=== PATIENT | male | born 1960 | race Caucasian/White ===

== ENCOUNTER 2022-04-30 02:19 | Outpatient (CLI) | payer BC, SELFPAY ==
--- OUTSIDE RECORDS SUMMARY | 2022-04-30 02:34 | XMS_ITS | Encounter Summary ---
:1960 Author Organization [facility] [place] [address] Care Team Providers Name Role Phone Tip Red DO Primary Care Provider Reason for Visit Reason Comments Establish Care NXR: RT KNEE INJECTION; W/C DOI 05.04.18 (conte/saturnino patient) Encounter Details Date Type Department Care Team Description 06/12/2021 Office Visit Orthopaedics at [facility] Julieta Matias Primary osteoarthritis [facility] JOSE Mitchell [place] [address] CENTER [phone] [place] [address] Social History Tobacco Use Types Packs/Day Years Used Date Smoking Tobacco: Never Smokeless Tobacco: Former Chew Qu it: 07/06/2000 Alcohol Use Standard Drinks/Week Comments Yes 0 (1 standard drink = 0.6 oz pure alcoho l) socially Sex Assigned at Date Recorded Not on file documented as of this encounter Last Filed Vital Signs Vital Sign Reading Time Taken Comments Blood Pressure 128/76 06/12/2021 9:31 AM EST Pulse - - Temperature - - Respiratory Rate - - Oxygen Saturation - - Inhaled Oxygen Concentration - - Weight 127 kg (280 lb) 06/12/2021 9:31 AM EST Height 167.6 cm (5' 6) 06/12/2021 9:31 AM EST Body Mass Index 45.19 06/12/2021 9:31 AM EST documented in this encounter Progress Notes Julieta Matias APRN - 06/12/2021 9:40 AM EST Chief complaint: symptomatic right knee OA. Work related. Problem List Items Addressed This Visit Primary osteoarthritis of right knee Relevant Medications triamcinolone acetonide (Kenalog-40) (40 mg/mL) injection 40 mg (Completed) (Start on 06/12/2021 10:15 AM) lidocaine (Xylocaine) 1% (10 mg/mL) injection 60 mg (Completed) (Start on 06/12/2021 10:15 AM) BUpivacaine (pf) (Marcaine) (2.5 mg/mL) 0.25% injection 12.5 mg (Completed) (Start on 06/12/2021 10:15 AM) Other Relevant Orders Bursa Inject - Major (Shoulder,hip,knee) History of present illness: Kushal Keane is a 60 y.o. year-old male who is here for above. Kushal is here seeking a right knee steroid injection as an adjunct to his treatment. It has been several months since his last injection. No new injuries or falls. He feels well today with no fevers or chills. No hx of untoward side effects from steroid injections. His blood glucose is stable. No other health related issues to report at this time. Past medical history: Patient Active Problem List Diagnosis Date Noted ??? Status post surgery 12/08/2020 ??? Abdominal pannus 09/25/2020 ??? Primary osteoarthritis of right knee 12/19/2019 ??? Chronic pain of right knee 12/19/2019 ??? 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 CIS - Entered not Verified 03/24/2010 ??? CIS - Diabetes ??? CIS - Gout ??? CIS - Hypertension ??? CIS - Right shoulder pain 10/28/2008 Medications: ??? lisinopril (PRINIVIL;ZESTRIL) 20 mg Tablet ??? metFORMIN (GLUCOPHAGE) 1,000 mg Tablet ??? aspirin 81 mg Tablet, Delayed Release (E.C.) ??? fish oil-omega-3 fatty acids 1,000 mg Capsule ??? loratadine (CLARITIN) 10 mg Tablet ??? pravastatin (PRAVACHOL) 40 mg Tablet ??? celecoxib (CELEBREX) 100 mg Capsule ??? FLUoxetine (PROZAC) 40 mg Capsule ??? multivitamin (THERAGRAN) Tablet ??? glucosamine sulfate 500 mg Tablet ??? allopurinol (ZYLOPRIM) 300 mg tablet ??? acetaminophen (TYLENOL) 325 mg tablet No current facility-administered medications for this visit. Allergies: No Known Allergies Social history: Social History Tobacco Use ??? Smoking status: Never Smoker ??? Smokeless tobacco: Former User Types: Chew Substance Use Topics ??? Alcohol use: Yes Comment: socially Review of systems: No chest pain or shortness of breath No fevers, night sweats or chills Questionnaire Responses: myD-H Hip & Knee 06/12/2021 PROMIS-10 General Health Good PROMIS-10 Quality of Life Good PROMIS-10 Physical Health Good PROMIS-10 Mental Health Very Good PROMIS-10 Social Activity and Relationship Satisfaction Good PROMIS-10 Social Roles at Home and Work Good PROMIS-10 Everyday Physical Activities Moderately PROMIS-10 Anxious or Depressed last 7 days Sometimes PROMIS-10 Fatigue last 7 days Mild PROMIS-10 Pain last 7 days 8 PROMIS PHYSICAL HEALTH SCORE (range 16-68) 39.8 PROMIS MENTAL HEALTH SCORE (range 21-68) 45.8 Vital signs: Temp: -- Vitals: 06/12/21 0931 BP: 128/76 Weight: 127 kg (280 lb) Height: 167.6 cm (5' 6) Body mass index is 45.19 kg/m??. Physical Exam: 60 year old Male in NAD Right knee exam: Small flexion contracture 5 to about 120 degrees of flexion. Pain medial joint line and PF joint. + varus alignment. SLR capability intact. Skin is warm, dry and well perfused. Imaging: No new images. Assessment: 60 y.o. year-old male with symptomatic right knee moderate OA tricompartmental with varus alignment. Work related injury. Plan: I reviewed my findings in the office today with both previous x-rays and clinical exam. At this time, Ok to proceed with a right knee steroid injection. See procedure below. Tolerated well. Post injection care reviewed. Ok to use OTC analgesics PRN. Cool packs. Relative rest for a few days post injection and then advance as pain and function allow. See below notation about frequent blood glucose monitoring post injection and call PCP or internal medicine provider for any significant rise in blood glucose. Pt agrees, questions solicited/answered, will return as scheduled and as needed for concerns or questions. Pt understands they may also call us prn for above. [facility] RTW forms completed. Ok to work full duty. The patient indicates understanding of these issues and agrees with the plan. Follow up: PRN. Sooner as necessary. PROCEDURE: Right knee steroid injection: ?? We discussed with the patient the risks of this procedure include, but are not limited to increased pain, infection, bleeding, increase in blood sugars, and steroid flare. A timeout was performed at the bedside. Patient confirmed name, , allergies, and site of injection. The injection site was marked over the supero-lateral border of the patella, and prepared with Dura-prep. Using sterile gloves, a local anesthetic injection was performed using 6 ccs of 1% plain Lidocaine on a 22 gauge needle followed by 40 mg of Kenalog with 4 mL of .25% Bupivacaine on a 22 gauge needle. The procedure was well tolerated. The injection site was covered cleaned with sterile gauze and covered with a sterile band-aid. We discussed monitoring for signs and symptoms of infection which includes fevers, chills, nightsweats, injection site redness and discharge, increase in knee pain, and red, hot, and swollen knee This plan was discussed with the patient and they are in agreement. All of the patient's questions were answered. documented in this encounter Plan of Treatment Not on filedocumented as of this encounter Visit Diagnoses Diagnosis Primary osteoarthritis of right knee Primary localized osteoarthrosis, lower leg documented in this encounter Administered Medications Inactive Administered Medications - up to 3 most recent administrations Medication Order MAR Action Action Date Dose Rate Site BUpivacaine (pf) (Marcaine) (2.5 Given 06/12/2021 10:01 AM EST 1 2.5 mg mg/mL) 0.25% injection 12.5 mg 12.5 mg, Intra-articular, ONCE, 1 dose, On Tue06/12/21 at 1015, Routine lidocaine (Xylocaine) 1% (10 mg/mL) injection Given 10:01 AM EST 60 mg 60 mg 60 mg, Intra-articular, ONCE, 1 dose, On Tue06/12/21 at 1015, Routine triamcinolone acetonide (Kenalog-40) (40 Given 06/12/2021 10:01 AM EST 40 mg mg/mL) injection 40 mg 40 mg, Intra-articular, ONCE, 1 dose, On Tue06/12/21 at 1015, Routine documented in this encounter Care Teams President And Ceo Relationship Specialty Start Date End Date Tip Red DO PCP - General Family Medicine 05/12/[address] [place] [phone] documented as of this encounter
--- OUTSIDE RECORDS SUMMARY | 2022-04-30 02:34 | XMS_ITS | Encounter Summary ---
:1960 Author Organization [facility] [place] [address] Care Team Providers Name Role Phone Tip Red DO Primary Care Provider Encounter Details Date Type Department Care Team Description 08/24/2021 TH Visit Plastic Surgery at [facility] Surge [facility] follow-up (TeleHealth) [facility] MAINTENANCE DEPARTMENT TECHNICIAN [facility] [address] [place], [place] PLASTIC SURGERY [address] [place] [address] [phone] Social History Tobacco Use Types Packs/Day Years Used Date Smoking Tobacco: Never Smokeless Tobacco: Former Chew Qu it: 07/06/2000 Alcohol Use Standard Drinks/Week Comments Yes 0 (1 standard drink = 0.6 oz pure alcoho l) socially Sex Assigned at Date Recorded Not on file documented as of this encounter Patient Instructions Patient InstructionsEvMadonna berg APRN - 08/24/2021 10:21 AM EDT Follow up: 3 weeks via telehealth. May shower and wash gently with soap and water. Pat dry, allow time to air dry. Apply Mepilex. Change every other day. documented in this encounter Progress Notes Madonna Schaefer APRN - 08/24/2021 8:40 AM EDT Plastic Surgery Follow-Up Note (Telehealth) Provider: Maryanne Schaefer APRN Reason for visit: F/U status post procedure; non healing wound at incision site Date of surgery: 12/08/20 Procedure(s): panniculectomy, monsplasty, and degloving and resurfacing the penis with skin graft (Nigriny) Complications: None reported HPI: Patient reports that his wound is getting more shallow since visit in our clinic. He ordered more mepilex from [facility]. Examination: Well appearing. 3 x 2 cm superficial open wound. Wound base appears healthy. No signs of infection. Impression: Kushal Keane is a 61 y.o. male who was seen today for follow-up after the above procedure. Please see the operative note for details. He has been doing well postoperatively. Plan: Follow up: 3 weeks via telehealth. May shower and wash gently with soap and water. Pat dry, allow time to air dry. Apply Mepilex. Change every other day. documented in this encounter Plan of Treatment Not on filedocumented as of this encounter Visit Diagnoses Diagnosis Surgery follow-up Follow-up examination, following unspeci fied surgery documented in this encounter Care Teams Video Tape Editor Relationship Specialty Start Date End Date Tip Red DO PCP - General Family Medicine 05/12/[address] [place] [phone] documented as of this encounter
--- OUTSIDE RECORDS SUMMARY | 2022-04-30 02:34 | XMS_ITS | Encounter Summary ---
:1960 Author Organization [facility] [place] [address] Care Team Providers Name Role Phone Neda Tip Ornelas Primary Care Provider Reason for Visit Reason Onset Date Comments Injections 12/01/2021 Encounter Details Date Type Department Care Team Description 12/01/2021 Telephone Orthopaedics at [facility] Dash Ruffin PA Injections [facility] [place] [address] ORTHOPAEDIC SURGERY [phone] [place], [place] [address] (Wo rk) Social History Tobacco Use Types Packs/Day Years Used Date Smoking Tobacco: Never Smokeless Tobacco: Former Chew Qu it: 07/06/2000 Alcohol Use Standard Drinks/Week Comments Yes 0 (1 standard drink = 0.6 oz pure alcoho l) socially Sex Assigned at Date Recorded Not on file documented as of this encounter Miscellaneous Notes Telephone Encounter - Esau Liang - 12/01/2021 4:29 PM EDTSummary: Schedule Patient called back and was able to make the appt 12/16/21 at 9am with Lion mock, scheduled him in that slot. Telephone Encounter - Amanda Hassan - 12/01/2021 4:10 PM EDT I called patient and offered him several options for scheduling an injection. Patient was only available on very specific days. He did not want to schedule in any open slots. Telephone Encounter - Maggie Flanagan - 12/01/2021 9:51 AM EDTSummary: INJECTION NEEDED PATEINT IS REQUESTING AN INJECTION. He has seen Beulah Matias and Lion Ruffin in the past. I did not see anything for them in a timely fashion. He also wants to discuss surgical options. This is W/C. Could you recommend some times either might have that I many have missed? Patient states he is almost at the point of not being able to walk. Thank you. Best phone # to reach patient for [phone] Best days/times to schedule the appointment: FRANCIS Is it acceptable to leave a voicemail message with your appointment if we are unable to reach you directly? YES If no, what is an alternative phone number to call? [phone] Patient requests appointment for injection of the Right knee. What type of injection? Lyle NOTE: If this is a request for a fluoro guided injection, please ask the safety questions (use .fluoroschedquestion dot phrase) I will send this request to the Clinical Support team for review. Some injections require prior authorization, special orders, or an appointment somewhere other than our clinic, so knowing this in advance will help us to better meet your needs. If the injection requires prior authorization, it may take 14 or more business days before we can schedule your appointment. As soon as this service approved by the clinical support team, we will call you to schedule the appointment. Please send to the appropriate team pool to schedule documented in this encounter Plan of Treatment Not on filedocumented as of this encounter Visit Diagnoses Not on filedocumented in this encounter Care Teams Relationship Specialist Relationship Specialty Start Date End Date Tip Red DO PCP - General Family Medicine 05/12/[address] [place] [phone] documented as of this encounter
--- OUTSIDE RECORDS SUMMARY | 2022-04-30 02:34 | XMS_ITS | Encounter Summary ---
:1960 Author Organization [facility] [place] [address] Care Team Providers Name Role Phone Tip eRd DO Primary Care Provider Encounter Details Date Type Department Care Team Description 03/12/2021 Telephone [place] [facility] Arias Metcalf III, MD [facility] [place] [address] [place] [address] [phone] (Wo rk) Social History Tobacco Use Types Packs/Day Years Used Date Smoking Tobacco: Never Smokeless Tobacco: Former Chew Qu it: 07/06/2000 Alcohol Use Standard Drinks/Week Comments Yes 0 (1 standard drink = 0.6 oz pure alcoho l) socially Sex Assigned at Date Recorded Not on file documented as of this encounter Miscellaneous Notes Telephone Encounter - Mikey Gamboa - 03/12/2021 1:42 PM EDT LMOM x1 to schedule follow up with Dr. Metcalf in March documented in this encounter Plan of Treatment Not on filedocumented as of this encounter Visit Diagnoses Not on filedocumented in this encounter Care Teams Director Of Knowledge Management Relationship Specialty Start Date End Date Tip Red DO PCP - General Family Medicine 05/12/18 [address] [place] [phone] documented as of this encounter
--- OUTSIDE RECORDS SUMMARY | 2022-04-30 02:34 | XMS_ITS | Encounter Summary ---
:1960 Author Organization [facility] [place] [address] Care Team Providers Name Role Phone Tip Red DO Primary Care Provider Encounter Details Date Type Department Care Team Description 11/02/2021 TH Visit Plastic Surgery at [facility] Surge ry follow-up (TeleHealth) [facility] ADULT LITERACY INSTRUCTOR [facility] [address] [place], [place] PLASTIC SURGERY [address] [place] [address] [phone] Social History Tobacco Use Types Packs/Day Years Used Date Smoking Tobacco: Never Smokeless Tobacco: Former Chew Qu it: 07/06/2000 Alcohol Use Standard Drinks/Week Comments Yes 0 (1 standard drink = 0.6 oz pure alcoho l) socially Sex Assigned at Date Recorded Not on file documented as of this encounter Patient Instructions Patient InstructionsEvMadonna berg APRN - 11/02/2021 8:13 AM EDT Follow up: 2 weeks with PCP or wound center closer to home. Follow up in our office if unable to find wound care closer to home. Application of silver nitrate today. Continue mepilex dressing changes every other day until seen by wound care closer to home. documented in this encounter Progress Notes Madonna Schaefer APRN - 11/02/2021 8:00 AM EDT Plastic Surgery Follow-Up Note (Telehealth) Provider: Madonna Schaefer APRN Reason for visit: F/U status post procedure Date of surgery: 12/08/20 Procedure(s): panniculectomy, monsplasty, and degloving and resurfacing the penis with skin graft (Nigriny) Complications: delayed healing HPI: Patient reports being well. His wound is improving. Examination: 2 x 1 cm open area. healthy appearing wound base. No signs of infection. Impression: Kushal Keane is a 61 y.o. male with delayed healing who was seen today for follow upafter the above procedure. Wound improving. Plan: Follow up: 2 weeks with PCP or wound center closer to home. Follow up in our office if unable to find wound care closer to home. Application of silver nitrate today. Continue mepilex dressing changes every other day until seen by wound care closer to home. documented in this encounter Plan of Treatment Not on filedocumented as of this encounter Visit Diagnoses Diagnosis Surgery follow-up Follow-up examination, following unspeci fied surgery documented in this encounter Care Teams Repair Department Supervisor Relationship Specialty Start Date End Date Tip Red DO PCP - General Family Medicine 05/12/[address] [place] [phone] documented as of this encounter
--- OUTSIDE RECORDS SUMMARY | 2022-04-30 02:34 | XMS_ITS | Encounter Summary ---
:1960 Author Organization [facility] [place] [address] Care Team Providers Name Role Phone Tip Rde DO Primary Care Provider Encounter Details Date Type Department Care Team Description 12/24/2020 Clinical [address] [facility] [facility] [place] [address] Social History Tobacco Use Types Packs/Day Years Used Date Smoking Tobacco: Never Smokeless Tobacco: Former Chew Qu it: 07/06/2000 Alcohol Use Standard Drinks/Week Comments Yes 0 (1 standard drink = 0.6 oz pure alcoho l) socially Sex Assigned at Date Recorded Not on file documented as of this encounter Progress Notes Francis Mcfarland LPN - 12/24/2020 10:00 AM EDT Patient presents today for a voiding trial and catheter removal s/p panniculectomy . The patient is on Bactrim DS twice a day. All incisions well approximated. No signs of infection noted. Procedure: 120 ml normal saline instilled via black catheter. Balloon deflated. Black gently removed. Patient voided 120 ml's. All instructions and literature reviewed with patient. Patient verbalized understanding of instructions. PVR: 23cc measured in the supine position with the bladder scanner shortly after the patient had voided. documented in this encounter Plan of Treatment Not on filedocumented as of this encounter Visit Diagnoses Diagnosis Acquired buried penis Other specified disorder of penis documented in this encounter Care Teams Snout Puller Relationship Specialty Start Date End Date Tip Red DO PCP - General Family Medicine 05/12/[address] [place] [phone] documented as of this encounter
--- OUTSIDE RECORDS SUMMARY | 2022-04-30 02:34 | XMS_ITS | Encounter Summary ---
:1960 Author Organization [place] [address] Care Team Providers Name Role Phone Tip Red DO Primary Care Provider Reason for Visit Reason Comments Follow-up Encounter Details Date Type Department Care Team Description 05/05/2021 Office Visit Urology [place] [facility] Arias Metcalf Acquired buried penis [facility] [place] [address] [place] [address] [place] [address] [phone] Social History Tobacco Use Types Packs/Day Years Used Date Smoking Tobacco: Never Smokeless Tobacco: Former Chew Qu it: 07/06/2000 Alcohol Use Standard Drinks/Week Comments Yes 0 (1 standard drink = 0.6 oz pure alcoho l) socially Sex Assigned at Date Recorded Not on file documented as of this encounter Last Filed Vital Signs Vital Sign Reading Time Taken Comments Blood Pressure 123/73 05/05/2021 2:19 PM EST Pulse 82 05/05/2021 2:19 PM EST Temperature - - Respiratory Rate - - Oxygen Saturation - - Inhaled Oxygen Concentration - - Weight - - Height - - Body Mass Index - - documented in this encounter Progress Notes Kaylah Hill MD - 05/05/2021 1:40 PM EST Urology Outpatient Progress Note Abdirahman is a 60 y.o. gentleman who underwent a buried penis repair/panniculectomy with plastic surgery and a dorsal slit circumcision on 12/08/20. ?? He was seen by the plastic surgical today. The reportedly have no concerns. He was last seen by urology on 01/21/21 at which time he was noted to have some narrowing of the meatus. He think this is about the same. He reports a good stream and has no urinary complaints. He is able to stand to void. He has partial erections, but is not bothered by his ED. General: well appearing, NAD Abdomen: transverse lower abdominal incision, mildline area of superficial tear, but otherwise intact and well-healing Penis: good graft uptake, well healed, meatus is patent but mild meatal stenosis is noted. Assessment: Status post penile degloving and split-thickness skin graft resurfacing with a panniculectomy. Some meatal stenosis which is asymptomatic. We will plan to see him back in one year. If he develops obstructive lower urinary tract symptoms related to urethral stricture or meatal stenosis he will need to be seen on a more urgent basis. Plan: F/u in one year Kaylah Hill MD ?? Arias Metcalf III, MD - 05/05/2021 1:40 PM EST I have seen and examined Mr. Keane and agree with the assessment and recommendations for f/u. documented in this encounter Plan of Treatment Not on filedocumented as of this encounter Visit Diagnoses Diagnosis Acquired buried penis Other specified disorder of penis documented in this encounter Care Teams Head Cager Relationship Specialty Start Date End Date Tip Red DO PCP - General Family Medicine 05/12/[address] [place] [phone] documented as of this encounter
--- OUTSIDE RECORDS SUMMARY | 2022-04-30 02:34 | XMS_ITS | Encounter Summary ---
:1960 Author Organization [facility] [place] [address] Care Team Providers Name Role Phone Tip Red DO Primary Care Provider Encounter Details Date Type Department Care Team Description 09/14/2021 TH Visit Plastic Surgery at [facility] Surge ry follow-up (TeleHealth) [facility] Formerly [facility], [facility] [address], [place] PLASTIC SURGERY [id number] [place] [address] [phone] Social History Tobacco Use Types Packs/Day Years Used Date Smoking Tobacco: Never Smokeless Tobacco: Former Chew Qu it: 07/06/2000 Alcohol Use Standard Drinks/Week Comments Yes 0 (1 standard drink = 0.6 oz pure alcoho l) socially Sex Assigned at Date Recorded Not on file documented as of this encounter Patient Instructions Patient InstructionsEvMadonna berg APRN - 09/14/2021 8:54 AM EDT Follow up: 1 month in clinic, call to change to telehealth if wound is getting smaller. Dressing changes every 2-3 days with mepilex border. Shower and wash wound gently with soap and water between dressing changes. documented in this encounter Progress Notes Madonna Schaefer APRN - 09/14/2021 8:40 AM EDT Plastic Surgery Follow-Up Note (Telehealth) Maryanne Schaefer APRN Reason for visit: F/U status post procedure; non healing wound at incision site Date of surgery: 12/08/20 Procedure(s): panniculectomy, monsplasty, and degloving and resurfacing the penis with skin graft (Nigriny) Complications: delayed healing HPI: Patient reports being well. The wound dimensions are unchanged though he and his feel the wound is getting more shallow and there area george where the skin is growing over. Examination: Well appearing. Superficial wound with 100% healthy granulation tissue in base. No signs of infection. Impression: Kushal Keane is a 61 y.o. male who was seen today via telemedicine for follow up after the above procedure. Delayed healing centrally. Healthy appearing wound. Plan: Follow up: 1 month in clinic, call to change to telehealth if wound is getting smaller. Dressing changes every 2-3 days with mepilex border. Shower and wash wound gently with soap and water between dressing changes. DOCUMENTATION FOR TELEMEDICINE FOLLOW-UP This patient is under my care. I had a face to face encounter that meets the physician face to face encounter requirements with this patient today, I performed the services in this encounter. MADONNA VASQUEZ APRN. documented in this encounter Plan of Treatment Not on filedocumented as of this encounter Visit Diagnoses Diagnosis Surgery follow-up Follow-up examination, following unspeci fied surgery documented in this encounter Care Teams Retail Event Assistant Relationship Specialty Start Date End Date Tip Red DO PCP - General Family Medicine 05/12/[address] [place] [phone] documented as of this encounter
--- OUTSIDE RECORDS SUMMARY | 2022-04-30 02:34 | XMS_ITS | Encounter Summary ---
:1960 Author Organization [facility] [place] [address] Care Team Providers Name Role Phone Tip Red DO Primary Care Provider Reason for Visit Reason Comments Follow-up 12/08/20 panni, mons plasty a nd degloving and resurfacing the penis with skin graft (Nigriny) Concern for opening on incision Encounter Details Date Type Department Care Team Description 08/06/2021 Office Visit Plastic Surgery at [facility] Madonna Schaefer, [place] [phone] PLASTIC SURGERY [place], [place] [address] (Wo rk) Social History Tobacco Use Types Packs/Day Years Used Date Smoking Tobacco: Never Smokeless Tobacco: Former Chew Qu it: 07/06/2000 Alcohol Use Standard Drinks/Week Comments Yes 0 (1 standard drink = 0.6 oz pure alcoho l) socially Sex Assigned at Date Recorded Not on file documented as of this encounter Patient Instructions Patient InstructionsIsaiah White PA - 08/06/2021 10:45 AM EST Follow up: 3 weeks via telehealth. Patient was advised to keep the area clean and dry. Apply mepilex ag border dressing q3 days. Patient was provided with some supplies and a request has been sent to his insurance to provide the patient with supplies at home. documented in this encounter Progress Notes Isaiah White PA - 08/06/2021 10:00 AM EST Images from the original note were not included. Plastic Surgery Follow-Up Note Provider: CHANG Rutledge Reason for visit: F/U status post procedure; non healing wound at incision site Date of surgery: 12/08/20 Procedure(s): panniculectomy, monsplasty, and degloving and resurfacing the penis with skin graft (Nigriny) Complications: None reported HPI: Patient reports he has been doing well since he's surgery. He presents with complaints of a nonhealing wound that has been present since surgery. He states it has grown a bit larger with time butotherwise has remained a stable and shallow wound. He denies any purulence or signs of infection. Hestates it has been difficult to heal as it is directly on his belt line and it rubs up against his clothing. His is a school nurse and has been helping with daily dressing changes. He has been using gauze and tape. Examination: Patient is alert, conversant, comfortable, ambulating 2.0 cm x 1.4 cm shallow abdominal wound at the midline of his incision site. There is healthy granulation at the base. No signs of infection. No malodorous or purulent drainage. Photos 08/06/21 Impression: Kushal Keane is a 60 y.o. male who was seen today for follow-up after the above procedure. Please see the operative note for details. He has been doing well postoperatively. Although, he continues to have a non healing shallow wound at the midline of his incision site. Plan: Follow up: 3 weeks via telehealth. Patient was advised to keep the area clean and dry. Apply mepilex ag border dressing q3 days. Patient was provided with some supplies and a request has been sent to his insurance to provide the patient with supplies at home. IJulieta, have performed the documentation for this encounter in the presence of and acting as a scribe for CHANG Rutledge . documented in this encounter Plan of Treatment Not on filedocumented as of this encounter Visit Diagnoses Diagnosis Surgery follow-up Follow-up examination, following unspeci fied surgery documented in this encounter Care Teams Product Technician Relationship Specialty Start Date End Date Tip Red DO PCP - General Family Medicine 05/12/[address] [place] [phone] documented as of this encounter
--- OUTSIDE RECORDS SUMMARY | 2022-04-30 02:34 | XMS_ITS | Encounter Summary ---
:1960 Author Organization [facility] [place] [address] Care Team Providers Name Role Phone Tip Red DO Primary Care Provider Reason for Visit Reason Comments Follow-up 12/08/20 wilberto cokerplasty Encounter Details Date Type Department Care Team Description 01/19/2021 Office Visit Plastic Surgery at [facility] Chasidy Souza, Surgery follow-up [facility] [employer] [place] [phone] [place], [place] [address] (Wo rk) Social History Tobacco Use Types Packs/Day Years Used Date Smoking Tobacco: Never Smokeless Tobacco: Former Chew Qu it: 07/06/2000 Alcohol Use Standard Drinks/Week Comments Yes 0 (1 standard drink = 0.6 oz pure alcoho l) socially Sex Assigned at Date Recorded Not on file documented as of this encounter Progress Notes Chasidy Souza, TACTICAL AIR CONTROL PARTY MANAGER - 01/19/2021 11:00 AM EDT Plastic Surgery Post Op Note Reason for visit: F/U status post procedure Date of surgery: 12/08/20 Procedure(s): panniculectomy, monsplasty, and degloving and resurfacing the penis with skin graft (Nigriny) Complications: None reported HPI: Pt reports to clinic for follow up for delayed wound healing. His is present at todays visit who has been providing the wound care for him. Examination: Patient is alert, conversant, comfortable, ambulating Incision: CDI, healing well. Wound to lateral left incision [id number] with evidence of adipose tissue at base Skin graft donor site well healed, hyperemic No collection, no erythema, no evidence of cellulitis. Impression: Kushal Keane is a 60 y.o. male who was seen today for follow-up after the above procedure. Please see the operative note for details. He is doing well without complaints. Healing as expected Plan: Follow up: 3 weeks Work note provided today Continue Wet to dry dressing BID documented in this encounter Plan of Treatment Not on filedocumented as of this encounter Visit Diagnoses Diagnosis Surgery follow-up Follow-up examination, following unspeci fied surgery documented in this encounter Care Teams Assembler Surgical Garment Relationship Specialty Start Date End Date Tip Red DO PCP - General Family Medicine 05/12/[address] [place] [phone] documented as of this encounter
--- OUTSIDE RECORDS SUMMARY | 2022-04-30 02:34 | XMS_ITS | Encounter Summary ---
:1960 Author Organization [place] [address] Care Team Providers Name Role Phone Neda Tip Ceci HALL Primary Care Provider Reason for Visit Reason Comments Follow Up Surgery s/p panni, monsplasty - not doing wet to dry anymore, does have a spot at the base of his peni s that he would like looked at Encounter Details Date Type Department Care Team Description 02/11/2021 Office Visit Plastic Surgery at [facility] Madonna Schaefer[facility] [place] [phone] PLASTIC SURGERY [place], [place] [address] (Wo rk) Social History Tobacco Use Types Packs/Day Years Used Date Smoking Tobacco: Never Smokeless Tobacco: Former Chew Qu it: 07/06/2000 Alcohol Use Standard Drinks/Week Comments Yes 0 (1 standard drink = 0.6 oz pure alcoho l) socially Sex Assigned at Date Recorded Not on file documented as of this encounter Patient Instructions Patient InstructionsMadonna Schaefer APRN - 02/11/2021 8:20 AM EDT Follow up: 3 weeks Daily dressing changes. Interdry around base of penis. Nugauze packing into abdominal opening. May shower and wash all areas gently with soap and water between dressing changes. Pat dry, allow time to air dry. Then reapply bandages. documented in this encounter Progress Notes Madonna Schaefer APRN - 02/11/2021 8:20 AM EDT Plastic Surgery Follow-Up Note Provider: Madonna Schaefer APRN Reason for visit: F/U status post procedure Date of surgery: 12/08/20 Procedure(s): panniculectomy, monsplasty, and degloving and resurfacing the penis with skin graft (Nigriny) Complications: None reported HPI: Pt reports to clinic for follow up for delayed wound healing. He reports improvement in his wound. He had been packing the abdominal wound until a couple of days ago when it became hard to get thepacking in. He has been apply interdry around the base of his penis. Examination: Patient is alert, conversant, comfortable, ambulating Umbilicus well perfused. Umbilicus inset healing well. Abdominal incision intact with exception of one area on left lateral side of incision. 1 cm round opening, 2 cm deep. Serous drainage, no surrounding erythema. Base of penis with superficial opening up to 3 mm wide. Impression: Kushal Keane is a 60 y.o. male who was seen today for follow-up after the above procedure. Please see the operative note for details. He is doing well without complaints. Wounds improving with wound care. Plan: Follow up: 3 weeks Daily dressing changes. Interdry around base of penis. Nugauze packing into abdominal opening. May shower and wash all areas gently with soap and water between dressing changes. Pat dry, allow time to air dry. Then reapply bandages. documented in this encounter Plan of Treatment Not on filedocumented as of this encounter Visit Diagnoses Diagnosis Surgery follow-up Follow-up examination, following unspeci fied surgery documented in this encounter Care Teams Podiatrist Orthopedic Relationship Specialty Start Date End Date Tip Red DO PCP - General Family Medicine 05/12/[address] [place] [phone] documented as of this encounter
--- OUTSIDE RECORDS SUMMARY | 2022-04-30 02:34 | XMS_ITS | Encounter Summary ---
:1960 Author Organization [facility] [place] [address] Care Team Providers Name Role Phone Tip Red Primary Care Provider Reason for Visit Reason Comments Follow Up Surgery wound on left side abdominal incision - does have some brown discharge Encounter Details Date Type Department Care Team Description 01/08/2021 Clinical Support Plastic Surgery at [facility] [place] [phone] Social History Tobacco Use Types Packs/Day Years Used Date Smoking Tobacco: Never Smokeless Tobacco: Former Chew Qu it: 07/06/2000 Alcohol Use Standard Drinks/Week Comments Yes 0 (1 standard drink = 0.6 oz pure alcoho l) socially Sex Assigned at Date Recorded Not on file documented as of this encounter Progress Notes Saranya Pandya RN - 01/08/2021 3:00 PM EDT Images from the original note were not included. Plastic Surgery Nursing Visit Reason for visit: Patient and present for new opening along abdominal incision. Concern for infection Panel 1: ?* Esdras Castellanos MD - Primary ?* Sarah Dodson MD - Resident ?* Kim Garay MD - Resident ??Procedure(s): PANNICULECTOMY, EXC EXCESSIVE SKIN & SUBQ TISSUE, MON PUBIS (WRVU 10.5) DRESSING CHANGE (FOR OTHER THAN WILKINS) UNDER ANES., ABDOMEN (WRVU 0.86) SPLIT THICK SKIN GRAFT,100 SQ CM OR LESS, TRUNK (WRVU 9.9) MODIFIER WOUND VAC Subjective: uKshal states he has mild discomfort. Kushal is happy with results. States 3 days ago incision opened and had drainage. No fevers. Feels well Objective: Swelling mild left lower edge of abdominal incision Bruising no Incision lines are well approximated with small opening left incsional line Erythema noted lower aspect left abdominal incision Patient seen by Tamar Souza APRN. Start wet to dry dressing. Keflex QID x 10 days sent to pharmacy. Assessment: delayed healing,erythema. No fluid collection. Plan: Keflex QID x 10 days Wet to dry dressing twice daily Follow up as scheduled on 01/19 Kushal and his expressed understanding of instructions,and agrees with the plan of care. documented in this encounter Plan of Treatment Not on filedocumented as of this encounter Visit Diagnoses Diagnosis Surgery follow-up Follow-up examination, following unspeci fied surgery documented in this encounter Care Teams Hydro Generation Supervisor Relationship Specialty Start Date End Date Tip Red DO PCP - General Family Medicine 05/12/[address] [place] [phone] documented as of this encounter
--- OUTSIDE RECORDS SUMMARY | 2022-04-30 02:34 | XMS_ITS | Encounter Summary ---
:1960 Author Organization [facility] [place] [address] Care Team Providers Name Role Phone Tip Red DO Primary Care Provider Reason for Visit Reason Comments Follow-up S/p Panniculectomy 12/08/20 J N Encounter Details Date Type Department Care Team Description 12/24/2020 Clinical Support Plastic Surgery at [facility] [place] [phone] Social History Tobacco Use Types Packs/Day Years Used Date Smoking Tobacco: Never Smokeless Tobacco: Former Chew Qu it: 07/06/2000 Alcohol Use Standard Drinks/Week Comments Yes 0 (1 standard drink = 0.6 oz pure alcoho l) socially Sex Assigned at Date Recorded Not on file documented as of this encounter Patient Instructions Patient InstructionsVerónica Palumbo RN - 12/24/2020 9:00 AM EDT Signs of Infection : A temperature over 100.4 F or 38 C. Redness at the incision line that is beginning to spread away from the incision after the first 48 hours. Yellow pus-like or foul smelling drainage larger than a dime size from the incision or drain sites. Increased pain / discomfort that is not relieved by your pain medicine such as extra strength tylenol, or NSAIDS For any of these symptoms please call our nurse's line at [phone] M - F 8 - 5 For after hours, and on weekends; Call [phone] and ask for our plastic surgeon neonatal social worker Dressing instructions: Regular lotion to donor site daily after shower Light coat of aquaphor to skin graft daily unless it is too moist. documented in this encounter Progress Notes Verónica Palumbo RN - 12/24/2020 9:00 AM EDT Reason for Visit: Postoperative Evaluation s/p Surgeon(s) and Role: 12/08/20 Panel 1: ?* Esdras Castellanos MD - Primary ?* Sarah Dodson MD - Resident ?* Kim Garay MD - Resident Panel 2: ?* Arias Metcalf III, MD - Primary ?* Esau Grover MD - Resident: ?Procedure(s): PANNICULECTOMY EXC EXCESSIVE SKIN & SUBQ TISSUE, MON PUBIS (WRVU 10.5) DRESSING CHANGE (FOR OTHER THAN WILKINS) UNDER ANES., ABDOMEN (WRVU 0.86) SPLIT THICK SKIN GRAFT,100 SQ CM OR LESS, TRUNK (WRVU 9.9) MODIFIER WOUND VAC POD # 16 Kushal is here for an incision check and donor site removal, stapel removal. He is here with his . Subjective: Kushal states he has no discomfort, he states has had good relief from extra strength tylenol and motrin. Objective: Abdominal incision well approximated. Mild swelling bilaterally [place] removed supra pubic area Skin graft 100% take Donor site dressing removed. 100% healed His has been doing his dressings Assessment: No signs of delayed healing,erythema,or fluid collection.Incisions CDI. Skin graft intact Plan: Dressing instructions: Regular lotion to donor site daily after shower Light coat of aquaphor to skin graft daily unless it is too moist. Kushal and his expressed understanding of instructions,and agrees with the plan of care. Follow up in four weeks with HOT DOG VENDOR for potential back to work note. documented in this encounter Plan of Treatment Not on filedocumented as of this encounter Visit Diagnoses Diagnosis Surgery follow-up Follow-up examination, following unspeci fied surgery documented in this encounter Care Teams Watch Repair Person Relationship Specialty Start Date End Date Tip Red DO PCP - General Family Medicine 05/12/[address] [place] [phone] documented as of this encounter
--- OUTSIDE RECORDS SUMMARY | 2022-04-30 02:34 | XMS_ITS | Encounter Summary ---
:1960 Author Organization [facility] [place] [address] Care Team Providers Name Role Phone Tip Red DO Primary Care Provider Encounter Details Date Type Department Care Team Description 09/14/2021 Telephone Plastic Surgery at [facility] [place] [phone] Social History Tobacco Use Types Packs/Day Years Used Date Smoking Tobacco: Never Smokeless Tobacco: Former Chew Qu it: 07/06/2000 Alcohol Use Standard Drinks/Week Comments Yes 0 (1 standard drink = 0.6 oz pure alcoho l) socially Sex Assigned at Date Recorded Not on file documented as of this encounter Plan of Treatment Not on filedocumented as of this encounter Visit Diagnoses Not on filedocumented in this encounter Care Teams Burlapper Relationship Specialty Start Date End Date Tip Red DO PCP - General Family Medicine 05/12/18 [address] [place] [phone] documented as of this encounter
--- OUTSIDE RECORDS SUMMARY | 2022-04-30 02:34 | XMS_ITS | Encounter Summary ---
:1960 Author Organization [facility] [address] Care Team Providers Name Role Phone Tip Red DO Primary Care Provider Encounter Details Date Type Department Care Team Description 10/19/2021 TH Visit Plastic Surgery at [facility] Surge ry follow-up (TeleHealth) [facility]ESS[facility] OF PUBLIC ADMINISTRATION [facility] [address], [place] PLASTIC SURGERY [phone] [place] [address] [phone] Social History Tobacco Use Types Packs/Day Years Used Date Smoking Tobacco: Never Smokeless Tobacco: Former Chew Qu it: 07/06/2000 Alcohol Use Standard Drinks/Week Comments Yes 0 (1 standard drink = 0.6 oz pure alcoho l) socially Sex Assigned at Date Recorded Not on file documented as of this encounter Progress Notes Madonna Schaefer APRN - 10/19/2021 8:20 AM EDT Plastic Surgery Follow-Up Note (Telehealth) Provider: Madonna Schaefer APRN Reason for visit: F/U status post procedure Date of surgery: 12/08/20 Procedure(s): panniculectomy, monsplasty, and degloving and resurfacing the penis with skin graft (Nigriny) Complications: delayed healing HPI: Patient reports that he has been well. , who has been helping with dressing changes, present for visit. She reports wound improvement since last visit. Examination: Well appearing. Wound with hypergranulation tissue in base - treated with silver nitrate by during visit. No signs of infection. Impression: Kushal Keane is a 61 y.o. male with delayed healing who was seen today for follow upafter the above procedure. Hypergranulating wound in central abdomen. Treated with silver nitrate today. Plan: Follow up: 2 weeks via telehealth. Leave dry dressing on for 24 hours. Dressing changes every 2-3 days with mepilex border. Shower and wash wound gently with soap and water between dressing changes. documented in this encounter Plan of Treatment Not on filedocumented as of this encounter Visit Diagnoses Diagnosis Surgery follow-up Follow-up examination, following unspeci fied surgery documented in this encounter Care Teams Gas Distribution Supervisor Relationship Specialty Start Date End Date Tip Red DO PCP - General Family Medicine 05/12/[address] [place] [phone] documented as of this encounter
--- OUTSIDE RECORDS SUMMARY | 2022-04-30 02:34 | XMS_ITS | Encounter Summary ---
:1960 Author Organization [facility] [place] [address] Care Team Providers Name Role Phone Tip Red DO Primary Care Provider Reason for Referral Surgical (Routine) - New Request Specialty Diagnoses / Procedures Referred By Contact Refer red To Contact Diagnoses Primary osteoarthritis of right knee Dash Ruffin, PA Procedures Bursa Inject - Major (Shoulder,hip,knee) [facility] [place] [address] Referral ID Status Reason Start Expiration Visits Visits Date Date Requested Authorized [id number] New Request Consult, 12/16/2021 12/16/2022 1 1 Test & Treat Reason for Visit Reason Comments Follow-up R KNEE CORTISONE INJ W/C 05/04/18 Encounter Details Date Type Department Care Team Description 12/16/2021 Office Visit Orthopaedics at [facility] Dash Ruffin, Primary osteoarthritis [facility] PA of right knee ([address] [facility] ) [place] [address] [facility] [phone] [place] [address] Social History Tobacco Use Types Packs/Day Years Used Date Smoking Tobacco: Never Smokeless Tobacco: Former Chew Qu it: 07/06/2000 Alcohol Use Standard Drinks/Week Comments Yes 0 (1 standard drink = 0.6 oz pure alcoho l) socially Sex Assigned at Date Recorded Not on file documented as of this encounter Last Filed Vital Signs Vital Sign Reading Time Taken Comments Blood Pressure 138/76 12/16/2021 8:31 AM EDT Pulse 86 12/16/2021 8:31 AM EDT Temperature - - Respiratory Rate - - Oxygen Saturation - - Inhaled Oxygen Concentration - - Weight 127 kg (280 lb) 12/16/2021 8:31 AM EDT Height 167.6 cm (5' 6) 12/16/2021 8:31 AM EDT Body Mass Index 45.19 12/16/2021 8:31 AM EDT documented in this encounter Progress Notes Dash Ruffin PA - 12/16/2021 9:00 AM EDT Kushal Keane is a 61 year old male who presents today for repeat right knee injection. His last knee injection was in May of this year. Patient again reports a moderate amount of relief from this injection. Unfortunately, his knee became increasingly painful several months after the injection.He notes since this initial flare, the pain has been waxing and waning again. He has weightbearing pain, specifically in the front and on the inside of his knee. He has had multiple injections, and inquires about continuing with these versus a total knee replacement. We discussed her intention is to exhaust conservative care until these injections have no effect, and his symptoms are progressive, limiting, compromising his functional capacity. He is receptive to this. We discussed that he is young, he is also morbidly obese which put him at risk for revision as well as other complications. He has lost a significant amount of weight however. That being said, his radiographs from 2018 shows severe medial compartment osteoarthropathy. We discussed that repeating these films would be helpful in characterizing progression of the disease, regardless recommend repeat injection if the last 1 was successful. He is receptive to this and he elects to proceed. A timeout was performed, confirming the patient's name, , procedure, laterality, and allergies. The patient elects to proceed. The patient understands to call with any post-procedure difficulties. Right knee injection: We discussed with the patient the risks [...] a local anesthetic injection was performed using 4 ccs of 1% plain Lidocaine on a 27 gauge needle followed by 40 mg of Kenalog with 4 mL of .25% Bupivicaine on a 22 gauge needle. The procedure was well tolerated. The injection site was covered cleaned with sterile gauze and covered with a sterile band-aid. We discussed monitoring for signs and symptoms of infection which includes fevers, chills, nightsweats, injection site redness and discharge, increase in knee pain, and red, hot, and swollen knee. documented in this encounter Plan of Treatment Scheduled Orders Name Type Priority Associated Diagnoses Order S chedule Bursa Inject - Procedures Routine Primary osteoarthritis of Expected: Major right knee 12/16/2021, Exp ires: (Shoulder,hip,knee) 06/17/19 23 documented as of this encounter Visit Diagnoses Diagnosis Primary osteoarthritis of right knee - P rimary Primary localized osteoarthrosis, lower leg documented in this encounter Administered Medications Inactive Administered Medications - up to 3 most recent administrations Medication Order MAR Action Action Date Dose Rate Site BUpivacaine (pf) (Marcaine) (2.5 Given 12/16/2021 9:01 AM EDT 10 mg mg/mL) 0.25% injection 10 mg 10 mg, Intra-articular, ONCE, 1 dose, On Tue12/16/21 at 0930, Routine lidocaine (Xylocaine) 1% (10 mg/mL) injection Given 9:01 AM EDT 40 mg 40 mg 40 mg, Intra-articular, ONCE, 1 dose, On Tue12/16/21 at 0930, Routine triamcinolone acetonide (Kenalog-40) (40 Given 12/16/2021 9:02 A M EDT 40 mg mg/mL) injection 40 mg 40 mg, Intra-articular, ONCE, 1 dose, On Tue12/16/21 at 0930, Routine documented in this encounter Care Teams Grout Pump Operator Relationship Specialty Start Date End Date Tip Red DO PCP - General Family Medicine 05/12/[address] [place] [id number] documented as of this encounter
--- OUTSIDE RECORDS SUMMARY | 2022-04-30 02:34 | XMS_ITS | Clinical Summary ---
:1960 Author Organization [facility] [place] [address] Care Team Providers Name Role Phone Tip Red DO Primary Care Provider Allergies No known active allergies Medications Medication Sig Dispensed Refills Start Date End Date Status allopurinol (ZYLOPRIM) 0 07/23/2010 Active 300 mg tablet acetaminophen (TYLENOL) 0 07/23/2010 Active 325 mg tablet lisinopril Take 20 mg by 0 Activ e (PRINIVIL;ZESTRIL) 20 mg mouth daily. Tablet metFORMIN (GLUCOPHAGE) Take 1,000 mg by 0 Active 1,000 mg Tablet mouth 2 times daily (with meals). aspirin 81 mg Tablet, Take 81 mg by 0 Active Delayed Release (E.C.) mouth daily. fish oil-omega-3 fatty Take 2 g by 0 Active acids 1,000 mg Capsule mouth daily. loratadine (CLARITIN) 10 Take 10 mg by 0 Active mg Tablet mouth daily. pravastatin (PRAVACHOL) Take 40 mg by 0 Active 40 mg Tablet mouth daily. celecoxib (CELEBREX) 100 Take 100 mg by 0 Active mg Capsule mouth 2 times daily. FLUoxetine (PROZAC) 40 0 03/31/2017 Active mg Capsule multivitamin (THERAGRAN) Take 1 tablet by 0 Active Tablet mouth daily. glucosamine sulfate 500 Take by mouth. 0 Active mg Tablet ibuprofen (Advil) 200 mg Take 200 mg by 0 Active Tablet mouth every 6 hours as needed for Pain. 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 CIS - Entered not Verified 03/24/2010 Overview: To Verify, please change Status to Ente red in Error CIS - Right shoulder pain 10/28/2008 CIS - Diabetes CIS - Gout CIS - Hypertension Social History Tobacco Use Types Packs/Day Years Used Date Smoking Tobacco: Never Smokeless Tobacco: Former Chew Qu it: 07/06/2000 Alcohol Use Standard Drinks/Week Comments Yes 0 (1 standard drink = 0.6 oz pure alcoho l) socially Sex Assigned at Date Recorded Not on file Last Filed Vital Signs Vital Sign Reading Time Taken Comments Blood Pressure 138/76 12/16/2021 8:31 AM EDT Pulse 86 12/16/2021 8:31 AM EDT Temperature 36.8 ??C (98.3 ??F) 12/24/2020 9:56 AM EDT Respiratory Rate 20 12/24/2020 9:56 AM EDT Oxygen Saturation 91% 12/13/2020 12:00 PM EDT Inhaled Oxygen Concentration - - Weight 127 kg (280 lb) 12/16/2021 8:31 AM EDT Height 167.6 cm (5' 6) 12/16/2021 8:31 AM EDT Body Mass Index 45.19 12/16/2021 8:31 AM EDT Plan of Treatment Health Maintenance Due Date Last Done Comments Hepatitis B vaccine (0-59 yrs) (1 of 3 - 3-dose 1960 series) Covid-19 Vaccine (#1) 02/15/1963 HIV screen 1980 Hepatitis C Screening 1980 Tdap adult 1981 Tetanus vaccine 1981 Colonoscopy 08/16/2007 Zoster vaccine (1 of 2) 2012 Advance Directive 2017 Influenza (Flu) vaccine (1 of 1 - Influenza standard 01/28/2022 series) Diabetes Screening (HgbA1C or Glucose) 09/26/2023 Insurance Payer Benefit Plan / Subscriber ID Effective Dates Phone Addre ss Type Group [facility] [id number] 2018-Prese [phone] [address] [place] [address] [facility] [id number] 2017-Presen [phone] [address] [employer] [place] PPO t [address] [place], [place] [address] Guarantor Name Account Type Relation to Date of Phone Billing Patient Address Kushal Keane Personal/Family Self [address] (Home) [place] [phone] (Work) [id number] Workers Comp Employer [address] [employer] (Home) [place] [phone] (Work) Advance Directives Latest Code Status on File Code Status Date Activated Date Inactivated Comments Attempt Cardiopulmonary Resuscitation - 12/08/2020 7:39 AM 021 6:15 PM Inpatient Question Answer Comments Code Status decision made by: Patient Care Teams Senior Business Manager Relationship Specialty Start Date End Date Tip Red DO PCP - General Family Medicine 05/12/18 [address] [facility] [place] [phone]
--- OUTSIDE RECORDS SUMMARY | 2022-04-30 02:35 | XMS_ITS | Encounter Summary ---
:1960 Author Organization [facility] [place] [address] Care Team Providers Name Role Phone Tip Red DO Primary Care Provider Reason for Visit Reason Comments Follow-up right knee pain Encounter Details Date Type Department Care Team Description 08/16/2019 Office Visit Orthopaedics at [facility] Jovany, Acute pain of right knee; [facility] Chloe Ornelas APRN Primary osteoarthritis [place] [address] ORTHOPAEDIC [phone] SURGERY [place], [place] [address] Social History Tobacco Use Types Packs/Day Years Used Date Smoking Tobacco: Never Smokeless Tobacco: Former Chew Qu it: 07/06/2000 Alcohol Use Standard Drinks/Week Comments Yes 0 (1 standard drink = 0.6 oz pure alcoho l) socially Sex Assigned at Date Recorded Not on file documented as of this encounter Last Filed Vital Signs Vital Sign Reading Time Taken Comments Blood Pressure 117/71 08/16/2019 10:32 AM EDT Pulse 76 08/16/2019 10:32 AM EDT Temperature - - Respiratory Rate - - Oxygen Saturation - - Inhaled Oxygen Concentration - - Weight 133.8 kg (295 lb) 08/16/2019 10:32 AM EDT Height 168.9 cm (5' 6.5) 08/16/2019 10:32 AM EDT Body Mass Index 46.9 08/16/2019 10:32 AM EDT documented in this encounter Progress Notes Chloe Manzo APRN - 08/16/2019 10:40 AM EDT PATIENT NAME: Kushal Keane AGE: 59 y.o. MR#: [id number] DATE OF VISIT: 08/16/2019 DATE OF INJURY/ONSET: 05/04/18 and 08/13/19 CHIEF COMPLAINT: Right Knee Pain HISTORY OF PRESENT ILLNESS Mr. Keane a 59 y.o. year old male comes into clinic for an exacerbationof right knee pain secondary to DJD and new work-related injury. Please see previous notes for full history. 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 Reports that his knee was stable until August 13, 2019. 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 Pain is moderate to severe and primarily medial. He does endorse increased swelling and sense of instability. He has been self treating with acetaminophen, ibuprofen and ice. He is also been resting. Reports that he has lost a substantial amount of weight since his last visit and his diabetes is now well controlled with a hemoglobin A1c of 6.6. PAST MEDICAL HISTORY: Active Ambulatory Problems Diagnosis Date Noted ??? CIS - Diabetes ??? CIS - Entered not Verified 03/24/2010 ??? CIS - Gout ??? CIS - Hypertension ??? CIS - Right shoulder pain 10/28/2008 ??? 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 No Resolved Ambulatory Problems No Additional Past Medical History Current Outpatient Medications on File Prior to Visit Medication Sig Dispense Refill ??? ibuprofen (Advil;Motrin) 200 mg Tablet Take 200 mg by mouth every 6 hours as needed for Pain. ??? lisinopril (PRINIVIL;ZESTRIL) 20 mg Tablet Take 20 mg by mouth daily. ??? metFORMIN (GLUCOPHAGE) 1,000 mg Tablet Take 1,000 mg by mouth 2 times daily (with meals). ??? aspirin 81 mg Tablet, Delayed Release (E.C.) Take 81 mg by mouth daily. ??? fish oil-omega-3 fatty acids 1,000 mg Capsule Take 2 g by mouth daily. ??? pravastatin (PRAVACHOL) 40 mg Tablet Take 40 mg by mouth daily. ??? celecoxib (CELEBREX) 100 mg Capsule Take 100 mg by mouth 2 times daily. ??? FLUoxetine (PROZAC) 40 mg Capsule ??? multivitamin (THERAGRAN) Tablet Take 1 tablet by mouth daily. ??? glucosamine sulfate 500 mg Tablet Take by mouth. ??? allopurinol (ZYLOPRIM) 300 mg tablet (Patient taking differently: daily) ??? acetaminophen (TYLENOL) 325 mg tablet ??? clobetasol (TEMOVATE) 0.05 % Cream APPLY TO AFFECTED AREA TWICE DAILY 2 ??? loratadine (CLARITIN) 10 mg Tablet Take 10 mg by mouth daily. No current facility-administered medications on file prior to visit. No Known Allergies [facility] FollowUp 08/31/2018 Health in general Good Quality of life Good Physical health Good Mental health Good Satisfaction with social activities Good Ability to carry out physical activities Completely Rate of pain 3 Rate of fatigue Moderate Ability to carry out social activities Very Good Bothered by emotional problems Sometimes PROMIS PHYSICAL HEALTH SCORE 47.7 PROMIS MENTAL HEALTH SCORE 43.5 ROS: Negative for fever, chills, SOB, chest pain, nausea, vomiting, and diarrhea. Physical Exam Blood pressure 117/71, pulse 76, height 168.9 cm (5' 6.5), weight 133.8 kg (295 lb). Constitutional: oriented to person, place, and time and well-developed, well- nourished, and in no distress. Skin: Skin is warm and dry. No erythema ecchymosis or skin breakdown of right knee. Right Knee Exam Comments: Comes in with antalgia-no assist. 1+ effusion. + varus deformity. ROM 120 deg flexion, lacks 5 deg extension. + medial joint line tenderness. No lateral joint line tenderness. Stable to varus/valgus stress. Negative Anterior/Posterior drawer. Able to do a straight leg raise without lag. Neurovascular Exam Normal sensation and motor function distally. DP and PT pulses 2+. RADIOLOGICAL STUDIES: XR performed today reviewed and reveal stable medial compartment narrowing, subchondral sclerosis, osteophyte formation. ASSESSMENT/PLAN: Kushal Keane is a 59 y.o. male presents to the clinic with acute on chronic right knee pain secondary to work-related injury and exacerbation of underlying advanced medial compartment DJD. Again discussed natural history at length and how it is common to have exacerbations of DJD, in particular when there is additional trauma or injury. 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 Discussed that if he is noting more frequent exacerbations of his arthritis, he may want to consider total joint arthroplasty. If the injection is helpful for him and his hemoglobin A1c remains well controlled, he could have corticosteroid injections every 3 months. See note below. Follow-up PRN. Procedure I discussed the risks and benefits of injecting the joint with Cortisone such as, transient elevation in blood glucose levels, bleeding, infection, and failure to alleviate symptoms. The patient verbalized understanding and chose to proceed with the procedure. The skin was prepped with DuraPrep, numbed with Ethyl Chloride, and a the right knee was injected with 40mg/4mL 1% Lidocaine without epinephrine and 40mg/1mL Kenalog from a superolateral approach with a #22 gauge needle. A bandaid and DSG was then applied to the injection site. The patient tolerated the procedure well and is without complication. He was advised to keep the sterile dressing on for 24 hours and refrain from any vigorous activities today. He was also advised to report and signs or symptoms of infection in the joint such as redness, swelling, drainage, or fever immediately. documented in this encounter Plan of Treatment Not on filedocumented as of this encounter Visit Diagnoses Diagnosis Acute pain of right knee Primary osteoarthritis of right knee Primary localized osteoarthrosis, lower leg documented in this encounter Administered Medications Inactive Administered Medications - up to 3 most recent administrations Medication Order MAR Action Action Date Dose Rate Site triamcinolone acetonide Given 08/16/2019 10:46 AM EDT 40 mg (KENALOG-40) injection 40 mg 40 mg, Intra-articular, ONCE, 1 dose, On Sherley 08/16/19 at 1115, Routine documented in this encounter Care Teams Head Of Partner Development Relationship Specialty Start Date End Date Tip Red DO PCP - General Family Medicine 05/12/[address] [place] [phone] documented as of this encounter
--- OUTSIDE RECORDS SUMMARY | 2022-04-30 02:35 | XMS_ITS | Encounter Summary ---
:1960 Author Organization [facility] [place] [address] Care Team Providers Name Role Phone Tip Red DO Primary Care Provider Reason for Visit Reason Onset Date Comments Injections 12/15/2020 Right Knee Encounter Details Date Type Department Care Team Description 12/15/2020 Telephone Orthopaedics at [facility] Dash Ruffin PA [facility] [place] [place] [address] ORTHOPAEDIC SURGERY [place], [place] [address] Social History Tobacco Use Types Packs/Day Years Used Date Smoking Tobacco: Never Smokeless Tobacco: Former Chew Qu it: 07/06/2000 Alcohol Use Standard Drinks/Week Comments Yes 0 (1 standard drink = 0.6 oz pure alcoho l) socially Sex Assigned at Date Recorded Not on file documented as of this encounter Miscellaneous Notes Telephone Encounter - Sadie Gamboa - 12/16/2020 10:41 AM EDT Patient returned call and was scheduled with Lion Ruffin on 01/01/21 as follows: NXR: RT KNEE INJECTION; W/C DOI 12..18 Telephone Encounter - Flavia Matias - 12/16/2020 9:53 AM EDT LM#1 for PT to schedule with Lion Brysonn NXR R KNEE INJ Telephone Encounter - Aubree Glover RN - 12/15/2020 4:56 PM EDT Patient's request for injection appointment of the Right knee has been reviewed by Clinical Support. Is it too soon for patient to have this injection? No Date of last injection? 08/07/20 Is this a synvisc/orthovisc injection? no Enter [employer] Prior Auth if Synvisc or Orthovisc injection. Does this injection need to be scheduled in radiology under fluoro? no Have orders been placed? not applicable Injection within 3 months prior to joint arthroplasty or arthroscopy is associated with increased rates of postoperative infection: this includes, hip, knee, and shoulder. Telephone Encounter - Franky Hidalgo - 12/15/2020 8:09 AM EDT Michele calls to ask for another knee injection. Best phone # to reach patient for [phone] Best days/times to schedule the appointment: This week if possible Tue or next week the to coordinate with his other appointments. Of note he just had surgery Urology and Plastics. DOS 12/08/20 Is it acceptable to leave a voicemail message with your appointment if we are unable to reach you directly? yes He will be home as he is in recovery. Patient requests appointment for injection of the Right knee. What type of injection? Cortisone Note: The last injection only lasted approximately one month His pain became worse after they took him off his Celebrex to prepare for surgery. He is back on now but weak and has lost a lot of mobility in his knee. Seen by Dash Ruffin 08/07/2020 documented in this encounter Plan of Treatment Not on filedocumented as of this encounter Visit Diagnoses Not on filedocumented in this encounter Care Teams Hand Plate Stacker Relationship Specialty Start Date End Date Tip Red DO PCP - General Family Medicine 05/12/18 [address] [place] [phone] documented as of this encounter
--- OUTSIDE RECORDS SUMMARY | 2022-04-30 02:35 | XMS_ITS | Encounter Summary ---
:1960 [place] [address] Care Team Providers Name Role Phone Tip Red DO Primary Care Provider Encounter Details Date Type Department Care Team Description 12/05/2020 Telephone Urology at [facility] Lu Ames APRN [facility] [place] [address] [place] [phone] UROLOGY [phone] [place] [id number] (Wo rk) Social History Tobacco Use Types Packs/Day Years Used Date Smoking Tobacco: Never Smokeless Tobacco: Former Chew Qu it: 07/06/2000 Alcohol Use Standard Drinks/Week Comments Yes 0 (1 standard drink = 0.6 oz pure alcoho l) socially Sex Assigned at Date Recorded Not on file documented as of this encounter Miscellaneous Notes Telephone Encounter - Lu Ames RN - 12/05/2020 1:18 PM EDT Call placed to patient to review urine culture results. >100,[address] Garay Keflex 500mgBID x 7 days. Patient agrees with the plan. Script sent to preferred pharmacy. documented in this encounter Plan of Treatment Not on filedocumented as of this encounter Visit Diagnoses Not on filedocumented in this encounter Care Teams Computer Field Technician Relationship Specialty Start Date End Date Red, Tip S, DO PCP - General Family Medicine 05/12/18 [address] [place] [phone] documented as of this encounter
--- OUTSIDE RECORDS SUMMARY | 2022-04-30 02:35 | XMS_ITS | Encounter Summary ---
:1960 Author Organization [facility] [place] [address] Care Team Providers Name Role Phone Tip Red DO Primary Care Provider Reason for Visit Reason Onset Date Comments Injections 07/23/2020 Encounter Details Date Type Department Care Team Description 07/23/2020 Telephone Orthopaedics at [facility] Chloe Manzo, Briseida [facility] [place] [phone] [facility] [phone] ORTHOPAEDIC SURG [place], [place] [address] (Wo rk) Social History Tobacco Use Types Packs/Day Years Used Date Smoking Tobacco: Never Smokeless Tobacco: Former Chew Qu it: 07/06/2000 Alcohol Use Standard Drinks/Week Comments Yes 0 (1 standard drink = 0.6 oz pure alcoho l) socially Sex Assigned at Date Recorded Not on file documented as of this encounter Miscellaneous Notes Telephone Encounter - Flavia Matias - 07/24/2020 8:36 AM EST PT has been scheduled Telephone Encounter - Aubree Glover RN - 07/23/2020 4:52 PM EST Patient's request for injection appointment of the Right knee has been reviewed by Clinical Support. Is it too soon for patient to have this injection? No Date of last injection? 12/19/2019 Is this a synvisc/orthovisc injection? no Enter [employer] Prior Auth if Synvisc or Orthovisc injection. Does this injection need to be scheduled in radiology under fluoro? no Have orders been placed? not applicable Injection within 3 months prior to joint arthroplasty or arthroscopy is associated with increased rates of postoperative infection: this includes, hip, knee, and shoulder. Telephone Encounter - Amanda Hassan - 07/23/2020 2:29 PM EST Best phone # to reach patient for scheduling: Best days/times to schedule the appointment: August 01, but anytime will be fine Is it acceptable to leave a voicemail message with your appointment if we are unable to reach you directly? Yes If no, what is an alternative phone number to call? None Patient requests appointment for injection of the [...] will call you to schedule the appointment. documented in this encounter Plan of Treatment Not on filedocumented as of this encounter Visit Diagnoses Not on filedocumented in this encounter Care Teams Regional Geodetic Advisor Relationship Specialty Start Date End Date Tip Red DO PCP - General Family Medicine 05/12/[address] [place] [phone] documented as of this encounter
--- OUTSIDE RECORDS SUMMARY | 2022-04-30 02:35 | XMS_ITS | Encounter Summary ---
:1960 Author Organization [facility] [place] [address] Care Team Providers Name Role Phone Tip Red DO Primary Care Provider Encounter Details Date Type Department Care Team Description 11/04/2020 Telephone Plastic Surgery at [facility] Esdras Castellanos MD [facility] [place] [address] PLASTIC SURGERY [phone] [place] [id number] (Wo rk) Social History Tobacco Use Types Packs/Day Years Used Date Smoking Tobacco: Never Smokeless Tobacco: Former Chew Qu it: 07/06/2000 Alcohol Use Standard Drinks/Week Comments Yes 0 (1 standard drink = 0.6 oz pure alcoho l) socially Sex Assigned at Date Recorded Not on file documented as of this encounter Miscellaneous Notes Telephone Encounter - Vita Moreno - 11/04/2020 8:20 AM EDT Pt called today asking question about discounting voltern gel prior to his surgery with plastic surgery. I stated he would have to talk to Plastic for further advisement. He asked to please transfer him to plastic. Pt was transferred. documented in this encounter Plan of Treatment Not on filedocumented as of this encounter Visit Diagnoses Not on filedocumented in this encounter Care Teams Research Rn Spec Relationship Specialty Start Date End Date Red, Tip S, DO PCP - General Family Medicine 05/12/18 [address] [place] [phone] documented as of this encounter
--- OUTSIDE RECORDS SUMMARY | 2022-04-30 02:35 | XMS_ITS | Encounter Summary ---
:1960 [place] [address] Care Team Providers Name Role Phone Tip Red DO Primary Care Provider Reason for Visit Auth/Cert Specialty Diagnoses / Procedures Referred By Contact Refer red To Contact Diagnoses Buried penis and abdominal pannus Procedures PRO EXCISE EXCESS SKIN TISSUE, ABDOMEN PRO EXCISE EXCESS SKIN TISSUE, OTHER PRO DRESSING CHANGE UNDER ANESTHESIA PRO SPLIT GRFT TRUNK, ARM, LEG <100SQCM PRO CYSTOURETHROSCOPY PRO DESTR PENIS LESN, SIMPL, SURG EXCIS PANNICULECTOMY EXC EXCESSIVE SKIN & SUBQ TISSUE, MON PUBIS (WRVU 10.5) DRESSING CHANGE (FOR OTHER THAN WILKINS) UNDER ANES., ABDOMEN (WRVU 0.86) SPLIT THICK SKIN GRAFT,100 SQ CM OR LESS, TRUNK (WRVU 9.9) MODIFIER WOUND VAC CYSTO, CYSTOURETHROSCOPY, DI AGNOSTIC (WRVU 2.23) EXCISION, PENILE CONDYLOMATA (WRVU 1.98) Referral ID Status Reason Start Date Expiration Date Visits Requ ested Visits Authorized [id number] 1 1 Encounter Details Date Type Department Care Team Description 12/08/2020 Anesthesia Event Main Operating Room Tavia Christensen MD [facility] [place] [address] [facility] Lourdes Singh MD [facility] [place] [address] [facility] [place] [phone] Anesthesia Record Procedure Summary Procedure Name Responsible Anesthesia Start Anesthesia Stop Anesthesiologist Time Time PANNICULECTOMY Tavia Greer MD 12/08/20 0735 12/08/20 1058 (Abdomen) Events Date Time Event Comment 12/08/2020 0715 0735 AN Verify 0735 Start 0735 An Start Data 0744 An Induction 0753 An Intubation 0755 Anesthesia Ready 0826 Skin Incision 0828 Quick Note Local infiltrati on to abdomen by surgical team 0851 Quick Note Urology scrubbed out 1038 Quick Note OGT placed and r emoved to suction out stomach prior to extubat ion 1048 Extubation/LMA Out 1051 an stop data 1057 Recovery or ICU Handoff Patient care was transferred to the destination unit staff after review of the patient's medica l history, current anesthetic/surgi anup status and plan, according to the Provider Handoff Checklist. 1058 Stop Name Total fentaNYL 200 mcg IV Lidocaine 100 mg Propofol 350 mg Rocuronium 100 mg PHENYLephrine 1,040 mcg Ondansetron 8 mg Neostigmine 5 mg Glycopyrrolate 0.8 mg ceFAZolin 3 g Propofol INF 581.2 mg HYDROmorphone 2 mg Lactated Ringers 1,200 mL Agents Name O2 Air N2O Sevoflurane (et) Blood No blood administrations on file. Lines, Drains, and Airways Type Details Placement Removal Urethral Catheter 12/08/20; 0842; 12/08/20 0842 by Genitourinary surgery, Maria Dolores Cooper RN Physician order; indwelling double lumen catheter; silastic (jim); 16; inserted at this facility (Inserted by Dr. Metcalf); 1; 5; 10; intraurethral Xylocaine gel (general anesthesia); drainage bag to dependent drainage Drain/Device Site 12/08/20; 0954; Left; 12/08/20 0954 by lower; kishor; Maria Dolores Cooper RN collapsible closed device (19fr reagan drain) Drain/Device Site 12/08/20; 0954; Right; 12/08/20 0954 by lower; kishor; Maria Dolores Cooper RN collapsible closed device (19fr reagan drain) NPWT 12/08/20; 1032; penis 12/08/20 1032 by Maria Dolores Cooper RN PIV 12/08/20; 0727; metacarpal 12/08/20 0727 by 11/27 10/17 0045 by vein (top of hand), left; Elaine Junior RN Rooney, Gillian, RN [id number]-ceuvur catheter system; Anatomical Landmarks; 22 gauge; tolerated well; removed per policy/procedure, site care per policy/procedure, site symptomatic, catheter/device intact; 12/11/20; 0045 ETT Mask Ventilation: Easy 12/08/20 0753 by 12/08/20 1048 by (1); ETT Type: Cuffed; ETT Lourdes Singh MD Sohnen, Samantha, Size: 7.5 mm; Mac Blade: 4; Exchange: Bougie; Notes: Asleep, Pre-O2, Cricoid Pressure, Stylette; Attempts: 2 (grade 1 view; able to advance ETT w/ bougie on second attempt); Laryngoscopy Grade: 1; ETT Placement Verified By: Auscultation, Visual, Capnometry; Secured at Teeth: 22 cm; Inserted by: MD Francisco Incision 12/08/20; 0827; penis 12/08/20 0827 by 01/25/22 1715 by (degloving); 01/25/22 (Maria Dolores Martin RN Muller, Dierdre L cleanup utility RA#[id number]); 1715 (LDA cleanup utility RA#[id number]) Incision 12/08/20; 0827; 12/08/20 0827 by 01/25/22 1715 b y transverse, lower; Maria Dolores Cooper RN Muller, Dierdre L abdomen; 01/25/22 (LDA cleanup utility RA#[id number]); 1715 (LDA cleanup utility RA#[id number]) Incision 12/08/20; 0956; anterior, 12/08/20 0956 by 01/25 1715 by Right; thigh; other (see Maria Dolores Cooper RN Mu ller, Dierdre L comments) (skin graft donor site); 01/25/22 (LDA cleanup utility RA#[id number]); 1715 (LDA cleanup utility RA#[id number]) documented in this encounter Social History Tobacco Use Types Packs/Day Years Used Date Smoking Tobacco: Never Smokeless Tobacco: Former Chew Qu it: 07/06/2000 Alcohol Use Standard Drinks/Week Comments Yes 0 (1 standard drink = 0.6 oz pure alcoho l) socially Sex Assigned at Date Recorded Not on file documented as of this encounter OR Notes Anesthesia Postprocedure Evaluation - Lourdes Singh MD - 12/08/2020 11:02 AM EDT Department of Anesthesiology Post-procedure Note Patient: Kushal Faye Diya Procedure Summary Date: 12/08/20 Room / Location: [facility] OR [facility] MAIN OR Anesthesia Start: 734 Anesthesia Stop: 1057 Procedures: PANNICULECTOMY (N/A Abdomen) EXC EXCESSIVE SKIN & SUBQ TISSUE, MON PUBIS (WRVU 10.5) (N/A ) DRESSING CHANGE (FOR OTHER THAN WILKINS) UNDER ANES., ABDOMEN (WRVU 0.86) (N/A ) SPLIT THICK SKIN GRAFT,100 SQ CM OR LESS, TRUNK (WRVU 9.9) (N/A Leg) MODIFIER WOUND VAC (N/A ) EA.ADDITIONAL 100SQ.CM STSG (WRVU 1.72) (Midline Leg) CYSTO, CYSTOURETHROSCOPY, DIAGNOSTIC (WRVU 2.23) (N/A Bladder) EXCISION, PENILE CONDYLOMATA (WRVU 1.98) (N/A Penis) Diagnosis: Acquired buried penis Abdominal pannus (Buried penis and abdominal pannus) Surgeons: Esdras Castellanos MD; Arias Metcalf III, MD Responsible Provider: Tavia Greer MD Anesthesia Type: general ASA Status: 3 All Anesthesia Providers: Anesthesiologist: Tavia Greer MD Cut Off Machine Operator: Lourdes Singh MD Vitals Value Taken Time BP 162/133 12/08/20 1100 Temp 36.2 ??C (97.2 ??F) 12/08/20 1100 Pulse 80 12/08/20 1101 Resp 11 12/08/20 1101 SpO2 100 % 12/08/20 1101 Pain Level Vitals shown include unvalidated device data. Patient Location: PACU/[facility] Level of Consciousness: Awake and Alert Pain Management: Satisfactory Analgesia PONV: None Cardiovascular Status: Hemodynamically Stable Respiratory Status: Stable Respiratory Status Postoperative Fluid Status: Intravascular EUvolemia Possible Anesthetic Complications: NONE apparent at time of evaluation Final Primary Anesthesia Type: General (The anesthetic type performed was the same as planned.) Comments: Anesthesia Preprocedure Evaluation - Lourdes Singh MD - 12/05/2020 4:05 PM EDT Pre-Anesthesia Evaluation for: Kushal Keane a 60 y.o. male. Patient Active Problem List Diagnosis ??? Abdominal pannus Added automatically from request for surgery [id number] ??? Primary osteoarthritis of right knee ??? Chronic pain of right knee ??? Acquired buried penis ??? CIS - Entered not Verified To Verify, please change Status to Entered in Error ??? CIS - Diabetes ??? CIS - Gout ??? CIS - Hypertension ??? CIS - Right shoulder pain No past medical history on file. Past Surgical History: Procedure Laterality Date ??? CREATED BY INTERFACE Entered not Verified Procedure Date: 03/24/2010 ??? CREATED BY INTERFACE Hernia repair Procedure Date: Unknown ??? CREATED BY INTERFACE hydrocele repair Procedure Date: Unknown Social History Tobacco Use ??? Smoking status: Never Smoker ??? Smokeless tobacco: Former User Types: Chew Substance Use Topics ??? Alcohol use: Yes Comment: socially Social History Substance and Sexual Activity Drug Use Never No Known Allergies Medications: MAR and/or home medications have been reviewed. Physical Exam: Preprocedure Vitals Current as of 11/11/20 1524 No BP, pulse, respiration, SpO2, or temperature recorded. Height: Weight: BMI: IBW: Airway Assessment: Mallampati: I TM distance: >3 FB Neck ROM: full Via video conference Cardiovascular Assessment: system normal Pulmonary Assessment: unlabored breathing Dental Assessment: - normal exam Misc Assessment: Last Filed Perioperative Cognitive Screening None Anesthesia Plan: ASA 3 general, with a(n) intravenous induction Please see PAT note for further details Plan: Premedication with acetaminophen GA/ETT Standard ASA monitors PIV access Adequate NPO. Last took lisinopril yesterday. No known allergies. >4 METS Has had 2 surgeries. Spinal anesthesia w/o complication. ~20+ years ago for hernia surgery pt reports feeling sick to (his) stomach after general anesthesia. ANTHONY on CPAP. No GERD. Notes and labs reviewed. Patient personally seen and examined. We discussed benefits, indications, and risks of anesthesia. Consent signed and in chart. Region - Other Informed Consent: Anesthetic plan and risks discussed with patient and spouse. Plan discussed with resident and attending. Anesthesia Screening Note: Date and Time of Entry: 11/11/2020 3:25 PM Entered By: Darwin Valente MD Reason for Evaluation: Surgeon Request Hx of Anesthesia Problem: Pre-op panniculectomy, monsplasty, and degloving and resurfacing the peniswith skin graft Screening Visit Type: Video Conference Additional/Outside Records Requested? Did not request medical information from outside organization. Findings, Assessment and Plan: Kushal Keane is a 60 y.o. male (143kg BMI 51) with a hx significant for buried penis presenting for panniculectomy, mons plasty, and degloving and resurfacing the penis with skin graft with Dr. Castellanos. PMHx: - obese (BMI 51) - DM (A1c 6.6%) - HTN - osteoarthritis - gout PSurg: hernia, hydrocele Denies CP SOB or URI. Activity prior to surgery: METS>4. Meds: ACEI, statin, ASA, fluoxetine, allopurinol NKA Anesthesia Hx: No prior airway record. Previous experience with nausea after hydrocele. Pt denies any complications from anesthesia and any Fhx of complications with anesthesia. EKG: none in record Labs: A1c 6.2% Plan is for GA with ETT consider RSI, standard ASA monitors, and adequate IV access. documented in this encounter Miscellaneous Notes Addendum Note - Tavia Greer MD - 12/10/2020 2:36 PM EDT Addendum created 12/10/20 1436 by Tavia Greer MD Cosign clinical note documented in this encounter Plan of Treatment Not on filedocumented as of this encounter Visit Diagnoses Not on filedocumented in this encounter Administered Medications Inactive Administered Medications - up to 3 most recent administrations Medication Order MAR Action Action Date Dose Rate Site ceFAZolin (Ancef) 1 g in dextrose 5% Given 12/08/2020 7:54 AM ED T 3 g 50 mL infusion Intravenous, PRN, Starting on Tue12/08/20 at 0754, Until Tue12/08/20 at 1102, Administer over 30 Minutes, Anesthesia Intra-op fentaNYL (pf) (50 mcg/mL) multi-dose Given 12/08/2020 8:41 AM ED T 100 mcg injection Intravenous, PRN, Starting on Tue12/08/20 at 0736, Until Tue12/08/20 at 1102, Anesthesia Intra-op, Routine Given 12/08/2020 8:25 AM EDT 50 mcg Given 12/08/2020 7:36 AM EDT 50 mcg glycopyrrolate (Robinul) (0.2 mg/mL) Given 12/08/2020 10:26 AM E DT 0.8 mg multi-dose injection Intravenous, PRN, Starting on Tue12/08/20 at 1026, Until Tue12/08/20 at 1102, Anesthesia Intra-op, Routine HYDROmorphone (Dilaudid) (2 mg/mL) Given 12/08/2020 10:38 AM EDT 0.8 mg multi-dose injection solution Intravenous, PRN, Starting on Tue12/08/20 at 1004, Until Tue12/08/20 at 1102, Anesthesia Intra-op, Routine Given 12/08/2020 10:17 AM EDT 0.4 mg Given 12/08/2020 10:11 AM EDT 0.4 mg lactated ringers infusion New Bag 12/08/2020 9:50 AM EDT Intravenous, CONTINUOUS PRN, Starting on Tue12/08/20 at 0735, Until Tue12/08/20 at 1102, Anesthesia Intra-op New Bag 12/08/2020 7:35 AM EDT lidocaine (pf) (Xylocaine) (20 mg/mL) 2% Given 12/08/2020 7:44 A M EDT 100 mg injection syringe Intravenous, PRN, Starting on Tue12/08/20 at 0744, Until Tue12/08/20 at 1102, Anesthesia Intra-op, Routine neostigmine (Bloxiver) (1 mg/mL) injecti on Given 12/08/2020 10:26 AM EDT 5 mg Intravenous, PRN, Starting on Tue12/08/20 at 1026, Until Tue12/08/20 at 1102, Anesthesia Intra-op, Routine ondansetron (pf) (Zofran) (2 mg/mL) inje ction Given 12/08/2020 10:26 AM EDT 8 mg Intravenous, PRN, Starting on Tue12/08/20 at 1026, Until Tue12/08/20 at 1102, Anesthesia Intra-op, Routine PHENYLephrine in NS (PF) (JUSTIN-SYNEPHRINE) Given 12/08/2020 1 0:22 AM EDT 160 mcg 0.8 mg/10 mL (80 mcg/mL) multi-dose injection Syrg Intravenous, PRN, Starting on Tue12/08/20 at 0744, Until Tue12/08/20 at 1102, Anesthesia Intra-op, Routine Given 12/08/2020 10:11 AM EDT 80 mcg Given 12/08/2020 10:01 AM EDT 160 mcg propofoL (Diprivan) 10 mg/mL bolus injection Given 04/2021 10:31 AM EDT 50 mg (Anesthesia) Intravenous, PRN, Starting on Tue12/08/20 at 0744, Until Tue12/08/20 at 1102, Anesthesia Intra-op Given 12/08/2020 7:51 AM EDT 50 mg Given 12/08/2020 7:47 AM EDT 50 mg propofoL (Diprivan) infusion New Bag 12/08/2020 7:48 AM 30 mcg/kg/min 23.562 mL/hr Intravenous, CONTINUOUS PRN, EDT Starting on Tue12/08/20 at 0748, Until Tue12/08/20 at 1102, Anesthesia Intra-op, Routine rocuronium (Zemuron) (10 mg/mL) multi-dose Given 12/08/2020 9:29 AM EDT 20 mg injection Intravenous, PRN, Starting on Tue12/08/20 at 0745, Until Tue12/08/20 at 1102, Anesthesia Intra-op, Routine Given 12/08/2020 9:03 AM EDT 20 mg Given 12/08/2020 8:30 AM EDT 10 mg documented in this encounter Care Teams Concrete Carpenter Relationship Specialty Start Date End Date Tip Red DO PCP - General Family Medicine 05/12/[address] [place] [phone] documented as of this encounter
--- OUTSIDE RECORDS SUMMARY | 2022-04-30 02:35 | XMS_ITS | Encounter Summary ---
:1960 Author Organization [facility] [place] [address] Care Team Providers Name Role Phone Neda Tip Ceci HALL Primary Care Provider Reason for Visit Reason Comments Follow-up right knee injury Encounter Details Date Type Department Care Team Description 09/07/2018 Office Visit Orthopaedics at [facility] Jovany, Primary osteoarthritis [facility] Chloe Ornelas APRN [place] [address] ORTHOPAEDIC [phone] SURGERY [place], [place] [address] Social History Tobacco Use Types Packs/Day Years Used Date Smoking Tobacco: Never Smokeless Tobacco: Former Chew Qu it: 07/06/2000 Sex Assigned at Date Recorded Not on file documented as of this encounter Last Filed Vital Signs Vital Sign Reading Time Taken Comments Blood Pressure 129/68 09/07/2018 7:59 AM EDT Pulse 82 09/07/2018 7:59 AM EDT Temperature - - Respiratory Rate - - Oxygen Saturation - - Inhaled Oxygen Concentration - - Weight 148.8 kg (328 lb) 09/07/2018 7:59 AM EDT measure d Height 173.4 cm (5' 8.27) 09/07/2018 7:59 AM EDT Body Mass Index 49.48 09/07/2018 7:59 AM EDT documented in this encounter Progress Notes Chloe Manzo APRN - 09/07/2018 8:00 AM EDT PATIENT NAME: Kushal Keane AGE: 58 y.o. MR#: [id number] DATE OF VISIT: 09/07/2018 DATE OF INJURY/ONSET: 05/04/18 CHIEF COMPLAINT: Right Knee Pain-F/U HISTORY OF PRESENT ILLNESS Mr. Keane a 58 y.o. year old male comes into clinic today for follow-upof a right knee injury sustained after twisting the knee when getting out of a truck in April 2018. He has been treated conservatively for an exacerbation of underlying compartment DJD with use of an instructor hairspring brace, ljen-rmu-doumrhy pain medications, PT. Patient reports he continues to improve. Pain on average is 1-2/10. Mainly notes discomfort about midday after working. Pain is described as achyand is medial. He continues to lose weight and has been on a ketogenic diet. His A1c has lowered from above 9-7. Overall, reports he is doing much better. PAST MEDICAL HISTORY: Active Ambulatory Problems Diagnosis [...] to Visit Medication Sig Dispense Refill ??? clobetasol (TEMOVATE) 0.05 % Cream APPLY TO AFFECTED AREA TWICE DAILY 2 ??? lisinopril (PRINIVIL;ZESTRIL) 20 mg Tablet Take 20 mg by mouth daily. ??? metFORMIN (GLUCOPHAGE) 1,000 mg Tablet Take 1,000 mg by mouth 2 times daily (with meals). ??? aspirin 81 mg Tablet, Delayed Release (E.C.) Take 81 mg by mouth daily. ??? fish oil-omega-3 fatty acids 1,000 mg Capsule Take 2 g by mouth daily. ??? loratadine (CLARITIN) 10 mg Tablet Take 10 mg by mouth daily. ??? pravastatin (PRAVACHOL) 40 mg Tablet Take 40 mg by mouth daily. ??? celecoxib (CELEBREX) 100 mg Capsule Take 100 mg by mouth 2 times daily. ??? FLUoxetine (PROZAC) 40 mg Capsule ??? multivitamin (THERAGRAN) Tablet Take 1 tablet by mouth daily. ??? glucosamine sulfate 500 mg Tablet Take by mouth. ??? [DISCONTINUED] clotrimazole (LOTRIMIN) 1 % Cream Apply topically 2 times daily. ??? allopurinol (ZYLOPRIM) 300 mg tablet (Patient taking differently: daily) ??? acetaminophen (TYLENOL) 325 mg tablet No current facility-administered medications on file prior to visit. No Known Allergies [facility] FollowUp 08/31/2018 Health in general Good Quality [...] vomiting, and diarrhea. Physical Exam Blood pressure 129/68, pulse 82, height 173.4 cm (5' 8.27), weight (!) 148.8 kg (328 lb). Constitutional: oriented to person, place, and time and well-developed, well- nourished, and in no distress. Skin: Skin is warm and dry. No erythema ecchymosis or skin breakdown of right knee. Right Knee Exam Comments: Comes in without antalgia-no assist. No effusion. + varus deformity. ROM 120 deg flexion, 0 deg extension. Mild medial joint line tenderness. No lateral joint line tenderness. Stable to varus/valgus stress. Negative Anterior/Posterior drawer. Able to do a straight leg raise without lag. Neurovascular Exam Normal sensation and motor function distally. DP and PT pulses 2+. RADIOLOGICAL STUDIES: No new studies. Previous XR reviewed and reveal advanced medial compartment narrowing, subchondral sclerosis, osteophyte formation, and varus deformity. ASSESSMENT/PLAN: Kushal Keane is a 58 y.o. male presents to the clinic with an approximate 5 month history of acute on chronic right knee pain status post twisting injury sustained while at work resulting in exacerbation of underlying advanced medial compartment DJD. He has done quite well with conservative management, and is now minimally symptomatic, including weight loss, use of a medial instructor hairspring brace, rqsy-xhm-zshnczl pain medications, physical therapy. Discussed continuation of these treatments. Discussed that if his pain should again worsen, at this point he would be eligible for an intra-articular cortisone injection due to his reduced A1c. He agrees with the above plan. He is going to monitor his symptoms and follow-up on a as needed basis. documented in this encounter Plan of Treatment Not on filedocumented as of this encounter Visit Diagnoses Diagnosis Primary osteoarthritis of right knee Primary localized osteoarthrosis, lower leg documented in this encounter Care Teams Associate Professor Of Violin Relationship Specialty Start Date End Date Tip Red DO PCP - General Family Medicine 05/12/[address] [place] [phone] documented as of this encounter
--- OUTSIDE RECORDS SUMMARY | 2022-04-30 02:35 | XMS_ITS | Encounter Summary ---
:1960 Author Organization [facility] [place] [address] Care Team Providers Name Role Phone Tip Farnsworth MD Primary Care Provider Encounter Details Date Type Department Care Team Description 07/08/2010 [place] [facility] [place] Mattson [place] [facility] [place] [address] ORTHOPAEDIC SURGERY [phone] [place] [id number] (Wo rk) Social History Tobacco Use Types Packs/Day Years Used Date Smoking Tobacco: Never Assessed Sex Assigned at Date Recorded Not on file documented as of this encounter Plan of Treatment Not on filedocumented as of this encounter Visit Diagnoses Not on filedocumented in this encounter Care Teams Appointment Scheduler Relationship Specialty Start Date End Date Tip Farnsworth MD PCP - General 04/21/10 06/20/[address] [place] [address] [place] [address] documented as of this encounter
--- OUTSIDE RECORDS SUMMARY | 2022-04-30 02:35 | XMS_ITS | Encounter Summary ---
:1960 Author Organization [facility] [place] [address] Care Team Providers Name Role Phone Tip Red DO Primary Care Provider Reason for Visit Reason Onset Date Comments Questions 06/05/2018 Encounter Details Date Type Department Care Team Description 06/05/2018 Telephone Orthopaedics at [facility] Chloe Manzo, Questions [facility] [place] [address] [facility] [phone] ORTHOPAEDIC SURG [place], [place] [address] (Wo rk) Social History Tobacco Use Types Packs/Day Years Used Date Smoking Tobacco: Never Smokeless Tobacco: Former Chew Qu it: 07/06/2000 Sex Assigned at Date Recorded Not on file documented as of this encounter Miscellaneous Notes Telephone Encounter - Concepción Raymond - 06/05/2018 10:40 AM EST 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 Please call his cell [phone]. documented in this encounter Plan of Treatment Not on filedocumented as of this encounter Visit Diagnoses Not on filedocumented in this encounter Care Teams Electrical Assistant Relationship Specialty Start Date End Date Tip Red DO PCP - General Family Medicine 05/12/[address] [place] [phone] documented as of this encounter
--- OUTSIDE RECORDS SUMMARY | 2022-04-30 02:35 | XMS_ITS | Encounter Summary ---
:1960 [place] [address] Care Team Providers Name Role Phone Tip [...] Expiration Date Visits Requ ested Visits Authorized [id number] 1 1 Encounter Details Date Type Department Care Team Description 12/08/2020 Surgery Main Operating Room Tea Paris MD PANNICULECTOMY [facility] Red martinez [place] [address] [place] [address] [phone] (Wo rk) Social History Tobacco Use Types Packs/Day Years Used Date Smoking Tobacco: Never Smokeless Tobacco: Former Chew Qu it: 07/06/2000 Alcohol Use Standard Drinks/Week Comments Yes 0 (1 standard drink = 0.6 oz pure alcoho l) socially Sex Assigned at Date Recorded Not on file documented as of this encounter Last Filed Vital Signs Vital Sign Reading Time Taken Comments Blood Pressure 147/85 12/08/2020 11:15 AM EDT Pulse 84 12/08/2020 11:15 AM EDT Temperature 36.2 ??C (97.2 ??F) 12/08/2020 11:00 AM EDT Respiratory Rate 13 12/08/2020 11:15 AM EDT Oxygen Saturation 95% 12/08/2020 11:15 AM EDT Inhaled Oxygen Concentration - - Weight 130.9 kg (288 lb 9.6 oz) 12/08/2020 6:29 AM EDT Height 167.6 cm (5' 6) 12/08/2020 6:29 AM EDT Body Mass Index 46.58 12/08/2020 6:29 AM EDT documented in this encounter Discharge Summaries Jacky Bishop MD - 12/13/2020 8:15 AM EDT Plastic Surgery Service Inpatient Discharge Summary Patient Name: Kushal Keane Patient Age: 60 y.o. : 1960 Attending Physician: Tea Glynn MD Date of Admission: 12/08/2020 Date of Discharge: Code Status: 12/13/2020 Attempt Cardiopulmonary Resuscitation - Inpatient Primary Diagnosis: Active Hospital Problems Diagnosis ??? Status post surgery ??? Abdominal pannus ??? Acquired buried penis Resolved Hospital Problems No resolved problems to display. Secondary Diagnosis: None Incidental Findings: None. History: History obtained through patient interview, review of relevant records, and/or discussion with referring provider. Kushal Keane is a 60 y.o. male who is here for re-evaluation. He is accompanied by his for today's visit. 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 He reports that he has been doing the keto diet and is down approximately 45 lbs. He states that he is not interested in bariatric surgery. He reports that he is having difficulty urinating. Past Medical History No past medical history on file. Past Surgical History Past Surgical History: Procedure Laterality Date ??? CREATED BY INTERFACE Entered not Verified Procedure Date: 03/24/2010 ??? CREATED BY INTERFACE Hernia repair Procedure Date: Unknown ??? CREATED BY INTERFACE hydrocele repair Procedure Date: Unknown ??? PRO CYSTOURETHROSCOPY N/A 12/08/2020 CYSTO, CYSTOURETHROSCOPY, DIAGNOSTIC (WRVU 2.23) performed by Arias Metcalf III, MD at [facility] ??? PRO DESTR PENIS LESN, SIMPL, SURG EXCIS N/A 12/08/2020 EXCISION, PENILE CONDYLOMATA (WRVU 1.98) performed by Arias Metcalf III, MD at [facility] ??? PRO DRESSING CHANGE UNDER ANESTHESIA N/A 12/08/2020 DRESSING CHANGE (FOR OTHER THAN WILKINS) UNDER ANES., ABDOMEN (WRVU 0.86) performed by Tea Glynn MD at [facility] ??? PRO EXCISE EXCESS SKIN TISSUE, ABDOMEN N/A 12/08/2020 PANNICULECTOMY performed by Tea Glynn MD at [facility] ??? PRO EXCISE EXCESS SKIN TISSUE, OTHER N/A 12/08/2020 EXC EXCESSIVE SKIN & SUBQ TISSUE, MON PUBIS (WRVU 10.5) performed by Tea Glynn MD at [facility] ? ? PRO SPLIT GRFT TRUNK, ARM, LEG <100SQCM N/A 12/08/2020 SPLIT THICK SKIN GRAFT,100 SQ CM OR LESS, TRUNK (WRVU 9.9) performed by eTa Glynn MD at [facility] OR ??? PRO SPLIT GRFT, TRUNK, ARM, LEG EA 100SQCM Midline 12/08/2020 EA.ADDITIONAL 100SQ.CM STSG (WRVU 1.72) performed by Tea Glynn MD at [facility] Procedures: 12/08/2020 Surgeon(s) and Role: Panel 1: * Tea Glynn MD - Primary * Sarah Dodson MD - Resident * Kim Garay MD - Resident Panel 2: * Arias Metcalf III, MD - Primary * Esau Grover MD - Resident: Procedure(s): PANNICULECTOMY EXC EXCESSIVE SKIN & SUBQ TISSUE, MON PUBIS (WRVU 10.5) DRESSING CHANGE (FOR OTHER THAN WILKINS) UNDER ANES., ABDOMEN (WRVU 0.86) SPLIT THICK SKIN GRAFT,100 SQ CM OR LESS, TRUNK (WRVU 9.9) MODIFIER WOUND VAC CYSTO, CYSTOURETHROSCOPY, DIAGNOSTIC (WRVU 2.23) EXCISION, PENILE CONDYLOMATA (WRVU 1.98) EA.ADDITIONAL 100SQ.CM STSG (WRVU 1.72) Hospital Course: Kushal Keane was admitted to the Plastic Surgery Service on 12/08/2020 after undergoing buried penis release, panniculectomy, monsplasty, STSG for buried penis. He tolerated the operation well and there were no apparent complications. He was admitted post-operatively for observation and management.His hospital stay was uncomplicated. Kushal Keane was tolerating regular diet, ambulating and voiding without difficulty, afebrile with stable vital signs, and his pain was well controlled on oral pain medications when he was deemed ready for discharge on 12/13/2020. Updated Allergies/ADRs: No Known Allergies Pending Lab Data at Discharge: No current labs Condition at Discharge: Stable Important Studies and Lab Data: Labs: No results for input(s): WBC, HGB, HCT, PLATELET, PT, INR, PTT in the last 72 hours. No results for input(s): NA, K, CL, CO2, BUN, CREATININE, GLUCOSE, CALCIUM, MAGNESIUM, PHOS in the last 72 hours. Microbiology: None Studies: None. Discharge Examination: Last value Range last 12 hrs Temperature Temp: 36.9 ??C (98.4 ??F) Temp: [36.6 ??C (97.9 ??F)-36.9 ??C (98.4 ??F)] Heart Rate Heart Rate: 83 Heart Rate: -- Blood Pressure BP: 136/79 BP: (129-153)/(77-79) Respiratory Rate Resp: 18 Resp: [15-18] SpO2 SpO2: 91 % SpO2: [91 %-97 %] General: Resting comfortably in no acute distress. Neuro: Awake, alert, responds to questions appropriately. CV: Regular rate on monitor Pulm: Unlabored Abd: incision c/d/i. Umbilicus well-perfused and viable. ALEXIS x2 w/ SS output. No evidence of hematoma/seroma/infection. : Vac removed today showing skin graft intact and viable RLE: Allevyn in place to thigh with minimal strikethrough Discharge to: Home If discharged to rehab facility, name of facility: Discharge Medications: The following medications have been prescribed for you. If you notice any adverse reactions to your medications, please contact your primary care physician immediately or go to the nearest Emergency Department. Your Medications New Medications Dose Details oxyCODONE 5 mg Tab Commonly known as: Roxicodone Take 1 tablet by mouth every 4 hours as needed for Pain (Moderate pain (4-6)). 5 mg Quantity: 10 tablet Refills: 0 sulfamethoxazole-trimethoprim DS 800-160 mg Tab Commonly known as: Bactrim DS Take 1 tablet by mouth 2 times daily for 14 days. 1 tablet Quantity: 28 tablet Refills: 0 Continued medications with new dosing Dose Details allopurinoL 300 mg Tab Commonly known as: Zyloprim What changed: See the new instructions. Refills: 0 Continued medications, unchanged Dose Details aspirin EC 81 mg Tbec Take 81 mg by mouth daily. 81 mg Refills: 0 celecoxib 100 mg Cap Commonly known as: CeleBREX Take 100 mg by mouth 2 times daily. 100 mg Refills: 0 clobetasoL 0.05 % Crea Commonly known as: TEMOVATE APPLY TO AFFECTED AREA TWICE DAILY Refills: 2 fish oil-omega-3 fatty acids 1,000 mg Cap Take 2 g by mouth daily. 2 g Refills: 0 FLUoxetine 40 mg Cap Commonly known as: PROzac Refills: 0 glucosamine sulfate 500 mg Tab Take by mouth. Refills: 0 ibuprofen 200 mg Tab Commonly known as: Advil Take 200 mg by mouth every 6 hours as needed for Pain. PRN 200 mg Refills: 0 lisinopriL 20 mg Tab Commonly known as: Zestril Take 20 mg by mouth daily. 20 mg Refills: 0 loratadine 10 mg Tab Commonly known as: Claritin Take 10 mg by mouth daily. 10 mg Refills: 0 metFORMIN 1,000 mg Tab Commonly known as: GLUCOPHAGE Take 1,000 mg by mouth 2 times daily (with meals). 1,000 mg Refills: 0 multivitamin Tab Commonly known as: THERAGRAN Take 1 tablet by mouth daily. 1 tablet Refills: 0 pravastatin 40 mg Tab Commonly known as: PRAVACHOL Take 40 mg by mouth daily. 40 mg Refills: 0 TylenoL 325 mg Tab Generic drug: acetaminophen Refills: 0 STOPPED Medications cephALEXin 500 mg Cap Commonly known as: Keflex Kushal Keane is getting a prescription opioid for the treatment of acute post-operative pain related to the surgical procedure during this encounter. Pt has been advised to take the smallest dose possible to control pain and as the pain improves to take smaller doses and increase the time between doses. In addition to this medication, pt was educated on the non-opioid pain medications that can betaken for adjunct treatment of pain. Non-pharmacological treatments were also discussed that includebut not limited to ice, elevation, and activity modification as appropriate. The Acute Opioid Therapy Informed Consent form has been completed during this encounter and sent to medical records for scanning to chart. Follow-up Care & Plans: To make an appointment or for questions about scheduling, please contactour administrative offices at [phone]. For clinical questions, please call our nurses at [phone]. Both offices are open Tuesday thru Tuesday 8a - 5p. With emergencies after hours, call the hospital collet making machine operator at [phone] and ask for the Plastic Surgery Resident telephone information clerk. Scheduled Appointments: Future Appointments Date Time Provider Department Center 12/17/2020 9:00 AM NURSE, PLASTIC SURGERY [facility] PLAS 4M [facility] 12/24/2020 10:00 AM UROLOGY, NURSE [facility] URO [facility] 12/24/2020 11:40 AM Arias Metcalf III, MD [facility] Outpatient Services/Studies: Referral to Home Health - at DISCHARGE Order Comments: DOCUMENTATION FOR VNA SERVICES (INCLUDING THOSE PATIENTS WITH MEDICARE COVERAGE REQUIRING HOME VNA SERVICES AND/OR HOSPICE SERVICES) PATIENT'S LOCATION: Kushal Keane [address] [facility] [id number] (home) Fitness Leader's Name: In discussion with the attending physician, it is certified that this patient is under their care and that they, or a Nurse Practitioner,Clinical Nurse specialist or Physician Nail Specialist who is working directly with them, had a face to face encounter that meets the physician face to face encounter requirements with this patient on 12/13/2020 The encounter with the patient was in whole, or in part, for the following medical condition, which is the primary reason for home health care services: Penile degloving for buried penis with split-thickness skin graft placement In discussion with the provider, it is certified that, based on their findings, the following services are medically necessary for home health services. To provide the following care/treatments with the clinical findings supporting the need for servicesas follows: HOME CARE ORDERS: RN ORDERS: Wound care EOD, draincare, Assess wound or incision (wound care includes bacitracin ointment and xeroform dressing to skin graft every other day for 1 week and aquaphor daily after 1 week), vital signs, cardiopulmonary status, nutrition, hydration, elimination, meds effectiveness and management; reinforce education re health issues HOME HEALTH CARE AGENCY: [facility] PHONE: [phone] FAX: [phone] Start of care: 24-48 hrs after discharge Please note that any additional orders needs or changes will need to be obtained from this patient'sPCP: Tip Red, DO [address] / [facility] [id number] All VNA agencies which cover the area of patient's residence have been reviewed, either verbally or in writing, and patient/family have chosen the home health care agency noted Question Response Notes Agency [facility] post discharge Home What services are requested Registered Nurse Responsible MD post discharge contact info PCP Instructions Given to Patient at Discharge: Patient Instructions DISCHARGE INSTRUCTIONS SPLIT THICKNESS SKIN GRAFT After Surgery Care after surgery involves preventing infection and keeping the graft site motionless so that bloodvessels can reconnect. For this reason, grafts are not disturbed for 5 to 7 days following surgery. It is normal for your graft/donor sites to drain, peel and itch after surgery. You may also experience sharp ???electric shock?? type pain as your nerve endings heal. This gets better with time. Your graft and donor sites will continue to change in strength and appearance for up to one year. Neither site will be as strong as your normal skin, may be darker or shoulder boner in color and may never have normal feeling or reaction to hot and cold. Graft Site Care Every other day dressing changes with bacitracin ointment, xeroform (yellow and sticky), Abd pad, and a Kerlix or Sudheer cover wrap, for the fist week after wound vac removal. Then twice daily Aquaphor for a week, then any moisturizing lotion several times daily until fully healed. Keeping your skin graft moisturized is important, as the new skin doesn't produce natural skin lubricants at first for three months to a year. Donor Site Care A pink foam dressing was applied to your donor site at the time of surgery. Optimally this dressing will remain in place for 2 weeks. Often, the initial dressing will leak. It is common to have blood on the dressing, if it is leaking around the side of the dressing this is not an emergency but we may want you to come in for a dressing change, at your convenience.Reinforce the edges with tegaderm dressings or something similar if the edges are peeling up. If you remove the pink dressing before 2 weeks, it peels the newly forming layer of skin with it and the healing process is delayed. Call our office if: ??? Your incision opens up ??? You have signs of infection o A temperature over 100.4 F. o Redness of the incision lines that is beginning to spread away from the incision. o Yellow pus-like or foul smelling drainage from the incision or drain site. o Increase pain/discomfort that is not relieved by your pain medication. An appointment has been requested for you in 5-7 days for removal of your dressing. Future Appointments Date Time Provider Department Center 12/17/2020 9:00 AM NURSE, PLASTIC SURGERY [facility] PLAS 4M [facility] 12/24/2020 10:00 AM UROLOGY, NURSE [facility] URO [facility] 12/24/2020 11:40 AM Arias Metcalf III, MD [facility]RO [facility] For questions about scheduling, please contact our administrative offices at [phone]. For clinical questions, please call our nurses at [phone]. Both offices are open Jonh thru Tuesday 8a - 5p. With emergencies after hours, call the hospital collet making machine operator at [phone] and ask for the Plastic Surgery Resident telephone information clerk. General Instructions None Future Appointments and Orders Future Appointments and Orders Future Appointments Provider Department Dept Phone 12/17/2020 9:00 AM NURSE, PLASTIC SURGERY Plastic Surgery at [facility] Arrive at: [employer] 4M [phone] 12/24/2020 10:00 AM UROLOGY, NURSE Urology at [facility] Arrive at: [employer] 5B [phone] 12/24/2020 11:40 AM Arias Metcalf III, MD Urology at [facility] Arrive at: [employer] 5B [phone] Future Orders Complete By Expires Referral to Home Health - at DISCHARGE [[id number] CPT(R)] As directed Process Instructions: Scheduling Instructions: Comments: DOCUMENTATION FOR VNA SERVICES (INCLUDING THOSE PATIENTS WITH MEDICARE COVERAGE REQUIRING HOME VNA SERVICES AND/OR HOSPICE SERVICES) PATIENT'S LOCATION: Kushal Keane [address] [place] [id number] (home) Fitness Leader's Name: In discussion with the attending physician, it is certified that this patient is under their care and that they, or a Nurse Practitioner,Clinical Nurse specialist or Physician Nail Specialist who is working directly with them, had a face to face encounter that meets the physician face to face encounter requirements with this patient on 12/13/2020 The encounter with the patient was in whole, or in part, for the following medical condition, which is the primary reason for home health care services: Penile degloving for buried penis with split-thickness skin graft placement In discussion with the provider, it is certified that, based on their findings, the following services are medically necessary for home health services. To provide the following care/treatments with the clinical findings supporting the need for servicesas follows: HOME CARE ORDERS: RN ORDERS: Wound care EOD, draincare, Assess wound or incision (wound care includes bacitracin ointment and xeroform dressing to skin graft every other day for 1 week and aquaphor daily after 1 week), vital signs, cardiopulmonary status, nutrition, hydration, elimination, meds effectiveness and management; reinforce education re health issues HOME HEALTH CARE AGENCY: [facility] PHONE: [phone] FAX: [phone] Start of care: 24-48 hrs after discharge Please note that any additional orders needs or changes will need to be obtained from this patient'sPCP: Tip Red, DO [address] / [place] [id number] All VNA agencies which cover the area of patient's residence have been reviewed, either verbally or in writing, and patient/family have chosen the home health care agency noted Questions: Agency name and contact information: [facility] Patient location post discharge: Home What services are requested: Registered Nurse Start date: Responsible MD post discharge contact info: PCP Call your doctor if: Please call your doctor immediately or go to an Emergency Department if you notice worsening pain not controlled by pain medications, uncontrolled headache, vision changes, chest pain, difficulty breathing, persistent nausea and vomiting, new redness or swelling in any extremities, new onset weakness or changes in sensation, or for any fevers greater than 100.4 or 38 F. Signed: Jacky Bishop MD 12/13/2020 Plastic Surgery Nursing Orders: - Wound check, remove dressing per protocol, pathology report documented in this encounter Discharge Instructions Patient InstructionsGiselle Jackson MD - 12/13/2020 8:07 AM EDT DISCHARGE INSTRUCTIONS SPLIT THICKNESS SKIN GRAFT After Surgery Care after surgery involves preventing infection and keeping the graft site motionless so that bloodvessels can reconnect. For this reason, grafts are not disturbed for 5 to 7 days following surgery. It is normal for your graft/donor sites to drain, peel and itch after surgery. You may also experience sharp ???electric shock?? type pain as your nerve endings heal. This gets better with time. Your graft and donor sites will continue to change in strength and appearance for up to one year. Neither site will be as strong as your normal skin, may be darker or shoulder boner in color and may never have normal feeling or reaction to hot and cold. Graft Site Care Every other day dressing changes with bacitracin ointment, xeroform (yellow and sticky), Abd pad, and a Kerlix or Sudheer cover wrap, for the fist week after wound vac removal. Then twice daily Aquaphor for a week, then any moisturizing lotion several times daily until fully healed. Keeping your skin graft moisturized is important, as the new skin doesn't produce natural skin lubricants at first for three months to a year. Donor Site Care A pink foam dressing was applied to your donor site at the time of surgery. Optimally this dressing will remain in place for 2 weeks. Often, the initial dressing will leak. It is common to have blood on the dressing, if it is leaking around the side of the dressing this is not an emergency but we may want you to come in for a dressing change, at your convenience.Reinforce the edges with tegaderm dressings or something similar if the edges are peeling up. If you remove the pink dressing before 2 weeks, it peels the newly forming layer of skin with it and the healing process is delayed. Call our office if: ??? Your incision opens up ??? You have signs of infection o A temperature over 100.4 F. o Redness of the incision lines that is beginning to spread away from the incision. o Yellow pus-like or foul smelling drainage from the incision or drain site. o Increase pain/discomfort that is not relieved by your pain medication. An appointment has been requested for you in 5-7 days for removal of your dressing. Future Appointments Date Time Provider Department Center 12/17/2020 9:00 AM NURSE, PLASTIC SURGERY [facility] PLAS 4M [facility] 12/24/2020 10:00 AM UROLOGY, NURSE [facility] 12/24/2020 11:40 AM Arias Metcalf III, MD [facility] For questions about scheduling, please contact our administrative offices at [phone]. For clinical questions, please call our nurses at [phone]. Both offices are open Tuesday thru Tuesday 8a - 5p. With emergencies after hours, call the hospital collet making machine operator at [phone] and ask for the Plastic Surgery Resident telephone information clerk. documented in this encounter Medications at Time of Discharge Medication Sig Dispensed Refills Start Date End Date lisinopril Take 20 mg by mouth 0 (PRINIVIL;ZESTRIL) 20 mg daily. Tablet metFORMIN (GLUCOPHAGE) Take 1,000 mg by 0 1,000 mg Tablet mouth 2 times daily (with meals). aspirin 81 mg Tablet, Take 81 mg by mouth 0 Delayed Release (E.C.) daily. fish oil-omega-3 fatty Take 2 g by mouth 0 acids 1,000 mg Capsule daily. loratadine (CLARITIN) 10 Take 10 mg by mouth 0 mg Tablet daily. pravastatin (PRAVACHOL) Take 40 mg by mouth 0 40 mg Tablet daily. celecoxib (CELEBREX) 100 Take 100 mg by mouth 0 mg Capsule 2 times daily. FLUoxetine (PROZAC) 40 mg 0 03/31/2017 Capsule multivitamin (THERAGRAN) Take 1 tablet by 0 Tablet mouth daily. glucosamine sulfate 500 Take by mouth. 0 mg Tablet allopurinol (ZYLOPRIM) 0 07/23/2010 300 mg tablet acetaminophen (TYLENOL) 0 07/23/2010 325 mg tablet sulfamethoxazole-trimetho Take 1 tablet by 28 tablet 0 11/2712/27/2020 prim DS (Bactrim DS) mouth 2 times daily 800-160 mg Tablet for 14 days. oxyCODONE (Roxicodone) 5 Take 1 tablet by 10 tablet 0 12/1312/24/2020 mg Tablet mouth every 4 hours as needed for Pain (Moderate pain (4-6)). ibuprofen (Advil;Motrin) Take 200 mg by mouth 0 01/19/2021 200 mg Tablet every 6 hours as needed for Pain. PRN clobetasol (TEMOVATE) APPLY TO AFFECTED 2 018 05/05/2021 0.05 % Cream AREA TWICE DAILY documented as of this encounter Progress Notes Irasema Walls RN - 12/13/2020 3:56 PM EDT Patient discharged to home with VNA services. IV removed, site benign. My assessment remains unchanged from my previous assessment. Patient denies chest pain and shortness of breath. Discussed pain management with patient, pain tolerable. Patient medicated prior to discharge. Patient has all belongings. Patient received discharge summary and prescriptions. These were reviewed. All questions answered.Patient encouraged to call with questions or concerns. Patient discharged to home with family. Discharge Summary was faxed, RN called report to [facility]. Amisha Sharma, PT - 12/13/2020 9:48 AM [facility]: Cleared PT for DC home. No PT needs. Physical Therapy Evaluation Patient profile: Kushal Keane is a 60 y.o. male admitted on 12/08/[address] Tea Glynn MD for Buried penis release, panniculectomy, monsplasty, STSG from R thigh to penis. Bedrest x5 days with wound vac (since removed) Patient with the following active problems: No past medical history on file. Past Surgical History: Procedure Laterality Date ??? CREATED BY INTERFACE Entered not Verified Procedure Date: 03/24/2010 ??? CREATED BY INTERFACE Hernia repair Procedure Date: Unknown ??? CREATED BY INTERFACE hydrocele repair Procedure Date: Unknown ??? PRO CYSTOURETHROSCOPY N/A 12/08/2020 CYSTO, CYSTOURETHROSCOPY, DIAGNOSTIC (WRVU 2.23) performed by Arias Metcalf III, MD at [facility] ??? PRO DESTR PENIS LESN, SIMPL, SURG EXCIS N/A 12/08/2020 EXCISION, PENILE CONDYLOMATA (WRVU 1.98) performed by Arias Metcalf III, MD at [facility] ??? PRO DRESSING CHANGE UNDER ANESTHESIA N/A 12/08/2020 DRESSING CHANGE (FOR OTHER THAN WILKINS) UNDER ANES., ABDOMEN (WRVU 0.86) performed by Tea Glynn MD at [facility] ??? PRO EXCISE EXCESS SKIN TISSUE, ABDOMEN N/A 12/08/2020 PANNICULECTOMY performed by Tea Glynn MD at [facility] ??? PRO EXCISE EXCESS SKIN TISSUE, OTHER N/A 12/08/2020 EXC EXCESSIVE SKIN & SUBQ TISSUE, MON PUBIS (WRVU 10.5) performed by Tea Glynn MD at [facility] ? ? PRO SPLIT GRFT TRUNK, ARM, LEG <100SQCM N/A 12/08/2020 SPLIT THICK SKIN GRAFT,100 SQ CM OR LESS, TRUNK (WRVU 9.9) [facility] ??? PRO SPLIT GRFT, TRUNK, ARM, LEG EA 100SQCM Midline 12/08/2020 EA.ADDITIONAL 100SQ.CM STSG (WRVU 1.72) performed by Tea Glynn MD at [facility] Social History: Patient lives with his spouse in a single level home. There are 7 SHERRELL with bilateral railings. Pt typically ambulates with axillary crutches due to baseline R knee pain. Can sleep in flat bed vs recliner chair as needed. Spouse home for the summer to assist as needed. Precautions/Special Considerations: Carb controlled diet, full code, fall risk, AAT, R thigh incision, ALEXIS drains to bilateral flank (to DC home with), black catheter (to DC home with). Has been on bedrest x5 days Mobility and Positioning Recommendations: ?? Pt. to utilize axillary crutches and SBA for ambulation and transfers with nursing. ?? Please encourage up to chair for meal times as able. ?? Pt encouraged to ambulate frequently with staff, getting into the bathroom for toileting and walking out in the garcia >/= 3 times daily as able. Subjective: ???We'll just take it slow?? Objective: Pt seen for initial evaluation today. Pain: Number Location At rest none With activity a bit R knee pain Vital Signs: At Rest With Activity SpO2 (RA) 92% 93% BP (MAP) 148/78mmHg mmHg HR 89bpm bpm Mental Status: alert, oriented to person, place, and time Vision: WFLS Skin: dressing to R anterior thigh, ALEXIS drains x2 Musculoskeletal: ROM: WFLS Strength: WFLS Sensation: intact Bed Mobility: Supine to Sit: modified ind to R side EOB, incr time/effort Sit to Supine: independent Transfers: Sit to Stand: supervised (first time OOB in 5 days). No AD. No overt LOB Stand to Sit: independent Bed to Chair: N/A Other: none Gait: Distance: 150 feet Device Used: axillary crutches Level of Assist: Supervision progressing to modified independence Gait Comments: no overt LOB, step through pattern. Chair follow but did not utilize Stairs: 3 stairs ascend and descend with single railing and bilateral crutches in L hand (per baseline). Step-to pattern. Cuing for technique initially but excellent carryover. No overt LOB. Modified independent Balance: Sitting Static: good Sitting Dynamic: good Standing Static: good Standing Dynamic / Gait: Fair-good with crutches, SBA Exercises: N/A Self Care: Donned pants, slippers, and T shirt independently at EOB Education: patient educated on role of therapy, tolerance to upright, management of drains/catheter, transfers, gait, stair negotiation, avoiding heavy lifting, and DC planning, with good understanding/demonstration. Patient status, treatment, and mobility recommendations discussed with nursing. Assessment: Kushal Keane was seen today for physical therapy evaluation. Pt presented with acutephysical impairments of pain, post operative precautions, lightheadedness, fatigue, gait pattern, and activity tolerance, which are currently contributing to functional limitations. Pt very pleasant and motivated to participate in therapy evaluation, after prolonged bedrest during hospital course. Pt initially somewhat lightheaded, though with VSS and improving tolerance to upright. Able to mobilize per reported baseline, independently with use of axillary crutches. Pt has met acute PT goals and is mobilizing adequately for DC home when medically ready. Do not anticipate further PT needs. Discharge Recommendations: Based on the current findings, Anticipated Discharge Disposition (PT): home with supervision when medically ready for hospital discharge. Discharge recommendation is based on the patient's current physical impairments, prior functional status, potential to return to prior level of function, patient motivation, reported home support, potential for functional gains, current level of endurance, reported home environment and anticipated trajectory of progress and may change based on patient progress during this hospitalization. Consult Recommendations: No other consults recommended at this time. Equipment Needs: Anticipated Equipment Needs at Discharge (PT): None (has crutches) Transportation Needs: Car Cleared Physical Therapy? YES Goals: Met at time of eval Plan: Therapy Frequency (PT): evaluation only for therapy. Patient/family understand and agree with plan as stated above. 2017 PT Evaluation Code Rationale: ?? Diagnosis & Pertinent Co-Morbidities, personal factors, and present illness affecting Plan ofCare: (see above); Additional personal factors or co- morbidities that impact plan: ?? Total # of Factors: (body habitus, R knee pain) 0 1-2 3+ x ?? Examination of body system impairments, functional limitations and behaviors, and/or participation restrictions. Addressing 1-2 elements Addressing 3 + elements Addressing 4 + elements x ?? Clinical presentation: See assessment above. (fatigue, lightheaded, pain) Stable/Uncomplicated Evolving/Fluctuating Symptoms Unstable/Unpredictable x ?? Clinical decision making of moderate complexity based on pt's functional performance as outlined in this evaluation. Time IN / OUT: 6499-4579 Total Minutes, Physical Therapy: 23 (Eval) Thank you for this consult. Amisha Sharma, PT Pager: [phone] Physical Therapy Inpatient Rehabilitation Department Giselle Jackson MD - 12/13/2020 8:08 AM EDT Plastic Surgery Inpatient Progress Note (Team Pager #[phone]) Date of surgery: 12/08/20 CC/Procedure(s): Buried penis release, panniculectomy, monsplasty, STSG from R thigh to penis Surgeon: Jasmin Subjective: KATHERYN, pt offers no complaints. Looking forward to getting out of bed. Objective: BP 153/77 (BP Location (NBP): Right arm, Patient Position: Lying) Pulse 83 Temp 36.7 ??C (98.1 ??F) (Oral) Resp 15 Ht 167.6 cm (5' 6) Wt 130.9 kg (288 lb 9.6 oz) SpO2 97% BMI 46.58 kg/m?? Intake/Output Summary (Last 24 hours) at 12/13/2020 0808 Last data filed at 12/13/2020 0316 Gross per 24 hour Intake 1821 ml Output 2060 ml Net -239 ml General: Resting comfortably in no acute distress. Neuro: Awake, alert, responds to questions appropriately. CV: Regular rate on monitor Pulm: Unlabored Abd: incision c/d/i. Umbilicus well-perfused and viable. ALEXIS x2 w/ SS output. No evidence of hematoma/seroma/infection. : Vac removed today showing skin graft intact and viable RLE: Allevyn in place to thigh with minimal strikethrough Labs: No results for input(s): WBC, HGB, HCT, NA, K, CL, BUN, CREATININE, CO2, GLUCOSE, ANIONGAP, CALCIUM,ALBUMIN, AST, ALT, ALKPHOS, BILITOT, BILIDIR, PREALBUMIN in the last 72 hours. Invalid input(s): PROF, ESGFR Assessment: Kushal Keane is a 60 y.o. male s/p buried penis release, panniculectomy, monsplasty,STSG from R thigh to penis 12/08, recovering well. Plan: 1. Dressings/Drains: vac removed 12/13, Allevyn x2 weeks, reinforce if needed, do not remove. Bacitracin, xeroform, abd pads and mesh underwear to skin graft until follow up. 2. Pain control: Tylenol, PRN oxycodone, flexeril 3. Antibiotics: PO Bactrim while Black in 4. Diet: Carb control 5. Activity: As tolerated 6. DVT prophylaxis: Lovenox, SCDs 7. Home medications: continue 8. Other active issues: n/a 9. Dispo: Anticipated home 12/13-. 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 Giselle Jackson MD 12/13/2020 Plastic Surgery Inpatient Team Pager #[phone] Mohsen Calero PA - 12/12/2020 11:57 AM EDT Plastic Surgery Inpatient Progress Note (Team Pager #[phone]) Date of surgery: 12/08/20 CC/Procedure(s): Buried penis release, panniculectomy, monsplasty, STSG from R thigh to penis Surgeon: Jasmin Subjective: KATHERYN, pt offers no complaints. Looking forward to getting out of bed tomorrow. Objective: BP 130/72 (BP Location (NBP): Right arm, Patient Position: Lying) Pulse 83 Temp 36.6 ??C (97.8 ??F) (Oral) Resp 16 Ht 167.6 cm (5' 6) Wt 130.9 kg (288 lb 9.6 oz) SpO2 92% BMI 46.58 kg/m?? Intake/Output Summary (Last 24 hours) at 12/12/2020 1157 Last data filed at 12/12/2020 1100 Gross per 24 hour Intake 1765 ml Output 2920 ml Net -1155 ml General: Resting comfortably in no acute distress. Neuro: Awake, alert, responds to questions appropriately. CV: Regular rate on monitor Pulm: Unlabored Abd: incision c/d/i. Umbilicus well-perfused and viable. ALEXIS x2 w/ SS output. No evidence of hematoma/seroma/infection. : Vac in place and holding suction to penis. RLE: Allevyn in place to thigh with minimal strikethrough Labs: No results for input(s): WBC, HGB, HCT, NA, K, CL, BUN, CREATININE, CO2, GLUCOSE, ANIONGAP, CALCIUM,ALBUMIN, AST, ALT, ALKPHOS, BILITOT, BILIDIR, PREALBUMIN in the last 72 hours. Invalid input(s): PROF, ESGFR Assessment: Kushal Keane is a 60 y.o. male s/p buried penis release, panniculectomy, monsplasty,STSG from R thigh to penis 12/08, recovering well. Plan: 1. Dressings/Drains: vac x5d (to be removed 12/13), Allevyn x2 weeks, reinforce if needed, do not remove 2. Pain control: Tylenol, PRN oxycodone, flexeril 3. Antibiotics: Ancef while Black in 4. Diet: Carb control 5. Activity: Bedrest until vac off 6. DVT prophylaxis: Lovenox, SCDs 7. Home medications: continue 8. Other active issues: n/a 9. Dispo: Anticipated home 12/13-, possibly with VNA CHANG Gabriel 12/12/2020 Plastic Surgery Inpatient Team Pager #[phone] Giselle Jackson MD - 12/11/2020 7:24 AM EDT Plastic Surgery Inpatient Progress Note (Team Pager #[phone]) Date of surgery: 12/08/20 CC/Procedure(s): Buried penis release, panniculectomy, monsplasty, STSG from R thigh to penis Surgeon: Jasmin Subjective: KATHERYN, pain controlled. Patient offers no complaints. Objective: BP (!) 160/94 (BP Location (NBP): Right arm, Patient Position: Lying) Pulse 83 Temp 36.8 ??C (98.2 ??F) (Oral) Resp 18 Ht 167.6 cm (5' 6) Wt 130.9 kg (288 lb 9.6 oz) SpO2 96% BMI 46.58 kg/m?? Intake/Output Summary (Last 24 hours) at 12/11/2020 0724 Last data filed at 12/11/2020 0600 Gross per 24 hour Intake 2674 ml Output 3485 ml Net -811 ml General: Resting comfortably in no acute distress. Neuro: Awake, alert, responds to questions appropriately. CV: Regular rate on monitor Pulm: Unlabored Abd: incision c/d/i. Umbilicus well-perfused and viable. ALEXIS x2 w/ SS output. No evidence of hematoma/seroma/infection. : Vac in place and holding suction to penis. RLE: Allevyn in place to thigh with minimal strikethrough Labs: No results for input(s): WBC, HGB, HCT, NA, K, CL, BUN, CREATININE, CO2, GLUCOSE, ANIONGAP, CALCIUM,ALBUMIN, AST, ALT, ALKPHOS, BILITOT, BILIDIR, PREALBUMIN in the last 72 hours. Invalid input(s): PROF, ESGFR Assessment: Kushal Keane is a 60 y.o. male s/p buried penis release, panniculectomy, monsplasty,STSG from R thigh to penis 12/08, recovering well. Plan: 1. Dressings/Drains: vac x5d (to be removed 12/13), Allevyn x2 weeks, reinforce if needed, do not remove 2. Pain control: Tylenol, PRN oxycodone, flexeril 3. Antibiotics: Ancef while Black in 4. Diet: Carb control 5. Activity: Bedrest until vac off 6. DVT prophylaxis: Lovenox, SCDs 7. Home medications: continue 8. Other active issues: n/a 9. Dispo: Anticipated home 12/13-, possibly with VNA Giselle P [place], MD 12/11/2020 Plastic Surgery Inpatient Team Pager #[phone] Giselle Jackson MD - 12/10/2020 7:31 AM EDT Plastic Surgery Inpatient Progress Note (Team Pager #[phone]) Date of surgery: 12/08/20 CC/Procedure(s): Buried penis release, panniculectomy, monsplasty, STSG from R thigh to penis Surgeon: Jasmin Subjective: KATHERYN, pain controlled. Patient offers no complaints. Objective: BP 144/78 (BP Location (NBP): Right arm, Patient Position: Lying) Pulse (!) 103 Temp 37.5 ??C (99.5 ??F) (Oral) Resp 16 Ht 167.6 cm (5' 6) Wt 130.9 kg (288 lb 9.6 oz) SpO2 92% BMI 46.58 kg/m?? Intake/Output Summary (Last 24 hours) at 12/10/2020 0731 Last data filed at 12/10/2020 0600 Gross per 24 hour Intake 2287 ml Output 2895 ml Net -608 ml General: Resting comfortably in no acute distress. Neuro: Awake, alert, responds to questions appropriately. CV: Regular rate on monitor Pulm: Unlabored on RA Abd: Primapore dressing removed, incision c/d/i. Umbilicus well-perfused and viable. ALEXIS x2 w/ SS output. No evidence of hematoma/seroma/infection. : Vac in place and holding suction to penis. RLE: Allevyn in place to thigh with minimal strikethrough Labs: No results for input(s): WBC, HGB, HCT, NA, K, CL, BUN, CREATININE, CO2, GLUCOSE, ANIONGAP, CALCIUM,ALBUMIN, AST, ALT, ALKPHOS, BILITOT, BILIDIR, PREALBUMIN in the last 72 hours. Invalid input(s): PROF, ESGFR Assessment: Kushal Keane is a 60 y.o. male s/p buried penis release, panniculectomy, monsplasty,STSG from R thigh to penis 7/12, recovering well. Primapore dressing removed today. Plan: 1. Dressings/Drains: vac x5d (to be removed 12/13), Allevyn x2 weeks, reinforce if needed, do not remove 2. Pain control: Tylenol, PRN oxycodone, flexeril 3. Antibiotics: Ancef while Black in 4. Diet: Carb control 5. Activity: Bedrest until vac off 6. DVT prophylaxis: Lovenox, SCDs 7. Home medications: resume 8. Other active issues: n/a 9. Dispo: Anticipated home 12/13-, possibly with VNA Giselle Jackson MD 12/10/2020 Plastic Surgery Inpatient Team Pager #[phone] Kaylah Hill MD - 12/09/2020 6:26 PM EDT Urology Inpatient Progress Note ID: Kushal Keane is a 60 y.o. male who is 1 Day Post-Op from a buried penis repair with plastic surgery. Urology assisted with dorsal slit and intra- operative cystoscopy: Findings: Phimotic foreskin; dorsal slit performed to extract glans Cystoscopy performed and notable for tight fossa navicularis and soft bulbar urethral stricture easily navigated with scope; 16Fr Silastic Black placed over a wire Penile degloving performed 24hr events: ?? NAEON ?? Wound vac to suction ?? Black draining CYU ?? Patient comfortable O: Last value Range last 24hrs Temperature Temp: 37.5 ??C (99.5 ??F) Temp: [37 ??C (98.6 ??F)-37.7 ??C (99.9 ??F)] Heart Rate Heart Rate: (!) 103 Heart Rate: [103] Blood Pressure BP: 155/87 BP: (131-155)/(81-88) Respiratory Rate Resp: 18 Resp: [17-18] SpO2 SpO2: 90 % SpO2: [89 %-92 %] 12/08 0701 - 12/09 0700 In: 2100 [P.O.:900; I.V.:1200] Out: 3630 [Urine:3385] Urine: 3385cc ALEXIS Left: 75cc ALEXIS Right: 70cc Physical Exam: Gen: NAD CV: regular Pulm: breathing comfortably on room air Abd: abdominal binder in place, bilateral abdominal drains w/ SS output : penile vac to suction, black with CYU Neuro: AAOx3 No results for input(s): WBC, HGB, HCT, PLATELET, PT, INR, PTT in the last 72 hours. No results for input(s): NA, K, CL, CO2, BUN, CREATININE, GLUCOSE, CALCIUM, MAGNESIUM, PHOS in the last 72 hours. ASSESSMENT/PLAN: Kushal Keane is a 60 y.o. male 1 Day Post-Op from a buried penis repair with plastic surgery. Progressing well. Black catheter to remain in place for 2 weeks. This can be removed in urology clinic as an outpatient -- appointmet scheduled 12/24. No plan for prophylactic antibiotics. Remainder of care per plastics team. DISPO: Stable, Attempt Cardiopulmonary Resuscitation - Inpatient Kaylah Hill MD Jennifer Fry RN - 12/09/2020 1:00 PM EDT The patient has been provided a list of Home Health Agencies/DME vendors which serve their preferredgeographic area. A letter describing our affiliations was reviewed with them and they were educated about their right to choose where referrals are placed. Patient requests referral to [facility] PHONE: [phone] FAX: [phone] Expected date of discharge: 12/09-12/10 Referral routed to the Lithograph Operator for matching with agency/vendor and to provide any required information. Mohsen Calero PA - 12/09/2020 7:23 AM EDT Plastic Surgery Inpatient Progress Note (Team Pager #[phone]) Date of surgery: 12/08/20 CC/Procedure(s): Buried penis release, panniculectomy, monsplasty, STSG from R thigh to penis Surgeon: Jasmin Subjective: KATHERYN, pain controlled. Objective: BP 131/86 (BP Location (NBP): Left arm, Patient Position: Lying) Pulse (!) 103 Temp 37 ??C (98.6??F) (Oral) Resp 18 Ht 167.6 cm (5' 6) Wt 130.9 kg (288 lb 9.6 oz) SpO2 91% BMI 46.58 kg/m?? Intake/Output Summary (Last 24 hours) at 12/09/2020 0723 Last data filed at 12/09/2020 0400 Gross per 24 hour Intake 2100 ml Output 2960 ml Net -860 ml General: Resting comfortably in no acute distress. Neuro: Awake, alert, responds to questions appropriately. CV: Regular rate on monitor Pulm: Unlabored on RA Abd: Incision with primapore in place with minimal strikethrough. Umbilicus well-perfused. ALEXIS x2 w/ SS output. No evidence of hematoma/seroma/infection. : Vac in place and holding suction to penis. RLE: Allevyn in place to thigh with minimal strikethrough Labs: No results for input(s): WBC, HGB, HCT, NA, K, CL, BUN, CREATININE, CO2, GLUCOSE, ANIONGAP, CALCIUM,ALBUMIN, AST, ALT, ALKPHOS, BILITOT, BILIDIR, PREALBUMIN in the last 72 hours. Invalid input(s): PROF, ESGFR Assessment: Kushal Keane is a 60 y.o. male s/p buried penis release, panniculectomy, monsplasty,STSG from R thigh to penis 12/08, recovering well. Plan: 1. Dressings/Drains: vac x5d (to be removed 12/13), primapore removed 12/10, Allevyn x2 weeks, reinforce if needed, do not remove 2. Pain control: Tylenol, PRN oxycodone 3. Antibiotics: Ancef while Black in 4. Diet: Carb control 5. Activity: Bedrest until vac off 6. DVT prophylaxis: Lovenox, SCDs 7. Home medications: resume 8. Other active issues: n/a 9. Dispo: Anticipated home 12/13-, possibly with A Plastic Surgery Inpatient Team Pager #[phone] Margi Evans APRN - 12/08/2020 2:43 PM EDT Plastic Surgery Service Post-Op Progress Note ID: Kushal Keane ( ) is a 60 y.o. male admitted on 12/08/2020 for BXO / buried penis, now s/p panniculectomy, monsplasty, and split thickness skin grafting. Subjective: Patient states that his pain well controlled and he is not experiencing SOB, chest pain,nausea, or vomiting. Vitals: Last value Range last 8hrs Temperature Temp: 36.5 ??C (97.7 ??F) Temp: [36.2 ??C (97.2 ??F)-36.7 ??C (98.1 ??F)] Heart Rate Heart Rate: 82 Heart Rate: [74-84] Blood Pressure BP: 147/83 BP: (133-162)/(68-133) Respiratory Rate Resp: 18 Resp: [8-19] SpO2 SpO2: 92 % SpO2: [92 %-100 %] I/O: I/O this shift: In: 1200 [I.V.:1200] Out: 380 [Urine:235; Other:45; Blood:100] UOP since OR: ~ 200 cc Physical Exam: General: Resting comfortably, no acute distress. Neuro: Awake, alert, responds to questions appropriately. moving all four extremities spontaneously. CV: heart rate regular Pulm: Normal effort, no respiratory distress. Skin: pink, warm, dry. Incision: lower abdominal dressing is clean, dry, intact. Abdominal binder on. 2 ALEXIS drains with small sanguinous VAC holding suction and seal Labs: No results for input(s): HGB, PLATELET, INR in the last 168 hours. Assessment: Kushal Keane is a 60 y.o. male admitted on 12/08/2020 now s/p panniculectomy, monsplasty, and split thickness skin grafting. hemodynamically stable, tolerating PO, pain well controlled. Plan: - tylenol / oxycodone for pain - Diet: Carb Control diet 45/45/60 CHO counting level 1 - DVT prophylaxis: SCDs - antibiotics: Ancef - remove VAC 5 days post-op (12/13) Dispo: - Home Code Status: Attempt Cardiopulmonary Resuscitation - Inpatient Margi Jess JOSE Evans 12/08/2020 2:44 PM Merry Jeronimo RN - 12/08/2020 1:21 PM EDT Patient arrived to floor via bed. Patient A&O x 4, lungs clear but diminished at bases, heart rate regular. Patient has hypoactive bowel sounds and states their last BM was on 12/08/20. Patient has a dressing to pannus/ penis area, noted to be clean dry and intact, wound vac suction at 150mmhg. Patient has an IV of left hand 20 ga. Patient states their pain level is 7/10. Patient denies chest pain, shortness of breath, numbness or tingling. Patient oriented to room, call leroy, IS. RN will monitorpatient. Vitals stable. Family at bedside. Pamella Avery RN - 12/08/2020 11:00 AM EDT Patient arrived from OR in bed, attached to monitors and alarms set appropriately for patient. VSS. Incision c/d/i. Drains holding suction. documented in this encounter H&P Esau Dalton MD - 12/08/2020 7:09 AM EDT Urology PreOp H&P Kushal Neyda [place] 60 y.o. male with lichen sclerosis urethral stricture and acquired buried penis whopresents for panniculectomy, mons plasty, and degloving and resurfacing of penis with a skin graft. Urology will perform a cystoscopy, urethral dilation and penile degloving. No changes to medications, no fevers, chills, headaches, chest pain, new cough, nausea, emesis, constipation, diarrhea, difficulty urinating, one sided numbness or tingling sensation. Denies recent hospitalization. PreOp UCx with > 100,000 E. Coli - started on Keflex 500mg BID x [address] Garay PMH: HTN HLD Obesity DMII ANTHONY PSH: Umbilical hernia repair with mesh Right hydrocelectomy No current facility-administered medications on file prior to encounter. Current Outpatient Medications on File Prior to Encounter Medication Sig Dispense Refill ??? ibuprofen (Advil;Motrin) 200 mg Tablet Take 200 mg by mouth every 6 hours as needed for Pain. PRN ??? lisinopril (PRINIVIL;ZESTRIL) 20 mg Tablet Take [...] APPLY TO AFFECTED AREA TWICE DAILY 2 No Known Allergies There were no vitals filed for this visit. Exam: General: Alert and oriented x4 Heart: RRR Lungs: No audible wheezing Abdomen: Soft, non-tender/distended Extremities: Warm, no edema No results found for this or any previous visit (from the past 24 hour(s)). Assessment/Plan Proceed with scheduled procedure Procedure(s): PANNICULECTOMY EXC EXCESSIVE SKIN & SUBQ TISSUE, MON PUBIS (WRVU 10.5) DRESSING CHANGE (FOR OTHER THAN WILKINS) UNDER ANES., ABDOMEN (WRVU 0.86) SPLIT THICK SKIN GRAFT,100 SQ CM OR LESS, TRUNK (WRVU 9.9) MODIFIER WOUND VAC CYSTO, CYSTOURETHROSCOPY, DIAGNOSTIC (WRVU 2.23) EXCISION, PENILE CONDYLOMATA (WRVU 1.98) Sarah Dodson MD - 12/08/2020 6:08 AM EDT Plastic Surgery Preoperative H&P: Patient Name: Kushal Keane Patient : 1960 Today's Date: 12/08/2020 Kushal Keane is a 60 y.o. male with No chief complaint on file. who presents today for Procedure(s): PANNICULECTOMY EXC EXCESSIVE SKIN & SUBQ TISSUE, MON PUBIS (WRVU 10.5) DRESSING CHANGE (FOR OTHER THAN WILKINS) UNDER ANES., ABDOMEN (WRVU 0.86) SPLIT THICK SKIN GRAFT,100 SQ CM OR LESS, TRUNK (WRVU 9.9) MODIFIER WOUND VAC CYSTO, CYSTOURETHROSCOPY, DIAGNOSTIC (WRVU 2.23) EXCISION, PENILE CONDYLOMATA (WRVU 1.98). No changes since last seen. Exam: General: NAD Resp: CTAB CV: normal rate, regular rhythm A/P: Kushal Keane is a 60 y.o. male with No chief complaint on file. who presents for Procedure(s): PANNICULECTOMY EXC EXCESSIVE SKIN & SUBQ TISSUE, MON PUBIS (WRVU 10.5) DRESSING CHANGE (FOR OTHER THAN WILKINS) UNDER ANES., ABDOMEN (WRVU 0.86) SPLIT THICK SKIN GRAFT,100 SQ CM OR LESS, TRUNK (WRVU 9.9) MODIFIER WOUND VAC CYSTO, CYSTOURETHROSCOPY, DIAGNOSTIC (WRVU 2.23) EXCISION, PENILE CONDYLOMATA (WRVU 1.98) Proceed to OR The risks, benefits and indications were reviewed with the patient and there remains an indication for surgery. Consent signed and scanned in chart. Pre-operative antibiotics ordered Please page if any questions Sarah Dodson MD/S Plastic Surgery Resident, Pager: [phone] Plastic Surgery Team Pager: [phone] documented in this encounter Miscellaneous Notes Plan of Care - Mary Carmen Contreras RN - 12/13/2020 5:36 AM EDT OUTCOME EVALUATION NOTE: OUTCOME SUMMARY: Pt A&Ox4, VSS on RA (CPAP @ PM). Pt pain adequately controlled with scheduled pain medications and PRN (see MAR). BG coverage given as needed (see MAR). R thigh allevyn dressings with dried drainage, MD aware. Lower abd incision MARTITA, WDL. WV @ -[address]. Black in place, not to be removed (See doc flow for output). JPx2 to L/R abd in place (see doc flow for output). Last BM TREE WRAPPER. Bed/chair alarm settings appropriate for patient. Call leroy in reach, sleeping between care, will continueto monitor and help patient reach d/c goals. PLAN MOVING FORWARD: BG monitoring NV checks Pain control Mobilize / PT/OT D/c planning -- Home today? INDIVIDUALIZED FALL PREVENTION: Patient is currently a high risk to Fall. Patient educated on bed/chair alarm, demonstrates proper use of call leroy and verbalizes understanding of fall preventions implemented. Patient-specific fall risk factors per assessment: [current deficits]: Surgery, Lines/Drains, Pain, Medications, Hospital Environment. Assistance [level of assistance required for transfers and ambulation]: BEDREST UNTIL 717 AM after WV removal Supervision [direct monitoring required during toileting and ADLs]: Hands on / Eyes on with ADL's Surveillance [continuous indirect monitoring]: Bed/chair alarm, Masimo, Purposeful Rounding, Nurse Knowledge Exchange Patient-specific fall prevention interventions for sensory deficits provided, if applicable: n/a Plan of Care - Franco Rodriguez RN - 12/12/2020 2:39 PM EDT OUTCOME EVALUATION NOTE: OUTCOME SUMMARY: Patient rating pain at 0/10 this shift, denied need for scheduled tylenol. Tolerating meals well with no N/V. Pt remains on bedrest until 12/13, after which he could discharthe same day assuming he meets the necessary criteria. Wound vac set at -150. Bowel meds held today per patient's request. PLAN MOVING FORWARD: VS q4hrs Leave wound vac in place, page plastics if it alarms. Nursing: Do not manipulate black or wound vac. Diet: Carb. Control Continue on Bed Rest. Use bedpan for bowel movements. Encourage IS use and PO intake of fluids. Anticipated discharge date: 12/13 Care clustered overnight to promote rest. INDIVIDUALIZED FALL PREVENTION INTERVENTIONS: High Fall Risk Patient-specific fall risk factors per assessment: [current deficits]: Patient's current risk factors include: RLE/penile/abdominal pain, PIV, SCDs, ALEXIS drains x2, black, multiple incisions, CPAP machine, IV antibiotics, and generalized weakness related to current medical status. Assistance [level of assistance required for transfers and ambulation]: bedrest x5 days post operative Supervision [direct monitoring required during toileting and ADLs]: hands on Surveillance [continuous indirect monitoring]: Bed/Chair alarm, yellow fall band, NKE at bedside, purposeful rounding, environmental modification (floor free of clutter, tubing secured), bed in low position, lighting adjusted for task/safety, nonskid slippers when out of bed, wheels locked, call lightin reach, upper side-rails raised X2, ID bands on. Patient-specific fall prevention interventions for sensory deficits provided, if applicable: [X] N/A Plan of Care - Vinay Messer RN - 12/12/2020 4:56 AM EDT OUTCOME EVALUATION NOTE: OUTCOME SUMMARY: Patient has been sleeping intermittently throughout the night. VSS. Utilizing cpap while asleep. Wound vac and black remain in place and w/o issue. IV abx as per orders. No acute issues noted @ this time. PLAN MOVING FORWARD: Will continue to monitor, maintain wound vac, administer IV abx, offer assistance, and otherwise tx as necessary/ordered. INDIVIDUALIZED FALL PREVENTION INTERVENTIONS: Patient-specific fall risk factors per assessment: [current deficits]: Recent st, black, wound vac, PIV, generalized weakness Assistance [level of assistance required for transfers and ambulation]: 2 assist (on bedrest) Supervision [direct monitoring required during toileting and ADLs]: Hands on/eyes on Surveillance [continuous indirect monitoring]: Bed alarm, purposeful rounding Patient-specific fall prevention interventions for sensory deficits provided, if applicable: [X] No CPG GOAL OUTCOME EVALUATION: Plan of Care - Franco Rodriguez RN - 12/11/2020 3:10 PM EDT OUTCOME EVALUATION NOTE: OUTCOME SUMMARY: Patient rating pain from -07/09 this shift, managed well with scheduled tylenol. Tolerating meals well with no N/V. Pt remains on bedrest until 12/13. Wound vac set at -150. BMs x2 today. Insulin given for meals but otherwise BGs have been in the 120s. Pt resting between care. PLAN MOVING FORWARD: VS q4hrs Leave wound vac in place, page plastics if it alarms. Nursing: Do not manipulate black or wound vac. Diet: Carb. Control Continue on Bed Rest. Use bedpan for bowel movements. Encourage IS use and PO intake of fluids. Anticipated discharge date: 12/18 Care clustered overnight to promote rest. INDIVIDUALIZED FALL PREVENTION INTERVENTIONS: High Fall Risk Patient-specific fall risk factors per assessment: [current deficits]: Patient's current risk factors include: RLE/penile/abdominal pain, PIV, SCDs, ALEXIS drains x2, black, multiple incisions, CPAP machine, IV antibiotics, and generalized weakness related to current medical status. Assistance [level of assistance required for transfers and ambulation]: bedrest x5 days post operative Supervision [direct monitoring required during toileting and ADLs]: hands on Surveillance [continuous indirect monitoring]: Bed/Chair alarm, yellow fall band, NKE at bedside, purposeful rounding, environmental modification (floor free of clutter, tubing secured), bed in low position, lighting adjusted for task/safety, nonskid slippers when out of bed, wheels locked, call lightin reach, upper side-rails raised X2, ID bands on. Patient-specific fall prevention interventions for sensory deficits provided, if applicable: [X] N/A Plan of Care - Jasper Chavarria RN - 12/11/2020 12:53 AM EDTSummary: Nursing Care Plan OUTCOME EVALUATION NOTE: OUTCOME SUMMARY: Pain managed with scheduled Tylenol. He is tolerating a consistent carbohydrate diet with no c/o nausea or emesis. PIV in L hand replaced before midnight antibiotics were administered due to possible infiltrate. Wound vac set at -150. Serous drainage noted in cannister. VSS. Patient used CPAP overnight. Care clustered to promote rest. PLAN MOVING FORWARD: VS q4hrs Leave wound vac in place, page plastics if it alarms. Nursing: Do not manipulate black or wound vac. Diet: Carb. Control Continue on Bed Rest. Use bedpan for bowel movements. Encourage IS use and PO intake of fluids. Anticipated discharge date: 12/18 Care clustered overnight to promote rest. INDIVIDUALIZED FALL PREVENTION INTERVENTIONS: High Fall Risk Patient-specific fall risk factors per assessment: [current deficits]: Patient's current risk factors include: RLE/penile/abdominal pain, PIV, SCDs, ALEXIS drains x2, black, multiple incisions, CPAP machine, IV antibiotics, and generalized weakness related to current medical status. Assistance [level of assistance required for transfers and ambulation]: bedrest x5 days post operative Supervision [direct monitoring required during toileting and ADLs]: hands on Surveillance [continuous indirect monitoring]: Bed/Chair alarm, yellow fall band, NKE at bedside, purposeful rounding, environmental modification (floor free of clutter, tubing secured), bed in low position, lighting adjusted for task/safety, nonskid slippers when out of bed, wheels locked, call lightin reach, upper side-rails raised X2, ID bands on. Patient-specific fall prevention interventions for sensory deficits provided, if applicable: [X] N/A CPG GOAL OUTCOME EVALUATION: Plan of Care - Marifer Locke RN - 12/10/2020 6:39 PM EDT Pt alert and oriented x4. Remains on bedrest until Tuesday at the earliest. Dressings removed this mornng by , abdominal binder removed this afternoon by MD, pt to place it back on when sitting up in bed. Drains x2 remain in place. Wound vac in place. Plan of Care - Dayo Davidson RN - 12/09/2020 5:06 PM EDT OUTCOME EVALUATION NOTE: OUTCOME SUMMARY: Pt had no new or worsening complaints today. Pt pain well controlled with scheduled tylenol today. No n/v/d noted. Pt urinary output as expected; see doc flow. No BM noted today despite numerous attempts. Wound vac without noted drainage; seal checked using self check mechanism; wound dressing inspected visually and noted to be intact. Abd dressing c/d/i. ALEXIS drains with minimal output; see doc flow. Pt had good PO intake today including all of breakfast and dinner. Pt remained on bedrest. SCD machine replaced because one extremity was not working. No new or changing neurological events noted. VSS, WCTM. PLAN MOVING FORWARD: Bedrest Monitor wound vac Monitor and empty bilateral ALEXIS drains Inspect abd and donor site dressings INDIVIDUALIZED FALL PREVENTION INTERVENTIONS: Patient-specific fall risk factors per assessment: Bedrest Assistance: Bedrest w/ Q2hr turns Supervision: Hands on Surveillance: Bed locked in low position, call leroy within reach, purposeful hourly rounding, clutter free environment, bed/chair alarm on Patient-specific fall prevention interventions for sensory deficits provided: no CPG GOAL OUTCOME EVALUATION: Continue care plan as documented. Initial Assessments - Chelsy De La O MSW - 12/09/2020 11:32 AM EDT Office of Care Management Initial Assessment LACHO Bucio reviewed record and discussed patient with Care Team. Source of Information: Team, bedside nurse, medical record, and Patient, Spouse Introduced self/reviewed role; services accepted. Reason for Hospitalization: For surgery Last COVID test: not on file Past medical History: No past medical history on file. Hospitalizations Within the Past 30 Days: no previous admission in last 30 days Current Decision-Making Capacity: Self Advance Care Planning: Attempt Cardiopulmonary Resuscitation - Inpatient <no information> -Advanced Directive: No, need to discuss If AD's have not been completed would be surrogate decision maker per [place] surrogate decision making law. (Only good for 90 days) Any patient receiving care at [facility] must abide by [place] law. The hierarchy for surrogate decision making is: (a) Patient???s spouse, or civil union partner or common law spouse unless there is a divorce proceeding, separation agreement, or restraining order limiting that person???s relationship with the patient. (b) Any adult son or daughter of the patient. (c) Either parent of the patient. (d) Any adult brother or sister of the patient. (e) Any adult grandchild of the patient. (f) Any grandparent of the patient. (g) Any adult aunt, uncle, niece, or nephew of the patient. (h) A close friend of the patient. (i) The agent with financial power of commercial litigation attorney or a conservator appointed in accordance with RSA 464-A. (j) The guardian of the patient???s estate. Current Coping/Education/Information Needs: in good spirits, on bedrest, family at the bedside visiting Current Functional Ability: unable to assess (on bedrest) Functional Status Prior to Admission: Assistive Equipment (states he was recently on crutches) Home Environment: Others in the home: spouse. Current Living Arrangements: home/apartment/condo. Accessibility Concerns:7 SHERRELL. Current DME: crutches Home Address confirmed as: [place] [address] Social & Family Supports: All names listed below confirmed with patient as current and correct; requested that daughter Johnny Crisostomo be added as a contact; DEVELOPMENT REP will update demo sheet Extended Emergency Contact Information Primary Emergency Contact: Tatianna Keane Mobile Relation: Spouse Current Care Provided by: self Provides Primary Care For: no one Caregiver if needed: spouse Quality of Family relationships: helpful, involved, supportive Community Resources being provided currently: none Behavioral Health History: not discussed Substance Use/Abuse listed: Social History Tobacco Use Smoking Status Never Smoker In the past year have you used an illegal drug or used a prescription medication for non-medical reaons?: No 0 No problems reported 1-2 Low level 3-5 Moderate level 6-8 Substantial level 9- 10 Severe level In the past year have you had 5 or more drinks a day containing alcohol?: No 0 to 7 points: Low risk 8 to 15 points: Medium risk 16 to 19 points: High risk 20 to 40 points: Addiction likely Other Pertinent/Service Specific Information: Health/Prescription Coverage: Primary Insurance: E[employer] OOS Payor: ENEFpro OOS / Plan: [facility] OOS PPO / Product Type: *No Product type* / Secondary Insurance: N/A Prescription Coverage: Yes Preferred Pharmacy: Short term prescriptions at [facility]; terminal operator prescriptions are deliveredto his home through [facility] - [address] [address] [facility] [id number] - [place], [place] - [address] [place] [id number] [place] Status: Patient is a : No Primary Care Provider: Tip Red DO [phone], confirmed Patient/Caregiver Goals of Treatment: discharge home Potential Needs for Transition of Care: home health care Agency Referrals: The patient/caregivers were provided with a list of home health agencies ([place]) which serve their preferred geographic location and they were educated about their right to choose where referrals are placed. Patient/Caregiver requests referral to [place]. Transportation: no concerns Transportation Anticipated: family or friend will provide, Tatianna Concerns to be Addressed: discharge planning Assessment: Patient is admitted to plasitcs service for panniculectomy. Pt recovering well on 3West.I met with the pt at the bedside to complete IA. Pt's and other family member also present. Pt in good spirits, was able to answer my questions above. Pt and agreeable to referral to [facility] for [facility]. No other needs identified. Plan: Per Plastics PA note, plan for pt to discharge sometime this vs. Tuesday, home with VNA. I will speak with RNCM about [facility]NA referral. A member of the Care Management team will continue to monitor progress, follow for continuity of care and assist with transition of care planning. LACHO [place], [facility] [phone] Plan of Care - Joel Mckeon RN - 12/09/2020 2:58 AM EDT OUTCOME EVALUATION NOTE: OUTCOME SUMMARY: Pt POD1, A+Ox4, VSS, on 2L NC/CPAP overnight, RA during the day. WV holding suction, abdominal horizontal incision CDI, abdominal binder on. Bilateral ALEXIS drains putting out small amount of sanguinous fluid. R thigh graft site CDI. Black patent, making adequate urine. Pain controlled w/5mg oxycodone and scheduled tylenol. IV ABX. Pt on bedrest currently. Pt pleasant, states most of pain is from abdominal site. No N/V. PLAN MOVING FORWARD: Monitor WV. Pain control. Monitor ALEXIS drains. IV ABX. Skin care maintenance while on bedrest. INDIVIDUALIZED FALL PREVENTION INTERVENTIONS: Patient-specific fall risk factors per assessment: [current deficits]: n/a Assistance [level of assistance required for transfers and ambulation]: Bedrest. Supervision [direct monitoring required during toileting and ADLs]: Bedrest. Surveillance [continuous indirect monitoring]: Hourly rounding. Patient-specific fall prevention interventions for sensory deficits provided, if applicable: [X] Yes, assistance with ADLs. CPG GOAL OUTCOME EVALUATION: Plan of Care - Merry Jeronimo RN - 12/08/2020 4:03 PM EDT OUTCOME EVALUATION NOTE: OUTCOME SUMMARY: Patient AAOx4. Patient progressing towards d/c goals appropriately at this time. Patient's pain adequately controlled with scheduled pain medications and PRN, see MAR for medications given. Will continue to monitor and help patient reach d/c goals. PLAN MOVING FORWARD: Pain control Mobilize Monitor Wound Vac. Monitor I&O D/c planning INDIVIDUALIZED FALL PREVENTION: Patient is currently a moderate risk to Fall. Patient educated on bed/chair alarm, demonstrates proper use of call leroy and verbalizes understanding of fall preventions implemented. Patient-specific fall risk factors per assessment: [current deficits]: Wound Vac, Pain, Medications,Hospital Environment. Assistance [level of assistance required for transfers and ambulation]: Mod x1, Bedrest Supervision [direct monitoring required during toileting and ADLs]: Hands on/ eyes on with ADL's Surveillance [continuous indirect monitoring]: Alisha Schreiber Rounding, Nurse Knowledge Exchange Brief Op Note - Arias Metcalf III, MD - 12/08/2020 11:59 AM EDT Brief Operative Note Patient Name: Kushal Keane : [id number] MR#: [id number] Case Date: 12/08/2020 Surgeon: Surgeon(s) and Role: Panel 1: * Tea Glynn MD - Primary * Sarah Dodson MD - Resident * Kim Garay MD - Resident Panel 2: * Arias Metcalf III, MD - Primary * Esau Grover MD - Resident 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 Postoperative diagnosis: Buried penis and abdominal pannus Procedure(s) (LRB): PANNICULECTOMY (N/A) EXC EXCESSIVE SKIN & SUBQ TISSUE, MON PUBIS (WRVU 10.5) (N/A) DRESSING CHANGE (FOR OTHER THAN WILKINS) UNDER ANES., ABDOMEN (WRVU 0.86) (N/A) SPLIT THICK SKIN GRAFT,100 SQ CM OR LESS, TRUNK (WRVU 9.9) (N/A) MODIFIER WOUND VAC (N/A) CYSTO, CYSTOURETHROSCOPY, DIAGNOSTIC (WRVU 2.23) (N/A) EXCISION, PENILE CONDYLOMATA (WRVU 1.98) (N/A) EA.ADDITIONAL 100SQ.CM STSG (WRVU 1.72) (Midline) Anesthesia: General Findings: Phimotic foreskin; dorsal slit performed to extract glans Cystoscopy performed and notable for tight fossa navicularis and soft bulbar urethral stricture easily navigated with scope; 16Fr Silastic Black placed over a wire Penile degloving performed Complications: None Estimated Blood Loss: 100 mL Specimens removed during surgery: Order Name Source Comment Collection Info Order Time SPECIMEN TO PATHOLOGY Buried penis and abdominal pannus Penile skin excision 12/08/2020 9:02 AM Time specimen removed from patient: 8:48 AM Number of tissue samples (in container) 1 Fluids: Intraprocedure Crystalloid Total None PRBCs: none (See Anesthesia Record/Report for Other Blood Products) Urine Output: (no urine output recorded) Drains: 16Fr Silastic Black in bladder Disposition: awakened from anesthesia, extubated and taken to the recovery room in a stable condition, having suffered no apparent untoward event. Condition: doing well without problems (Please see the Surgical Encounter Summary for any Implant and Specimen details pertinent to this patient.) Infection Bundle used? No I was present and scrubbed for the entire portion of the procedure. 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 Postoperative diagnosis: Buried penis and abdominal pannus Procedure(s) (LRB): PANNICULECTOMY (N/A) EXC EXCESSIVE SKIN & SUBQ TISSUE, MON PUBIS (WRVU 10.5) (N/A) DRESSING CHANGE (FOR OTHER THAN WILKINS) UNDER ANES., ABDOMEN (WRVU 0.86) (N/A) SPLIT THICK SKIN GRAFT,100 SQ CM OR LESS, TRUNK (WRVU 9.9) (N/A) MODIFIER WOUND VAC (N/A) CYSTO, CYSTOURETHROSCOPY, DIAGNOSTIC (WRVU 2.23) (N/A) EXCISION, PENILE CONDYLOMATA (WRVU 1.98) (N/A) EA.ADDITIONAL 100SQ.CM STSG (WRVU 1.72) (Midline) Anesthesia: General Findings: 3445 Gram pannus total Complications: None apparent Intake: 1.2 L Intraprocedure Crystalloid Total Intake Lactated Ringers 1200.00 mL Total Intake 1200 mL Output Blood Loss 100 mL Total Output 100 mL Net Net Volume 1100 mL Transfusion No data found in the last 1 encounters. Output: Estimated Blood Loss: 100 mL Urine Output:: (no urine output recorded) Other Output: (no other output recorded) Drains: # 19 isaiah x 2, single black foam wound vac sponge Specimens removed during surgery: Order Name Source Comment Collection Info Order Time SPECIMEN TO PATHOLOGY Buried penis and abdominal pannus Penile skin excision 12/08/2020 9:02 AM Time specimen removed from patient: 8:48 AM Number of tissue samples (in container) 1 Disposition: awakened from anesthesia, extubated and taken to the recovery room in a stable condition, having suffered no apparent untoward event. Condition: doing well without problems Attestation: Case Date: 12/08/2020 I was present and I participated during the entire procedure (does not need to include opening and closing). (Please see the Surgical Encounter Summary for any Implant and Specimen details pertinent to this patient.) Infection Bundle used? No Post-Op Plan: - Follow up in: 10 days with Madonna - Wound Check - Suture removal: None - Dressings: remove dressings and drains per protocol - Other coordinating appointments needed: Dr Glynn 6 months - Provide the patient a copy of the Pathology report Future Appointments Date Time Provider Department Center 12/17/2020 9:00 AM Madonna Schaefer APRN [facility] PLAS 4M [facility] Op Note - Tea Glynn MD - 12/08/2020 8:27 AM EDT [facility] Operative Note Patient Name: Kushal Keane : [id number] MR#: [id number] Case Date: 12/08/2020 Surgeon: Surgeon(s) and Role: Panel 1: * Tea Glynn MD - Primary * Sarah Dodson MD - Resident * Kim Garay MD - Resident Panel 2: * Arias Metcalf III, MD - Primary * Esau Grover MD - Resident 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 Postoperative diagnosis: Buried penis and abdominal pannus Procedure(s) (LRB): PANNICULECTOMY (N/A) EXC EXCESSIVE SKIN & SUBQ TISSUE, MON PUBIS (WRVU 10.5) (N/A) DRESSING CHANGE (FOR OTHER THAN WILKINS) UNDER ANES., ABDOMEN (WRVU 0.86) (N/A) SPLIT THICK SKIN GRAFT,100 SQ CM OR LESS, TRUNK (WRVU 9.9) (N/A) MODIFIER WOUND VAC (N/A) CYSTO, CYSTOURETHROSCOPY, DIAGNOSTIC (WRVU 2.23) (N/A) EXCISION, PENILE CONDYLOMATA (WRVU 1.98) (N/A) EA.ADDITIONAL 100SQ.CM STSG (WRVU 1.72) (Midline) Anesthesia: General Estimated Blood Loss: 100 mL Specimens removed during surgery: Order Name Source Comment Collection Info Order Time SPECIMEN TO PATHOLOGY Buried penis and abdominal pannus Penile skin excision 12/08/2020 9:02 AM Time specimen removed from patient: 8:48 AM Number of tissue samples (in container) 1 Drains: # 19 Isaiah x 2, single black foam wound vac sponge Drain/Device Site 12/08/20 0954 Left lower abdomen collapsible closed device (Active) Dressing dressing applied 12/08/20 1006 Drain/Device Site 12/08/20 0954 Right lower abdomen collapsible closed device (Active) Dressing dressing applied 12/08/20 1006 Surgical Closure: Primary Closure - skin incision is closed but with open spaces for wires, pita, drains or other devices Disposition: awakened from anesthesia, extubated and taken to the recovery room in a stable condition, having suffered no apparent untoward event. Condition: doing well without problems (Please see the Surgical Encounter Summary for any Implant and Specimen details pertinent to this patient.) HPI/Surgical Indications: 60 year old male with buried penis and abdominal pannus. He is anticipating penile degloving and release by Dr Metcalf. We offered him panniculectomy, monsplasty, and split thickness skin grafting to reconstruct the penis and he agreed, electing to proceed. Procedure Description: The patient was identified and marked in the upright position in the preoperative holding area. Surgical plan was reviewed. He understood the potential risks and complications and elected to proceed. The patient was brought to the operating room and placed on the operating room table in the supine position. Anesthetic monitors and SCDs were applied. After induction of general anesthesia the patientwas intubated orally and maintained on general anesthesia throughout the remainder of the case. The patient was positioned supine.The abdomen and flanks, groins, thighs, and perineum were prepped and draped in a standard sterile fashion. The operation began with two teams working simultaneously, Dr Metcalf degloving the penis while we made a low Pfannenstiel type incision from iliac crest to iliac crest across the midline. Dissection ensued from superficial to deep with electrocautery to the level of the anterior rectus sheath. We then dissected superiorly along the anterior rectus sheath. The umbilical remnant was preserved in the midline and an infraumbilical vertical incision was made. The flap was split and dissection ensued around the umbilicus superiorly bilaterally. Hemostasis was achieved with a combination of electrocautery and hemostatic clips. The superior flap was transposed inferiorly and excess pannus tissue was excised along with the mons pannus. Combined, these were weighed and achieved 3445 kg. Two #19 Sloven[place] Isaiah drains were inserted and brought out through lateral incisionalskin secured with 2-0 Prolene suture. Closure was then performed in a multilayered fashion utilizing0 Vicryl for Mayra's level of fascia, Insorb teddy for deep dermis, and 3-0 monocryl for closure of the skin. The umbilical remnant was brought out in the vertical midline at the level of the posterior iliac crest. This was inset utilizing 2-0 Vicryl and 4-0 chromic gut suture. Attention was then fo cused on the degloved erect penis, we measured a skin requirement of ~200 cm2. A split thickness graft corresponding to this size was harvested from the right anterior thigh with a dermatome. The grafts were 200 cm2 and inset with 4-0 chromic gut suture and vascular clips. A single black foam wound vac sponge and Adaptic were applied as a bolster. The VAC was placed up at 150 mm of Hg without a leak.Operative sites were cleansed and dried Xeroform and bacitracin was applied across the wound margins. Typical over dressings were applied and the drapes were removed. The patient was weaned from anesthesia and extubated in the operating room. He was transitioned to her or stretcher and placed in a padded abdominal binder. He was transported to the postanesthesia care unit where they were reported to be stable and breathing spontaneously. There were no apparent complications to the procedure and the patient tolerated the procedure well. All sponge and needle counts were reported as correct by nursing staff at the end of the case. Infection Bundle used? No Attestation: Case Date: 12/08/2020 I was present and I participated during the entire procedure (does not need to include opening and closing). TEA GLYNN MD 12/08/2020 Op Note - Arias Metcalf III, MD - 12/08/2020 8:27 AM EDT Operative Note Patient Name: Kushal Keane : [id number] MR#: [id number] Case Date: 12/08/2020 Surgeon: Surgeon(s) and Role: Panel 1: * Tea Glynn MD - Primary * Sarah Dodson MD - Resident * Kim Garay MD - Resident Panel 2: * Arias Metcalf III, MD - Primary * Esau Grover MD - Resident 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 Postoperative diagnosis: Buried penis and abdominal pannus Procedure(s) (LRB): PANNICULECTOMY (N/A) EXC EXCESSIVE SKIN & SUBQ TISSUE, MON PUBIS (WRVU 10.5) (N/A) DRESSING CHANGE (FOR OTHER THAN WILKINS) UNDER ANES., ABDOMEN (WRVU 0.86) (N/A) SPLIT THICK SKIN GRAFT,100 SQ CM OR LESS, TRUNK (WRVU 9.9) (N/A) MODIFIER WOUND VAC (N/A) CYSTO, CYSTOURETHROSCOPY, DIAGNOSTIC (WRVU 2.23) (N/A) EXCISION, PENILE CONDYLOMATA (WRVU 1.98) (N/A) EA.ADDITIONAL 100SQ.CM STSG (WRVU 1.72) (Midline) Anesthesia: General Findings: Phimotic foreskin; dorsal slit performed to extract glans Cystoscopy performed and notable for tight fossa navicularis and soft bulbar urethral stricture easily navigated with scope; 16Fr Silastic Black placed over a wire Penile degloving performed Complications: None Estimated Blood Loss: 100 mL Specimens removed during surgery: Order Name Source Comment Collection Info Order Time SPECIMEN TO PATHOLOGY Buried penis and abdominal pannus Penile skin excision 12/08/2020 9:02 AM Time specimen removed from patient: 8:48 AM Number of tissue samples (in container) 1 Fluids: Intraprocedure Crystalloid Total Intake Lactated Ringers 1200.00 mL Total Intake 1200 mL Output Blood Loss 100 mL Total Output 100 mL Net Net Volume 1100 mL PRBCs: none (See Anesthesia Record/Report for Other Blood Products) Urine Output: (no urine output recorded) Drains: 16Fr Silastic Black in bladder Disposition: awakened from anesthesia, extubated and taken to the recovery room in a stable condition, having suffered no apparent untoward event. Condition: doing well without problems (Please see the Surgical Encounter Summary for any Implant and Specimen details pertinent to this patient.) Infection Bundle used? No HPI:Kushal Faye Diya 60 y.o. male with lichen sclerosis urethral stricture and acquired buried peniswho presents for panniculectomy, mons plasty, and degloving and resurfacing of penis with a skin graft. ?? Procedure Description: The patient was identified in the pre-operative holding area. Consent was verified. The patient was taken to the operating room and placed supine on the operating table. General anesthesia was induced. The patient was then prepped and draped in the usual sterile fashion. A timeout was performed involving all members of the OR team confirming the patient's identity and planned procedure. Preoperative antibiotics were administered. The foreskin was phimotic. A dorsal slit was performed to extract the glans from the foreskin. Once the foreskin was retracted, flexibly cystoscopy was performed. There was anatomic narrowing at the fossa navicularis requiring gentle dilation. There was also a soft bulbar stricture that was easily sae gated through. There were not significant findings in the bladder. A glide wire was placed through the scope. A 16Fr Silastic Black was inserted over the wire and into the bladder. 10cc of sterile water was placed in the balloon. A circumferential incision was made around the distal foreskin leaving a 4mm color towards the glands. A second circumferential incision of the foreskin was made at the base of the penis. The foreskin was elevated between to clamps and incision. The Dolores was used to completely excise the foreskin. Theforeskin was then sent to pathology for routine analysis. Electrocautery was then used to achieve excellent hemostasis. The case was then turned over to plastic surgery. Dr. Metcalf, the attending surgeon, was present for the entire procedure. I was the attending physician supervising the resident in the above care and was present for the entire surgical procedure. documented in this encounter Plan of Treatment Not on filedocumented as of this encounter Procedures Procedure Name Priority Date/Time Associated Comments Diagnosis POCT GLUCOSE Routine 12/13/2020 12:05 Results for this PM EDT procedure are i n the results section. POCT GLUCOSE Routine 12/13/2020 8:00 AM Results f or this EDT procedure are i n the results section. POCT GLUCOSE Routine 12/12/2020 7:27 PM Results f or this EDT procedure are i n the results section. POCT GLUCOSE Routine 12/12/2020 3:28 PM Results f or this EDT procedure are i n the results section. POCT GLUCOSE Routine 12/12/2020 11:20 Results for this AM EDT procedure are i n the results section. POCT GLUCOSE Routine 12/12/2020 7:29 AM Results f or this EDT procedure are i n the results section. POCT GLUCOSE Routine 12/11/2020 8:54 PM Results f or this EDT procedure are i n the results section. POCT GLUCOSE Routine 12/11/2020 3:31 PM Results f or this EDT procedure are i n the results section. POCT GLUCOSE Routine 12/11/2020 11:39 Results for this AM EDT procedure are i n the results section. POCT GLUCOSE Routine 12/11/2020 7:38 AM Results f or this EDT procedure are i n the results section. POCT GLUCOSE Routine 12/10/2020 7:29 PM Results f or this EDT procedure are i n the results section. POCT GLUCOSE Routine 12/10/2020 4:09 PM Results f or this EDT procedure are i n the results section. POCT GLUCOSE Routine 12/10/2020 11:53 Results for this AM EDT procedure are i n the results section. POCT GLUCOSE Routine 12/10/2020 7:55 AM Results f or this EDT procedure are i n the results section. POCT GLUCOSE Routine 12/09/2020 8:29 PM Results f or this EDT procedure are i n the results section. POCT GLUCOSE Routine 12/09/2020 4:22 PM Results f or this EDT procedure are i n the results section. POCT GLUCOSE Routine 12/09/2020 11:36 Results for this AM EDT procedure are i n the results section. POCT GLUCOSE Routine 12/09/2020 7:28 AM Results f or this EDT procedure are i n the results section. POCT GLUCOSE Routine 12/08/2020 7:05 PM Results f or this EDT procedure are i n the results section. POCT GLUCOSE Routine 12/08/2020 3:11 PM Results f or this EDT procedure are i n the results section. POCT GLUCOSE Routine 12/08/2020 1:17 PM Results f or this EDT procedure are i n the results section. POCT GLUCOSE Routine 12/08/2020 11:25 Results for this AM EDT procedure are i n the results section. EA.ADDITIONAL 100SQ.CM Routine 12/08/2020 10:45 Acquired burie d STSG AM EDT penis Abdominal pannus SPECIMEN TO PATHOLOGY Routine 12/08/2020 9:03 AM Results for this EDT procedure are i n the results section. SURGICAL PATHOLOGY Routine 12/08/2020 8:48 AM Res ults for this REPORT EDT procedure are i n the results section. EA.ADDITIONAL 100SQ.CM 12/08/2020 7:34 AM Acquired bur ied STSG (WRVU 1.72) EDT penis Abdominal pannus EXCISION, PENILE 12/08/2020 7:34 AM Acquired buried CONDYLOMATA (WRVU 1.98) EDT penis Abdominal pannus CYSTO, 12/08/2020 7:34 AM Acquired buried CYSTOURETHROSCOPY, EDT penis DIAGNOSTIC (WRVU 2.23) Abdominal pannus MODIFIER WOUND VAC 12/08/2020 7:34 AM Acquired buried EDT penis Abdominal pannus SPLIT THICK SKIN 12/08/2020 7:34 AM Acquired buried GRAFT,100 SQ CM OR EDT penis LESS, TRUNK (WRVU 9.9) Abdominal pannus DRESSING CHANGE (FOR 12/08/2020 7:34 AM Acquired burie d OTHER THAN WILKINS) UNDER EDT penis ANES., ABDOMEN (WRVU Abdominal pannus 0.86) EXC EXCESSIVE SKIN & 12/08/2020 7:34 AM Acquired burie d SUBQ TISSUE, MON PUBIS EDT penis (WRVU 10.5) Abdominal pannus PANNICULECTOMY 12/08/2020 7:34 AM Acquired buried EDT penis Abdominal pannus POCT GLUCOSE Routine 12/08/2020 6:24 AM Results f or this EDT procedure are i n the results section. EXCISION,PENILE Routine 12/08/2020 6:14 AM Acquired buried CONDYLOMATA EDT penis Abdominal pannus CYSTO,CYSTOURETHROSCOPY Routine 12/08/2020 6:14 AM Acquired bu ried , DIAGNOSTIC EDT penis Abdominal pannus DRESSING CHANGE (FOR Routine 12/08/2020 6:14 AM Acquired burie d OTHER THAN WILKINS) UNDER EDT penis ANES., ABDOMEN Abdominal pannus EXC EXCESSIVE SKIN & Routine 12/08/2020 6:14 AM Acquired burie d SUBQ TISSUE, MON PUBIS EDT penis Abdominal pannus PANNICULECTOMY Routine 12/08/2020 6:14 AM Acquired buried EDT penis Abdominal pannus SPLIT THICK SKIN Routine 12/08/2020 6:14 AM Acquired buried GRAFT,100 SQ CM OR EDT penis LESS, TRUNK Abdominal pannus documented in this encounter Results POCT Glucose (12/13/2020 12:05 PM EDT) athologist Signature POC Glucose 138 65 - 199 [facility] Comment: Supplemental ranges: <140 mg/dL before meals <180 mg/dL all other times of the day Specimen Anatomical Collection Method Collection Time Receive d Time (Source) Location / / Volume Laterality Blood 12/13/2020 12:05 12/13/2020 PM EDT 12:05 PM EDT Tea Glynn MD POINT OF CARE TEST ORDERABLE S Performing Organization Address City/State/ZIP Code Phon e Number [address] POCT Glucose (12/13/2020 8:00 AM EDT) athologist Signature POC Glucose 133 65 - 199 [facility] Comment: Supplemental ranges: <140 mg/dL before meals <180 mg/dL all other times of the day Specimen Anatomical Collection Method Collection Time Receive d Time (Source) Location / / Volume Laterality Blood 12/13/2020 8:00 AM 8:00 EDT AM EDT Tea Glynn MD POINT OF CARE TEST ORDERABLE S Performing Organization Address City/State/ZIP Code Phon e Number [address] POCT Glucose (12/12/2020 7:27 PM EDT) athologist Signature POC Glucose 180 65 - 199 [place] mg/dL [facility] Comment: Supplemental ranges: <140 mg/dL before meals <180 mg/dL all other times of the day Specimen Anatomical Collection Method Collection Time Receive d Time (Source) Location / / Volume Laterality Blood 12/12/2020 7:27 PM 7:27 EDT PM EDT Tea Glynn MD POINT OF CARE TEST ORDERABLE S Performing Organization Address City/State/[place] [address] POCT Glucose (12/12/2020 3:28 PM EDT) athologist Signature POC Glucose 126 65 - 199 [place] mg/dL [facility] Comment: Supplemental ranges: <140 mg/dL before meals <180 mg/dL all other times of the day Specimen Anatomical Collection Method Collection Time Receive d Time (Source) Location / / Volume Laterality Blood 12/12/2020 3:28 PM 3:28 EDT PM EDT Tea Glynn MD POINT OF CARE TEST ORDERABLE S Performing Organization Address City/State/ZIP Code Phon e Number [address] POCT Glucose (12/12/2020 11:20 AM EDT) athologist Signature POC Glucose 144 65 - 199 [facility] JAYLEN mg/dL [facility] Comment: Supplemental ranges: <140 mg/dL before meals <180 mg/dL all other times of the day Specimen Anatomical Collection Method Collection Time Receive d Time (Source) Location / / Volume Laterality Blood 12/12/2020 11:20 12/12/2020 AM EDT 11:20 AM EDT Tea Glynn MD POINT OF CARE TEST ORDERABLE S Performing Organization Address City/State/ZIP Code Phon e Number [address] POCT Glucose (12/12/2020 7:29 AM EDT) athologist Signature POC Glucose 140 65 - 199 [place] mg/dL [facility] Comment: Supplemental ranges: <140 mg/dL before meals <180 mg/dL all other times of the day Specimen Anatomical Collection Method Collection Time Receive d Time (Source) Location / / Volume Laterality Blood 12/12/2020 7:29 AM 7:29 EDT AM EDT Tea Glynn MD POINT OF CARE TEST ORDERABLE S Performing Organization Address City/State/[place] [address] POCT Glucose (12/11/2020 8:54 PM EDT) athologist Signature POC Glucose 133 65 - 199 [place] mg/dL [facility] Comment: Supplemental ranges: <140 mg/dL before meals <180 mg/dL all other times of the day Specimen Anatomical Collection Method Collection Time Receive d Time (Source) Location / / Volume Laterality Blood 12/11/2020 8:54 PM 8:54 EDT PM EDT Tea Glynn MD POINT OF CARE TEST ORDERABLE S Performing Organization Address City/State/[place] [address] POCT Glucose (12/11/2020 3:31 PM EDT) athologist Signature POC Glucose 125 65 - 199 [facility] JAYLEN mg/dL [facility] Comment: Supplemental ranges: <140 mg/dL before meals <180 mg/dL all other times of the day Specimen Anatomical Collection Method Collection Time Receive d Time (Source) Location / / Volume Laterality Blood 12/11/2020 3:31 PM 3:31 EDT PM EDT Tea Glynn MD POINT OF CARE TEST ORDERABLE S Performing Organization Address City/State/[place] [address] POCT Glucose (12/11/2020 11:39 AM EDT) athologist Signature POC Glucose 127 65 - 199 [place] mg/dL [facility] Comment: Supplemental ranges: <140 mg/dL before meals <180 mg/dL all other times of the day Specimen Anatomical Collection Method Collection Time Receive d Time (Source) Location / / Volume Laterality Blood 12/11/2020 11:39 12/11/2020 AM EDT 11:39 AM EDT Tea Glynn MD POINT OF CARE TEST ORDERABLE S Performing Organization Address City/State/[place] [address] POCT Glucose (12/11/2020 7:38 AM EDT) athologist Signature POC Glucose 127 65 - 199 [place] JAY[place] mg/dL [facility] Comment: Supplemental ranges: <140 mg/dL before meals <180 mg/dL all other times of the day Specimen Anatomical Collection Method Collection Time Receive d Time (Source) Location / / Volume Laterality Blood 12/11/2020 7:38 AM 7:38 EDT AM EDT Tea Glynn MD POINT OF CARE TEST ORDERABLE S Performing Organization Address City/State/[place] [address] POCT Glucose (12/10/2020 7:29 PM EDT) athologist Signature POC Glucose 162 65 - 199 [place] JAY[place] mg/dL [facility] Comment: Supplemental ranges: <140 mg/dL before meals <180 mg/dL all other times of the day Specimen Anatomical Collection Method Collection Time Receive d Time (Source) Location / / Volume Laterality Blood 12/10/2020 7:29 PM 7:29 EDT PM EDT Tea Glynn MD POINT OF CARE TEST ORDERABLE S Performing Organization Address City/State/[place] [address] POCT Glucose (12/10/2020 4:09 PM EDT) athologist Signature POC Glucose 135 65 - 199 [place] JAY[place] mg/dL [facility] Comment: Supplemental ranges: <140 mg/dL before meals <180 mg/dL all other times of the day Specimen Anatomical Collection Method Collection Time Receive d Time (Source) Location / / Volume Laterality Blood 12/10/2020 4:09 PM 4:09 EDT PM EDT Tea Glynn MD POINT OF CARE TEST ORDERABLE S Performing Organization Address City/State/[place] [address] POCT Glucose (12/10/2020 11:53 AM EDT) athologist Signature POC Glucose 164 65 - 199 [place]QU[place] JAYLEN mg/dL [facility] Comment: Supplemental ranges: <140 mg/dL before meals <180 mg/dL all other times of the day Specimen Anatomical Collection Method Collection Time Receive d Time (Source) Location / / Volume Laterality Blood 12/10/2020 11:53 12/10/2020 AM EDT 11:53 AM EDT Tea Glynn MD POINT OF CARE TEST ORDERABLE S Performing Organization Address City/State/ZIP Code Phon e Number [address] POCT Glucose (12/10/2020 7:55 AM EDT) P athologist Signature POC Glucose 142 65 - 199 [place] mg/dL [facility] Comment: Supplemental ranges: <140 mg/dL before meals <180 mg/dL all other times of the day Specimen Anatomical Collection Method Collection Time Receive d Time (Source) Location / / Volume Laterality Blood 12/10/2020 7:55 AM 7:55 EDT AM EDT Tea Glynn MD POINT OF CARE TEST ORDERABLE S Performing Organization Address City/State/ZIP Code Phon e Number [address] POCT Glucose (12/09/2020 8:29 PM EDT) P athologist Signature POC Glucose 149 65 - 199 [place] mg/dL [facility] Comment: Supplemental ranges: <140 mg/dL before meals <180 mg/dL all other times of the day Specimen Anatomical Collection Method Collection Time Receive d Time (Source) Location / / Volume Laterality Blood 12/09/2020 8:29 PM 8:29 EDT PM EDT Tea Glynn MD POINT OF CARE TEST ORDERABLE S Performing Organization Address City/State/ZIP Code Phon e Number [address] POCT Glucose (12/09/2020 4:22 PM EDT) P athologist Signature POC Glucose 141 65 - 199 [place] mg/dL [facility] Comment: Supplemental ranges: <140 mg/dL before meals <180 mg/dL all other times of the day Specimen Anatomical Collection Method Collection Time Receive d Time (Source) Location / / Volume Laterality Blood 12/09/2020 4:22 PM 4:22 EDT PM EDT Tea Glynn MD POINT OF CARE TEST ORDERABLE S Performing Organization Address City/State/ZIP Code Phon e Number [address] POCT Glucose (12/09/2020 11:36 AM EDT) athologist Signature POC Glucose 140 65 - 199 [place] mg/dL [facility] Comment: Supplemental ranges: <140 mg/dL before meals <180 mg/dL all other times of the day Specimen Anatomical Collection Method Collection Time Receive d Time (Source) Location / / Volume Laterality Blood 12/09/2020 11:36 12/09/2020 AM EDT 11:36 AM EDT Tea Glynn MD POINT OF CARE TEST ORDERABLE S Performing Organization Address City/State/ZIP Code Phon e Number [address] POCT Glucose (12/09/2020 7:28 AM EDT) athologist Signature POC Glucose 163 65 - 199 [place]AY[place] mg/dL [facility] Comment: Supplemental ranges: <140 mg/dL before meals <180 mg/dL all other times of the day Specimen Anatomical Collection Method Collection Time Receive d Time (Source) Location / / Volume Laterality Blood 12/09/2020 7:28 AM 7:28 EDT AM EDT Tea Glynn MD POINT OF CARE TEST ORDERABLE S Performing Organization Address City/State/ZIP Code Phon e Number [address] POCT Glucose (12/08/2020 7:05 PM EDT) athologist Signature POC Glucose 148 65 - 199 [place]AY[place] mg/dL [facility] Comment: Supplemental ranges: <140 mg/dL before meals <180 mg/dL all other times of the day Specimen Anatomical Collection Method Collection Time Receive d Time (Source) Location / / Volume Laterality Blood 12/08/2020 7:05 PM 1 7:05 EDT PM EDT Tea Glynn MD POINT OF CARE TEST ORDERABLE S Performing Organization Address City/State/[place] [address] POCT Glucose (12/08/2020 3:11 PM EDT) athologist Signature POC Glucose 133 65 - 199 [place]AY[place] mg/dL [facility] Comment: Supplemental ranges: <140 mg/dL before meals <180 mg/dL all other times of the day Specimen Anatomical Collection Method Collection Time Receive d Time (Source) Location / / Volume Laterality Blood 12/08/2020 3:11 PM 1 3:11 EDT PM EDT Tea Glynn MD POINT OF CARE TEST ORDERABLE S Performing Organization Address City/State/[place] [address] POCT Glucose (12/08/2020 1:17 PM EDT) athologist Signature POC Glucose 149 65 - 199 [place] mg/dL [facility] Comment: Supplemental ranges: <140 mg/dL before meals <180 mg/dL all other times of the day Specimen Anatomical Collection Method Collection Time Receive d Time (Source) Location / / Volume Laterality Blood 12/08/2020 1:17 PM 1 1:17 EDT PM EDT Tea Glynn MD POINT OF CARE TEST ORDERABLE S Performing Organization Address City/State/[place] [address] POCT Glucose (12/08/2020 11:25 AM EDT) athologist Signature POC Glucose 141 65 - 199 [place]AY[place] mg/dL [facility] Comment: Supplemental ranges: <140 mg/dL before meals <180 mg/dL all other times of the day Specimen Anatomical Collection Method Collection Time Receive d Time (Source) Location / / Volume Laterality Blood 12/08/2020 11:25 12/08/2020 AM EDT 11:25 AM EDT Tea Glynn MD POINT OF CARE TEST ORDERABLE S Performing Organization Address City/State/[place] [address] Specimen to Pathology (12/08/2020 9:03 AM EDT) Specimen Anatomical Collection Method Collection Time Receive d Time (Source) Location / / Volume Laterality AP Specimen 12/08/2020 9:03 AM 9:03 EDT AM EDT Narrative [facility] - 12/08/2020 9:03 AM EDT Specimen requisition ordered. ??Separate Pathology report to follow Tea Glynn MD PATHOLOGY/CYTOLOGY ORDERABLE S Performing Organization Address City/[facility]/[place] [address] Surgical Pathology Report (12/08/2020 8:48 AM EDT) Component Value Ref Test Analysis Performed At [facility] gist Range Method Time Signature Surgical [id number] ? [facility]; [facility]; [facility] Report The signing pathologist has (i) examined the relevant preparation(s) for the [facility] specimen(s) and (ii) rendered or confirmed the diagnosis(es) . HOSPITAL LABORATORY . ?Surgic al Pathology DIAGNOSIS A - Penile skin (excision): ??- Hyperkeratotic skin with lichen sclerosus. ??- No evidence of malignancy. Electronically signed by: ?Yennifer Tee MD Verified: ??12/12/2020 11:42 ??Pathologist Performed at: ??-[facility] Dept. of Pathology, [place], [place] SPECIMEN(S) SUBMITTED A - Penile skin, excision CLINICAL INFORMATION Buried penis and abdominal pannus SPECIMEN PROCESSING A - Labeled/Fixative: Penile skin, fresh. Quantity/Size: Single, 5.5 x 3.8 x 0.6 cm. Tissue Description: Roughly rectangular excision of wrinkled montemayor-reid skin. The surface demonstrates patchy white plaques with superficial erosions over an area that is 2.8 x 1.3 cm. Sections/Processing: Inked, serially sectioned and representa tive sections submitted in 4 cassettes labeled A1-A4. ??ba/clovis Specimen (Source) Anatomical Collection Method Collection Time Re ceived Time Location / / Volume Laterality 12/08/2020 8:48 AM EDT Arias Metcalf III, MD PATHOLOGY/CYTOLOGY ORDERABLE S Performing Organization Address City/State/ZIP Code Phon e Number [address] POCT Glucose (12/08/2020 6:24 AM EDT) athologist Signature POC Glucose 146 65 - 199 [facility] mg/dL [facility] Comment: Supplemental ranges: <140 mg/dL before meals <180 mg/dL all other times of the day Specimen Anatomical Collection Method Collection Time Receive d Time (Source) Location / / Volume Laterality Blood 12/08/2020 6:24 AM 6:24 EDT AM EDT Tea Glynn MD POINT OF CARE TEST ORDERABLE S Performing Organization Address City/State/[place] [address] documented in this encounter Visit Diagnoses Diagnosis Abdominal pannus Localized adiposity Acquired buried penis Other specified disorder of penis Acquired buried penis Other specified disorder of penis Abdominal pannus Localized adiposity Status post surgery Acquired buried penis Other specified disorder of penis Abdominal pannus Localized adiposity documented in this encounter Admitting Diagnoses Diagnosis Acquired buried penis Other specified disorder of penis Abdominal pannus Localized adiposity Status post surgery documented in this encounter Administered Medications Inactive Administered Medications - up to 3 most recent administrations Medication Order MAR Action Action Date Dose Rate Site acetaminophen (Tylenol) tablet Given 12/13/2020 1:00 PM EDT 1,00 0 mg 1,000 mg 1,000 mg, Oral, EVERY 6 HOURS SCHEDULED, First dose on Tue12/08/20 at 0800, Until Discontinued, Maximum dose of acetaminophen is 4000 mg from all sources in 24 hours. When ordered for pain, acetaminophen should be given even when other ordered pain medications are indicated., Routine Given 12/13/2020 6:04 AM EDT 1,000 mg Given 12/12/2020 6:35 AM EDT 1,000 mg bacitracin ointment Given 12/08/2020 10:06 AM 1 Tube 19- Surg ical Site ONCE PRN, Starting on Tue EDT 12/08/20 at 1006, Until 12/13/20 at 1815, Intra-Operative (Intra-Procedure) bisacodyL (Dulcolax) suppository 10 mg 10 mg, Rectal, DAILY PRN, Starting on Tue12/08/20 at 0 736, Until 12/13/20 at 1815, Constipation, Administer if needed per patient's routine or if no bowel movement within 48 hours to achieve: (1) One bowel movement every 48 hours, AND (2) Without straining. If multiple PRN bowel medications ordered, start with magnesium hydroxide, then bisacodyl. Multiple medications may be given concomitantly for constipation., Routine BUpivacaine (pf) (Marcaine) (5 Given 12/08/2020 10:05 AM 5 mLs 19- Surgical Site mg/mL) 0.5% injection EDT ONCE PRN, Starting on Tue12/08/20 at 0908, Until 12/13/20 at 1815, Intra-Operative (Intra-Procedure), Routine Given 12/08/2020 9:08 AM EDT 10 mLs 19- S urgical Site ceFAZolin (Ancef) 2 g in dextrose 5% New Bag 12/13/2020 8:29 A M EDT 2 g 200 mL/hr 100 mL infusion 2 g, Intravenous, EVERY 8 HOURS, First dose (after last modification) on Tue12/08/20 at 1700, Until Discontinued, Administer over 30 Minutes, Indication for (Active or Suspected): Prophylaxis New Bag 12/13/2020 12:03 AM EDT 2 g 200 mL/hr New Bag 12/12/2020 5:15 PM EDT 2 g 200 mL/hr celecoxib (CeleBREX) capsule 100 mg Given 12/13/2020 8:29 AM EDT 100 mg 100 mg, Oral, 2 TIMES DAILY, First dose on Sherley 12/11/20 at 1030, Until Discontinued, Routine Given 12/12/2020 8:14 PM EDT 100 mg Given 12/12/2020 8:47 AM EDT 100 mg cyclobenzaprine (Flexeril) tablet 10 mg Given 12/10/2020 9:24 PM EDT 10 mg 10 mg, Oral, 3 TIMES DAILY PRN, Starting on 12/09/20 at 0736, Until 12/13/20 at 1815, Muscle spasms, Routine Given 12/10/2020 12:25 AM EDT 10 mg Given 12/09/2020 9:09 AM EDT 10 mg dextrose 10% infusion 250 mL, at 1,000 mL/hr, Intravenous, NEW RY 30 MIN PRN, Starting on 12/08/20 at 0737, Until 12/13/20 at 1815, For BG 50-70 mg/dL: Oral treatment preferred:?? If able to drink, give 120 mL Juice or R egular (not diet) soda OR If NPO, give 15 gram glucose 40% oral gel massaged into buccal mucosa OR if unconscious or uncooperative, give 25 gram (250 mL) Dex trose 10% IV over 15 minutes per protocol OR, if no IV access, 1 mg Glucagon IM. * * For BG less than 50 mg/dL: Oral treatment preferred:?? If able to drink, give 240 mL Juice or Regular (not diet) soda OR If NPO, give 30 gram glucose 40% oral gel m assaged in buccal mucosa OR if unconscious or uncooperative, give 25 gram (250 mL) Dextrose 10% I V over 15 minutes per protocol OR, if no IV access, 1 mg Glucagon IM. Rech mayela BG in 30 minutes. May repeat juice/soda, gel, dextrose or gluc agon once per episode. For persistent hypoglycemia, consider longer-acting treatment for the duration of the active insulin. enoxaparin (Lovenox) (40 mg/0.4 mL) Given 12/12/2020 8:14 PM EDT 40 mg subcutaneous injection 40 mg 40 mg, Subcutaneous, NIGHTLY, First dose on 12/08/20 at 2100, Until Discontinued, Routine Given 12/11/2020 9:54 PM EDT 40 mg Given 12/10/2020 7:25 PM EDT 40 mg FLUoxetine (PROzac) capsule 40 mg Given 12/12/2020 8:14 PM EDT 40 mg 40 mg, Oral, DAILY, First dose on Tue12/08/20 at 0900, Until Discontinued, Routine Given 12/11/2020 9:54 PM EDT 40 mg Given 12/10/2020 7:25 PM EDT 40 mg glucagon (Glucagen) (1 mg/mL) injection solution 1 mg 1 mg, Intramuscular, EVERY 30 MIN PRN, S tarting on Tue12/08/20 at 0737, Until 12/13/20 at 1815, Low blood sugar, For BG 50-70 mg/d L: Oral treatment preferred:?? If able to drink, give 120 mL Juice or Regular (not diet) soda OR If NPO, give 15 gram glucose 40% oral gel massaged into b uccal mucosa OR if unconscious or uncooperative, give 25 gr am (250 mL) Dextrose 10% IV over 15 minutes per protocol OR, if no IV access, 1 mg G lucagon IM. For BG less than 50 mg/dL: Oral treatment preferred:?? If able to drink, give 240 mL Juice or Regular (not diet) soda OR If NPO, give 30 gram gluco se 40% oral gel massaged in buccal mucosa OR if unconscious or uncooperative, give 25 gram (250 mL) Dextrose 10% IV over 15 minutes per protocol OR, if no IV access, 1 mg Glucago n IM. Recheck BG in 30 minutes. May repeat juice/soda, gel, dex trose or glucagon once per episode. For persistent hypoglycemia, consider longer -acting treatment for the duration of the active insulin., Routine glucose (GLUTOSE) 40% oral geL 15-30 g, Buccal, EVERY 30 MIN PRN, Starting on 11/27 at 0737, Until 12/13/20 at 1815, Low blood sugar, For BG 50-70 mg/d L: Oral treatment preferred:?? If able to drink, give 120 mL Juice or Regular (not diet) soda OR If NPO, give 15 gram glucose 40% oral gel massaged into b uccal mucosa OR if unconscious or uncooperative, give 25 gr am (250 mL) Dextrose 10% IV over 15 minutes per protocol OR, if no IV access, 1 mg G lucagon IM. For BG less than 50 mg/dL: Oral treatment preferred:?? If able to drink, give 240 mL Juice or Regular (not diet) soda OR If NPO, give 30 gram gluco se 40% oral gel massaged in buccal mucosa OR if unconscious or uncooperative, give 25 gram (250 mL) Dextrose 10% IV over 15 minutes per protocol OR, if no IV access, 1 mg Glucago n IM. Recheck BG in 30 minutes. May repeat juice/soda, gel, dex trose or glucagon once per episode. For persistent hypoglycemia, consider longer -acting treatment for the duration of the active insulin. 1 tube contains 15 grams of glucose (n et weight of tube = 37.5 grams., Routine insulin lispro (HumaLOG;Admelog) (100 Given 12/12/2020 5:20 PM E DT 1 Units unit/mL) subcutaneous injection vial 0-8 Units 0-8 Units, Subcutaneous, 3 TIMES DAILY WITH MEALS, First dose on Tue12/08/20 at 0800, Until Discontinued, [employer] Give 1 unit for every 10 grams carbohydrate. Hold if not eating or if BG less than 70 mg/dL., Routine Given 12/12/2020 8:47 AM EDT 1 Units Given 12/11/2020 5:24 PM EDT 1 Units insulin lispro (HumaLOG;Admelog) (100 Given 12/09/2020 9:13 AM E DT 1 Units unit/mL) subcutaneous injection vial 1-5 Units 1-5 Units, Subcutaneous, 3 TIMES DAILY BEFORE MEALS, First dose on Tue12/08/20 at 0800, Until Discontinued, CORRECTION BOLUS [1-4 Units] Sensitive Sliding Scale (BG in mg/dL): Correction factor 40 (1 unit of insulin is expected to drop the glucose 40 mg/dL) BG 160 - 200 Give 1 unit BG 201 - 240 Give 2 units BG 241 - 280 Give 3 units BG greater than 280, give 4 units and recheck BG in 2 hours. - If recheck BG is LESS than 280, give no insulin and resume schedule - If recheck BG is GREATER than 280, give 4 units and repeat BG in 2 hours (no more than 3 times) & call for new insulin orders. DO NOT hold if NPO, unless specifically directed to do so by written order. Per Blood Glucose Monitoring Policy, re-check a BG of > 240 mg/dL in 2 hours., Routine lidocaine (Xylocaine) 1% (10 mg/mL) inje ction 3 mg 3 mg (0.3 mL), Subcutaneous, ONCE PRN, 1 dose, Startin g on Tue12/08/20 at 1119, Until 12/13/20 at 1815, for discomfort with PIV ins ertion, Recovery (Recovery-Hospital Unit), Routine lidocaine-EPINEPHrine (1% - Given 12/08/2020 10:06 AM 5 mLs 19- Surgical Site 1:100,000) injection EDT ONCE PRN, Starting on Tue12/08/20 at 0909, Until 12/13/20 at 1815, Intra-Operative (Intra-Procedure), Routine Given 12/08/2020 9:09 AM EDT 10 mLs 19- S urgical Site lisinopriL (Zestril) tablet 20 mg Given 12/13/2020 8:29 AM EDT 20 mg 20 mg, Oral, DAILY, First dose on Sherley 12/11/20 at 1000, Until Discontinued, Routine Given 12/12/2020 8:47 AM EDT 20 mg Given 12/11/2020 9:26 AM EDT 20 mg oxyCODONE (Roxicodone) tablet 5 mg Given 12/13/2020 6:04 AM EDT 5 mg 5 mg, Oral, EVERY 4 HOURS PRN, Starting on Tue12/08/20 at 0736, Until 12/13/20 at 1815, Pain, Moderate pain (4-6), May repeat 5 mg in 60 minutes if pain not relieved. For pain not relieved by ibuprofen or acetaminophen- if ordered, Routine Given 12/09/2020 5:59 AM EDT 5 mg Given 12/08/2020 11:19 PM EDT 5 mg polyethylene glycoL (Miralax) packet 17 g Given 12/13/2020 8:28 AM EDT 17 g 17 g, Oral, 2 TIMES DAILY, First dose on Tue12/08/20 at 0900, Until Discontinued, Administer if no bowel movement within 48 hours to achieve: (1) One bowel movement at least every 48 hours, AND (2) without straining. If multiple PRN bowel medications ordered, start with polyethylene glycol, then lactulose, then oral bisacodyl, then bisacodyl suppository, then magnesium citrate, then tap water enema. Multiple medications may be given concomitantly for constipation., Routine senna-docusate (Pericolace) 8.6-50 mg per Given 2020 8:32 AM EDT 2 tablets tablet 2 tablet 2 tablet, Oral, 2 TIMES DAILY, First dose on Tue12/08/20 at 0900, Until Discontinued, Routine Given 12/10/2020 7:24 PM EDT 2 tablets Given 12/10/2020 9:18 AM EDT 2 tablets sodium chloride 0.9 % (flush) (BD PosiFlush Given 12/13/2020 8:3 3 AM EDT 5 mLs Normal Saline 0.9) flush 5 mL 5 mL, Intravenous, 2 TIMES DAILY, First dose on Tue12/08/20 at 1145, Until Discontinued, Recovery (Recovery-Hospital Unit), Routine Given 12/12/2020 8:14 PM EDT 5 mLs Given 12/12/2020 8:50 AM EDT 5 mLs sodium chloride 0.9 % (flush) (BD PosiFlush Given 12/11/2020 5:42 AM EDT 10 mLs Normal Saline 0.9) flush 5-20 mL 5-20 mL, Intravenous, EVERY 1 MIN PRN, Starting on Tue12/08/20 at 1119, Until 12/13/20 at 1815, flush, Flush pertains to all indwelling lines. Flush per protocol found in the job aid using the link provided on this medication record., Recovery (Recovery-Hospital Unit), Routine documented in this encounter Active and Recently Administered Medications Times are shown in EDT. Scheduled Medication Order 12/11/2020 12/12/2020 12/13/2020 acetaminophen (Tylenol) tablet 1,000 mg 0006 (Given - Provider: Jasper Chavarria RN)0540 (Given - Provider: Jasper Chavarria RN)1146 (Not Given - Provider: Franco Rodriguez RN - Reason: Patient/family refused) 0044 (Given - Provider: Vinay D Gui, RN)0635 (Given - Provider: Vinay Messer RN)1142 (Not Given - Provider: Franco Rodriguez RN - Reason: Patient/family refused) 0000 (Not Given - Provider: Mary Carmen Contreras RN - Reason: Patient/family refused)0604 (Given - Provider: Mary Carmen Contreras RN)1300 (Given - Provider: Irasema Walls, RN) 1,000 mg, Oral, EVERY 6 HOURS SCHEDULED, First dose on Tue12/08/20 at 0800, Until Discontinued, Maximum dose of acetaminophen is 4000 mg from all sources in 24 hours. When ordered for pain, acetaminophe 1722 (Not Given - Provider: Franco Rodriguez RN - Reason: Patient/family refused) 1715 (Not Given - Provider: Franco Rodriguez RN - Reason: Patient/family refused) n should be given even when other ordere d pain medications are indicated., Routine ceFAZolin (Ancef) 2 g in dextrose 5% 100 mL infusion 0 007 (New Bag - Provider: Jasper Chavarria RN)0037 (Restarted - Provider: Jasper Chavarria RN - Comment: possible infiltrate)0927 (New Bag - Provider: Franco Rodriguez RN)0957 (Stopped - Provider: Franco Rodriguez RN) 0044 (New Bag - Provider: Vinay Messer RN)0114 (Stopped - Provider: Vinay Messer RN)0850 (New Bag - Provider: Franco Rodriguez RN)0920 (Stopped - Provider: Franco Rodriguez RN)1715 (New Bag - Provider: Franco Rodriguez RN) 0003 (New Bag - Provider: Mary Carmen Contreras RN)0033 (Stopped - Provider: Mary Carmen Contreras RN)0829 (New Bag - Provider: Irasema Walls, BRANDEE)0859 (Stopped - Provider: Irasema Walls RN) 2 g, Intravenous, EVERY 8 HOURS, First d ose (after last modification) on Tue12/08/20 at 1700, Until Discontinued, Administer over 30 Minutes, Indication for (Active or Suspected): Prophylaxis 1727 (New Bag - Provider: Franco Rodriguez RN)1757 (Stopped - Provider: Franco Rodriguez RN) 1745 (Stopped - Provider: Franco Rodriguez RN) celecoxib (CeleBREX) capsule 100 mg 1048 (Given - Prov ider: Franco Rodriguez RN)2153 (Given - Provider: Vinay Messer RN) 0847 (Given - Provider: Franco Rodriguez RN)2013 (Given - Provider: Mary Carmen Contreras RN) 0829 (Given - Provider: Irasema Walls RN) 100 mg, Oral, 2 TIMES DAILY, First dose on Sherley 12/11/20 at 1030, Until Discontinued, Routine enoxaparin (Lovenox) (40 mg/0.4 mL) subcutaneous injec tion 40 mg 2153 (Given - Provider: Vinay Messer RN) 2013 (Given - Provider: Mary Carmen Contreras RN) 40 mg, Subcutaneous, NIGHTLY, First dose on Tue12/08/20 at 2100, Until Discontinued, Routine FLUoxetine (PROzac) capsule 40 mg 2153 (Given - Provider: Rubin Messer RN) 2013 (Given - Provider: Mary Carmen Contreras RN) 40 mg, Oral, DAILY, First dose on 05/19 at 0900, Until Discontinued, Routine HYDROmorphone (Dilaudid) (1 mg/mL) injection syringe 0.4 mg (COM PLETED) 0607 (Given - Provider: Mary Carmen Contreras RN - Comment: wound vac removal pre medicate) 0.4 mg, Intravenous, ONCE, 1 dose, On 12/13/20 at 0645, Premedication for vac removal. Please give regardless or reported pain level., Routine insulin lispro (HumaLOG;Admelog) (100 un it/mL) subcutaneous injection vial 0-8 Units 0833 (Given - Provider: Franco craft RN)1315 (Not Given - Provider: Franco Rodriguez RN - Reason: Order parameters not met - Comment: Pt ate a late lunch)1724 (Given - Provider: Franco Rodriguez RN) 0847 (Given - Provider: Franco Rodriguez RN)1259 (Not Given - Provider: Franco Rodriguez RN - Reason: Order parameters not met)1720 (Given - Provider: Franco Rodriguez RN) 0828 (Not Given - Provider: Irasema garcia RN - Reason: Order parameters not met)1200 (Not Given - Provider: Irasema Walls RN - Reason: Order parameters not met) 0-8 Units, Subcutaneous, 3 TIMES DAILY W ITH MEALS, First dose on Tue12/08/20 at 0800, Until Discontinued, [employer] Give 1 unit for every 10 grams carbohydrate. Hold if not eating or if BG less than 70 mg/dL., Routine insulin lispro (HumaLOG;Admelog) (100 un it/mL) subcutaneous injection vial 1-5 Units(Linked Group 1) 0743 (Not Given - Provider: Franco Durham RN - Reason: Order parameters not met)1142 (Not Given - Provider: Franco Rodriguez RN - Reason: Order parameters not met) 0754 (Not Given - Provider: Franco Rodriguez RN - Reason: Order parameters not met)1123 (Not Given - Provider: Franco Rodriguez RN - Reason: Order parameters not met) 0730 (Not Given - Provider: Irasema Walls RN - Reason: Order parameters not met)1130 (Not Given - Provider: Irasema Walls RN - Reason: Order parameters not met) 1-5 Units, Subcutaneous, 3 TIMES DAILY B EFORE MEALS, First dose on Tue12/08/20 at 0800, Until Discontinued, CORRECTION BOLUS [1-4 Units] Sensitive Sliding Scale (BG in mg/dL): Correction factor 40 ( 1535 (Not Given - Provider: Franco Rodriguez RN - Reason: Order parameters not met) 1534 (Not Given - Provider: Franco Rodriguez RN - Reason: Order parameters not met) 1 unit of insulin is expected to drop th e glucose 40 mg/dL) BG 160 - 200 Give 1 unit BG 201 - 240 Give 2 units BG 241 - 280 Give 3 units BG greater than 280, give 4 units and recheck BG in 2 hours. - If recheck BG is LESS than 280, give no in sulin and resume schedule - If recheck BG is GREATER than 280, give 4 units and repeat BG in 2 hours (no more than 3 times) & call for new insulin orders. DO NOT hold if NPO, unless specifically dir ected to do so by written order. Per Blood Glucose Monitoring Policy, re-check a BG of > 240 mg/dL in 2 hours., Routine lisinopriL (Zestril) tablet 20 mg 09 (Given - Provid er: Franco Rodriguez RN) 0847 (Given - Provider: Franco Rodriguez, BRANDEE) 08 (Given - Provider: Irasema Walls, BRANDEE) 20 mg, Oral, DAILY, First dose on Sherley at 1000, Until Discontinued, Routine polyethylene glycoL (Miralax) packet 17 g 0834 (Not Gi honorio - Provider: Franco Rodriguez RN - Reason: Patient/family refused)2099 (Not Given - Provider: Vinay Messer RN - Reason: Patient/family refused) 0842 (Not Given - Provider: Franco Rodriguez RN - Reason: Patient/family refused)2099 (Not Given - Provider: Mary Carmen Contreras RN - Reason: Patient/family refused) 08 (Given - Provider: Irasema Walls, BRANDEE) 17 g, Oral, 2 TIMES DAILY, First dose on 12/08/20 at 0900, Until Discontinued, Administer if no bowel movement within 48 hours to achieve: (1) One bowel movement at least every 48 hours, AND (2) with out straining. If multiple PRN bowel med ications ordered, start with polyethylene glycol, then lactulose, then oral bisacodyl, then bisacodyl suppository, then magnesium citrate, then tap water enema. M ultiple medications may be given concomitantly for constipation. , Routine senna-docusate (Pericolace) 8.6-50 mg per tablet 2 tab let 0832 (Given - Provider: Franco Rodriguez RN)2099 (Not Given - Provider: Vinay Messer RN - Reason: Patient/family refused) 0842 (Not Given - Provider: Franco Rodriguez RN - Reason: Patient/family refused)2100 (Not Given - Provider: Mary Carmen Contreras RN - Reason: Patient/family refused) 0829 (Not Given - Provider: Irasema Walls RN - Reason: Patient/family refused) 2 tablet, Oral, 2 TIMES DAILY, First dos e on Tue12/08/20 at 0900, Until Discontinued, Routine sodium chloride 0.9 % (flush) (BD PosiFlush Normal Dennys ine 0.9) flush 5 mL 09 (Given - Provider: Franco Rodriguez RN)2154 (Given - Provider: Vinay Messer RN) 0850 (Given - Provider: Franco craft, BRANDEE)2013 (Given - Provider: Mary Carmen Contreras RN) 08 (Given - Provider: Irasema cooney RN) 5 mL, Intravenous, 2 TIMES DAILY, First dose on Tue12/08/20 at 1145, Until Discontinued, Recovery (Recovery-Hospital Unit), Routine PRN Medication Order 12/11/2020 12/12/2020 12/13/2020 bisacodyL (Dulcolax) suppository 10 mg 10 mg, Rectal, DAILY PRN, Starting on Mo n 12/08/20 at 0736, Until 12/13/20 at 1815, Constipation, Administer if needed per patient's routine or if no bowel movement within 48 hours to achieve: (1) One bowel movement every 48 hours, AND (2) Without straining. If multiple PRN bowel medications ordered, start with magnesium hydroxide, then bisacodyl. Multiple medications may be given concomitantly for constipation., Routine cyclobenzaprine (Flexeril) tablet 10 mg 10 mg, Oral, 3 TIMES DAILY PRN, Starting on 12/09/20 at 0736, Until 12/13/20 at 1815, Muscle spasms, Routine dextrose 10% infusion(Linked Group 2) 250 mL, at 1,000 mL/hr, Intravenous, NEW RY 30 MIN PRN, Starting on 12/08/20 at 0737, Until 12/13/20 at 1815, For BG 50-70 mg/dL: Oral treatment preferred:?? If able to drink, give 120 mL Juice or Regular (not diet) soda OR If NPO, gi ve 15 gram glucose 40% oral gel massaged into buccal mucosa OR if unconscious or uncooperative, give 25 gram (250 mL) Dextrose 10% IV over 15 minutes per protocol OR, if no IV access, 1 mg Glucagon IM. For BG less than 50 mg/dL: Oral treatment preferred:?? If able to drink, give 240 mL Juice or Regular (not diet) soda OR If NPO, give 30 gram glucose 40% oral gel massaged in buccal mucosa OR if unco nscious or uncooperative, give 25 gram (250 mL) Dextrose 10% IV over 15 minutes per protocol OR, if no IV access, 1 mg Glucagon IM. Recheck BG in 30 minutes. Ma y repeat juice/soda, gel, dextrose or gl ucagon once per episode. For persistent hypoglycemia, consider longer-acting treatment for the duration of the active insulin. glucagon (Glucagen) (1 mg/mL) injection solution 1 mg(Linked Shree up 2) 1 mg, Intramuscular, EVERY 30 MIN PRN, S tarting on Tue12/08/20 at 0737, Until 12/13/20 at 1815, Low blood sugar, For BG 50-70 mg/dL: Oral treatment preferred:?? If able to drink, give 120 mL Juice or Regular (not diet) soda OR If NPO, g mary 15 gram glucose 40% oral gel massaged into buccal mucosa OR if unconscious or uncooperative, give 25 gram (250 mL) Dextrose 10% IV over 15 minutes per protoco l OR, if no IV access, 1 mg Glucagon IM. For BG less than 50 mg/dL: Oral treatment preferred:?? If able to drink, give 240 mL Juice or Regular (not diet) soda OR If NPO, give 30 gram glucose 40% oral gel massaged in buccal mucosa OR if unc onscious or uncooperative, give 25 gram (250 mL) Dextrose 10% IV over 15 minutes per protocol OR, if no IV access, 1 mg Glucagon IM. Recheck BG in 30 minutes. M ay repeat juice/soda, gel, dextrose or g lucagon once per episode. For persistent hypoglycemia, consider longer-acting treatment for the duration of the active insulin., Routine glucose (GLUTOSE) 40% oral geL(Linked Group 2) 15-30 g, Buccal, EVERY 30 MIN PRN, Start ing on Tue12/08/20 at 0737, Until 12/13/20 at 1815, Low blood sugar, For BG 50-70 mg/dL: Oral treatment preferred:?? If able to drink, give 120 mL Juice or Regular (not diet) soda OR If NPO, give 15 gram glucose 40% oral gel massaged into buccal mucosa OR if unconscious or uncooperative, give 25 gram (250 mL) Dextrose 10% IV over 15 minutes per protocol OR , if no IV access, 1 mg Glucagon IM. For BG less than 50 mg/dL: Oral treatment preferred:?? If able to drink, give 240 mL Juice or Regular (not diet) soda OR If NPO, give 30 gram glucose 40% oral gel massaged in buccal mucosa OR if unconsc ious or uncooperative, give 25 gram (250 mL) Dextrose 10% IV over 15 minutes per protocol OR, if no IV access, 1 mg Glucagon IM. Recheck BG in 30 minutes. May r epeat juice/soda, gel, dextrose or gluca isabela once per episode. For persistent hypoglycemia, consider longer-acting treatment for the duration of the active insulin. 1 tube contains 15 grams of glucose (net weight of tube = 37.5 grams., Routine lidocaine (Xylocaine) 1% (10 mg/mL) injection 3 mg 3 mg (0.3 mL), Subcutaneous, ONCE PRN, 1 dose, Starting on Tue12/08/20 at 1119, Until 12/13/20 at 1815, for discomfort with PIV insertion, Recovery (Recovery-Hospital Unit), Routine oxyCODONE (Roxicodone) tablet 5 mg 0604 (Given - Provider: Mary Carmen Contreras RN) 5 mg, Oral, EVERY 4 HOURS PRN, Starting on Tue12/08/20 at 0736, Until 12/13/20 at 1815, Pain, Moderate pain (4-6), May repeat 5 mg in 60 minutes if pain not relieved. For pain not relieved by ibuprofen or acetaminophen- if ordered, Routine sodium chloride 0.9 % (flush) (BD PosiFlush Normal Dennys ine 0.9) flush 5-20 mL 0542 (Given - Provider: Jasper Chavarria RN) 5-20 mL, Intravenous, EVERY 1 MIN PRN, S tarting on Tue12/08/20 at 1119, Until 12/13/20 at 1815, flush, Flush pertains to all indwelling lines. Flush per protocol found in the job aid using the link p rovided on this medication record., Recovery ([facility]), Routine Linked Groups Order Group 1: POCT Fingerstick Glucose (CANCELED) Routine, 4 TIMES DAILY BEFORE MEALS & AT BEDTIME, First occurrence on Tue12/08/20 at 1100, Until Specified
Consider choosing FOUR TIMES A DAY BEFORE MEALS AND AT BEDTIME as frequency fo r: Patients who have good hypoglycemia a wareness: -Patients who are eating meals during the day and sleeping at night -Patient who are otherwise stable And insulin lispro (HumaLOG;Admelog) (100 unit/mL) subcutaneous injection vial 1-5 UnitsJump to med 1-5 Units, Subcutaneous, 3 TIMES DAILY B EFORE MEALS, First dose on Tue12/08/20 at 0800, Until Discontinued
CORRECTION BOLUS [1-4 Units] Sensitive Sliding Scale (BG in mg/dL): Corre ction factor 40 (1 unit of insulin is ex pected to drop the glucose 40 mg/dL) BG 160 - 200 Give 1 unit BG 201 - 240 Give 2 units BG 241 - 280 Give 3 units &nb sp;BG greater than 280, give 4 units and recheck BG in 2 hours. - If recheck BG is LESS than 280, give no insulin and resume schedule - If recheck BG is GREATER than 280, give 4 units and repeat BG in 2 hours (no more than 3 times) & call for new insulin orders. DO NOT hold if NPO, unless specifically directed to do so by written order. Per Blood Glucose Monitoring Policy, re-check a BG of > 240 mg/dL in 2 hours.
Routine Group 2: glucose (GLUTOSE) 40% oral geLJump to med 15-30 g, Buccal, EVERY 30 MIN PRN, Start ing on Tue12/08/20 at 0737, Until 12/13/20 at 1815, Low blood sugar
For BG 50-70 mg/dL: Oral treatment preferred:?? If able to drink, give 120 mL J uice or Regular (not diet) soda OR If JET OPERATOR O, give 15 gram glucose 40% oral gel massaged into buccal mucosa OR if unconscious or uncooperative, give 25 gram (250 mL) Dextrose 10% IV over 15 minutes per pro tocol OR, if no IV access, 1 mg Glucagon IM. For BG less than 50 mg/dL: Oral treatment preferred:?? If able to drink, give 240 mL Juice or Regular (not diet) soda OR If NPO, give 30 gram gl ucose 40% oral gel massaged in buccal mu cosa OR if unconscious or uncooperative, give 25 gram (250 mL) Dextrose 10% IV over 15 minutes per protocol OR, if no IV access, 1 mg Glucagon IM. Rech mayela BG in 30 minutes. May repeat juice/s danielito, gel, dextrose or glucagon once per episode. For persistent hypoglycemia, consider longer-acting treatment for the duration of the acti ve insulin. 1 tube contains 15 gram s of glucose (net weight of tube = 37.5 grams.
Routine Or dextrose 10% infusionJump to med 250 mL, at 1,000 mL/hr, Intravenous, NEW RY 30 MIN PRN, Starting on 12/08/20 at 0737, Until 12/13/20 at 1815
For BG 50-70 mg/dL: Oral treatment preferred:?? If able to drink, give 120 m L Juice or Regular (not diet) soda OR If NPO, give 15 gram glucose 40% oral gel massaged into buccal mucosa OR if unconscious or uncooperative, give 25 gram (250 mL) Dextrose 10% IV over 15 minutes per protocol OR, if no IV access, 1 mg Gluca isabela IM. For BG less than 50 mg/dL: Oral treatment preferred:?? If able to drink, give 240 mL Juice or Regular (not diet) soda OR If NPO, give 30 gram glucose 40% oral gel massaged in buccal mucosa OR if unconscious or uncooperative, give 25 gram (250 mL) Dextrose 10% IV over 15 minutes per protocol OR, if no IV access, 1 mg Glucagon IM. R echeck BG in 30 minutes. May repeat juic e/soda, gel, dextrose or glucagon once per episode. For persistent hypoglycemia, consider longer-acting treatment for the duration of the active insulin.
Or glucagon (Glucagen) (1 mg/mL) injection solution 1 mgJump to med 1 mg, Intramuscular, EVERY 30 MIN PRN, S tarting on 12/08/20 at 0737, Until 12/13/20 at 1815, Low blood sugar
For BG 50-70 mg/dL: Oral treatment preferred:?? If able to drink, give 120 mL Juice or Regular (not diet) soda OR I f NPO, give 15 gram glucose 40% oral gel massaged into buccal mucosa OR if unconscious or uncooperative, give 25 gram (250 mL) Dextrose 10% IV over 15 minutes per protocol OR, if no IV access, 1 mg Gluc agon IM. For BG less than 50 mg/dL: Oral treatment preferred:?? If able to drink, give 240 mL Juice or Regular (not diet) soda OR If NPO, give 30 gra m glucose 40% oral gel massaged in bucca l mucosa OR if unconscious or uncooperative, give 25 gram (250 mL) Dextrose 10% IV over 15 minutes per protocol OR, if no IV access, 1 mg Glucagon IM. Recheck BG in 30 minutes. May repeat jui ce/soda, gel, dextrose or glucagon once per episode. For persistent hypoglycemia, consider longer-acting treatment for the duration of the active insulin.
Routine documented in this encounter Care Teams Shroud Line Tier Relationship Specialty Start Date End Date Tip Red DO PCP - General Family Medicine 05/12/[address] [place] [address] [phone] documented as of this encounter
--- OUTSIDE RECORDS SUMMARY | 2022-04-30 02:35 | XMS_ITS | Encounter Summary ---
:1960 Author Organization [facility] [place] [address] Care Team Providers Name Role Phone Amie Soriano MD Primary Care Provider Reason for Visit Reason Comments Phimosis Consultation (Routine) - Closed Specialty Diagnoses / Procedures Referred By Contact Refer red To Contact Urology Diagnoses Buried penis requiring major reconstruction Pacheco Alcazar MD Bihrle, William III, MD [address] [place] [address] [place] [phone] [place] [phone] Fax: Referral ID Status Reason Start Date Expiration Date Visits V isits Requested Authorized [id number] Closed Consult, 06/22/2017 06/22/2018 1 1 Test & Treat Encounter Details Date Type Department Care Team Description 07/06/2017 Office Visit [place] [facility] [place]as Metcalf Acquired buried penis [facility] [place] [address] [place] [address] [phone] Social History Tobacco Use Types Packs/Day Years Used Date Smoking Tobacco: Never Smokeless Tobacco: Former Chew Qu it: 07/06/2000 Sex Assigned at Date Recorded Not on file documented as of this encounter Last Filed Vital Signs Vital Sign Reading Time Taken Comments Blood Pressure 116/72 07/06/2017 7:54 AM EST Pulse 98 07/06/2017 7:54 AM EST Temperature 36.9 ??C (98.4 ??F) 07/06/2017 7:54 AM EST Respiratory Rate - - Oxygen Saturation 95% 07/06/2017 7:54 AM EST Inhaled Oxygen Concentration - - Weight - - Height - - Body Mass Index - - documented in this encounter Progress Notes Arias Metcalf III, MD - 07/06/2017 8:00 AM EST Mr. Keane is a 56-year-old gentleman I am seeing at the request of . He has been referredfor evaluation of a buried penis. Dr. Alcazar saw this gentleman in April at the request of his primary care physician. Patient states that he underwent a circumcision but in he began having difficulty exposing his glans. He was seen by a urologist at the [facility] who recommended a circumcision. The pathology apparently demonstrated LSA. He states that he was asymptomatic for a number of months but that shortly thereafter he developed recurrent penile skin issues. At the present time he is unable to liberate his glans penis for purposes of hygiene. The skin is chronically irritated and occasionally cracks and bleeds. He needs to sit to avoid. He states that his stream is strong and that there has been no significant change in his obstructive symptoms. He has an IPS S of 5 with a bother index of 5. He is a morbidly obese and has been diabetic for the last 10 years. He takes metformin and states that he has lost 70 pounds in the last month and a half. He does get partial erections and there is no associated back pain with erectile activity. Past medical history: Diabetes, arthritis, gout Medications lisinopril role allopurinol fluoxetine pravastatin Metformin loratadine glucosamine Chlortrimazole cream vitamins. Review of systems: Essentially noncontributory for this problem. He has no history of chest pain shortness of breath palpitations Physical examination: General: Well-developed well-nourished morbidly obese gentleman in no acute distress Abdomen: Soft nontender no obvious masses no previous scarring Genitalia: The penis is buried with surrounding penile and scrotal skin. There is significant fibrotic changes of the surrounding skin with patches of white strongly suggestive of lichen sclerosis. Theglans is barely visible through the overlying skin. Scrotum: Testicles are descended and there are no palpable lesions Assessment: 56-year-old gentleman with a history of buried penis and lichen sclerosis sclerosis. We have discussed some of the options for management including surgical procedures. Dr. Alcazar has appropriately placed this gentleman on clobetasol applications. He is due to see plastic surgery today. Surgery will require complete degloving and resurfacing of the penis in conjunction with management of significant suprapubic fat pad. Plan: Following appointment with Dr. JR MUNGUIA I will be in touch with pt and Dr. Alcazar regarding timing of surgical management. All questions have been answered to patient and his satisfaction greater than 30 of this 35 minute visit was spent in [id number] discussion and counseling. documented in this encounter Plan of Treatment Not on filedocumented as of this encounter Visit Diagnoses Diagnosis Acquired buried penis Other specified disorder of penis documented in this encounter Care Teams Computer Analyst Relationship Specialty Start Date End Date Amie Soriano MD PCP - General Oncology 06/21/17 05/11/18 [address] [place] [address] documented as of this encounter
--- OUTSIDE RECORDS SUMMARY | 2022-04-30 02:35 | XMS_ITS | Encounter Summary ---
:1960 Author Organization [facility] [place] [address] Care Team Providers Name Role Phone Tip Red DO Primary Care Provider Encounter Details Date Type Department Care Team Description 11/11/2020 TH Visit (TeleHealth) [place] [address] Social History Tobacco Use Types Packs/Day [...] on filedocumented in this encounter Care Teams Media Senior Recruiter Relationship Specialty Start Date End Date Tip Red DO PCP - General Family Medicine 05/12/18 [address] [place] [phone] documented as of this encounter
--- OUTSIDE RECORDS SUMMARY | 2022-04-30 02:35 | XMS_ITS | Encounter Summary ---
:1960 Author Organization [facility] [place] [address] Care Team Providers Name Role Phone Tip Red DO Primary Care Provider Reason for Visit Reason Onset Date Comments Letter for School/Work 06/06/2018 Encounter Details Date Type Department Care Team Description 06/06/2018 Telephone Orthopaedics at [facility] [place] Beau Manzo for [facility] Chloe Ornelas APRN School/[place] [address] ORTHOPAEDIC SURG [place], [place] [address] (Wo rk) Social History Tobacco Use Types Packs/Day Years Used Date Smoking Tobacco: Never Smokeless Tobacco: Former Chew Qu it: 07/06/2000 Sex Assigned at Date Recorded Not on file documented as of this encounter Miscellaneous Notes Telephone Encounter - Reyna Flanagan - 06/06/2018 2:53 PM EST Letter created and faxed as instructed Telephone Encounter - Rhonda Trevizo I - 06/06/2018 2:06 PM EST Name: Kushal Keane Mailing address: [place] [address] : 1960 Provider Last seen by: Jovany RIGHT KNEE INJURY, W/C DOI 05/04/18 What type of letter is needed? 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 06.12.18 If no, mailed or faxed? He would like the letter faxed to both fax numbers below. To what address/fax#? [phone] (Marcelle Rachel) and [phone] (Yennifer Michael) To whose attention? To Whom It May Concern documented in this encounter Plan of Treatment Not on filedocumented as of this encounter Visit Diagnoses Not on filedocumented in this encounter Care Teams Drosser Relationship Specialty Start Date End Date Tip Red DO PCP - General Family Medicine 05/12/[address] [place] [phone] documented as of this encounter
--- OUTSIDE RECORDS SUMMARY | 2022-04-30 02:35 | XMS_ITS | Encounter Summary ---
:1960 Author Organization [facility] [place] [address] Care Team Providers Name Role Phone Tip Farnsworth MD Primary Care Provider Encounter Details Date Type Department Care Team Description 07/17/2010 Hospital Encounter [place] [facility] [place]ijay Gonzalez MD [facility] [place] [address] ORTHOPAEDIC SURGERY [phone] [place] [address] (Wo rk) Social History Tobacco Use Types Packs/Day Years Used Date Smoking Tobacco: Never Assessed Sex Assigned at Date Recorded Not on file documented as of this encounter Plan of Treatment Not on filedocumented as of this encounter Visit Diagnoses Not on filedocumented in this encounter Care Teams Language Interpreter Relationship Specialty Start Date End Date Tip Farnsworth MD PCP - General 04/21/10 06/20/[address] [place] [address] [place] [address] documented as of this encounter
--- OUTSIDE RECORDS SUMMARY | 2022-04-30 02:35 | XMS_ITS | Encounter Summary ---
:1960 Author Organization [facility] [place] [address] Care Team Providers Name Role Phone Tip Red DO Primary Care Provider Reason for Referral Physical Therapy (Routine) - Specialty Diagnoses / Procedures Referred By Contact Refer red To Contact Diagnoses Acute pain of right knee Primary osteoarthritis of right knee Chloe Manzo APRN [facility] D R [place] [address] Referral ID Status Reason Start Date Expiration Date Visits V isits Requested Authorized [id number] Evaluate and 05/12/2018 11/08/2018 12 12 Treat Reason for Visit Reason Comments Right Knee Pain DOI 05/04/18 WC Consultation (Routine) - Closed Specialty Diagnoses / Procedures Referred By Contact Refer red To Contact Orthopaedics Diagnoses RIGHT KNEE INJURY, DOI 05/04/18 Amie Soriano MD [facility] [place] Orthopaedics [address]a [address] [place] [address] [place] [address] Fax: Referral ID Status Reason Start Date Expiration Date Visits V isits Requested Authorized [id number] Closed Consult, 05/09/2018 05/09/2019 1 1 [facility] Encounter Details Date Type Department Care Team Description 05/12/2018 Office Visit [place] [facility] [place], Acute pain of right knee; [facility] Chloe Ornelas APRN Primary osteoarthritis [place] [address] ORTHOPAEDIC [phone] SURGERY [place] 0375 Social History Tobacco Use Types Packs/Day Years Used Date Smoking Tobacco: Never Smokeless Tobacco: Former Chew Qu it: 07/06/2000 Sex Assigned at Date Recorded Not on file documented as of this encounter Last Filed Vital Signs Vital Sign Reading Time Taken Comments Blood Pressure 125/79 05/12/2018 10:36 AM EST Pulse 106 05/12/2018 10:36 AM EST Temperature - - Respiratory Rate - - Oxygen Saturation - - Inhaled Oxygen Concentration - - Weight 156.5 kg (345 lb 1.6 oz) 05/12/2018 10:36 AM EST Height 173.4 cm (5' 8.25) 05/12/2018 10:36 AM EST Body Mass Index 52.09 05/12/2018 10:36 AM EST documented in this encounter Progress Notes Chloe Manzo APRN - 05/12/2018 10:40 AM EST PATIENT NAME: Kushal Keane AGE: 57 y.o. MR#: [id number] DATE OF VISIT: 05/12/2018 DATE OF INJURY/ONSET: 05/04/18 CHIEF COMPLAINT: Right Knee Pain HISTORY OF PRESENT ILLNESS Mr. Keane a 57 y.o. year old male comes into clinic today for acute on chronic right knee pain. Briefly, patient reports he has been treated in the past for right knee arthritis with cortisone injections. He reports he is doing well when on 04 May was stepping out of his truck and twisted the knee developing worsening medial sided knee pain that is moderate to severe in intensity. He denies any instability or locking but did experience a popping sensation at the timeof the injury. Is having extreme pain with deep knee flexion and weightbearing. Pivoting is also bothersome. Interventions thus far have included rest, icing and Tylenol No. 3. He has not appreciated much improvement. Outside reports reviewed: none. Patient's medications, allergies, past medical, surgical, social and family histories were reviewed and updated as appropriate. PAST MEDICAL HISTORY: Active Ambulatory Problems Diagnosis Date Noted ??? CIS - Diabetes ??? CIS - Entered not Verified 03/24/2010 ??? CIS - Gout ??? CIS - Hypertension ??? CIS - Right shoulder pain 10/28/2008 ??? 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 No Resolved Ambulatory Problems No Additional Past Medical History PAST SURGICAL HISTORY: Past Surgical History: Procedure Laterality Date ??? CREATED BY INTERFACE Entered not Verified Procedure Date: 03/24/2010 ??? CREATED BY INTERFACE Hernia repair Procedure Date: Unknown ??? CREATED BY INTERFACE hydrocele repair Procedure Date: Unknown FAMILY HISTORY: No family hx of DVT. SOCIAL HISTORY: Social History Occupational History ??? Not on file Tobacco Use ??? Smoking status: Never Smoker ??? Smokeless tobacco: Former User Types: Chew Substance and Sexual Activity ??? Alcohol use: Not on file ??? Drug use: Not on file ??? 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 Current Outpatient Medications on File Prior to Visit Medication Sig Dispense Refill ??? TRULICITY 0.75 mg/0.5 mL Pen Injector ??? clobetasol (TEMOVATE) 0.05 % Cream APPLY [...] mg tablet (Patient taking differently: daily) ??? clotrimazole (LOTRIMIN) 1 % Cream Apply topically 2 times daily. ??? acetaminophen (TYLENOL) 325 mg tablet (Patient not taking: No sig reported) No current facility-administered medications on file prior to visit. No Known Allergies [facility] FollowUp 05/12/2018 Health in general Fair Quality of life Good Physical health Fair Mental health Good Satisfaction with social activities Very Good Ability to carry out physical activities Mostly Rate of pain 7 Rate of fatigue Moderate Ability to carry out social activities Good Bothered by emotional problems Sometimes PROMIS PHYSICAL HEALTH SCORE 37.4 PROMIS MENTAL HEALTH SCORE 45.8 ROS: Negative for fever, chills, SOB, chest pain, nausea, vomiting, and diarrhea. Physical Exam Blood pressure 125/79, pulse (!) 106, height 173.4 cm (5' 8.25), weight (!) 156.5 kg (345 lb 1.6 oz). Constitutional: oriented to person, place, and time and well-developed, well- nourished, and in no distress. Skin: Skin is warm and dry. No erythema ecchymosis or skin breakdown of right knee. Right Knee Exam Comments: Comes in with antalgia-crutch assist. Trace effusion. + varus deformity. ROM 105 deg flexion, 0 deg extension. + medial joint line tenderness. No lateral joint line tenderness. Stable to varus/valgus stress. Negative Anterior/Posterior drawer. Negative Elin's with a firm endpoint. Able to do a straight leg raise without lag. Neurovascular Exam Normal sensation and motor function distally. DP and PT pulses 2+. RADIOLOGICAL STUDIES: XR reviewed and reveal advanced medial compartment narrowing, subchondral sclerosis, osteophyte formation, and varus deformity. ASSESSMENT/PLAN: Kushal Keane is a 57 y.o. male presents to the clinic with an approximate 2- week history of acute on chronic right knee pain status post twisting injury sustained while at work. Reviewed imaging and exam findings consistent with exacerbation of underlying severe medial compartment DJD. Discussed initial treatment options including use of a medial clay digger brace, icing, elevation, use of anti-inflammatories, and continued protected weightbearing and physical therapy. Discussed progression to intra-articular steroid injection for persistent pain, though patient's reports his last hemoglobin A1c was 10. He is due to have it rechecked in the next few weeks. He agrees with the above plan. I will plan to see him back in approximately 8 weeks for reevaluation or sooner for worsening symptoms. documented in this encounter Plan of Treatment Scheduled Referrals Name Type Priority Associated Diagnoses Order S chedule Referral to Outpatient Referral Routine Acute pain of right O rdered: Physical Therapy knee 05/12/2018 Primary osteoarthritis of right knee documented as of this encounter Visit Diagnoses Diagnosis Acute pain of right knee Primary osteoarthritis of right knee Primary localized osteoarthrosis, lower leg documented in this encounter Care Teams Reeler Operator Relationship Specialty Start Date End Date Tip Red DO PCP - General Family Medicine 05/12/[address] [place] [phone] documented as of this encounter
--- OUTSIDE RECORDS SUMMARY | 2022-04-30 02:35 | XMS_ITS | Encounter Summary ---
:1960 Author Organization [facility] [place] [address] Care Team Providers Name Role Phone Tip Red DO Primary Care Provider Encounter Details Date Type Department Care Team Description 11/27/2020 Telephone [place]rology [place] [facility] [place]as Metcalf III, [place] [facility] [place] [address] [place] [address] [phone] (Wo rk) Social History Tobacco Use Types Packs/Day Years Used Date Smoking Tobacco: Never Smokeless Tobacco: Former Chew Qu it: 07/06/2000 Alcohol Use Standard Drinks/Week Comments Yes 0 (1 standard drink = 0.6 oz pure alcoho l) socially Sex Assigned at Date Recorded Not on file documented as of this encounter Miscellaneous Notes Telephone Encounter - Chloe Felipe RN - 11/27/2020 10:44 AM EDT Attempted to return the pt's call. Would recommend a urine culture be collected sometime in the nextfew days for pre-op. Left detailed voicemail asking that the pt call back to let us know where he isable to provide a urine sample, and when he plans on going. Telephone Encounter - Nida Choudhury - 11/27/2020 9:58 AM EDT Patient calls wondering if a urine culture is needed prior to 12/[address] Metcalf. documented in this encounter Plan of Treatment Not on filedocumented as of this encounter Visit Diagnoses Not on filedocumented in this encounter Care Teams Weasand Trimmer Relationship Specialty Start Date End Date Tip Red DO PCP - General Family Medicine 05/12/[address] [place] [phone] documented as of this encounter
--- OUTSIDE RECORDS SUMMARY | 2022-04-30 02:35 | XMS_ITS | Encounter Summary ---
:1960 Author Organization [facility] [place] [address] Care Team Providers Name Role Phone Tip Red DO Primary Care Provider Encounter Details Date Type Department Care Team Description 11/27/2020 Orders Only Urology at [facility] Arias Metcalf Acquired buried penis [facility], [place] [address] [place], [place] [address] Social History Tobacco Use Types [...] penis documented in this encounter Care Teams Veneer Sheet Repairer Relationship Specialty Start Date End Date Tip Red DO PCP - General Family Medicine 05/12/18 [address] [facility] [place] [address] documented as of this encounter
--- OUTSIDE RECORDS SUMMARY | 2022-04-30 02:35 | XMS_ITS | Encounter Summary ---
:1960 Author Organization [facility] [place] [address] Care Team Providers Name Role Phone Tip Red DO Primary Care Provider Reason for Visit Reason Onset Date Comments Injections 12/17/2019 Encounter Details Date Type Department Care Team Description 12/17/2019 Telephone Orthopaedics at [facility] Chloe Manzo, Injections [facility] [place] [address] [facility] [phone] ORTHOPAEDIC SURG [place], [place] [address] (Wo rk) Social History Tobacco Use Types Packs/Day Years Used Date Smoking Tobacco: Never Smokeless Tobacco: Former Chew Qu it: 07/06/2000 Alcohol Use Standard Drinks/Week Comments Yes 0 (1 standard drink = 0.6 oz pure alcoho l) socially Sex Assigned at Date Recorded Not on file documented as of this encounter Miscellaneous Notes Telephone Encounter - Audrey Metcalf - 12/17/2019 9:50 AM EDT Patient Scheduled Telephone Encounter - Anastasiya Muñoz - 12/17/2019 9:29 AM EDT Okay to schedule at any time with [facility] for right knee injection. Telephone Encounter - Rhonda Trevizo I - 12/17/2019 9:01 AM EDT Best phone # to reach the patient for scheduling: Home or cell phone Patient requests appointment for injection of the Right knee RIGHT KNEE INJURY W/C DOI 05/04/18 Patient requests an injection of (product type: cortisone/Synvisc/Monovisc/other):Cortisone Some injections require prior authorization, special orders, or an appointment somewhere other than our clinic, so knowing this in advance will help us to better meet your needs. If the injection requires prior authorization, we will schedule your appointment no earlier than twoweeks from the date that the order is entered in order to allow for the prior authorization process.Please note: if prior authorization is not completed before your appointment, we may need to call you to reschedule your appointment. Did you inform the patient of the above: yes documented in this encounter Plan of Treatment Not on filedocumented as of this encounter Visit Diagnoses Not on filedocumented in this encounter Care Teams Machine Erector Relationship Specialty Start Date End Date Tip Red DO PCP - General Family Medicine 05/12/[address] [place] [phone] documented as of this encounter
--- OUTSIDE RECORDS SUMMARY | 2022-04-30 02:35 | XMS_ITS | Encounter Summary ---
:1960 Author Organization [facility] [place] [address] Care Team Providers Name Role Phone Amie Soriano MD Primary Care Provider Reason for Visit Reason Comments Advice Only buried penis major reconstru ctionn Consultation (Routine) - Closed Specialty Diagnoses / Procedures Referred By Contact Refer red To Contact Plastic Surgery Diagnoses buried penis requiring major reconstruction Pacheco Alcazar MD [facility] [address] [address] [place] [address] Phone: Referral ID Status Reason Start Date Expiration Date Visits V isits Requested Authorized [id number] Closed Consult, 06/22/2017 06/22/2018 1 [facility] Encounter Details Date Type Department Care Team Description 07/06/2017 Office Visit Plastic Surgery at [facility] Acqui red buried penis [facility] Replaced by [facility] [address] LEORA Gaines PLASTIC SURGERY [address] [place] [address] [phone] Social History Tobacco Use Types Packs/Day Years Used Date Smoking Tobacco: Never Smokeless Tobacco: Former Chew Qu it: 07/06/2000 Sex Assigned at Date Recorded Not on file documented as of this encounter Last Filed Vital Signs Vital Sign Reading Time Taken Comments Blood Pressure - - Pulse - - Temperature - - Respiratory Rate - - Oxygen Saturation - - Inhaled Oxygen Concentration - - Weight 161 kg (355 lb) 07/06/2017 8:33 AM EST Height 168.9 cm (5' 6.5) 07/06/2017 8:33 AM EST Body Mass Index 56.44 07/06/2017 8:33 AM EST documented in this encounter Progress Notes Tea Glynn MD - 07/06/2017 9:15 AM EST PLASTIC SURGERY CONSULTATION NOTE TEA GLYNN MD PCP: Amie Soriano MD CC: BXO, buried penis HPI: Kushal Keane is a 56 y.o. male who is here for evaluation at the request of Arias Metcalf III, MD. He is accompanied for today's visit. 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 He is here to discuss penile deglovingand resurfacing with skin graft to be coordinated with Dr. Metcalf urethral stricture procedure. He had a circumcision 6 months ago that was beneficial for a few months, but has relapsed. The patient denies difficulty with urinating. He sits on a toilet to urinate. He has experienced infections in his penile region, but has been applying ani The patient is able to achieve erection, but his penis is still buried even with an erection. He is borderline diabetic and his last HbA1c was 3 months ago and was 8.1. He takes Metformin. The patient has recently lost 7-8 pounds, and he is planning to lose moreweight. He has had an umbilical hernia repair. 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 He drinks alcohol occasionally. No past medical history on file. Past Surgical History: Procedure Laterality Date ??? CREATED BY INTERFACE Entered not Verified Procedure Date: 03/24/2010 ??? CREATED BY INTERFACE Hernia repair Procedure Date: Unknown ??? CREATED BY INTERFACE hydrocele repair Procedure Date: Unknown Current Outpatient Prescriptions on File Prior to Visit Medication Sig Dispense Refill ??? lisinopril (PRINIVIL;ZESTRIL) 20 mg Tablet Take [...] mg by mouth 2 times daily. ??? allopurinol (ZYLOPRIM) 300 mg tablet (Patient taking differently: daily) ??? acetaminophen (TYLENOL) 325 mg tablet No current facility-administered medications on file prior to visit. No Known Allergies REVIEW OF SYSTEMS: GI, Psych, Neuro, Renal, Immun., Heme, Card, Pulm: Negative except as noted above Past Surgical History: Procedure Laterality Date ??? CREATED BY INTERFACE Entered not Verified Procedure Date: 03/24/2010 ??? CREATED BY INTERFACE Hernia repair Procedure Date: Unknown ??? CREATED BY INTERFACE hydrocele repair Procedure Date: Unknown Social History Social History ??? Marital status: Spouse name: N/A ??? Number of children: N/A ??? Years of education: N/A Occupational History ??? Not on file. Social History Main Topics ??? Smoking status: Never Smoker ??? Smokeless tobacco: Former User Types: Chew Quit date: 07/06/2000 ??? Alcohol use Not on file ??? Drug use: Not on file ??? Sexual activity: Not on file Other Topics Concern ??? Not on file Social History Narrative EXAMINATION: Ht 168.9 cm (5' 6.5) Wt (!) 161 kg (355 lb) BMI 56.44 kg/m2 Constitutional: NAD Obese abdomen with a tiered pannus of the mons pubis There is a buried penis, unable to deliver this at all Evidence of chronic intertriginous rashes Active intertrigo under the upper pannus and the mons pannus Likely will require some panniculectomy and a mons plasty, as well as delivering the penis and skin grafting Assessment: Kushal Keane is a 56 y.o. male with a buried penis. We discussed surgical intervention of panniculectomy, mons plasty, and degloving and resurfacing the penis with skin graft. I explained that the patient is at a greatly increased risk of healing complications after surgery due to his current weight and his high BMI of 56.44. I explained that it is ideal to have a HbA1c lower than 7 to limit his risk of healing complications. The patient is understanding that a combination of his BMIand high HbA1c puts him at a very high risk of delayed healing after surgery. I explained options tohelp the patient lose weight, including bariatric surgery. I assured him I am more than willing to refer him to the bariatric program. I do not recommend surgery until the patient has lost weight and lowered his BMI. If we proceeded with surgery now the surgery may fail, may be fatal, and will cause the patient to have severe healing complications. If the patient loses 130 pounds then his BMI would be below 35. I explained that it is ideal to proceed with surgery at a BMI below 35 pounds. If the patient is not interested in the bariatric program then I recommend he discuss nutritional counseling with his PCP. Recommendations 1. Weightloss 2. Follow up in 6 months I, Satish Benoit, am acting as scribe for Dr. Glynn. All work documented was performed by Dr. Glynn. ???I performed the above scribed service and agree with the accuracy of the note?? TEA GLYNN MD documented in this encounter Plan of Treatment Not on filedocumented as of this encounter Visit Diagnoses Diagnosis Acquired buried penis Other specified disorder of penis documented in this encounter Care Teams Construction Inspector Relationship Specialty Start Date End Date Amie Soriano MD PCP - General Oncology 06/21/17 05/11/18 [address] [place] [address] documented as of this encounter
--- OUTSIDE RECORDS SUMMARY | 2022-04-30 02:35 | XMS_ITS | Encounter Summary ---
:1960 Author Organization [facility] Address [facility] [place] [address] Care Team Providers Name Role Phone Tip Red DO Primary Care Provider Reason for Visit Reason Comments Advice Only buried penis Encounter Details Date Type Department Care Team Description 09/25/2020 Office Visit Plastic Surgery at [facility]ell[facility] Acqui red buried penis; [facility] [facility] Pre-op testing; [facility] [address] [place] PLASTIC SURGERY [phone] [place] [address] [phone] Social History Tobacco Use Types Packs/Day Years [...] - Inhaled Oxygen Concentration - - Weight 142.8 kg (314 lb 12.8 oz) 09/25/2020 9:48 AM EDT Height 167.6 cm (5' 6) 09/25/2020 9:48 AM EDT Body Mass Index 50.81 09/25/2020 9:48 AM EDT documented in this encounter Patient Instructions Patient InstructionsVerónica Palumbo RN - 09/25/2020 10:00 AM EDT Preoperative Instructions You have been scheduled to have plastic surgery. The instructions below are specific to your procedure. If you are a smoker, we ask that you stop at least 2 months prior to your surgical date and remain nicotine free for at least a month after surgery. Smoking can impair healing and increase your chance of infection. One Month prior to Surgery Schedule a pre-operative physical with your primary care doctor Two Weeks prior to Surgery Do not take any Aspirin or aspirin containing products for the 2 weeks leading up to surgery. You may resume taking 48 hours after surgery. Do not take medications containing Ibuprofen. Do not take anyanti-steroidal's such as Advil, Aleve, Celebrex, Daypro, Indocin, Midol, Motrin, Naproxen, Nuprin and Toradol. These medications increase your risk of bleeding. You may resume taking any of these medications 48 hours after surgery. Stop Vitamin E, Garlic supplements, Ginseng, Fish Oil tablets, Ginkgo and Vicki's Wort and any other herbals. You may resume taking 48 hours after surgery. If you need medication for pain, you may take Tylenol or extra strength Tylenol during this two weekperiod. One Week prior to Surgery Please call if you feel ill, have cold or fever, have a rash or breaks in the skin near your surgical site. Stay hydrated. Avoid alcohol and recreational drugs Three Days before Surgery Do not shave near your surgical site One Day before Surgery Shower the night before and the morning of surgery using an antibacterial soap (Dial or Lever 2000) or Hibiclens wash The Same Day Surgery Team will call you the day before your surgery to give you instructions specific to your procedure and your surgical time. Generally, you will be asked not to eat any solids after midnight. You are allowed clear liquids (water, mikey maggy, apple juice, black coffee and plain tea) until 2 hours prior to your surgery. Day of Surgery A security patrol driver is required at time of discharge. If you are a Same Day procedure and do not have a security patrol driver your surgery will be canceled. DO NOT wear any jewelry, makeup or artificial nails the day of surgery. DO NOT apply any lotions, powders or deodorants on or near the surgical site the day of surgery. Do wear comfortable, loose fitting clothes. Anesthesia will meet with you the morning of surgery. They will perform an assessment and review your history with you. [facility] has instituted the requirement of COVID-19 testing for all patient undergoing procedures that require inpatient admission to the facility. A Nurse from the COVID-19 team will reach out to you to assist with the planning and implementation of a COVID-19 test prior to your surgicaldate. Contact Information: During regular office hours (Tuesday- Tuesday, non-holiday 8:00 am- 5:00 pm) For an appointment or insurance questions [phone] For questions pertaining to your surgical date [phone] For nursing related questions [phone] On weekends, holidays or after office hours: Call and ask the desizing machine operator head end to page the Plastic Surgery Resident sr solutions consultant. documented in this encounter Progress Notes Tea Castellanos MD - 09/25/2020 10:00 AM EDT Plastic Surgery Consultation Note: Tea Castellanos MD. PCP: Tip Red DO CC: BXO, buried penis HPI: Kushal Keane is a 60 y.o. male who is here for re-evaluation. He is accompanied by his wifefor today's visit. 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 He reports that he has been doing the keto diet and is down approximately 45 lbs. He states thathe is not interested in bariatric surgery. He reports that he is having difficulty urinating. No past medical history on file. Past Surgical History: Procedure Laterality Date ??? CREATED BY INTERFACE Entered not Verified Procedure Date: 03/24/2010 ??? CREATED BY INTERFACE Hernia repair Procedure Date: Unknown ??? CREATED BY INTERFACE hydrocele repair Procedure Date: Unknown Current Outpatient Medications on File Prior to Visit Medication Sig Dispense Refill ??? ibuprofen (Advil;Motrin) 200 mg Tablet Take 200 mg by mouth every 6 hours as needed for Pain. PRN ??? clobetasol (TEMOVATE) 0.05 % Cream APPLY [...] ??? acetaminophen (TYLENOL) 325 mg tablet ??? [DISCONTINUED] predniSONE (Deltasone) 50 mg Tablet TAKE 1 TABLET BY MOUTH EVERY DAY FOR 7 DAYS No current facility-administered medications on file prior [...] hydrocele repair Procedure Date: Unknown Social History Socioeconomic History ??? Marital status: Spouse name: Not on file ??? Number of children: Not on file ??? Years of education: Not on file ??? Highest education level: Not on file Occupational History ??? Not on file Tobacco Use ??? Smoking status: Never Smoker ??? Smokeless tobacco: Former User Types: Chew Substance and Sexual Activity ??? Alcohol use: Yes Comment: socially ??? Drug use: Never ??? Sexual activity: Not on file Other Topics Concern ??? Not on file Social History Narrative ??? Not on file Social Determinants of Health Financial Resource Strain: ??? Difficulty of Paying Living Expenses: Food Insecurity: ??? Worried About Running Out of Food in the Last Year: ??? Ran Out of Food in the Last Year: Transportation Needs: ??? Lack of Transportation (Medical): ??? Lack of Transportation (Non-Medical): Physical Activity: ??? Days of Exercise per Week: ??? Minutes of Exercise per Session: Stress: ??? Feeling of Stress : Social Connections: ??? Frequency of Communication with Friends and Family: ??? Frequency of Social Gatherings with Friends and Family: ??? Attends Yazidism Services: ??? Active Member of Clubs or Organizations: ??? Attends Club or Organization Meetings: ??? Marital Status: Intimate Partner Violence: ??? Fear of Current or Ex-Partner: ??? Emotionally Abused: ??? Physically Abused: ??? Sexually Abused: Examination: Ht 167.6 cm (5' 6) Wt (!) 142.8 kg (314 lb 12.8 oz) BMI 50.81 kg/m?? Patient has an undeliverable buried penis. Grade II-III abdominal pannus with a mons pannus. No sign of active infection. There is evidence of recurrent intertrigo. Assessment: Kushal Keane is a 60 y.o. male who returns to clinic with a buried penis. We discussed surgical intervention of panniculectomy, mons plasty, and degloving and resurfacing the penis withskin graft. However, I informed the patient that he is at a significantly high risk for a complication and delayed healing due to his current BMI of 50.81 kg. Due to this I have recommended proceeding with wound vac therapy to aid in healing. We also discussed taking a skin graft from his thigh to reconstruct the penis. He is aware that the surgery will be coordinated with Dr. Metcalf who will deglovethe penis and look inside of his bladder. We talked about the outpatient nature of the surgery, drains, postoperative recovery, and time required off work. He will have a wound vac on his penis that will be removed prior to discharge from the hospital. He will go home with a wound vac on his abdominalincision and will need to be changed every three days by the [facility]. He will have a catheter in his penis which will stay in place for approximately one week. Post-operative restrictions include no vigorou s/strenuous activity and no heavy lifting more than 5lbs for 4-6 weeks. We discussed potential risksand complications which include but are not limited to pain, bleeding, infection, scarring, asymmetry, hematoma, seroma, poor cosmetic outcome, failure of procedure, possible need for revision, recurrence damage to adjacent structures. The patient wishes to proceed with surgery and surgical consent was signed. Photos were obtained today with informed signed consent. Plan: Schedule for surgery. Surgical Grid: Surgeon: Jasmin Duration: 3.5 hours and 3-5 nights over Timeframe: Coordinated with Urology Coordinated with: Dr. Metcalf Procedure: panniculectomy, monsplasty, and degloving and resurfacing the penis with skin graft CPT: 02775, 76567, [address]22, [address] Surgical site: Groin Side: N/A Anesthesia: General Follow up: 7-10 days with S[facility]Y PAT: H&P with PCP, Anesthesia pre-op VAC needed: Yes COVID TEST-Y I, Laurel Valerio, have performed the documentation for this encounter in the presence of and acting as a scribe for TEA CASTELLANOS MD. I performed the services which were documented by the scribe, and I agree with the accuracy of the documentation in this encounter. TEA CASTELLANOS MD documented in this encounter Plan of Treatment Not on filedocumented as of this encounter Procedures Procedure Name Priority Date/Time Associated Diagnosis Comme [facility] HEMOGLOBIN A1C Routine 09/25/2020 12:07 PM Acquired buried Results for this EDT penis procedure are in Pre-op testing the results Abdominal pannus section. documented in this encounter Results (ABNORMAL) Hemoglobin A1c (09/25/2020 12:07 PM EDT) Analysis Performed At Patho logist Time Signature Hemoglobin A1C 6.2 (H) 4.3 - 5.6 [facility] Comment: Reference Range: 4.3 - 5.6% 5.7 - 6.4% - Increased Risk of Developin g Diabetes Mellitus >= 6.5% - Consistent with diagnosis of D iabetes Mellitus In the absence of hyperglycemia (i.e. pl asma glucose > 200 mg/dL) or classic symptoms of hyperglycemia a repeat measu rement of HbA1c should be performed on a separate sample to confirm the diagnos is. Diagnosis and Classification of Diabetes Mellitus, Diabetes Care 2013; 36: Suppl. 1, S67-74 Est Avg Gluc 132 mg/dL [facility] Comment: eAG equivalents for HbA1c percentages: HbA1c(%) ?eAG(mg/dL) 6.0 ?126 6.5 ?140 7.0 ?154 7.5 ?169 8.0 ?183 8.5 ?197 9.0 ?212 9.5 ?226 10.0 ? 240 Limitations: The eAG calculation has not been validated on women, individuals below 18 years old and above 70 years old, and individuals with hemoglobinopathies. Additional resources are available on [facility] ADA website. Nixon CEDENO, Mariya J, Renato R, et al. ??Tr anslating the A1C assay into estimated average glucose values. ??Diabetes Care 2008:31(8):6743-0319. Specimen Anatomical Collection Method Collection Time Receive d Time (Source) Location / / Volume Laterality Blood specimen 09/25/2020 12:07 1 (specimen) PM EDT 12:19 PM EDT Resulting Agency Comment Spec In Lab Tea Castellanos MD CHEMISTRY ORDERABLES Performing Organization Address City/State/ZIP [place] [address] documented in this encounter Visit Diagnoses Diagnosis Acquired buried penis Other specified disorder of penis Pre-op testing Preoperative examination, unspecified Abdominal pannus Localized adiposity documented in this encounter Care Teams High Speed Warper Tender Relationship Specialty Start Date End Date Tip Red DO PCP - General Family Medicine 05/12/18 [address] [place] [phone] documented as of this encounter
--- OUTSIDE RECORDS SUMMARY | 2022-04-30 02:35 | XMS_ITS | Encounter Summary ---
:1960 Author Organization [facility] [place] [address] Care Team Providers Name Role Phone Tip Farnsworth MD Primary Care Provider Encounter Details Date Type Department Care Team Description 07/17/2010 Procedure visit [address] [address] Social History Tobacco Use Types Packs/Day Years Used Date Smoking Tobacco: Never Assessed Sex Assigned at Date Recorded Not on file documented as of this encounter Plan of Treatment Not on filedocumented as of this encounter Visit Diagnoses Not on filedocumented in this encounter Care Teams Manager Of Network Relationship Specialty Start Date End Date Tip Farnsworth MD PCP - General 04/21/10 06/20/[address] [place] [address] [place] [address] documented as of this encounter
--- OUTSIDE RECORDS SUMMARY | 2022-04-30 02:35 | XMS_ITS | Encounter Summary ---
:1960 Author Organization [facility] Address [facility] [place] [address] Care Team Providers Name Role Phone Neda Tip Ornelas Primary Care Provider Reason for Visit Reason Onset Date Comments Letter Request From Patient 08/14/2019 Encounter Details Date Type Department Care Team Description 08/14/2019 [place] [facility] [place] Letter Request From [facility] [place] [id number] Social History Tobacco Use Types Packs/Day Years Used Date Smoking Tobacco: Never Smokeless Tobacco: Former Chew Qu it: 07/06/2000 Sex Assigned at Date Recorded Not on file documented as of this encounter Miscellaneous Notes Telephone Encounter - Reyna Flanagan - 08/14/2019 1:09 PM EDT Patient took today off because of his knee (he states). I told him that I cannot provide him with a letter excusing him for today because I am not a provider and there is no documentation that this wasapproved. He will talk to Iris on 08/15 when he sees her to see if he can get a retroactive letter excusing him for today. Telephone Encounter - Milvia Redman RN - 08/14/2019 10:18 AM EDT Primary osteoarthritis of the R Knee, office visit, 09/08/2019, Chloe Manzo APRN Mr Keane called and states his company is requesting a letter for a return to work date. He stateshe has an appointment with Ms Manzo on , 08/16/2019. Gave him our fax number: [phone]. Also advised we can route a request to our secretaries who can request a letter from his provider, probably will be done after his appointment on . documented in this encounter Plan of Treatment Not on filedocumented as of this encounter Visit Diagnoses Not on filedocumented in this encounter Care Teams Spiral Gear Generator Relationship Specialty Start Date End Date Tip Red DO PCP - General Family Medicine 05/12/[address] [place] [id number] documented as of this encounter
--- OUTSIDE RECORDS SUMMARY | 2022-04-30 02:35 | XMS_ITS | Encounter Summary ---
:1960 [place] [address] Care Team Providers Name Role Phone Tip [...] Expiration Date Visits Requ ested Visits Authorized [id number] 1 1 Encounter Details Date Type Department Care Team Description 12/08/2020 - Hospital Encounter 3 [place], Abdom inal pannus; 12/13/2020 Shine Cruz MD Acquired buried penis; [facility] MEDICAL Abdominal pannus [facility] [address] [place] [phone] Social History Tobacco Use Types Packs/Day Years Used Date Smoking Tobacco: Never Smokeless Tobacco: Former Chew Qu it: 07/06/2000 Alcohol Use Standard Drinks/Week Comments Yes 0 (1 standard drink = 0.6 oz pure alcoho l) socially Sex Assigned at Date Recorded Not on file documented as of this encounter Last Filed Vital Signs Vital Sign Reading Time Taken Comments Blood Pressure 136/79 12/13/2020 12:00 PM EDT Pulse 83 12/11/2020 4:45 AM EDT Temperature 36.9 ??C (98.4 ??F) 12/13/2020 12:00 PM EDT Respiratory Rate 18 12/13/2020 12:00 PM EDT Oxygen Saturation 91% 12/13/2020 12:00 PM [...] performed by Arias Metcalf III, MD at [facility] MAIN OR ??? PRO DESTR PENIS LESN, SIMPL, SURG EXCIS N/A 12/08/2020 EXCISION, PENILE CONDYLOMATA (WRVU 1.98) performed by Arias Metcalf III, MD at [facility] OR ??? PRO DRESSING CHANGE UNDER ANESTHESIA N/A 12/08/2020 DRESSING CHANGE (FOR OTHER THAN WILKINS) UNDER ANES., ABDOMEN (WRVU 0.86) performed by Tea Glynn MD at [facility] OR ??? PRO EXCISE EXCESS SKIN TISSUE, ABDOMEN N/A 12/08/2020 PANNICULECTOMY performed by Tea Glynn MD at [facility] OR ??? PRO EXCISE EXCESS SKIN TISSUE, OTHER N/A 12/08/2020 EXC EXCESSIVE SKIN & SUBQ TISSUE, MON PUBIS (WRVU 10.5) performed by Tea Glynn MD at [facility] OR ? ? PRO SPLIT GRFT TRUNK, ARM, LEG <100SQCM N/A 12/08/2020 SPLIT THICK SKIN GRAFT,100 SQ CM OR LESS, TRUNK (WRVU 9.9) performed by Tea Glynn MD at [facility] OR ??? PRO SPLIT GRFT, TRUNK, ARM, LEG EA 100SQCM Midline 12/08/2020 EA.ADDITIONAL 100SQ.CM STSG (WRVU 1.72) performed by Tea Glynn MD at [facility] MAIN OR Procedures: 12/08/2020 Surgeon(s) and Role: [...] about scheduling, please contactour administrative offices at [phone]. For clinical questions, please call our nurses at [phone]. Both offices are open Tuesday thru Tuesday 8a - 5p. With emergencies after hours, call the hospital small equipment operator at [phone] and ask for the Plastic Surgery Resident legal receptionist. Scheduled Appointments: Future Appointments Date Time Provider Department Center 12/17/2020 9:00 AM NURSE, PLASTIC SURGERY [facility] [place] 12/24/2020 10:00 AM UROLOGY, NURSE [place] 12/24/2020 11:40 AM Arias Metcalf III, MD [facility] Outpatient Services/Studies: Referral to Home Health - at DISCHARGE Order Comments: DOCUMENTATION FOR VNA SERVICES (INCLUDING THOSE PATIENTS WITH MEDICARE COVERAGE REQUIRING HOME VNA SERVICES AND/OR HOSPICE SERVICES) PATIENT'S LOCATION: Kushal Keane [address] [place] [phone] (home) Curator's Name: In discussion with the attending physician, it is certified that this patient is under their care and that they, or a Nurse Practitioner,Clinical Nurse specialist or Physician Woods Rider who is working directly with them, had [...] re health issues HOME HEALTH CARE AGENCY: [facility] PHONE: [phone] FAX: [phone] Start of care: 24-48 hrs after discharge Please note that any additional orders needs or changes will need to be obtained from this patient'sPCP: Tip Red, [address] [place] [address] / [facility] [phone] All VNA agencies which cover the area of patient's residence have been reviewed, either verbally or in writing, and patient/family have chosen the home health care agency noted Question Response Notes Agency name and contact information [facility] location post discharge Home What [...] your normal skin, may be darker or carbonation equipment operator in color and may never have normal [...] Center 12/17/2020 9:00 AM NURSE, PLASTIC SURGERY [facility] [place] 12/24/2020 10:00 AM UROLOGY, NURSE [facility] [place] 12/24/2020 11:40 AM Arias Metcalf III, MD [facility] For questions about scheduling, please contact our administrative offices at [phone]. For clinical questions, please call our nurses at [phone]. Both offices are open Tuesday thru Tuesday 8a - 5p. With emergencies after hours, call the hospital small equipment operator at [phone] and ask for the Plastic Surgery Resident legal receptionist. General Instructions None Future Appointments and Orders Future Appointments and Orders Future Appointments Provider Department Dept Phone 12/17/2020 9:00 AM NURSE, PLASTIC SURGERY [facility] at [facility] Arrive at: Home Supervisor Area 4M [phone] 12/24/2020 10:00 AM UROLOGY, NURSE U[facility] at [facility] Arrive at: Home Supervisor Area 5B [phone] 12/24/2020 11:40 AM Arias Metcalf III, MD Urology at [facility] Arrive at: Home Supervisor Area 5B [phone] Future Orders Complete By Expires Referral to Home Health - at DISCHARGE [[id number] CPT(R)] As directed Process Instructions: Scheduling Instructions: Comments: DOCUMENTATION FOR VNA SERVICES (INCLUDING THOSE PATIENTS WITH MEDICARE COVERAGE REQUIRING HOME VNA SERVICES AND/OR HOSPICE SERVICES) PATIENT'S LOCATION: Kushal Keane [address] [place] [phone] (home) Curator's Name: In discussion with the attending physician, it is certified that this patient is under their care and that they, or a Nurse Practitioner,Clinical Nurse specialist or Physician Woods Rider who is working directly with them, had [...] re health issues HOME HEALTH CARE AGENCY: [facility] PHONE: [phone] FAX: [phone] Start of care: 24-48 hrs after discharge Please note that any additional orders needs or changes will need to be obtained from this patient'sPCP: Tip Red, DO [address] / [place] [address] All VNA agencies which cover the area of patient's residence have been reviewed, either verbally or in writing, and patient/family have chosen the home health care agency noted Questions: Agency name and contact information: [facility] Patient location post discharge: Home What [...] your normal skin, may be darker or carbonation equipment operator in color and may never have normal [...] Center 12/17/2020 9:00 AM NURSE, PLASTIC SURGERY [facility] [place] 12/24/2020 10:00 AM UROLOGY, NURSE [place] [facility] [place] 12/24/2020 11:40 AM Arias Metcalf III, MD [facility] For questions about scheduling, please contact our administrative offices at [phone]. For clinical questions, please call our nurses at [phone]. Both offices are open Tuesday thru Tuesday 8a - 5p. With emergencies after hours, call the hospital small equipment operator at [phone] and ask for the Plastic Surgery Resident legal receptionist. documented in this encounter Medications at Time [...] faxed, RN called report to VNA. Amisha hSarma, PT - 12/13/2020 9:48 AM EDTSru: Cleared PT for DC home. No PT [...] performed by Arias Metcalf III, MD at [facility] OR ??? PRO DESTR PENIS LESN, SIMPL, SURG EXCIS N/A 12/08/2020 EXCISION, PENILE CONDYLOMATA (WRVU 1.98) performed by Arias Metcalf III, MD at [facility] OR ??? PRO DRESSING CHANGE UNDER ANESTHESIA N/A 12/08/2020 DRESSING CHANGE (FOR OTHER THAN WILKINS) UNDER ANES., ABDOMEN (WRVU 0.86) performed by Tea Glynn MD at [facility] OR ??? PRO EXCISE EXCESS SKIN TISSUE, ABDOMEN N/A 12/08/2020 PANNICULECTOMY performed by Tea Glynn MD at [facility] OR ??? PRO EXCISE EXCESS SKIN TISSUE, OTHER N/A 12/08/2020 EXC EXCESSIVE SKIN & SUBQ TISSUE, MON PUBIS (WRVU 10.5) performed by Tea Glynn MD at [facility] MAIN OR ? ? PRO SPLIT GRFT TRUNK, ARM, LEG <100SQCM N/A 12/08/2020 SPLIT THICK SKIN GRAFT,100 SQ CM OR LESS, TRUNK (WRVU 9.9) [facility] ??? PRO SPLIT GRFT, TRUNK, ARM, LEG EA 100SQCM Midline 12/08/2020 EA.ADDITIONAL 100SQ.CM STSG (WRVU 1.72) performed by Tea Glynn MD at [facility] MAIN OR Social History: Patient lives with [...] in this evaluation. Time IN / OUT: [id number] Total Minutes, Physical Therapy: 23 (Eval) Thank you for this consult. Amisha Sharma, PT Pager: [phone] Physical Therapy Inpatient Rehabilitation Department Giselle Jackson MD - 12/13/2020 8:08 AM EDT Plastic Surgery Inpatient Progress Note (Team Pager #[phone]) Date of surgery: 12/08/20 CC/Procedure(s): Buried penis release, panniculectomy, monsplasty, STSG from R thigh to penis Surgeon: Nigriny Subjective: KATHERYN, pt offers no complaints. 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 Giselle Jackson MD 12/13/2020 Plastic Surgery Inpatient Team Pager #[phone] Mohsen Calero PA - 12/12/2020 11:57 AM EDT Plastic Surgery Inpatient Progress Note (Team Pager #[phone]) Date of surgery: 12/08/20 CC/Procedure(s): Buried penis [...] Gabriel 12/12/2020 Plastic Surgery Inpatient Team Pager #[phone] Giselle Jackson MD - 12/11/2020 7:24 AM EDT Plastic Surgery Inpatient Progress Note (Team Pager #[phone]) Date of surgery: 12/08/20 CC/Procedure(s): Buried penis [...] active issues: n/a 9. Dispo: Anticipated home 7/17-, possibly with VNA Giselle Jackson MD 12/11/2020 Plastic Surgery Inpatient Team Pager #[phone] Giselle Jackson MD - 12/10/2020 7:31 AM EDT Plastic Surgery Inpatient Progress Note (Team Pager #[phone]) Date of surgery: 12/08/20 CC/Procedure(s): Buried penis [...] R thigh to penis 12/08, recovering well. Primapore dressing removed today. Plan: [...] MD 12/10/2020 Plastic Surgery Inpatient Team Pager #[phone] Kaylah Hill MD - 12/09/2020 6:26 PM [...] referrals are placed. [facility] PHONE: [phone] FAX: [phone] Expected date of discharge: 12/09-12/10 Referral routed to the Nailing Machine Operator for matching with agency/vendor and to provide any required information. Mohsen Calero PA - 12/09/2020 7:23 AM EDT Plastic Surgery Inpatient Progress Note (Team Pager #[phone]) Date of surgery: 12/08/20 CC/Procedure(s): Buried penis [...] with A Plastic Surgery Inpatient Team Pager #[phone] Margi Evans APRN - 12/08/2020 2:43 PM [...] Status: Attempt Cardiopulmonary Resuscitation - Inpatient Margi Evans APRN 12/08/2020 2:44 PM Merry Jeronimo RN - [...] holding suction. documented in this encounter H&P Notes Esau Grover MD - 12/08/2020 7:09 AM EDT Urology PreOp H&P Kushal Faye Diya 60 y.o. male with lichen [...] Sarah Dodson MD/S Plastic Surgery Resident, Pager: [phone] Plastic Surgery Team Pager: [phone] documented in this encounter Miscellaneous Notes Plan [...] (see doc flow for output). 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 Bed/chair alarm settings appropriate for patient. Call [...] completed would be surrogate decision maker per [place] surrogate decision making law. (Only good for 90 days) Any patient receiving care at [facility] must abide by [place] law. The hierarchy for surrogate decision making [...] (i) The agent with financial power of criminal defense attorney or a conservator appointed in accordance [...] crutches Home Address confirmed [place]: [place] [address] Social & Family Supports: All names listed below confirmed with patient as current and correct; requested that daughter Johnny Crisostomo be added as a contact; REAL ESTATE CLOSING COORDINATOR will update demo sheet Extended Emergency Contact [...] Pertinent/Service Specific Information: Health/Prescription Coverage: Primary Insurance: [employer] OOS Payor: [employer] OOS / Plan: [facility] OOS PPO / Product Type: *No Product type* / Secondary Insurance: N/A Prescription Coverage: Yes Preferred Pharmacy: Short term prescriptions at [facility]; long-term prescriptions are deliveredto his home through [facility] - [address] [address] [facility] - [place], [place] - [address] [place] [address] [place] Status: Patient is a : No Primary Care Provider: Tip Red DO [phone], confirmed Patient/Caregiver Goals of Treatment: discharge home Potential Needs for Transition of Care: home health care Agency Referrals: The patient/caregivers were provided with a list of home health agencies ([facility]) which serve their preferred geographic location and they were educated about their right to choose where referrals are placed. Patient/Caregiver requests referral to [facility]. Transportation: no concerns Transportation Anticipated: family or [...] with transition of care planning. LACHO Eden, [facility] [phone] Plan of Care - Joel Mckeon RN [...] on with ADL's Surveillance [continuous indirect monitoring]: Abdoul, Purposeful Rounding, Nurse Knowledge Exchange Brief Op Note - Arias Metcalf III, MD - 12/08/2020 11:59 AM EDT Brief Operative Note Patient Name: Kushal Keane : [id number] MR#: [id number] Case Date: 12/08/2020 Surgeon: Surgeon(s) and Role: [...] Operative Note Patient Name: Kushal Keane : [id number] MR#: [id number] Case Date: 12/08/2020 Surgeon: Surgeon(s) and Role: [...] Center 12/17/2020 9:00 AM Madonna Schaefer APRN [facility] [address] [place] [address] Op Note - Tea Glynn MD - 12/08/2020 8:27 AM EDT [facility] Operative Note Patient Name: Kushal Keane : [id number] MR#: [id number] Case Date: 12/08/2020 Surgeon: Surgeon(s) and Role: [...] weighed and achieved 3445 kg. Two #19 [place] Isaiah drains were inserted and brought out [...] Operative Note Patient Name: Kushal Keane : [id number] MR#: [id number] Case Date: 12/08/2020 Surgeon: Surgeon(s) and Role: [...] this patient.) Infection Bundle used? No HPI:Kushal Neyda Diya 60 y.o. male with lichen sclerosis [...] Signature POC Glucose 138 65 - 199 JACQUELINE SHINE mg/dL [facility] Comment: Supplemental ranges: <140 mg/dL before meals <180 mg/dL all other times of the day Specimen Anatomical Collection Method Collection Time Receive d Time (Source) Location / / Volume Laterality Blood 12/13/2020 12:05 12/13/2020 PM EDT 12:05 PM EDT Tea Glynn MD POINT OF CARE TEST ORDERABLE S Performing Organization Address City/State/[place] [address] POCT Glucose (12/13/2020 8:00 AM EDT) athologist Signature POC Glucose 133 65 - 199 JACQUELINE SHINE mg/dL [facility] Comment: Supplemental ranges: <140 mg/dL before meals <180 mg/dL all other times of the day Specimen Anatomical Collection Method Collection Time Receive d Time (Source) Location / / Volume Laterality Blood 12/13/2020 8:00 AM 8:00 EDT AM EDT Tea Glynn MD POINT OF CARE TEST ORDERABLE S Performing Organization Address City/State/[place] [address] POCT Glucose (12/12/2020 7:27 PM EDT) athologist Signature POC Glucose 180 65 - 199 JACQUELINE SHINE mg/dL [facility] Comment: Supplemental ranges: <140 mg/dL before meals <180 mg/dL all other times of the day Specimen Anatomical Collection Method Collection Time Receive d Time (Source) Location / / Volume Laterality Blood 12/12/2020 7:27 PM 7:27 EDT PM EDT Tea Glynn MD POINT OF CARE TEST ORDERABLE S Performing Organization Address City/State/ZIP Code Phon e Number [address] POCT Glucose (12/12/2020 3:28 PM EDT) athologist Signature POC Glucose 126 65 - 199 JACQUELINE RICOSHINE mg/dL [facility] Comment: Supplemental ranges: <140 mg/dL before meals <180 mg/dL all other times of the day Specimen Anatomical Collection Method Collection Time Receive d Time (Source) Location / / Volume Laterality Blood 12/12/2020 3:28 PM 3:28 EDT PM EDT Tea Glynn MD POINT OF CARE TEST ORDERABLE S Performing Organization Address City/State/ZIP Code Phon e Number [address] POCT Glucose (12/12/2020 11:20 AM EDT) athologist Signature POC Glucose 144 65 - 199 [facility] SHINE mg/dL [facility] Comment: Supplemental ranges: <140 mg/dL before meals <180 mg/dL all other times of the day Specimen Anatomical Collection Method Collection Time Receive d Time (Source) Location / / Volume Laterality Blood 12/12/2020 11:20 12/12/2020 AM EDT 11:20 AM EDT Tea Glynn MD POINT OF CARE TEST ORDERABLE S Performing Organization Address City/State/[place] [address] POCT Glucose (12/12/2020 7:29 AM EDT) athologist Signature POC Glucose 140 65 - 199 JACQUELINE SHINE mg/dL [facility] Comment: Supplemental ranges: <140 mg/dL before meals <180 mg/dL all other times of the day Specimen Anatomical Collection Method Collection Time Receive d Time (Source) Location / / Volume Laterality Blood 12/12/2020 7:29 AM 7:29 EDT AM EDT Tea Glynn MD POINT OF CARE TEST ORDERABLE S Performing Organization Address City/State/[place] [address] POCT Glucose (12/11/2020 8:54 PM EDT) athologist Signature POC Glucose 133 65 - 199 JACQUELINE [place] mg/dL [facility] Comment: Supplemental ranges: <140 mg/dL before meals <180 mg/dL all other times of the day Specimen Anatomical Collection Method Collection Time Receive d Time (Source) Location / / Volume Laterality Blood 12/11/2020 8:54 PM 8:54 EDT PM EDT Tea Glynn MD POINT OF CARE TEST ORDERABLE S Performing Organization Address City/State/ZIP Code Phon e Number [address] POCT Glucose (12/11/2020 3:31 PM EDT) athologist Signature POC Glucose 125 65 - 199 JACQUELINE [place] mg/dL [facility] Comment: Supplemental ranges: <140 mg/dL before meals <180 mg/dL all other times of the day Specimen Anatomical Collection Method Collection Time Receive d Time (Source) Location / / Volume Laterality Blood 12/11/2020 3:31 PM 3:31 EDT PM EDT Tea Glynn MD POINT OF CARE TEST ORDERABLE S Performing Organization Address City/State/ZIP Code Phon e Number [address] POCT Glucose (12/11/2020 11:39 AM EDT) athologist Signature POC Glucose 127 65 - 199 JACQUELINE RICOSHINE mg/dL [facility] Comment: Supplemental ranges: <140 mg/dL before meals <180 mg/dL all other times of the day Specimen Anatomical Collection Method Collection Time Receive d Time (Source) Location / / Volume Laterality Blood 12/11/2020 11:39 12/11/2020 AM EDT 11:39 AM EDT Tea Glynn MD POINT OF CARE TEST ORDERABLE S Performing Organization Address City/State/[place] [address] POCT Glucose (12/11/2020 7:38 AM EDT) athologist Signature POC Glucose 127 65 - 199 JCAQUELINE RICOSHINE mg/dL [facility] Comment: Supplemental ranges: <140 mg/dL before meals <180 mg/dL all other times of the day Specimen Anatomical Collection Method Collection Time Receive d Time (Source) Location / / Volume Laterality Blood 12/11/2020 7:38 AM 1 7:38 EDT AM EDT Tea Glynn MD POINT OF CARE TEST ORDERABLE S Performing Organization Address City/State/ZIP Code Phon e Number [address] POCT Glucose (12/10/2020 7:29 PM EDT) athologist Signature POC Glucose 162 65 - 199 JACQUELINE SHINE mg/dL [facility] Comment: Supplemental ranges: <140 mg/dL before meals <180 mg/dL all other times of the day Specimen Anatomical Collection Method Collection Time Receive d Time (Source) Location / / Volume Laterality Blood 12/10/2020 7:29 PM 1 7:29 EDT PM EDT Tea Glynn MD POINT OF CARE TEST ORDERABLE S Performing Organization Address City/State/ZIP Code Phon e Number [address] POCT Glucose (12/10/2020 4:09 PM EDT) athologist Signature POC Glucose 135 65 - 199 JACQUELINE RICOSHINE mg/dL [facility] Comment: Supplemental ranges: <140 mg/dL before meals <180 mg/dL all other times of the day Specimen Anatomical Collection Method Collection Time Receive d Time (Source) Location / / Volume Laterality Blood 12/10/2020 4:09 PM 1 4:09 EDT PM EDT Tea Glynn MD POINT OF CARE TEST ORDERABLE S Performing Organization Address City/State/[place] [address] POCT Glucose (12/10/2020 11:53 AM EDT) athologist Signature POC Glucose 164 65 - 199 JACQUELINE SHINE mg/dL [facility] Comment: Supplemental ranges: <140 mg/dL before meals <180 mg/dL all other times of the day Specimen Anatomical Collection Method Collection Time Receive d Time (Source) Location / / Volume Laterality Blood 12/10/2020 11:53 12/10/2020 AM EDT 11:53 AM EDT Tea Glynn MD POINT OF CARE TEST ORDERABLE S Performing Organization Address City/State/[place] [address] POCT Glucose (12/10/2020 7:55 AM EDT) athologist Signature POC Glucose 142 65 - 199 JACQUELINE SHINE mg/dL [facility] Comment: Supplemental ranges: <140 mg/dL before meals <180 mg/dL all other times of the day Specimen Anatomical Collection Method Collection Time Receive d Time (Source) Location / / Volume Laterality Blood 12/10/2020 7:55 AM 7:55 EDT AM EDT Tea Glynn MD POINT OF CARE TEST ORDERABLE S Performing Organization Address City/State/[place] [address] POCT Glucose (12/09/2020 8:29 PM EDT) athologist Signature POC Glucose 149 65 - 199 JACQUELINE SHINE mg/dL [facility] Comment: Supplemental ranges: <140 mg/dL before meals <180 mg/dL all other times of the day Specimen Anatomical Collection Method Collection Time Receive d Time (Source) Location / / Volume Laterality Blood 12/09/2020 8:29 PM 8:29 EDT PM EDT Tea Glynn MD POINT OF CARE TEST ORDERABLE S Performing Organization Address City/State/[place] [address] POCT Glucose (12/09/2020 4:22 PM EDT) athologist Signature POC Glucose 141 65 - 199 JACQUELINE SHINE mg/dL [facility] Comment: Supplemental ranges: <140 mg/dL before meals <180 mg/dL all other times of the day Specimen Anatomical Collection Method Collection Time Receive d Time (Source) Location / / Volume Laterality Blood 12/09/2020 4:22 PM 4:22 EDT PM EDT Tea Glynn MD POINT OF CARE TEST ORDERABLE S Performing Organization Address City/State/ZIP Code Phon e Number [address] POCT Glucose (12/09/2020 11:36 AM EDT) P athologist Signature POC Glucose 140 65 - 199 JACQUELINE SHINE mg/dL [facility] Comment: Supplemental ranges: <140 mg/dL before meals <180 mg/dL all other times of the day Specimen Anatomical Collection Method Collection Time Receive d Time (Source) Location / / Volume Laterality Blood 12/09/2020 11:36 12/09/2020 AM EDT 11:36 AM EDT Tea Glynn MD POINT OF CARE TEST ORDERABLE S Performing Organization Address City/State/ZIP Code Phon e Number [address] POCT Glucose (12/09/2020 7:28 AM EDT) P athologist Signature POC Glucose 163 65 - 199 JACQUELINE SHINE mg/dL [facility] Comment: Supplemental ranges: <140 mg/dL before meals <180 mg/dL all other times of the day Specimen Anatomical Collection Method Collection Time Receive d Time (Source) Location / / Volume Laterality Blood 12/09/2020 7:28 AM 7:28 EDT AM EDT Tea Glynn MD POINT OF CARE TEST ORDERABLE S Performing Organization Address City/State/ZIP Code Phon e Number [address] POCT Glucose (12/08/2020 7:05 PM EDT) P athologist Signature POC Glucose 148 65 - 199 JACQUELINE SHINE mg/dL [facility] LABORATORY Comment: Supplemental ranges: <140 mg/dL before meals <180 mg/dL all other times of the day Specimen Anatomical Collection Method Collection Time Receive d Time (Source) Location / / Volume Laterality Blood 12/08/2020 7:05 PM 1 7:05 EDT PM EDT Tea Glynn MD POINT OF CARE TEST ORDERABLE S Performing Organization Address City/State/ZIP Code Phon e Number [address] POCT Glucose (12/08/2020 3:11 PM EDT) athologist Signature POC Glucose 133 65 - 199 [place] SHINE mg/dL [facility] LABOR[facility]ORY Comment: Supplemental ranges: <140 mg/dL before meals <180 mg/dL all other times of the day Specimen Anatomical Collection Method Collection Time Receive d Time (Source) Location / / Volume Laterality Blood 12/08/2020 3:11 PM 1 3:11 EDT PM EDT Tea Glynn MD POINT OF CARE TEST ORDERABLE S Performing Organization Address City/State/ZIP Code Phon e Number [address] POCT Glucose (12/08/2020 1:17 PM EDT) athologist Signature POC Glucose 149 65 - 199 [place] SHINE mg/dL [facility] LAB[facility]ORY Comment: Supplemental ranges: <140 mg/dL before meals <180 mg/dL all other times of the day Specimen Anatomical Collection Method Collection Time Receive d Time (Source) Location / / Volume Laterality Blood 12/08/2020 1:17 PM 1 1:17 EDT PM EDT Tea Glynn MD POINT OF CARE TEST ORDERABLE S Performing Organization Address City/State/ZIP Code Phon e Number [address] POCT Glucose (12/08/2020 11:25 AM EDT) athologist Signature POC Glucose 141 65 - 199 [place]INE SHINE mg/dL [facility] LABOR[facility] Comment: Supplemental ranges: <140 mg/dL before meals <180 mg/dL all other times of the day Specimen Anatomical Collection Method Collection Time Receive d Time (Source) Location / / Volume Laterality Blood 12/08/2020 11:25 12/08/2020 AM EDT 11:25 AM EDT Tea Glynn MD POINT OF CARE TEST ORDERABLE S Performing Organization Address City/State/[place] [address] Specimen to Pathology (12/08/2020 9:03 AM EDT) Specimen Anatomical Collection Method Collection Time Receive d Time (Source) Location / / Volume Laterality AP Specimen 12/08/2020 9:03 AM 9:03 EDT AM EDT Narrative [facility] - 12/08/2020 9:03 AM EDT Specimen requisition ordered. ??Separate Pathology report to follow Tea Glynn MD PATHOLOGY/CYTOLOGY ORDERABLE S Performing Organization Address City/State/[place] [address] Surgical Pathology Report (12/08/2020 8:48 AM EDT) Component Value Ref Test Analysis Performed At [facility] gist Range Method Time Signature Surgical [id number] ? Location: 3T; 0304; B [facility] Report The signing pathologist has (i) examined the relevant preparation(s) for the [facility] specimen(s) and (ii) rendered or confirmed the diagnosis(es) . HOSPITAL LABORATORY . ?Surgic al Pathology DIAGNOSIS A - Penile skin (excision): ??- Hyperkeratotic skin with lichen sclerosus. ??- No evidence of malignancy. Electronically signed by: ?Yennifer Tee MD Verified: ??12/12/2020 11:42 ??Pathologist Performed at: ??-[facility], [place], [place] SPECIMEN(S) SUBMITTED A - Penile skin, [...] Organization Address City/State/[place] [address] POCT Glucose (12/08/2020 6:24 AM EDT) athologist Signature POC Glucose 146 65 - 199 [facility] mg/dL [facility]ORY Comment: Supplemental ranges: <140 mg/dL before meals <180 mg/dL all other times of the day Specimen Anatomical Collection Method Collection Time Receive d Time (Source) Location / / Volume Laterality Blood 12/08/2020 6:24 AM 6:24 EDT AM EDT Tea Glynn MD POINT OF CARE TEST ORDERABLE S Performing Organization Address City/[facility]/[place]IP [place] [address] documented in this encounter Visit Diagnoses Diagnosis Abdominal pannus Localized adiposity Acquired buried penis Other specified disorder of penis Acquired buried penis Other specified disorder of penis Abdominal pannus Localized adiposity Status post surgery documented in this encounter Admitting Diagnoses Diagnosis Acquired buried penis Other specified disorder of penis Abdominal pannus Localized adiposity Status post surgery documented in this encounter Administered Medications Inactive Administered Medications - up to 3 most recent administrations Medication Order MAR Action Action Date Dose Rate Site acetaminophen (Tylenol) tablet Given 12/08/2020 6:45 AM EDT 1,00 0 mg 1,000 mg 1,000 mg, Oral, ONCE, 1 dose, On Tue12/08/20 at 0630, Administer with SIP of H2O only., Day of Surgery (Day of Procedure), Routine acetaminophen (Tylenol) tablet 1,000 mg Given 12/13/2020 1:00 PM EDT 1,000 mg 1,000 mg, Oral, EVERY 6 HOURS SCHEDULED, First dose on Tue12/08/20 at 0800, Until Discontinued, Maximum dose of acetaminophen is 4000 mg from all sources in 24 hours. When ordered for pain, acetaminophen should be given even when other ordered pain medications are indicated., Routine Given 12/13/2020 6:04 AM EDT 1,000 mg Given 12/12/2020 6:35 AM EDT 1,000 mg bisacodyL (Dulcolax) suppository 10 mg 10 mg, [...] may be given concomitantly for constipation., Routine ceFAZolin (Ancef) 2 g in dextrose [...] Oral, 2 TIMES DAILY, First dose on Tue12/11/20 at 1030, Until Discontinued, Routine Given 12/12/2020 8:14 PM EDT 100 mg Given 12/12/2020 8:47 AM EDT 100 mg cyclobenzaprine (Flexeril) tablet 10 mg Given 12/10/2020 9:24 PM EDT 10 mg 10 mg, Oral, 3 TIMES DAILY PRN, Starting on Tue12/09/20 at 0736, Until 12/13/20 at 1815, Muscle spasms, Routine Given 12/10/2020 12:25 AM EDT 10 mg Given 12/09/2020 9:09 AM EDT 10 mg dextrose 10% infusion 250 mL, at 1,000 mL/hr, Intravenous, NEW RY 30 MIN PRN, Starting on Tue12/08/20 at 0737, Until 12/13/20 at 1815, For [...] on Tue12/08/20 at 2100, Until Discontinued, Routine Given 12/11/2020 [...] weight of tube = 37.5 grams., Routine HYDROmorphone (Dilaudid) (1 mg/mL) injection Given 6:07 AM EDT 0.4 mg syringe 0.4 mg 0.4 mg, Intravenous, ONCE, 1 dose, On 12/13/20 at 0645, Premedication for vac removal. Please give regardless or reported pain level., Routine HYDROmorphone (Dilaudid) (2 mg/mL) Given 12/08/2020 11:44 AM EDT 0.2 mg multi-dose injection solution 0.2-0.4 mg 0.2-0.4 mg, Intravenous, EVERY 10 MIN PRN, Starting on Tue12/08/20 at 1034, Until Tue12/08/20 at 1247, Pain, Give 0.2 mg every 10 minutes PRN for mild to moderate pain (1-5) Give 0.4 mg every 10 minutes PRN for moderate to severe pain (6-10). Hold for respiratory rate less than 10 per minute. Maximum dose 3 mg over one hour, including OR administration. If multiple pain medications are ordered, start with HYDROmorphone or morphine and use fentaNYL for breakthrough pain., PACU Recovery, Routine insulin lispro (HumaLOG;Admelog) (100 Given 12/12/2020 [...] PIV ins ertion, Recovery (Recovery-Hospital Unit), Routine lisinopriL (Zestril) tablet 20 mg Given 12/13/2020 [...] Patient/family refused) 0044 (Given - Provider: Vinay Messer RN)0635 (Given - Provider: Vinay Messer RN)1142 (Not Given - Provider: Franco Rodriguez RN - Reason: Patient/family refused) 0000 (Not Given - Provider: Mary Carmen Contreras RN - Reason: Patient/family refused)0604 (Given - Provider: Mary Carmen Contreras RN)1300 (Given - Provider: Irasema Walls, BRANDEE) 1,000 mg, Oral, EVERY 6 HOURS SCHEDULED, [...] Contreras RN)0829 (New Bag - Provider: Irasema Walls RN)0859 (Stopped - Provider: Irasema Walls RN) 2 g, Intravenous, EVERY 8 HOURS, First d ose (after last modification) on Tue12/08/20 at 1700, Until Discontinued, Administer over 30 Minutes, Indication for (Active or Suspected): Prophylaxis 172 (New Bag - Provider: Franco Rodriguez RN)1757 [...] 40 mg 2153 (Given - Provider: Vinay Messer, BRANDEE) 2013 (Given - Provider: Mary Carmen Contreras [...] 0.4 mg, Intravenous, ONCE, 1 dose, On Sa t 12/13/20 at 0645, Premedication for vac removal. [...] hours., Routine lisinopriL (Zestril) tablet 20 mg 0926 (Given - Provid er: Franco Rodriguez RN) 0847 (Given - Provider: Franco Rodriguez RN) 0829 (Given - Provider: Irasema Walls RN) 20 mg, Oral, DAILY, First dose on Sherley at 1000, Until Discontinued, Routine polyethylene glycoL (Miralax) packet 17 g 0834 (Not Gi honorio - Provider: Franco Rodriguez RN - Reason: Patient/family refused)2100 (Not Given - Provider: Vinay Mseser RN - Reason: Patient/family refused) 0842 (Not Given - Provider: Franco Rodriguez RN - Reason: Patient/family refused)2100 (Not Given - Provider: Mary Carmen Contreras RN - Reason: Patient/family refused) 0828 (Given - Provider: Irasema Walls RN) 17 g, Oral, 2 TIMES DAILY, First [...] Rodriguez RN)2099 (Not Given - Provider: Vinay Messer, RN - Reason: Patient/family refused) 0842 (Not Given - Provider: Franco Rodriguez RN - Reason: Patient/family refused)2099 (Not Given - Provider: Mary Carmen Contreras, BRANDEE - Reason: Patient/family refused) 08 (Not Given - Provider: Irasema Walls RN - Reason: Patient/family refused) 2 tablet, Oral, 2 TIMES DAILY, First dos e on Tue12/08/20 at 0900, Until Discontinued, Routine sodium chloride 0.9 % (flush) (BD PosiFlush Normal Dennys ine 0.9) flush 5 mL 926 (Given - Provider: Franco Rodriguez RN)2154 (Given - Provider: Vinay Messer, BRANDEE) 0850 (Given - Provider: Franco craft, BRANDEE)2013 (Given - Provider: Mary Carmen Contreras RN) 0833 (Given - Provider: Irasema cooney RN) 5 [...] NEW RY 30 MIN PRN, Starting on Tue12/08/20 at 0737, Until 12/13/20 at 1815, For [...] Glucagon IM. Recheck BG in 30 minutes. Claudine condon repeat juice/soda, gel, dextrose or gl ucagon [...] Glucagon IM. Recheck BG in 30 minutes. Krista chavez repeat juice/soda, gel, dextrose or g lucagon [...] or Regular (not diet) soda OR If CHANGE MANAGEMENT LEAD O, give 15 gram glucose 40% oral [...] NEW RY 30 MIN PRN, Starting on Tue12/08/20 at 0737, Until 12/13/20 at 1815
For [...]
Routine documented in this encounter Care Teams Repairer Screen Crusher Relationship Specialty Start Date End Date Tip Red DO PCP - General Family Medicine 05/12/[address] [place] [phone] documented as of this encounter
--- OUTSIDE RECORDS SUMMARY | 2022-04-30 02:35 | XMS_ITS | Encounter Summary ---
:1960 Author Organization [facility] [place] [address] Care Team Providers Name Role Phone Tip Farnsworth MD Primary Care Provider Encounter Details Date Type Department Care Team Description 08/26/2010 Follow-Up Orthopaedics at [facility] Richard Mattson PA [facility] [place] [phone] ORTHOPAEDIC SURGERY [phone] [place] [phone] (Wo rk) Social History Tobacco Use Types Packs/Day Years Used Date Smoking Tobacco: Never Assessed Sex Assigned at Date Recorded Not on file documented as of this encounter Miscellaneous Notes Miscellaneous - Eugenio Supervisor Special Effects - 10/07/2010 2:37 PM EDT documented in this encounter Plan of Treatment Not on filedocumented as of this encounter Visit Diagnoses Not on filedocumented in this encounter Care Teams Software Development Specialist Relationship Specialty Start Date End Date Tip Farnsworth MD PCP - General 04/21/10 06/20/[address] [place] [address] [place] LOZANO [id number] documented as of this encounter
--- OUTSIDE RECORDS SUMMARY | 2022-04-30 02:35 | XMS_ITS | Encounter Summary ---
:1960 Author Organization [facility] [place] [address] Care Team Providers Name Role Phone Tip Red DO Primary Care Provider Encounter Details Date Type Department Care Team Description 11/30/2020 Telephone Urology Malika Garay MD [facility] [place] [address] UROLOGY DEPT [phone] [place] [phone] (Wo rk) Social History Tobacco Use Types Packs/Day Years Used Date Smoking Tobacco: Never Smokeless Tobacco: Former Chew Qu it: 07/06/2000 Alcohol Use Standard Drinks/Week Comments Yes 0 (1 standard drink = 0.6 oz pure alcoho l) socially Sex Assigned at Date Recorded Not on file documented as of this encounter Miscellaneous Notes Telephone Encounter - Malika Garay MD - 11/30/2020 5:34 PM EDT Called patient about preop urine test. Patient will present to [facility] on 12/02/20 for UA/UCx. Order already placed by Dr. Metcalf. documented in this encounter Plan of Treatment Not on filedocumented as of this encounter Visit Diagnoses Not on filedocumented in this encounter Care Teams Closing Manager Relationship Specialty Start Date End Date Tip Red DO PCP - General Family Medicine 05/12/18 [address] [place] [phone] documented as of this encounter
[2022-04-30 09:28] LABS: HGB 13.7 g/dL (13.5-17.5); MCH 30.9 pg (27.0-33.0); MCHC 32.6 % (32.0-36.0); MCV 95 fL (80-95); MPV 8.8 fL (8.0-11.0); Platelet Count 252 10^3/uL (130-400); RBC 4.43 10^6/uL (4.36-5.78); RDW 14.4 % (11.8-14.1); RDW-SD 51.1 fL; WBC 4.29 10^3/uL (4.4-10.8)
[2022-04-30 09:59] LABS: Anion Gap 10.6 mmol/L (3-11); BUN 20 mg/dL (7-18); CO2 27.4 mmol/L (21.0-32.0); CREATININE 0.8 mg/dL (0.70-1.30); Calcium 9.1 mg/dL (8.5-10.1); Chloride 102 mmol/L (98-107); Estimated GFR 101.95 (mL/min/1.73m2); Glucose 132 mg/dL (74-106); Potassium 3.9 mmol/L (3.5-5.1); Sodium 140 mmol/L (136-145)
== END 2022-04-30 02:20 | disposition home or self-care (01) ==
LOC: LBO 02:20
PROVIDERS: PCP Neuromusculoskeletal Medicine & OMM; Visit Provider Student in an Organized Health Care Education/Training Program
DX: M25.561 Pain in right knee (principal); M17.11 Unilateral primary osteoarthritis, right knee; Z01.818 Encounter for other preprocedural examination; Z01.812 Encounter for preprocedural laboratory examination
CPT/HCPCS: 36415; 80048; 85027

== ENCOUNTER 2022-04-30 08:29 | Outpatient (CLI) | payer BC, SELFPAY ==
--- NOTE | 2022-04-30 08:15 | DI.RAD_ITS ---
Exam(s) XR STANDING ALIGNMENT EXAM: XR STANDING ALIGNMENT CLINICAL HISTORY: pre op R KNEE. TECHNIQUE: 2D digital imaging was performed. Standing AP views were performed from the pelvis throu gh the ankles. COMPARISON: DX XR KNEE STANDING ALIGNMENT AP LAT SKYLINE RIGHT from 08/16/2019 FINDINGS: BONES: No acute fracture is present. No bony destructive lesion is seen. Degenerative changes promin ent endplate osteophytes are noted in the lumbar spine. Leg length discrepancy: JOINTS: Knees: There is moderate to severe narrowing of the medial femoral tibial joint space of the right knee and periarticular spur spurring. This causes varus angulation. Mild degenerative changes are seen at the medial femoral tibial joint of the left knee. The ankle joints are unremarkable. The hip joints show acetabular spurring. There is phbt-[id number] narrowing of the left hip joint. SOFT TISSUE: Prominent subcutaneous edema. Multiple calcifications consistent with phleboliths. 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 No significant leg length discrepancy. DATA REPOSITORY: RADIATION DOSE DELIVERED:
== END 2022-04-30 08:30 | disposition home or self-care (01) ==
LOC: DIORS 08:29
PROVIDERS: PCP Neuromusculoskeletal Medicine & OMM; Referring Provider Neuromusculoskeletal Medicine & OMM; Visit Provider Physician Assistant
DX: M17.11 Unilateral primary osteoarthritis, right knee (principal); Z01.818 Encounter for other preprocedural examination
CPT/HCPCS: 77073

== ENCOUNTER 2022-05-05 05:55 | Day surgery (SDC) | payer BC, SELFPAY ==
[2022-05-05] VITALS (10 sets, daily range): BP systolic 131–156; BP diastolic 59–88; PULSE 67–81; RESP 15–20; TEMP 36.3–37; O2SAT 92–100; BMI 49.2
[2022-05-05] MEDS: Gabapentin 300 MG CAP PO (06:40)
[2022-05-05] MEDS: Acetaminophen 500 MG TAB 1000 MG PO (06:40)
[2022-05-05] MEDS: Celecoxib 200 MG CAP 400 MG PO (06:41)
--- NOTE | 2022-05-05 07:03 | W.ANESPRE ---
General Info Date of Service Date Performed: 05/05/22 Height: 5 ft 6 in Weight: 138.5 kg Body Mass Index (BMI): 49.2 Surgical Procedure: Operation Date: 05/05/22 07:40 Proposed Procedure Side Surgeon p Knee Total Arthroplasty Right Mohsen Becerrli MD Meds Allergies and Home Medications Allergies Allergy/AdvReac Type Severity Reaction Status Date / Time No Known Allergies Allergy Verified 05/05/22 06:19 Home Medication Medication Instructions Recorded albuterol sulfate 90 mcg/actuation 2 puff inhalation Q6H PRN 01/27/22 aerosol inhaler (Proventil HFA) allopurinol 300 mg tablet 300 mg PO DAILY 01/27/22 aspirin 81 mg tablet,delayed 81 mg PO DAILY 01/27/22 release (Adult Aspirin Regimen) celecoxib 100 mg capsule (Celebrex) 100 mg PO BID 01/27/22 cetirizine 10 mg capsule (All Day 10 mg PO DAILY PRN 01/27/22 Allergy (cetirizine)) fluoxetine 40 mg capsule 40 mg PO QPM 01/27/22 fluticasone propionate 50 1 spray intranasal DAILY 01/27/22 mcg/actuation nasal spray,suspension lisinopril 20 mg tablet 20 mg PO DAILY 01/27/22 metformin 500 mg tablet 500 mg PO BID 01/27/22 multivitamin 1 tab PO DAILY 01/27/22 omega-3 fatty acids 1,000 mg 1,000 mg PO BID 01/27/22 capsule pravastatin 40 mg tablet 40 mg PO DAILY 01/27/22 glucosamine 750 mg-chondr 600 tab PO BID 04/30/22 mg-Bunny 50 mg-turmeric 125 mg tablets acetaminophen 650 mg 650 mg PO Q12H 05/05/22 tablet,extended release fiber 5 cap PO 05/05/22 Current Visit Medications: Current Medications Generic Name Dose Route Start Last Admin Trade Name Freq PRN Reason Stop Dose Admin Acetaminophen 1,000 mg 05/05/22 06:00 05/05/22 06:40 Acetaminophen 500 Mg Tab PO 05/05/22 16:00 1,000 mg PREOP ARLEEN Administration Celecoxib 400 mg 05/05/22 06:00 05/05/22 06:41 Celecoxib 200 Mg Cap PO 05/05/22 16:00 400 mg PREOP ARLEEN Administration Gabapentin 300 mg 05/05/22 06:00 05/05/22 06:40 Gabapentin 300 Mg Cap PO 05/05/22 16:00 300 mg PREOP ARLEEN Administration Tranexamic Acid 1,000 mg/ 60 mls @ 360 mls/hr 05/05/22 06:00 Sodium Chloride IVPB 05/05/22 16:00 PREOP ARLEEN Ringer's Solution 1,000 mls @ 80 mls/hr 05/05/22 06:00 IV 06/03/22 23:59 INFUSION ARLEEN Cefazolin Sodium/Dextrose 2 gm in 50 mls @ 100 mls/hr 05/05/22 06:00 Ancef Duplex IVPB 05/05/22 16:00 PREOP ARLEEN IV Miscellaneous Supplies 1 each 05/05/22 06:00 Iv Access IV 06/03/22 23:59 DIRECTED ARLEEN Sodium Chloride 0 ml 05/05/22 06:00 Normal Saline Flush 10 Ml Syr IV 06/03/22 23:59 PRN PRN Sodium Chloride 0 ml 05/05/22 06:00 Normal Saline 10 Ml Vial IJ 06/03/22 23:59 DIRECTED PRN Sterile Water 0 ml 05/05/22 06:00 Water,Injection,Sterile 10 Ml Vial IJ 06/03/22 23:59 DIRECTED PRN PFSH Active Problems Active Problems: Problem Status Onset Code Arthritis of right knee M17.11 GERD (gastroesophageal reflux disease) K21.9 Hypertensive disorder I10 ANTHONY (obstructive sleep apnea) G47.33 Gout M10.9 Hyperlipidemia E78.5 Diabetes mellitus E11.9 Medical History Medical History Acquired buried penis Depressive disorder Low back pain Surgical History Surgical History (Updated 05/05/22 @ 06:28 by Lucina Ramirez) H/O umbilical hernia repair sub umbilical w/mesh History of colonoscopy History of hernia repair History of hydrocelectomy Hx of abdominal surgery pt. has seven pounds of stomach removed and penile reconstruction Tobacco Smoking/Tobacco Use Status: Never Alcohol Alcohol Intake: current Alcohol intake frequency: a few times a week Alcohol type: beer, wine and hard liquor Substance Use Substance use: Never Substance use type: does not use Details: alcohol: t-7, couple drinks Vital Signs and Lab Results Vital Signs Most Recent Vital Signs in EMR: Most Recent Vital Signs Temp Pulse Resp BP Pulse Ox 36.7 C 81 18 155/83 H 96 05/05/22 06:28 05/05/22 06:28 05/05/22 06:28 05/05/22 06:28 05/05/22 06:28 Lab Results Blood Type / Crossmatch: No Data to Display Complete Blood Count: White Blood Count 4.29 10^3/uL (4.4-10.8) L 04/30/22 09:21 Red Blood Count 4.43 10^6/uL (4.36-5.78) 04/30/22 09:21 Hemoglobin 13.7 g/dL (13.5-17.5) 04/30/22 09:21 Hematocrit 42.0 % (40.0-50.0) 04/30/22 09:21 Platelet Count 252 10^3/uL (130-400) 04/30/22 09:21 Complete Metabolic Panel: Sodium 140 mmol/L (136-145) 04/30/22 09:21 Potassium 3.9 mmol/L (3.5-5.1) 04/30/22 09:21 Chloride 102 mmol/L (98-107) 04/30/22 09:21 Carbon Dioxide 27.4 mmol/L (21.0-32.0) 04/30/22 09:21 BUN 20 mg/dL (7-18) H 04/30/22 09:21 Creatinine 0.8 mg/dL (0.70-1.30) 04/30/22 09:21 Est GFR (CKD-EPI 2020) 101.95 (mL/min/1.73m2) 04/30/22 09:21 Calcium 9.1 mg/dL (8.5-10.1) 04/30/22 09:21 Glucose 132 mg/dL (74-106) H 04/30/22 09:21 Liver Function Panel: No Data to Display Coagulation Panel: No Data to Display Cardiac Panel: No Data to Display Arterial Blood Gas: No Data to Display Venous Blood Gas: No Data to Display Pancreas Panel: No Data to Display Thyroid Panel: No Data to Display Infectious Disease: No Data to Display Blood Cultures: No Data to Display Toxicology Panel: No Data to Display Anesthesia Assessment and Plan Anesthesia History Personal History: No History of Anesthesia Complications Family History: No Family History of Anesthesia Complications Exercise Tolerance Exercise Tolerance: Metabolic Equivalents>4 Pertinent Negatives Pertinent Negatives: No Symptoms of GERD Cardiac & Pulmonary Exam Cardiac Exam: Normal S1/S2 Heart Sounds Pulmonary Exam: Clear Bilateral Breath Sounds Implantable Cardiac Device Does patient have a Pacemaker or an ICD?: No Airway Exam Known Difficult Airway: No Mallampati Class: 2 Mouth Opening: Normal (> 3cm) Thyromental Distance: Greater than 3 cm Neck Range of Motion: Full ROM Neck Circumference: Thick Teeth Condition: Normal Dentition ASA Classification ASA Score: ASA 3 Emergency Case?: No NPO Status NPO Status: NPO Clears >2 hours, Solids >8 hours Anesthesia Plan Resuscitation Status: Full Code Anesthesia Technique: Spinal Anesthesia Airway Planned: Natural Airway Pain Management: Surgeon and patient request nerve block Monitors Used: Standard Monitors
[2022-05-05] MEDS: Lactated Ringers 1,000 ML 80 ML IV (07:23)
--- NOTE | 2022-05-05 07:24 | PDOC.DSDIS_ITS ---
Date of service: 05/05/22 Time of Service: 07:52 Discharge Plan Disposition Patient Disposition: Home Condition: Good Discharge Details Reason For Visit: Right Knee DJD Attending Provider: Mohsen Becerril Primary Care Provider: Tip [facility] and New Rx's Prescriptions: New celecoxib 200 mg capsule 200 mg PO BID PRN (Reason: pain) Qty: 60 1RF acetaminophen 500 mg tablet 1,000 mg PO Q8H PRN (Reason: pain) Qty: 90 3RF cefadroxil 500 mg capsule 500 mg PO BID Qty: 14 0RF pantoprazole 40 mg tablet,delayed release (DR/EC) 40 mg PO DAILY Qty: 30 0RF gabapentin 300 mg capsule 300 mg PO QHS Qty: 14 0RF oxycodone 5 mg tablet 5 mg PO Q4H Qty: 18 0RF Continued cgonpwlpevm-yxomkh-Rzwnaql-tur 750 mg-600 mg- 50 mg-125 mg tablets, sequential PO BID allopurinol 300 mg tablet 300 mg PO DAILY All Day Allergy (cetirizine) 10 mg capsule 10 mg PO DAILY PRN omega-3 fatty acids 1,000 mg capsule 1,000 mg PO BID fluoxetine 40 mg capsule 40 mg PO QPM fluticasone propionate 50 mcg/actuation spray,suspension 1 spray intranasal DAILY Rx Instructions: administer into each nostril lisinopril 20 mg tablet 20 mg PO DAILY multivitamin Tablet 1 tab PO DAILY pravastatin 40 mg tablet 40 mg PO DAILY albuterol sulfate [Proventil HFA] 90 mcg/actuation HFA aerosol inhaler 2 puff inhalation Q6H PRN metformin 500 mg tablet 500 mg PO BID Label Comments: dose is 1 tab q am and 1.5 tabs q pm fiber Capsule 5 cap PO Label Comments: 2 in morinig, 3 at night Changed aspirin [Adult Aspirin Regimen] 81 mg tablet,delayed release (DR/EC) 81 mg PO BID Qty: 0 0RF Discontinued celecoxib [Celebrex] 100 mg capsule 100 mg PO BID acetaminophen [Tylenol Arthritis] 650 mg Tablet Extended Release 650 mg PO Q12H Discharge Instructions Additional Instructions: Total Knee Discharge Instructions Activity: The most important activity is to walk and to work on gentle motion (both flexion and extension). You should try to take short walks a few times a day. It is important that when resting you work on keeping the knee straight. Avoid putting a pillow behind the knee as this will encourage flexion. Work on range of motion exercises as provided by Physical Therapy. - Start outpatient physical therapy within 2 weeks. - You should wear the KYE hose on both legs for 2 weeks. You may remove these at night. You may also use any compression sock in place of the KYE hose. - Utilize [employer] to review exercises, see videos on exercises and obtain basic information pertaining to your surgery and your recovery. Dressing: Remove the Sudheer wrap by 2 days after your surgery and put on the KYE stocking given to you from the hospital. Keep the surgical dressing (underneath the SUDHEER wrap) in place for at least one week. After the first week it may be removed and replaced with light gauze and tape or nothing. The wound and dressing may get wet after 3 days but avoid soaking the dressing or otherwise it will need to be changed. Many people prefer covering the dressing with cling wrap (saran wrap) to minimize it from getting soaked. If it gets wet, just pat dry. If it starts to peel off then it will need to be changed. Medications: - You should take Tylenol and anti-inflammatory Celebrex as your primary pain control medications. If the Celebrex is too expensive or not covered, please call the office for another alternative (Advil/Ibuprofen or Naproxen/Aleve) - You have been prescribed a stronger pain medication Oxycodone for breakthrough pain, take as needed as prescribed. - You have also been prescribed a stomach acid reduction agent Pantoprozole to help reduce stomach acid and reflux. - You have been prescribed Gabapentin to take at night for restlessness and nerve pain. - You will be taking Aspirin 81mg twice a day for DVT prevention unless instructed otherwise. - You have been prescribed an antibiotic to take for one week after surgery as prophylaxis against infection. You may consider increasing intake of yogurt or using a probiotic while taking this. - If you have constipation you should take Colace or Miralax (both xujd-rpy-niegcap). It takes most people 3-4 days to have a bowel movement. Follow-up: 2 weeks If you have any acute concerns or questions, please do not hesitate to contact the office at [phone]. You may contact Dr. Becerril with any questions after hours through the hospital at [phone] or on his cell phone at [phone]. Referrals: Mohsen Becerril MD [ [facility] STAFF PHYSICIAN] - Activity:: Activity as Tolerated Remove Dressings/Wound Care:: Do Not Remove Shower/Bathe:: 72 hours and Cover Diet:: Carb Counting Discharge Orders Discharge Orders: Discharge Order (Routine); Ordered 05/05/22 Ordered By: Mohsen Becerril
[2022-05-05] MEDS: ceFAZolin 2 GM/50 ML BAG IVPB (07:39)
--- NOTE | 2022-05-05 09:53 | W.PM.OP ---
Date of service: 05/05/22 Time of Service: 09:15 Operative Note Operative Note DATE OF PROCEDURE: 05/05/22 PRE-OP DIAGNOSIS: RIGHT Knee Osteoarthritis POST-OP DIAGNOSIS: same PROCEDURE: Right Total Knee Replacement SURGEON: Mohsen Becerril [employer] SPECIALIST: Wilma Poon ANESTHESIA TYPE: Spinal Refer to Anesthesia Record ESTIMATED BLOOD LOSS: 100 PATHOLOGY: none sent TOURNIQUET TIME: 0 COMPLICATIONS: None Patient was transported to: PACU Patient's condition: stable Implants: 1. Depuy Attune Cementless Cruciate Retaining Femoral Component, Size 6 2. Depuy Attune Cementless Rotating Platform Tibial Component, Size 6 3. Depuy Attune 6x8 CR/RP Poly 4. Depuy Attune Patellar Component, Size 35 Indications: I have seen Kushal in clinic for symptoms of knee arthritis, confirmed with radiographic findings. Kushal has exhausted nonoperative methods and was having significant limitations in daily function and desired better function and less pain. I discussed the technical details of a knee replacement. I explained the risks of the procedure to include, but not limited to, bleeding, infection, pain, stiffness, fracture, damage to nerves and vessels, damage to muscles and tendons, loosening, need for repeat procedure, blood clot and cardiopulmonary demise. Despite these risks, he elected to proceed. Findings: There was significant signs of arthritis throughout the knee, most notably in the medial compartment. Procedure Description: Kushal was greeted in the preoperative holding area where the correct side was identified and marked. The consent was reviewed with the patient and signed. The history and physical was updated. All questions were answered. Preoperative medications were administered: Acetaminophen 1000mg, Celebrex 400mg, and Gabapentin 300mg. An adductor canal block was then administered by the anesthesia team in the PACU. Kushal was taken back to the operating room. A spinal anesthestic was then attempted but was unsuccessful. Therefore, a general anesthesia was administered. The patient was placed into the supine position on the operating room table. A nonsterile tourniquet was placed high onto the leg but only used for cementing. Posts were placed for positioning during the procedure. All bony prominences were well padded. Prophylactic antibiotics in the form of Cefazolin were administered. 1g of Tranxemic Acid was given intravenously within 30 minutes of incision. The right leg was then prepped with Chloraprep and draped in a standard fashion with impervious stockinette. A second prep with Chloraprep was performed prior to application of Iodine impregnated skin protection. A timeout to confirm correct identity, side and site, procedure, allergies, anesthesia, and medical concerns was performed. With the knee in some flexion, a midline incision was made overlying the knee. Full thickness skin flaps were raised once the extensor mechanism was encountered. These were raised medially and laterally. Any bleeding was controlled with electrocautery. Once the extensor mechanism was fully exposed, a medial parapatellar arthrotomy was performed in a flexed position. All bleeding from the arthrotomy and the geniculate arteries was coagulated. A medial subperiosteal peel was performed with electrocautery to the midcoronal plane. Due to the significant varus deformity the entire medial tibial plateau was exposed. The fat pad was removed while keeping the patellar tendon protected. The anterior distal femur synovium was removed for later visualization. The ACL and PCL were resected and the anterior horn of the lateral meniscus was transected. The knee was then flexed with the patella everted. Large osteophytes from the tibia were removed. Large osteophytes from the femur were removed. Using a step drill, and based on preoperative templating, the femoral canal was entered. This was done with a step drill without any difficulty. The intramedullary distal femoral cut guide was inserted, set to a 5 degree valgus cut and 9mm cut thickness. The distal femoral cut guide was then held in position and pinned. With the soft tissues protected, the distal cut was performed. This was passed over a few times to ensure a planar cut. I then turned attention to the tibia. The extramedullary guide was placed onto the leg. The distal aspect was slid medial to adjust for position of center of ankle and stay in line with shaft of the tibia. Approximately 3-5 degrees of posterior slope was kept in the proximal cutting guide. The center of the guide was aligned with the PCL. The stylus was used to assess cut thickness. The medial side, most involved side, was set for a 3mm cut, corresonding to 8mm laterally. This was then held in position and pinned into place with 2 additional pins and a cross pin for stability. The medial and lateral collateral ligaments were protected and the cut was performed. With this completed, it was assessed and noted to be of appropriate dimensions. The guide was removed. A spacer block was inserted and the knee was brought into extension. The 7mm spacer block provided full extension, without hyperextension and with stability of both the medial and lateral collateral ligaments was assessed. The pins from the femur and the tibia were then removed. The distal femur was then sized. The anterior stylus was placed onto the lateral ridge of the anterior femur. This indicated a size 6 femur. The external rotation of the guide was adjusted to 5 degrees to match the epicondylar axis, perpendicular to [place]?s line. The 4-in-1 cutting guide was the placed. The posterior medial femur cut was evaluated and appeared of good thickness. The spacer block was inserted underneath the cutting guide and stability was confirmed in 90 degrees of flexion. An alvaro wing was used to confirm appropriate position of the anterior cut to avoid notching. This cutting guide was ensured to be flush on the cut surface and then pinned into place with headed pins. While protecting the soft tissues, quad tendon, and collateral ligaments, the anterior and posterior cuts were performed with a saw. The central two pins were removed and the posterior and anterior chamfers were cut next. The notch-cutting guide was placed. This was pinned to lateralize the femoral component as much as possible while keeping it flush on the cut surface. This was then pinned into position. A reciprocating saw was used to make the notch cut. A rasp smoothed the cut surfaces. The medial and lateral menisci were removed. A trial femoral component was then inserted, impacted down to the cut surfaces, and the lug holes were drilled. A provisional trial tibial component was placed and the knee was brought through range of motion. The polyethylene was trialed until there was good flexion and extension with excellent stability to the medial and lateral collaterals. The patella was tracking without thumbs. A size 8mm polyethylene component provided the best range of motion and stability with less than 2mm gapping with medial and lateral stress and full extension without significant hyperextension. The tibial cut surface was fully exposed. The tibia was then sized as a 6. The tibia had been previously marked during trialing to correspond to the center of the tibial component to help with rotation. The trial was aligned to this amber, approximately rotated to the medial 1/3rd of the tibial tubercle. The trial was pinned into place. The tibia was prepared with a reamer and a keel punch and lug holes. The knee was then brought into extension and the patella was measured as 25mm. Using the patellar clamp and cut guide, this was resected to a flat surface with at least 13mm of thickness remaining. The size 35 patella fit the best. This was oriented and then clamped into position. The lugs were drilled. The trial components were removed. The final components were opened on the back table. The periosteal and capsular tissues, especially posteriorly, around the knee were then systematically injected with a periarticular cocktail consisting of 246mg of Ropivacaine, 0.5mg of Epinephrine, 0.08mg of Clonidine, and 30mg of Ketorolac, diluted to 100cc. On the back table, with the implants opened, the cement was mixed. One batch of high viscosity cement was prepared with vacuum assistance. After the cement was ready a small amount was placed on the cut surface of the patella and the patellar button was clamped into position and held. While the cement was hardening, the cementless knee components were placed. Starting with the tibial component, the tibia was subluxed anteriorly and the lug holes of the component were lined up. The tibia was then impacted with an impactor and mallet until the tibial component was in contact with the tibia. The final polyethylene component was inserted. Then, the femoral component was inserted. The lug holes were aligned and the component was impacted into position. The knee was irrigated with Surgiphor Betadine solution. This was allowed to sit in the knee for 3 minutes and then it was irrigated out with saline. After the cement had finally cured, approximately 15min, the clamp was removed from the patella and the knee was taken through range of motion. The patella was tracking with a no-thumbs technique. The capsule was then reapproximated with a No. 1 Vicryl at multiple locations. The capsule was finally closed with a No. 2 Stratafix, barbed suture. The second dosing of 1g TXA was started. Deep tissues were then reapproximated with 0 Vicryl and 2-0 Vicryl. The skin was closed with a running 3-0 Monocryl in a subcuticular fashion. This was reinforced with skin glue. A Mepilex silver dressing was applied along with a [id number]-ix-esnsr RAJESH wrap. A CryoCuff was applied. Kushal was transferred to the hospital bed without difficulty an suffering no apparent complication. Kushal has a good prognosis. Physical therapy will start today and without restrictions, weight-bearing as tolerated. Aspirin 81mg BID will be used for DVT prophylaxis. Given his morbid obesity and diabetes, I will also give an extended antibiotic prophylaxis for 7 days.
--- NOTE | 2022-05-05 10:10 | W.ANESNERVE ---
Nerve Block Single Injection Procedure Date and Time Date Performed: 05/05/22 Procedure Start: 07:31 Location Where Procedure Performed Procedure Location: Day Surgery Unit Reason Performed: Postoperative Analgesia Requesting Provider: Mohsen Becerril Timeout Performed Timeout Performed: Yes Monitoring Used ECG, Blood Pressure, SpO2 and See EMR for corresponding vital signs Sterility Sterility: Hand Hygiene, Surgical Cap, Surgical Mask, Sterile Gloves and Chlorhexidine Sedation Given During Procedure Sedation Given (Indicate Dose Given): No Sedation given Patient Mental Status Patient Mental Status: Awake Nerve Block 1st Nerve Block: Laterality: Right Block Type: Adductor Canal Needle / Catheter Used: 120mm SonoPlex II Local Anesthetic Bolus (Indicate Dose Given): Lidocaine used for local infiltration of skin, Injected in 3-5ml increments after negative blood aspiration and Bupivacaine 0.25% Dose:: 20ml Additives (Indicate Dose Given): None Ultrasound: Sterile probe cover and gel used Ultrasound Image Saved?: Yes Nerve Stimulator: Not Used Paresthesia: None Procedure Tolerated: No Complications and Patient tolerated well Procedure Outcome: Successful Performed By: Sj Bergeron
--- NOTE | 2022-05-05 10:11 | W.ANESPOSTOP ---
Postoperative Evaluation Date, Time and Location Date Performed: 05/05/22 Time Performed: 10:12 Patient Location: PACU Vital Signs Most Recent Imported Vital Signs: Most Recent Vital Signs Temp Pulse Resp BP Pulse Ox 36.6 C 67 15 148/68 H 99 05/05/22 10:00 05/05/22 10:00 05/05/22 10:00 05/05/22 10:00 05/05/22 10:00 Pain Score Most Recent Pain Score: Most Recent Pain Score Pain Level 1 05/05/22 10:00 Assessment Mental Status: Awake (Alert & Oriented to Patient Baseline) Airway and Respiratory Function: Patent airway with normal (patient baseline) respiratory exam Cardiovascular Function: Hemodynamically Stable Hydration Status: Adequately Hydrated Nausea & Vomiting: No Nausea or Vomiting Pain: Pain is tolerable per patient Peripheral Nerve Block: Regional nerve block not resolved at time of post operative discharge
--- NOTE | 2022-05-05 12:35 | IN_ITS ---
Date of service: 05/05/22 Time of Service: 11:09 PT Notes Visit Reasons: Right Knee DJD Physical Therapy Day Surgery Initial Evaluation Date: 05/05/2022 Referring Doctor: Mohsen Becerril MD PT Orders: PT CONSULT: S/P Ortho surgery Precautions: WBAT on right LE with AD. Patient Profile/Admitting Diagnosis: Kushal is a 61-year-old male with degenerative joint disease of the right knee and is status post total knee arthroplasty on postoperative day 0. PMHX: Medical History? Acquired buried penis Depressive disorder Low back pain Surgical History? H/O umbilical hernia repair sub umbilical w/mesh History of colonoscopy History of hernia repair History of hydrocelectomy Social History/Home Situation: Lives with in a private home that has 6 steps that lead to a landing, there are another total of 4 steps to entrance of the house. All steps have rails on B sides. 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 Equipment Owned/DME: [employer], [employer] Subjective: Complained of unsteady knee on the R during first attempt at standing up as well as feeling woozy. He did not feel safe taking a step as R knee partially buc kled after trying two steps. On the second try an hour after, the R knee felt more stable and patient reported feeling less off. Initially reported 4/10 pain in the R knee but subsided once walking was started. Reported stiffness in the R knee that diminished after walking activity. Objective: General Observation: Supine in stretcher. RAJESH wrps to R LE. Cryocuff to R knee. IV access through R UE. Appeared less focused during the first attempt but appeared more with it an hour after. Mental Status: Somewhat less focused iniitally but was more ready during the second attenpt at mobility assessment an hour after Pain: 4/10 at rest, 1/10 with weight bearing ROM: Right Lower Extremity: Hip flexion WFL. Hip abduction WFL. Knee flexion 40 degrees to 90 degrees. Knee extension -40 degrees. Ankle dorsiflexion WFL. Ankle plantarflexion WFL. Left Lower Extremity: Hip flexion WFL. Hip abduction WFL. Knee flexion WFL. Ankle dorsiflexion WFL. Ankle plantarflexion WFL. Strength: Right Lower Extremity: Hip flexors 4/5. Hip abductors 4/5. Knee flexors 3-/5. Knee extensors 3-/5. Ankle dorsiflexors 5/5. Ankle plantarflexors 5/5. Left Lower Extremity:Hip flexors 5/5. Hip abductors 5/5. Knee flexors 5/5. Knee extensors 5/5. Ankle dorsiflexors 5/5. Ankle plantarflexors 5/5. Sensation: Intact as to pain and light pressure in B LE THERA EX: Supine gluteal setting x 5 Supine quadriceps setting x 5 SLR unable at this time Heels slides x 5 of up to about 40 degrees Ankle PF/DF x10 Seated marches x 10 Bed Mobility/Transfers: Supine to sit stand by assist Sit to stand contact guard assist of 2 Stand to sit stand by assist Bed to chair contact guard assist of 2 Gait: 20 feet + 130 feet of level surface ambulation using FWW with step-to gait pattern with stand by assist and wheelchair follow of Nurse Aragon. Reported less pain down to 1/10 during activity. Better quadriceps activation on the R than an hour ago. Emphasized ensuring that RkKnee is locked and B hands are pushing down on walker handles BEFORE advancing L LE to lower risk for R knee buckling. Balance: Static Sitting: Normal Dynamic Sitting: Normal Static Standing: Fair Dynamic Standing: Fair Special Tests: Mobility Limitations Standardized Measure [facility] AM-PAC 6 clicks Basic Mobility Inpatient Short Form: Raw Score: 22 CMS Score: 21% deficit Informed Consent/Education: Patient instructed in purpose of PT consult. Packet containing TKA exercise protocol has been given to patient. Education and training on initial set of exercises that can be done at home have been completed with patient. Assessment: Initially with limited quadrcipes activation limiting safety of mobility assessment but much improved an hour later. Patietn requires the use of a FWW for all mobility ADl performance to maxmize independence and reduca fall risk. Patient presents with clinical signs and symptoms consistent with current/admitting diagnoses that have resulted to mobility limitations, gait instability, generalized weakness, and impairment of motor control as demonstrated by the following impairment level findings: 1. Decreased strength to R knee major muscle groups 2. Impaired standing balance 3. Limitation of joint range of motion in R knee Impairments are contributing to the following functional limitations: 1. Inability to safely ambulate without assistive device 2. Increase completion time for mobility ADL performance 3. Increased fall risk Patient is assessed as a 96159 moderate complexity based on the following: History: 61-year-old male with impairment level findings, functional limitations, and past medical history as indicated above Examination: Demonstrable impairment in strength, balance, and mobility level with underlying impairments and functional limitations as documented above Presentation: Evolving Decision Makin moderate complexity Goals: N/A. PT evaluation and 1-2 treatment sessions only for functional mobility tr aining using recommended AD and for HEP instruction. Plan of Care/Treatment Plan: N/A. PT evaluation and 1-2 treatment session only for functional mobility training using recommended AD and for HEP instruction. DISCHARGE RECOMMENDATIONS: Home when medically cleared by orthopedic surgeon. Will benefit from outpatient PT services in order to optimize functional mobility outcomes and facilitate independent community ambulation without an assistive device. TREATMENT CODE/TIME: 06141 x 30 minutes, 60185 x 25 minutes beginning at 11:09 AM and 12:35 PM. Thank you for the opportunity to participate in the care of this patient. Linda Crowe PT, DPT, CLT [facility] [place], [place]
== END 2022-05-05 14:04 | disposition home or self-care (01) ==
PROVIDERS: PCP Neuromusculoskeletal Medicine & OMM; Visit Provider Student in an Organized Health Care Education/Training Program
PROC: (CPT 27447; principal; 2022-05-05 07:30)
DX: M17.11 Unilateral primary osteoarthritis, right knee (principal); E11.9 Type 2 diabetes mellitus without complications; G47.33 Obstructive sleep apnea (adult) (pediatric); I10 Essential (primary) hypertension
CPT/HCPCS: 27447; 76942; 97162; 97530; J0690; J1100; J2250; J2405

== ENCOUNTER 2022-05-20 11:45 | Outpatient (CLI) | payer BC, SELFPAY ==
--- NOTE | 2022-05-20 11:30 | DI.RAD_ITS ---
Exam(s) XR STANDING ALIGNMENT XR KNEE RT 1V EXAM: XR STANDING ALIGNMENT CLINICAL HISTORY: s/p right TKA. TECHNIQUE: 2D digital imaging was performed. Standing AP views were performed from the pelvis throu gh the ankles. COMPARISON: Lateral view right knee CR XR KNEE RT 1V from 05/20/2022 FINDINGS: BONES: No acute fracture is present. No bony destructive lesion is seen. Leg length discrepancy: There is a mild overall leg length discrepancy with the left femoral head pro jecting superior to the right by a few millimeters. JOINTS: Knees: Patient is status post placement of a right total knee prosthesis. The alignment appe ars satisfactory. The left knee shows mild degenerative changes. The ankle joints are unremarkable. The left hip joint shows moderate narrowing and periarticular spurring. The right hip shows acetabul ar spurring. SOFT TISSUE: Diffuse bilateral lower leg edema, right greater than left. IMPRESSION: Status post placement of right knee prosthesis. Mild leg length discrepancy. DATA REPOSITORY: RADIATION DOSE DELIVERED:
== END 2022-05-20 11:46 | disposition home or self-care (01) ==
LOC: DIORS 11:45
PROVIDERS: PCP Neuromusculoskeletal Medicine & OMM; Referring Provider Neuromusculoskeletal Medicine & OMM; Visit Provider Physician Assistant
DX: Z96.651 Presence of right artificial knee joint (principal)
CPT/HCPCS: 73560; 77073

== ENCOUNTER 2022-08-19 10:57 | Day surgery (SDC) | payer BC, SELFPAY ==
[2022-08-19] VITALS (9 sets, daily range): BP systolic 121–147; BP diastolic 76–102; PULSE 79–96; RESP 12–22; TEMP 36.2–36.5; O2SAT 93–98; BMI 49.2
--- NOTE | 2022-08-19 07:52 | ANES.PREOP_ITS ---
General Info Date of Service Date Performed: 08/19/22 Height: 5 ft 6 in Weight: 138.346 kg Body Mass Index (BMI): 49.2 Surgical Procedure: Operation Date: 08/19/22 12:10 Proposed Procedure Side Surgeon p Knee Manipulation of Knee Right Mohsen Becerril MD Meds Allergies and Home Medications Allergies Allergy/AdvReac Type Severity Reaction Status Date / Time No Known Allergies Allergy Verified 08/19/22 11:40 Home Medication Medication Instructions Recorded albuterol sulfate 90 mcg/actuation 2 puff inhalation Q6H PRN 01/27/22 aerosol inhaler (Proventil HFA) allopurinol 300 mg tablet 300 mg PO DAILY 01/27/22 cetirizine 10 mg capsule (All Day 10 mg PO DAILY PRN 01/27/22 Allergy (cetirizine)) fluoxetine 40 mg capsule 40 mg PO QPM 01/27/22 fluticasone propionate 50 1 spray intranasal DAILY 01/27/22 mcg/actuation nasal spray,suspension lisinopril 20 mg tablet 20 mg PO DAILY 01/27/22 metformin 500 mg tablet 500 mg PO BID 01/27/22 multivitamin 1 tab PO DAILY 01/27/22 omega-3 fatty acids 1,000 mg 1,000 mg PO BID 01/27/22 capsule pravastatin 40 mg tablet 40 mg PO DAILY 01/27/22 glucosamine 750 mg-chondr 600 1 tab PO BID 04/30/22 mg-[place] 50 mg-turmeric 125 mg tablets acetaminophen 500 mg tablet 1,000 mg PO Q8H PRN pain #90 tabs 05/05/22 fiber 5 cap PO DAILY 05/05/22 celecoxib 100 mg capsule (Celebrex) 100 mg PO BID 06/17/22 furosemide 20 mg tablet 20 mg PO DAILY 08/09/22 hydrocodone 5 mg-acetaminophen 325 1 tab PO Q6H PRN severe pain #4 08/19/22 mg tablet tabs Current Visit Medications: Current Medications Generic Name Dose Route Start Last Admin Trade Name Freq PRN Reason Stop Dose Admin Ringer's Solution 1,000 mls @ 80 mls/hr 08/19/22 06:00 IV 09/17/22 23:59 INFUSION [facility] IV Miscellaneous Supplies 1 each 08/19/22 06:00 Iv Access IV 09/17/22 23:59 DIRECTED ARLEEN Sodium Chloride 0 ml 08/19/22 06:00 Normal Saline Flush 10 Ml Syr IV 09/17/22 23:59 PRN PRN Sodium Chloride 0 ml 08/19/22 06:00 Normal Saline 10 Ml Vial IJ 09/17/22 23:59 DIRECTED PRN Sterile Water 0 ml 08/19/22 06:00 Water,Injection,Sterile 10 Ml Vial IJ 09/17/22 23:59 DIRECTED PRN PFSH Active Problems Active Problems: Problem Status Onset Code Arthrofibrosis of total knee arthroplasty T84.82XA Status post total right knee replacement 05/05/22 Z96.651 Diabetes mellitus E11.9 Hyperlipidemia E78.5 Gout M10.9 ANTHONY (obstructive sleep apnea) G47.33 Hypertensive disorder I10 GERD (gastroesophageal reflux disease) K21.9 Medical History Medical History Acquired buried penis Depressive disorder Low back pain Surgical History Surgical History H/O umbilical hernia repair sub umbilical w/mesh History of colonoscopy History of hernia repair History of hydrocelectomy Hx of abdominal surgery pt. has seven pounds of stomach removed and penile reconstruction Tobacco Smoking/Tobacco Use Status: Never Alcohol Alcohol Intake: current Alcohol intake frequency: a few times a week Alcohol type: beer, wine and hard liquor Substance Use Substance use: Never Substance use type: does not use Vital Signs and Lab Results Lab Results Blood Type / Crossmatch: No Data to Display Complete Blood Count: No Data to Display Complete Metabolic Panel: No Data to Display Liver Function Panel: No Data to Display Coagulation Panel: No Data to Display Cardiac Panel: No Data to Display Arterial Blood Gas: No Data to Display Venous Blood Gas: No Data to Display Pancreas Panel: No Data to Display Thyroid Panel: No Data to Display Infectious Disease: No Data to Display Blood Cultures: No Data to Display Toxicology Panel: No Data to Display Anesthesia Assessment and Plan Anesthesia History Personal History: No History of Anesthesia Complications Family History: No Family History of Anesthesia Complications Exercise Tolerance Exercise Tolerance: Metabolic Equivalents>4 Cardiac & Pulmonary Exam Cardiac Exam: Normal S1/S2 Heart Sounds Pulmonary Exam: Clear Bilateral Breath Sounds Implantable Cardiac Device Does patient have a Pacemaker or an ICD?: No Airway Exam Known Difficult Airway: No Mallampati Class: 2 Mouth Opening: Normal (> 3cm) Thyromental Distance: Greater than 3 cm Neck Range of Motion: Full ROM Neck Circumference: Thick Teeth Condition: Normal Dentition ASA Classification ASA Score: ASA 3 Emergency Case?: No NPO Status NPO Status: NPO Clears >2 hours, Solids >8 hours Anesthesia Plan Resuscitation Status: Full Code Anesthesia Technique: General Anesthesia Airway Planned: Natural Airway Monitors Used: Standard Monitors Preoperative Comments:: 62 yo female for knee manipulation. denies any health history changes since his TKA. sig pmhx: BMI 49, HTN, ANTHONY, DM, GERD, never smoker, occ EtOH. Previous Anes: - TKA, 2 attempts at spinal - failed, glide 3, grade 1, no mask ventilation.
[2022-08-19] MEDS: Lactated Ringers 1,000 ML 80 ML IV (12:00)
--- NOTE | 2022-08-19 12:00 | PDOC.DSDIS_ITS ---
Date of service: 08/19/22 Time of Service: 12:06 Discharge Plan Disposition Patient Disposition: Home Condition: Good Discharge Details Reason For Visit: Right knee arthrofibrosis; s/p right TKA Attending Provider: Mohsen Becerril Primary Care Provider: Tip Red Ashton Meds and New Rx's Prescriptions: New hydrocodone-acetaminophen 5-325 mg tablet 1 tab PO Q6H PRN (Reason: severe pain) Qty: 4 0RF Rx Instructions: Take one tablet up to every 6 hours as needed for severe postoperative pain Continued celecoxib [Celebrex] 100 mg capsule 100 mg PO BID yoruovflhdq-lnxper-Qedhhio-tur 750 mg-600 mg- 50 mg-125 mg tablets, sequential 1 tab PO BID furosemide 20 mg tablet 20 mg PO DAILY allopurinol 300 mg tablet 300 mg PO DAILY All Day Allergy (cetirizine) 10 mg capsule 10 mg PO DAILY PRN omega-3 fatty acids 1,000 mg capsule 1,000 mg PO BID fluoxetine 40 mg capsule 40 mg PO QPM fluticasone propionate 50 mcg/actuation spray,suspension 1 spray intranasal DAILY Rx Instructions: administer into each nostril lisinopril 20 mg tablet 20 mg PO DAILY multivitamin Tablet 1 tab PO DAILY pravastatin 40 mg tablet 40 mg PO DAILY albuterol sulfate [Proventil HFA] 90 mcg/actuation HFA aerosol inhaler 2 puff inhalation Q6H PRN metformin 500 mg tablet 500 mg PO BID Patient Comments: dose is 1 tab q am and 1.5 tabs q pm fiber Capsule 5 cap PO DAILY Patient Comments: 2 in morinig, 3 at night acetaminophen 500 mg tablet 1,000 mg PO Q8H PRN (Reason: pain) Qty: 90 3RF Discontinued ibuprofen 600 mg tablet 600 mg PO TID Qty: 90 1RF Rx Instructions: take 1 tablet by mouth every 8 hrs for pain/inflammatio Discharge Instructions Additional Instructions: Knee Manipulation Discharge Instructions Activity: You should begin moving as soon as possible. You may work on flexion but also equally maintain extension. You may bear weight as tolerated, using crutches only for support/comfort. You should apply ice to help with swelling and elevate when possible (especially in the first few days). Dressings: You may remove the Band-Aid later today. No restrictions on shower hygiene. Medications: - Rarely does this require any stronger pain medications, however a few hydrocodone tablets were prescribed to take as needed. - Recommend to take up to 1000mg of Acetaminophen (Tylenol) every 8 hours as needed and 200mg of Celebrix every 12 hours as needed. Follow-up: 7-10 days. Start physical therapy tomorrow. Referrals: Mohsen Becerril MD [ [facility] STAFF PHYSICIAN] - Equipment/Supplies: Partial Weight Bearing Crutches and Walker Activity:: Elevate Remove Dressings/Wound Care:: 24 hours Shower/Bathe:: 24 hours Diet:: As Tolerated Discharge Orders Discharge Orders: Discharge Order (Routine); Ordered 08/19/22 Ordered By: Wilma Poon
[2022-08-19] MEDS: Bupivacaine 0.5% Pres-Free 30 ML VIAL (12:59)
--- NOTE | 2022-08-19 13:45 | W.ANESPOSTOP ---
Postoperative Evaluation Date, Time and Location Date Performed: 08/19/22 Time Performed: 13:45 Patient Location: PACU Vital Signs Most Recent Imported Vital Signs: Most Recent Vital Signs Temp Pulse Resp BP Pulse Ox 36.5 C 82 20 121/76 97 08/19/22 13:26 08/19/22 13:26 08/19/22 13:26 08/19/22 13:26 08/19/22 13:26 Pain Score Most Recent Pain Score: Most Recent Pain Score Pain Level 0 08/19/22 11:44 Assessment Mental Status: Awake (Alert & Oriented to Patient Baseline) Airway and Respiratory Function: Patent airway with normal (patient baseline) respiratory exam Cardiovascular Function: Hemodynamically Stable Hydration Status: Adequately Hydrated Nausea & Vomiting: No Nausea or Vomiting Pain: Pain is tolerable per patient Peripheral Nerve Block: Patient did not receive a nerve block
[2022-08-19] MEDS: HYDROcodone 5/Acetaminophen 325 TAB PO (14:14)
--- NOTE | 2022-08-19 16:00 | ROE_ITS ---
Date of service: 08/19/22 Time of Service: 13:00 Operative Note Operative Note DATE OF PROCEDURE: 08/19/22 PRE-OP DIAGNOSIS: Right Knee Arthrofibrosis s/p Replacement POST-OP DIAGNOSIS: same PROCEDURE: Right Knee Manipulation Under Anesthesia SURGEON: Mohsen Becerril ANESTHESIA TYPE: General:No Airway Refer to Anesthesia Record ESTIMATED BLOOD LOSS: 0 PATHOLOGY: none sent TOURNIQUET TIME: 0 COMPLICATIONS: None Patient was transported to: PACU Patient's condition: stable Indications: Kushal is a 62 year old male who is s/p knee replacement. Despite diligent work with physical therapy there has been continued stiffness. To assist with mobility, I offered a manipulation under anesthesia. I discussed the risks of the procedure to include bleeding, pain, recurrent stiffness, fracture. Despite these risks, he elects to proceed. Findings: Preoperative flexion = 100 Postoperative flexion = 125 Preoperative extension = 2-3 Postoperative extension = 0 Procedure Description: The patient was greeted in the preoperative holding area. Identity was confirmed and the correct side was identified and marked. The consent was reviewed the patient and signed. History and physical was updated. He was taken back to the operating room. The right side was identified as the correct side. A timeout was performed for safe surgery. A general anesthetic was administered. The knee was then prepped with ChloraPrep and an intra-articular injection of 10 cc of 0.5% bupivacaine was administered. Once a muscle relaxant was fully on board manipulation was performed. Pre- manipulation range of motion was noted. A gentle manipulation was performed first into flexion using a very small lever arm and adding gentle and progressive pressure to the tibia. There is audible and palpable crepitus with improvement in range of motion. This was cycled and repeated multiple times. The leg was then brought into extension and gentle anterior posterior pressure was applied with a supported hand behind the proximal tibia and knee. This was brought back into flexion was once again manipulated with gentle and progressive pressure. Final range of motion numbers were recorded. A Band-Aid was applied to the injection site. He was awakened from anesthesia and taken to the PACU in stable condition.
== END 2022-08-19 15:15 | disposition home or self-care (01) ==
PROVIDERS: PCP Neuromusculoskeletal Medicine & OMM; Visit Provider Student in an Organized Health Care Education/Training Program
PROC: (CPT 27570; principal; 2022-08-19 12:00)
DX: M24.661 Ankylosis, right knee (principal); Z96.651 Presence of right artificial knee joint
CPT/HCPCS: 27570; J1885; J2704

== ENCOUNTER 2023-03-28 13:51 | Day surgery (SDC) | payer BC, SELFPAY ==
[2023-03-28 14:35] VITALS: BP 167/85; PULSE 107; RESP 22; TEMP 36.6; O2SAT 97
[2023-03-28] MEDS: Lactated Ringers 1,000 ML 80 ML IV (14:50)
--- NOTE | 2023-03-28 14:56 | W.ANESPRE ---
General Info Date of Service Date Performed: 03/28/23 Height: 5 ft 6 in Weight: 140 kg Body Mass Index (BMI): 49.8 Surgical Procedure: Operation Date: 03/28/23 14:50 Proposed Procedure Side Surgeon alexandrea Altamirano MD Meds Allergies and Home Medications Allergies Allergy/AdvReac Type Severity Reaction Status Date / Time No Known Allergies Allergy Verified 03/28/23 14:28 Home Medication Medication Instructions Recorded albuterol sulfate 90 mcg/actuation 2 puff inhalation Q6H PRN 01/27/22 aerosol inhaler (Proventil HFA) allopurinol 300 mg tablet 300 mg PO DAILY 01/27/22 cetirizine 10 mg capsule (All Day 10 mg PO DAILY PRN 01/27/22 Allergy (cetirizine)) fluoxetine 40 mg capsule 40 mg PO QPM 01/27/22 fluticasone propionate 50 1 spray intranasal DAILY 01/27/22 mcg/actuation nasal spray,suspension lisinopril 20 mg tablet 20 mg PO DAILY 01/27/22 metformin 500 mg tablet 500 mg PO BID 01/27/22 multivitamin 1 tab PO DAILY 01/27/22 omega-3 fatty acids 1,000 mg 1,000 mg PO BID 01/27/22 capsule pravastatin 40 mg tablet 40 mg PO DAILY 01/27/22 glucosamine 750 mg-chondr 600 1 tab PO BID 04/30/22 mg-Bunny 50 mg-turmeric 125 mg tablets acetaminophen 500 mg tablet 1,000 mg (2 x 500 mg) PO Q8H PRN 05/05/22 pain #90 tabs fiber 5 cap PO DAILY 05/05/22 furosemide 20 mg tablet 20 mg PO DAILY 08/09/22 aspirin 81 mg tablet,delayed 81 mg PO DAILY 03/01/23 release (Adult Aspirin Regimen) celecoxib 100 mg capsule (Celebrex) 100 mg PO BID 03/01/23 cyclobenzaprine 10 mg tablet 10 mg PO TID 03/01/23 famotidine 20 mg tablet 20 mg PO DAILY 03/01/23 bisacodyl 5 mg tablet,delayed 5 mg PO ONCE #4 tabs 03/03/23 release (Dulcolax (bisacodyl)) gabapentin 300 mg capsule 300 mg PO TID 03/03/23 polyethylene glycol 3350 17 17 g PO ONCE #238 grams 03/03/23 gram/dose oral powder semaglutide 0.25 mg or 0.5 mg (2 mg subcut 03/25/23 mg/3 mL) subcutaneous pen injector (Ozempic) Current Visit Medications: Current Medications Generic Name Dose Route Start Last Admin Trade Name Freq PRN Reason Stop Dose Admin Ringer's Solution 1,000 mls @ 80 mls/hr 03/28/23 06:00 IV 04/24/23 23:59 INFUSION ARLEEN IV Miscellaneous Supplies 1 each 03/28/23 06:00 Iv Access IV 04/24/23 23:59 DIRECTED ARLEEN Sodium Chloride 0 ml 03/28/23 06:00 Normal Saline Flush 10 Ml Syr IV 04/24/23 23:59 PRN PRN Sodium Chloride 0 ml 03/28/23 06:00 Normal Saline 10 Ml Vial IJ 04/24/23 23:59 DIRECTED PRN Sterile Water 0 ml 03/28/23 06:00 Water,Injection,Sterile 10 Ml Vial IJ 04/24/23 23:59 DIRECTED PRN PFSH Active Problems Active Problems: Problem Status Onset Code Arthrofibrosis of total knee arthroplasty T84.82XA Status post total right knee replacement 05/05/22 Z96.651 Diabetes mellitus E11.9 Hyperlipidemia E78.5 Gout M10.9 ANTHONY (obstructive sleep apnea) G47.33 Hypertensive disorder I10 GERD (gastroesophageal reflux disease) K21.9 Medical History Medical History Acquired buried penis Depressive disorder Low back pain Surgical History Surgical History H/O umbilical hernia repair sub umbilical w/mesh History of colonoscopy History of hernia repair History of hydrocelectomy Hx of abdominal surgery pt. has seven pounds of stomach removed and penile reconstruction Tobacco Smoking/Tobacco Use Status: Never Alcohol Alcohol Intake: current Alcohol intake frequency: a few times a week Alcohol type: beer and hard liquor Substance Use Substance use: Never Substance use type: does not use Vital Signs and Lab Results Vital Signs Most Recent Vital Signs in EMR: Most Recent Vital Signs Temp Pulse Resp BP Pulse Ox 36.6 C 107 H 22 167/85 H 97 03/28/23 14:35 03/28/23 14:35 03/28/23 14:35 03/28/23 14:35 03/28/23 14:35 Lab Results Blood Type / Crossmatch: No Data to Display Complete Blood Count: No Data to Display Complete Metabolic Panel: No Data to Display Liver Function Panel: No Data to Display Coagulation Panel: No Data to Display Cardiac Panel: No Data to Display Arterial Blood Gas: No Data to Display Venous Blood Gas: No Data to Display Pancreas Panel: No Data to Display Thyroid Panel: No Data to Display Infectious Disease: No Data to Display Blood Cultures: No Data to Display Toxicology Panel: No Data to Display Anesthesia Assessment and Plan Anesthesia History Personal History: No History of Anesthesia Complications Family History: No Family History of Anesthesia Complications Exercise Tolerance Exercise Tolerance: Metabolic Equivalents>4 Pertinent Negatives Pertinent Negatives: No Symptoms of GERD Cardiac & Pulmonary Exam Cardiac Exam: Normal S1/S2 Heart Sounds Pulmonary Exam: Clear Bilateral Breath Sounds Implantable Cardiac Device Does patient have a Pacemaker or an ICD?: No Airway Exam Known Difficult Airway: No Mallampati Class: 2 Mouth Opening: Normal (> 3cm) Thyromental Distance: Greater than 3 cm Neck Range of Motion: Full ROM Neck Circumference: Thick Teeth Condition: Normal Dentition ASA Classification ASA Score: ASA 3 Emergency Case?: No NPO Status NPO Status: NPO Clears >2 hours, Solids >8 hours Anesthesia Plan Resuscitation Status: Full Code Anesthesia Technique: General Anesthesia Airway Planned: Natural Airway Monitors Used: Standard Monitors Preoperative Comments:: 62 yo male for Colonoscopy. denies any health history changes since his knee manipulation. sig pmhx: BMI 49.8, HTN, ANTHONY, DM, GERD, never smoker, occ EtOH. Prior Anes: - TKA, 2 attempts at spinal - failed, glide 3, grade 1, no mask ventilation. - Knee manipulation: Natural airway, Mask
--- NOTE | 2023-03-28 15:08 | W.COLOREPORT ---
Date of service: 03/28/23 Time of Service: 15:08 Colonoscopy Report Procedure Description: Procedures performed: 1. Colonoscopy with cold forceps polypectomy x1 Preoperative diagnosis: Surveillance colonoscopy Postoperative diagnosis: Sigmoid diverticulosis, colon polyps Surgeon: Derick Altamirano Anesthesia: Lion Indication for procedure: Patient is a 62-year-old man with a family history of colon cancer in his father who in his 60s from colon cancer. He does not have symptoms. He has had a prior polyp removed. Findings: In the distal transverse colon or possibly proximal descending colon (70-80 cm) was a polypoid?appearing, completely flat, bed of tissue about 2 cm that had an atypical appearance. It did not look like a polyp but that the appearance was polypoid and it may be a very flat sessile type of polyp. I am not sure it would be resectable if that is what it is. It was biopsied with cold forceps technique. Just beyond that was a 2-3 mm sessile polyp removed with cold forceps technique. Diverticular changes are present in the sigmoid colon but no active disease or stricture. No significant hemorrhoidal disease. Surveillance/follow-up recommendations: Depending on the biopsy at 80 cm. If this is polyp tissue of any sort, at least 1 attempt should be made to completely ablate the area and potentially resect portions of it piecemeal. It is completely flat and will be very difficult to formally resect any portion of it. It may be worthwhile to refer him to GI at a tertiary center with more advanced endoscopic tools if this is polyp tissue. If not polyp tissue, then a repeat colonoscopy in 5 years considering the family history should be adequate. Complications: None Blood loss: Minimal Specimens:?? YES Quality of Prep:?? Good Procedure in detail: Written consent was obtained from the patient who was in agreement with the risks, benefits and indications of the procedure.? We went to the endoscopy suite and laid the patient in left lateral decubitus position.? Anesthesia was administered which was tolerated well.? A timeout was performed and when we are all in agreement we began the procedure. Digital rectal exam and visual examination was performed and within normal limits.? A well?lubricated colonoscope was advanced without difficulty all the way to the cecum identified by the ileocecal valve, and triangular folds and appendiceal orifice.? It was then slowly withdrawn.?? Retroflexion was performed in the rectum.? The findings/interventions are noted above. The scope was then removed and the patient tolerated the procedure well and was then taken back to the PACU in hemodynamically stable condition.
--- NOTE | 2023-03-28 15:10 | W.PM.DSUDISC ---
Date of service: 03/28/23 Time of Service: 15:10 Discharge Plan Disposition Patient Disposition: Home Condition: Good Discharge Details Attending Provider: Jaime Altamirano Primary Care Provider: DANIELLA SAINZ Home Meds and New Rx's Prescriptions: Continued hzucpdmqskv-zzpslg-Socvzri-tur 750 mg-600 mg- 50 mg-125 mg tablets, sequential 1 tab PO BID furosemide 20 mg tablet 20 mg PO DAILY gabapentin 300 mg capsule 300 mg PO TID bisacodyl [Dulcolax (bisacodyl)] 5 mg tablet,delayed release (DR/EC) 5 mg PO ONCE Qty: 4 0RF Rx Instructions: Take per colonoscopy instructions provided by ordering providers office polyethylene glycol 3350 17 gram/dose powder 17 g PO ONCE Qty: 238 0RF Rx Instructions: Take per colonoscopy instructions provided by ordering providers office allopurinol 300 mg tablet 300 mg PO DAILY All Day Allergy (cetirizine) 10 mg capsule 10 mg PO DAILY PRN omega-3 fatty acids 1,000 mg capsule 1,000 mg PO BID fluoxetine 40 mg capsule 40 mg PO QPM fluticasone propionate 50 mcg/actuation spray,suspension 1 spray intranasal DAILY Rx Instructions: administer into each nostril lisinopril 20 mg tablet 20 mg PO DAILY multivitamin Tablet 1 tab PO DAILY Hold Instructions: Pt Stopped/Never Started pravastatin 40 mg tablet 40 mg PO DAILY albuterol sulfate [Proventil HFA] 90 mcg/actuation HFA aerosol inhaler 2 puff inhalation Q6H PRN metformin 500 mg tablet 500 mg PO BID Patient Comments: dose is 1 tab q am and 1.5 tabs q pm aspirin [Adult Aspirin Regimen] 81 mg tablet,delayed release (DR/EC) 81 mg PO DAILY celecoxib [Celebrex] 100 mg capsule 100 mg PO BID cyclobenzaprine 10 mg tablet 10 mg PO TID famotidine 20 mg tablet 20 mg PO DAILY Patient Comments: pt reports not taking for awhile Ozempic 0.25 mg or 0.5 mg (2 mg/3 mL) pen injector SUBCUT Patient Comments: INJECT 0.25MG UNDER THE SKIN EVERY WEEK FOR 4 WEEKS IN THE ABDOMEN, THIGH, OR UPPER ARM fiber Capsule 5 cap PO DAILY Patient Comments: 2 in morinig, 3 at night acetaminophen 500 mg tablet 1,000 mg PO Q8H PRN (Reason: pain) Qty: 90 3RF Discharge Instructions Stand Alone Forms: Colonoscopy Post Instructions Activity:: Activity as Tolerated Diet:: As Tolerated Discharge Orders Discharge Orders: Discharge Order (Routine); Ordered 03/28/23 Ordered By: Jaime Altamirano DS: Diagnosis Discharge Diagnosis (1) Colon cancer screening: Status: Acute Asessment and Plan: FINDINGS: Small polyp was removed from your colon. There is nothing to worry about. Based off your family history I would recommend repeating another colonoscopy in 5 years. Separately a small area was biopsied which may be a large polyp. It may also be normal tissue. The biopsy will tell. You will get called with those results in a couple of weeks. If this is a polyp, it will need to get resected and we will have a discussion about how this gets done. On your previous colonoscopies diverticular disease has been seen. This is a very common, benign condition and nothing needs to be done about it in most circumstances.
[2023-03-28 15:13] VITALS: BMI 49.8
--- NOTE | 2023-03-28 15:30 | BOWEL_PTH ---
PATIENT: Kushal Keane LOC: [facility] U#:[id number] AGE/SX: 62/M ROOM: RE03/28/[address]: Jaime Altamirano : 1960 BED: DIS: 03/28/2023 SPEC #: [id number] RECD: 03/28/23 18:04 STATUS: CORNEL MARK #: [id number] ZACHARY: 03/28/23 15:[address]: Jaime Altamirano DEPT: Surgical Specimen RECD BY: Dana Gallego ENTERED: 03/28/23 18:06 SP TYPE: Bowel OTHR DR: DANIELLA ECHEVERRIA MD Tissues: 1 - BIOPSY BOWEL 2 - BIOPSY BOWEL Procedures: GROSS AND MICRO LEVEL 4 Comments: [id number]
[2023-03-28 15:41] VITALS: BP 155/94; PULSE 95; RESP 20; TEMP 36.5; O2SAT 96
--- NOTE | 2023-03-28 15:54 | W.ANESPOSTOP ---
Postoperative Evaluation Date, Time and Location Date Performed: 03/28/23 Time Performed: 15:54 Patient Location: Day Surgery Unit Vital Signs Most Recent Imported Vital Signs: Most Recent Vital Signs Temp Pulse Resp BP Pulse Ox 36.5 C 95 H 20 155/94 H 96 03/28/23 15:41 03/28/23 15:41 03/28/23 15:41 03/28/23 15:41 03/28/23 15:41 Pain Score Most Recent Pain Score: Most Recent Pain Score Pain Level 3 03/28/23 15:41 Assessment Mental Status: Awake (Alert & Oriented to Patient Baseline) Airway and Respiratory Function: Patent airway with normal (patient baseline) respiratory exam Cardiovascular Function: Hemodynamically Stable Hydration Status: Adequately Hydrated Nausea & Vomiting: No Nausea or Vomiting Pain: Pt. Denies Any Pain Peripheral Nerve Block: Patient did not receive a nerve block
[2023-03-28 16:08] VITALS: BP 140/84; PULSE 96; RESP 22; TEMP 36.8; O2SAT 96
== END 2023-03-28 16:30 | disposition home or self-care (01) ==
PROVIDERS: PCP Family Medicine; Visit Provider Student in an Organized Health Care Education/Training Program
PROC: 0DJD8ZZ Inspection of Lower Intestinal Tract, Via Natural or Artificial Opening Endoscopic (ICD-10-PCS; CPT 45378; principal; 2023-03-28 14:45)
DX: Z12.11 Encounter for screening for malignant neoplasm of colon (principal); Z80.0 Family history of malignant neoplasm of digestive organs; Z86.010 Personal history of colon polyps; G47.33 Obstructive sleep apnea (adult) (pediatric); K21.9 Gastro-esophageal reflux disease without esophagitis; I10 Essential (primary) hypertension; Z68.42 Body mass index [BMI] 45.0-49.9, adult; K57.30 Diverticulosis of large intestine without perforation or abscess without bleeding; D12.4 Benign neoplasm of descending colon; D12.3 Benign neoplasm of transverse colon
CPT/HCPCS: 45380; 00123; 88305; J2001

== ENCOUNTER 2023-05-13 11:26 | Outpatient (CLI) | payer BC, SELFPAY ==
--- NOTE | 2023-05-13 11:15 | DI.RAD_ITS ---
Exam(s) XR KNEE RT 2V AP,LAT EXAM: XR KNEE RT 2V AP,LAT CLINICAL HISTORY: ANNUAL F/U R TKA. TECHNIQUE: 2D digital imaging was performed. Three views. COMPARISON: CR XR KNEE RT 1V from 05/20/2022 FINDINGS: BONES: No acute fracture is present. No bony destructive lesion is seen. JOINTS: The knee is normally aligned. No joint effusion is seen. There has been no change in the al ignment of the total knee prosthesis. SOFT TISSUE: Chronic appearing calcifications IMPRESSION: Stable appearance of knee prosthesis. DATA REPOSITORY: RADIATION DOSE DELIVERED:
== END 2023-05-13 11:27 | disposition home or self-care (01) ==
LOC: DIORS 11:26
PROVIDERS: PCP Family Medicine; Visit Provider Student in an Organized Health Care Education/Training Program
DX: Z96.651 Presence of right artificial knee joint (principal); Z47.1 Aftercare following joint replacement surgery
CPT/HCPCS: 73560

== ENCOUNTER 2023-09-12 05:50 | Outpatient (CLI) | payer BC, SELFPAY ==
[2023-09-12 11:10] LABS: HCT 42.8 % (40.0-50.0); HGB 14.3 g/dL (13.5-17.5); MCH 31.6 pg (27.0-33.0); MCHC 33.4 % (32.0-36.0); MCV 95 fL (80-95); MPV 9.2 fL (8.0-11.0); Platelet Count 322 10^3/uL (130-400); RBC 4.52 10^6/uL (4.36-5.78); RDW 13.5 % (11.8-14.1); RDW-SD 47.6 fL; WBC 8.71 10^3/uL (4.4-10.8)
[2023-09-12 12:00] LABS: Anion Gap 12.2 mmol/L (3-11); BUN 19 mg/dL (7-18); CO2 23.8 mmol/L (21.0-32.0); CREATININE 0.8 mg/dL (0.70-1.30); Calcium 9.5 mg/dL (8.5-10.1); Chloride 104 mmol/L (98-107); Estimated GFR 100.69 (mL/min/1.73m2); Glucose 151 mg/dL (74-106); Potassium 4.2 mmol/L (3.5-5.1); Sodium 140 mmol/L (136-145)
== END 2023-09-12 05:51 | disposition home or self-care (01) ==
LOC: LBO 05:50
PROVIDERS: PCP Family Medicine; Visit Provider Student in an Organized Health Care Education/Training Program
DX: M25.552 Pain in left hip (principal); M16.12 Unilateral primary osteoarthritis, left hip; Z01.818 Encounter for other preprocedural examination; Z01.812 Encounter for preprocedural laboratory examination
CPT/HCPCS: 36415; 80048; 85027

== ENCOUNTER 2023-09-12 15:25 | Outpatient (CLI) | payer BC, SELFPAY ==
--- NOTE | 2023-09-12 09:45 | DI.RAD_ITS ---
Exam(s) XR PELVIS AP EXAM: XR PELVIS AP CLINICAL HISTORY: PRE OP L OCTAVIANO. TECHNIQUE: 2D digital imaging was performed.Two images were obtained. COMPARISON: No exams were available for comparison FINDINGS: BONES: No acute fracture is present. No bony destructive lesion is seen. JOINTS: There are marked degenerative changes seen in the left hip with loss of the joint space with [id number] appearance superiorly. Mild subchondral sclerosis is seen in the left hip. There is mi ld narrowing and acetabular spurring seen in the right hip. SOFT TISSUE: Surgical clips are seen in the pelvis. IMPRESSION: Marked osteoarthritis of the left hip. DATA REPOSITORY: RADIATION DOSE DELIVERED:
== END 2023-09-12 15:26 | disposition home or self-care (01) ==
LOC: DIORS 15:25
PROVIDERS: PCP Family Medicine; Visit Provider Physician Assistant
DX: M16.12 Unilateral primary osteoarthritis, left hip (principal)
CPT/HCPCS: 72170

== ENCOUNTER 2023-09-28 05:56 | Day surgery (SDC) | payer BC, SELFPAY ==
[2023-09-28] VITALS (10 sets, daily range): BP systolic 136–162; BP diastolic 63–101; PULSE 79–107; RESP 15–18; TEMP 36.3–37.1; O2SAT 93–98; BMI 51.0
[2023-09-28] MEDS: Acetaminophen 500 MG TAB 1000 MG PO (06:35)
[2023-09-28] MEDS: Celecoxib 200 MG CAP 400 MG PO (06:36)
[2023-09-28] MEDS: Lactated Ringers 1,000 ML 80 ML IV (06:51)
--- NOTE | 2023-09-28 07:05 | W.PM.DSUDISC ---
Date of service: 09/28/23 Time of Service: 07:06 Discharge Plan Disposition Patient Disposition: Home Condition: Good Discharge Details Reason For Visit: Left hip replacement Attending Provider: Mohsen Becerril Primary Care Provider: DANIELLA SAINZ Home Meds and New Rx's Prescriptions: New aspirin 81 mg tablet,delayed release (DR/EC) 81 mg PO BID Qty: 60 0RF pantoprazole 40 mg tablet,delayed release (DR/EC) 40 mg PO DAILY Qty: 14 0RF oxycodone 5 mg tablet 5 mg PO Q4H PRNQty: 18 0RF Continued tramadol 50 mg tablet 50 mg PO Q4H PRN tlpuzwgqjwl-qvgvaw-Qfmcnba-tur 750 mg-600 mg- 50 mg-125 mg tablets, sequential 1 tab PO BID allopurinol 300 mg tablet 300 mg PO DAILY All Day Allergy (cetirizine) 10 mg capsule 10 mg PO DAILY PRN omega-3 fatty acids 1,000 mg capsule 1,000 mg PO BID fluoxetine 40 mg capsule 40 mg PO QPM fluticasone propionate 50 mcg/actuation spray,suspension 1 spray intranasal DAILY Rx Instructions: administer into each nostril lisinopril 20 mg tablet 20 mg PO DAILY multivitamin Tablet 1 tab PO DAILY Hold Instructions: Pt Stopped/Never Started pravastatin 40 mg tablet 40 mg PO DAILY albuterol sulfate [Proventil HFA] 90 mcg/actuation HFA aerosol inhaler 2 puff inhalation Q6H PRN metformin 500 mg tablet 500 mg PO BID Patient Comments: dose is 1 tab q am and 1.5 tabs q pm celecoxib 200 mg capsule 200 mg PO BID PRN (Reason: pain) Qty: 60 2RF Rx Instructions: Take one tablet up to every 12 hours as needed for severe pain and inflammation acetaminophen 500 mg tablet 1,000 mg PO Q8H PRN (Reason: pain) Qty: 90 3RF fiber Capsule 5 cap PO DAILY Patient Comments: 2 in morinig, 3 at night Discharge Instructions Additional Instructions: Total Hip Discharge Instructions Activity: The most important activity is to walk. You should try to take short walks a few times a day. You have no restrictions on movement or positioning, but do not try to force what you do. You will find some stiffness and weakness with hip flexion (lifting your knee). Do not try to strengthen this too early, continue to practice walking and stairs and this will come. - Outpatient physical therapy can be helpful to help return you to a normal gait and improve your flexibility and strength. This can start around 2 weeks. For some patients, it?s not necessary. Usually this is determined at the time of discharge or at the first post-operative visit. - You should wear the KYE hose on both legs for 2 weeks. Dressing: Keep the surgical dressing in place for at least one week. After the first week it may be removed and replace with light gauze and tape or nothing. It may get wet after 3 days but avoid soaking the dressing. If it gets wet, just lightly pat dry. It is important to always keep some gauze between skin folds, especially when you are sitting. Spend some time with the wound exposed when you are lying flat as the incision does wrinkle onto itself. Medications: - You should take Tylenol and an anti-inflammatory Celebrex as your primary pain control medications. If the Celebrex is too expensive or not covered, please call the office for another alternative (Advil/Ibuprofen or Naproxen/Aleve). - You have been prescribed a stronger pain medication Oxycodone for breakthrough pain, take as needed as prescribed. - You have also been prescribed a stomach acid reduction agent Pantoprozole to help reduce stomach acid and reflux. - You will be taking Aspirin 81mg twice a day for DVT prevention unless instructed otherwise. - If you have constipation you should take Colace or Miralax (both eavq-rlm-qwoufji). It takes most people 3-4 days to have a bowel movement. Follow-up: 2 weeks If you have any acute concerns or questions, please do not hesitate to contact the office at [phone]. You may contact Dr. Becerril with any questions after hours through the hospital at [phone] or on his cell phone at [phone]. Referrals: Mohsen Becerril MD [ [facility] STAFF PHYSICIAN] - Equipment/Supplies: Walker Activity:: Activity as Tolerated Remove Dressings/Wound Care:: Do Not Remove Shower/Bathe:: 72 hours Diet:: Carb Counting Discharge Orders Discharge Orders: Discharge Order (Routine); Ordered 09/28/23 Ordered By: Mohsen Becerril DS: Diagnosis Discharge Diagnosis (1) Osteoarthritis of left hip: Status: Acute
--- NOTE | 2023-09-28 07:08 | ANES.PREOP_ITS ---
General Info Date of Service Date Performed: 09/28/23 Height: 5 ft 6 in Weight: 143.6 kg Body Mass Index (BMI): 51.0 Surgical Procedure: Operation Date: 09/28/23 07:50 Proposed Procedure Side Surgeon p Hip Total Hip Anterior, ACTIS Left Mohsen Becerril MD Meds Allergies and Home Medications Allergies Allergy/AdvReac Type Severity Reaction Status Date / Time No Known Allergies Allergy Verified 09/28/23 06:09 Home Medication Medication Instructions Recorded albuterol sulfate 90 mcg/actuation 2 puff inhalation Q6H PRN 01/27/22 aerosol inhaler (Proventil HFA) allopurinol 300 mg tablet 300 mg PO DAILY 01/27/22 cetirizine 10 mg capsule (All Day 10 mg PO DAILY PRN 01/27/22 Allergy (cetirizine)) fluoxetine 40 mg capsule 40 mg PO QPM 01/27/22 fluticasone propionate 50 1 spray intranasal DAILY 01/27/22 mcg/actuation nasal spray,suspension lisinopril 20 mg tablet 20 mg PO DAILY 01/27/22 metformin 500 mg tablet 500 mg PO BID 01/27/22 multivitamin 1 tab PO DAILY 01/27/22 omega-3 fatty acids 1,000 mg 1,000 mg PO BID 01/27/22 capsule pravastatin 40 mg tablet 40 mg PO DAILY 01/27/22 glucosamine 750 mg-chondr 600 1 tab PO BID 04/30/22 mg-[place] 50 mg-turmeric 125 mg tablets fiber 5 cap PO DAILY 05/05/22 tramadol 50 mg tablet 50 mg PO Q4H PRN 09/12/23 acetaminophen 500 mg tablet 1,000 mg (2 x 500 mg) PO Q8H PRN 09/28/23 pain #90 tabs aspirin 81 mg tablet,delayed 81 mg PO BID #60 tabs 09/28/23 release celecoxib 200 mg capsule 200 mg PO BID PRN pain #60 caps 09/28/23 oxycodone 5 mg tablet 5 mg PO Q4H PRN #18 tabs 09/28/23 pantoprazole 40 mg tablet,delayed 40 mg PO DAILY #14 tabs 09/28/23 release Current Visit Medications: Current Medications Generic Name Dose Route Start Last Admin Trade Name Freq PRN Reason Stop Dose Admin Acetaminophen 1,000 mg 09/28/23 06:00 09/28/23 06:35 Acetaminophen 500 Mg Tab PO 09/28/23 23:59 1,000 mg PREOP ARLEEN Administration Acetaminophen 1,000 mg 09/28/23 07:04 Acetaminophen 500 Mg Tab PO 10/28/23 08:29 TID PRN Pain Celecoxib 400 mg 09/28/23 06:00 09/28/23 06:36 Celecoxib 200 Mg Cap PO 09/28/23 23:59 400 mg PREOP ARLEEN Administration Hydromorphone HCl 0.5 mg 09/28/23 07:04 Hydromorphone 2 Mg/Ml Syr IVP 10/28/23 07:03 Q2H PRN PRN Ringer's Solution 1,000 mls @ 80 mls/hr 09/28/23 06:00 09/28/23 06:51 IV 09/28/23 23:59 80 mls/hr INFUSION ARLEEN Administration Cefazolin Sodium 3,000 mg/ 100 mls @ 200 mls/hr 09/28/23 06:00 Sodium Chloride IVPB 09/28/23 23:59 PREOP ARLEEN Tranexamic Acid/Sodium Chloride 1,000 mg in 100 mls @ 600 mls/hr 09/28/23 06:00 IVPB 09/28/23 23:59 PREOP ARLEEN IV Miscellaneous Supplies 1 each 09/28/23 06:00 Iv Access IV 09/28/23 23:59 DIRECTED ARLEEN Ondansetron HCl 4 mg 09/28/23 07:04 Ondansetron 4 Mg/2 Ml Vial IVP 10/28/23 07:03 Q6H PRN PRN Nausea Oxycodone HCl 0 mg 09/28/23 07:04 Oxycodone 5 Mg Tab PO 10/28/23 07:03 Q3H PRN PRN Pain Sodium Chloride 0 ml 09/28/23 06:00 Normal Saline Flush 10 Ml Syr IV 09/28/23 23:59 PRN PRN Sodium Chloride 0 ml 09/28/23 06:00 Normal Saline 10 Ml Vial IJ 09/28/23 23:59 DIRECTED PRN Sterile Water 0 ml 09/28/23 06:00 Water,Injection,Sterile 10 Ml Vial IJ 09/28/23 23:59 DIRECTED PRN PFSH Active Problems Active Problems: Problem Status Onset Code Osteoarthritis of left hip M16.12 Osteoarthritis of right hip M16.11 Polyp of descending colon K63.5 Colon cancer screening Z12.11 Diabetes mellitus E11.9 Hyperlipidemia E78.5 Gout M10.9 ANTHONY (obstructive sleep apnea) G47.33 Hypertensive disorder I10 GERD (gastroesophageal reflux disease) K21.9 Medical History Medical History Acquired buried penis Low back pain Depressive disorder Surgical History Surgical History Arthrofibrosis of total knee arthroplasty RIGHT S/P manipulation under anesthesia: 08/19/2022 Status post total right knee replacement (05/05/22) Hx of abdominal surgery pt. has seven pounds of stomach removed and penile reconstruction H/O umbilical hernia repair sub umbilical w/mesh History of colonoscopy History of hernia repair History of hydrocelectomy Tobacco Smoking/Tobacco Use Status: Never Alcohol Alcohol Intake: current Alcohol intake frequency: a few times a week Alcohol type: beer and hard liquor Substance Use Substance use: Never Substance use type: does not use Vital Signs and Lab Results Vital Signs Most Recent Vital Signs in EMR: Most Recent Vital Signs Temp Pulse Resp BP Pulse Ox 36.8 C 90 16 136/64 96 09/28/23 06:12 09/28/23 06:12 09/28/23 06:12 09/28/23 06:12 09/28/23 06:12 Point of Care Results Point of Care Results: Finger Stick Blood Glucose 169 09/28/23 07:04 Lab Results Blood Type / Crossmatch: No Data to Display Complete Blood Count: White Blood Count 8.71 10^3/uL (4.4-10.8) 09/12/23 11:00 Red Blood Count 4.52 10^6/uL (4.36-5.78) 09/12/23 11:00 Hemoglobin 14.3 g/dL (13.5-17.5) 09/12/23 11:00 Hematocrit 42.8 % (40.0-50.0) 09/12/23 11:00 Platelet Count 322 10^3/uL (130-400) 09/12/23 11:00 Complete Metabolic Panel: Sodium 140 mmol/L (136-145) 09/12/23 11:00 Potassium 4.2 mmol/L (3.5-5.1) 09/12/23 11:00 Chloride 104 mmol/L (98-107) 09/12/23 11:00 Carbon Dioxide 23.8 mmol/L (21.0-32.0) 09/12/23 11:00 BUN 19 mg/dL (7-18) H 09/12/23 11:00 Creatinine 0.8 mg/dL (0.70-1.30) 09/12/23 11:00 Est GFR (CKD-EPI 2020) 100.69 (mL/min/1.73m2) 09/12/23 11:00 Calcium 9.5 mg/dL (8.5-10.1) 09/12/23 11:00 Glucose 151 mg/dL (74-106) H 09/12/23 11:00 Liver Function Panel: No Data to Display Coagulation Panel: No Data to Display Cardiac Panel: No Data to Display Arterial Blood Gas: 2 No Data to Display Venous Blood Gas: No Data to Display Pancreas Panel: No Data to Display Thyroid Panel: No Data to Display Infectious Disease: No Data to Display Blood Cultures: No Data to Display Toxicology Panel: No Data to Display Anesthesia Assessment and Plan Anesthesia History Personal History: No History of Anesthesia Complications Family History: No Family History of Anesthesia Complications Exercise Tolerance Exercise Tolerance: Metabolic Equivalents>4 Pertinent Negatives Pertinent Negatives: No Symptoms of GERD, No Major Cardiovascular Symptoms or Complaints, No Major Pulmonary Symptoms or Complaints and No History of CVA/TIA Cardiac & Pulmonary Exam Cardiac Exam: Normal S1/S2 Heart Sounds Pulmonary Exam: Clear Bilateral Breath Sounds Implantable Cardiac Device Does patient have a Pacemaker or an ICD?: No Airway Exam Known Difficult Airway: No Mallampati Class: 2 Mouth Opening: Normal (> 3cm) Thyromental Distance: Greater than 3 cm Neck Range of Motion: Full ROM Neck Circumference: Thick Teeth Condition: Normal Dentition ASA Classification ASA Score: ASA 3 Emergency Case?: No NPO Status NPO Status: NPO Clears >2 hours, Solids >8 hours Anesthesia Plan Resuscitation Status: Full Code Anesthesia Technique: General Anesthesia Airway Planned: Endotracheal Tube Monitors Used: Standard Monitors and SedLine
[2023-09-28] MEDS: ceFAZolin 3,000 MG in Normal Saline 100 ML 200 MG IVPB (07:42)
[2023-09-28] MEDS: TRANEXAMIC ACID/SOD. CHL. 1,000 MG/100 ML BAG 600 MG IVPB (07:59)
--- NOTE | 2023-09-28 09:05 | DI.RAD_ITS ---
Exam(s) XR HIP LT IN OR EXAM: XR HIP LT IN OR CLINICAL HISTORY: Osteoarthritis of left hip. TECHNIQUE: 2D and realtime digital imaging was performed. COMPARISON: CR XR PELVIS AP from 09/12/2023 FINDINGS: A hard copy image shows placement of a left hip prosthesis. The alignment appears satisfactory. Please see procedure note for details. Fluoro time: 29.4seconds RADIATION DOSE DELIVERED: Ka,r=8.12 mGy
--- NOTE | 2023-09-28 09:25 | ROE_ITS ---
Date of service: 09/28/23 Time of Service: 07:55 Operative Note Operative Note DATE OF PROCEDURE: 09/28/23 PRE-OP DIAGNOSIS: Left Hip Osteoarthritis POST-OP DIAGNOSIS: same PROCEDURE: Left Anterior Total Hip Arthroplasty with Intraoperative Navigation SURGEON: Mohsen Becerril UTILIZATION COORDINATOR: Darcy Dawson ANESTHESIA TYPE: Spinal Refer to Anesthesia Record ESTIMATED BLOOD LOSS: 400 PATHOLOGY: none sent TOURNIQUET TIME: 0 COMPLICATIONS: None Patient was transported to: PACU Patient's condition: stable Implants: 1. Depuy [place] Acetabular Component, 54mm 2. Depuy Acetabular Liner, [id number] 3. Depuy Actis High Offset Collared Femoral Stem, Size 4 4. Depuy Altrx Ceramic Femoral Head, Size 36+1.5mm Indications: I have seen Kushal in clinic for symptoms of hip arthritis, confirmed with radiographic findings. He has exhausted nonoperative methods and was having significant limitations in daily function and desired better function and less pain. I discussed the technical details of a hip replacement. I explained the risks of the procedure to include, but not limited to, bleeding, infection, pain, stiffness, fracture, damage to nerves and vessels, damage to muscles and tendons, loosening, instability, leg length inequality, need for repeat procedure, blood clot and cardiopulmonary demise. Despite these risks, Kushal elected to proceed. Findings: There was significant signs of arthritis throughout the hip with complete loss of cartilage superiorly on the femoral head. Procedure Description: Kushal was greeted in the preoperative holding area where the correct side was identified and marked. The consent was reviewed with the patient and signed. The history and physical was updated. All questions were answered. He was taken back to the operating room. A general anesthetic was administered. The feet were wrapped with cast padding and Coban and then placed into the boot liners and then into the boots. Care was taken to protect the skin and make sure the heels were fully down and the boots were stable. The patient was then positioned onto the HANA table. Both legs were held in a neutral position. SCDs were applied. The patient was then slid down onto a peroneal post. Prophylactic antibiotics in the form of Cefazolin were administered. 1g of Tranxemic Acid was given intravenously within 30 minutes of incision. The pannus was manipulated over to the right side utilizing Ioban. The left leg was then prepped with Chloraprep and draped in a standard fashion. A second prep with Chloraprep was performed prior to placement of a shower-curtain type drape with Iodine impregnated skin protection. A timeout to confirm correct identity, side and site, procedure, allergies, anesthesia, and medical concerns was performed. An obliquely oriented incision was made starting lateral to the ASIS and running distal over the Tensor Fascia Clare (TFL) muscle belly toward the fibular head, approximately 10cm. The skin and soft tissue was dissected sharply, through Mayra?s fascia, and to the fascia of the TFL. With the fascia and superior border of the IT band identified, the fascia was incised with a new knife just above any perforators from the IT band. The TFL muscle belly was bluntly dissected away from the fascia and moved laterally. The fat between TFL and rectus was identified to ensure the dissection was not within the TFL. Blunt dissection created space between abductors and the capsule and retractor was placed over the lateral femoral neck. The fibers of the rectus femoris tendon were identified and these were freed from the anterior capsule. A second cobra retractor was placed around the medial femoral neck. The TFL was further retracted laterally to show the deep fascia. Careful dissection through this layer identified three main crossing vessels of the lateral femoral circumflex. These were cauterized in multiple locations and then cut without any noticeable bleeding. The TFL was further released bluntly from the deep fascia to expose anterior hip capsule and fat The Pedro orthopaedic retractor was then placed beneath the TFL and against sartorius and medial soft tissues to protect and retract the soft tissues. A T-capsulotomy was then performed starting at the superior lateral acetabulum and moving distally to the intertrochanteric ridge. These capsular flaps were tagged with a No. 1 Ethibond and elevated from within. The capsular flaps were released to the shoulder of the lateral neck and to the lesser trochanter to give excellent visualization of the proximal femur. A neck osteotomy was performed using an oscillating saw based on preoperative templates. This cut started in the shoulder and of the lateral neck and exited medially. The saw was at all times directed medially to avoid injury to the greater trochanter. Gross traction was applied to the leg and the osteotomy opened. The femoral head was removed with a corkscrew, making sure to protect the TFL on its exit. Traction was released after head removal. This was measured on the back table to determine the starting reamer size. Portions of the rectus obscuring visualization were minimally elevated off the superior acetabulum. An anterior retractor was placed over the anterior wall between capsule and labrum and attached to the Gripper retraction system. The femur was rotated to 90 degrees and medial capsule was fully released until the lesser trochanter was palpable and visible; the femur was returned to 30 degrees. A posterior retractor was placed similarly between capsule and labrum. This provided excellent visualization. The contents of the cotyloid fossa were removed with electrocautery and the labrum was removed with a knife. There was a notable floor osteophyte. There was significant chondromalacia of the superior acetabulum. Acetabular reaming began with a 50mm reamer. This first reaming was directed anterior to posterior and medial to get down to the true floor. This was inspected and reamed until the true floor was reached. The anterior retractor was then released and entry and exit was provided by traction on the capsular flaps. I then reamed sequentially up to a 54mm reamer where good fit was obtained. The larger reamers were oriented based on anatomical reference of the anterior and lateral mustafa to ensure proper abduction and anteversion. Positioning and size was confirmed with the fluoroscopy. A 54mm Depuy [place] acetabular component was selected. The acetabulum was reamed around the periphery with the selected acetabular size to prevent a rim fit. The deep tissues were irrigated. The acetabular component was then impacted in a position of about 40-45 degrees of abduction and 15-20 degrees of anteversion, using the patient?s anatomy as the ultimate landmark. Fluoroscopy was used to confirm this. There was excellent engineering patternmaker of the acetabular component and the inserting handle was removed. The acetabular liner, Depuy [id number] polyethylene liner, was inserted and lined up with the tines of the acetabular component. There was no soft tissue interposition. The liner was then impacted into position and confirmed to be well-seated. A portion of the iraj-articular cocktail was then injected around the acetabulum into the capsule and periosteum. This cocktail consisted of 123mg of Ropivacaine, 0.25mg of Epinephrine, 0.04mg of Clonidine, and 15mg of Ketorolac, diluted to 50cc. The leg was rotated to 120 degrees. Any remaining medial capsule was released until the lesser trochanter was easily palpable. A retractor was placed medially. The lateral capsule was further released into the shoulder to allow access to the greater trochanter. A Jackson retractor was placed over the greater trochanter which allowed the trochanter to flip in front of the capsule for excellent exposure. The leg was brought down into maximal extension and 20 degrees of adduction while ensuring there was no impingement on the acetabulum. Any remnant capsule within the trochanter was released. Piriformis and obturator externis were identified and protected. There was excellent access to the proximal femur. The lateral neck remnant was removed with a rongeur. A blunt canal probe was used to identify the canal and trajectory for later broaching. A box osteotome initiated the broach course. A small curved rasp and a curved curette were used to work laterally. Broaching then began with a starter Actis broach. This was inserted manually around the trochanter and into the canal before mallet blows. The broach was seated to a few millimeters below the cut level based on the neck cut and the preoperative template. Sequential broaching was continued with the Easy Eyese pneumatic broaching device until a tight fit was obtained with good rotational control of the femur. A trial standard neck was inserted along with a +5 trial head. The leg was brought out of extension and adduction and then reduced with traction and internal rotation. The leg was stable anteriorly in a position of 30 degrees of extension and 90 degrees of external rotation. Fluoroscopy was used to ensure there was no fracture and the stem was seated well. Leg lengths were checked with an AP pelvis and pelvic reference points. Terapeak navigation system was used to confirm appropriate positioning and leg length and offset. This overcorrected the leg length and undercorrected the offset which was improved by going to a high offset stem with +1.5 mm head. Once content with the desired offset and leg lengths, the leg was brought back into extension, external rotation and adduction. The periosteum and surrounding tissue was injected with remaining portion of the iraj-articular cocktail. The proximal femur was irrigated as well as the deep tissues. The Depuy Actis high offset collared stem, size 4, was then manually inserted into the proximal femur making sure to control rotation. It was then malleted into position with light blows, giving breaks to allow bone expansion and decrease risk of fracture. The selected Depuy Altrx Ceramic Head, size 36+1.5mm, was then placed onto the clean and dry trunnion and secured with impaction onto the tapered fit. The leg was brought back out of extension and adduction and reduced with traction and internal rotation. Stability was confirmed with no shuck at 90 degrees of external rotation and 30 degrees of extension. No impingement through range of motion arc. Final x-ray images were obtained with fluoroscopy to confirm adequate positioning and no intraoperative fracture. The deep tissues were thoroughly irrigated with Surgiphor, betadine solution. This was allowed to sit in the wound for 3 minutes before being thoroughly irrigated out with normal saline. The capsule was then reapproximated with the previously placed Ethibond sutures. The TFL fascia was finally closed with a No. 2 Stratafix, barbed suture. Deep tissues were then reapproximated with 0 Vicryl and a running 2-0 Vicryl. The skin was closed with a running 4-0 Monocryl in a subcuticular fashion. This was reinforced with skin glue. A Mepilex silver dressing was applied. At the end of the case, all counts were correct. Kushal was transferred to the hospital bed without difficulty and suffering no apparent complication. Kushal has a good prognosis. Physical therapy will start today and without restrictions, weight-bearing as tolerated. Aspirin 81mg BID will be used for DVT prophylaxis.
[2023-09-28] MEDS: Normal Saline 10 ML VIAL IJ (10:06)
[2023-09-28] MEDS: HYDROmorphone 2 MG/ML SYR IVP (10:06)
--- NOTE | 2023-09-28 11:33 | W.ANESPOSTOP ---
Postoperative Evaluation Date, Time and Location Date Performed: 09/28/23 Time Performed: 11:33 Patient Location: Day Surgery Unit Vital Signs Most Recent Imported Vital Signs: Most Recent Vital Signs Temp Pulse Resp BP Pulse Ox 36.7 C 87 16 155/76 H 95 09/28/23 10:55 09/28/23 10:55 09/28/23 10:55 09/28/23 10:55 09/28/23 10:55 Pain Score Most Recent Pain Score: Most Recent Pain Score Pain Level 2 09/28/23 10:55 Assessment Mental Status: Awake (Alert & Oriented to Patient Baseline) Airway and Respiratory Function: Patent airway with normal (patient baseline) respiratory exam Cardiovascular Function: Hemodynamically Stable Hydration Status: Adequately Hydrated Nausea & Vomiting: No Nausea or Vomiting Pain: Pain is tolerable per patient Peripheral Nerve Block: Patient did not receive a nerve block Postoperative Comments:: Up walking with PT and doing well.
[2023-09-28] MEDS: oxyCODONE 5 MG TAB PO (11:49)
--- NOTE | 2023-09-28 13:11 | IN_ITS ---
PT Notes Visit Reasons: Left hip replacement Physical Therapy Day Surgery Initial Evaluation Date: 09/28/2023 Referring Doctor: Mohsen Becerril MD PT Orders: PT CONSULT: S/P Ortho Surgery Precautions: WBAT on L LE with AD. Patient Profile/Admitting Diagnosis: Kushal is a 63-year-old male with degenerative joint disease of the left hip and is status post L anterior total hip arthroplasty on postoperative day 0. PMHX: Medical History (Updated 06/16/23 @ 15:46 by Wilma Yang) Acquired buried penis Low back pain Depressive disorder Surgical History (Updated 05/13/23 @ 15:20 by CHANG Meredith) Arthrofibrosis of total knee arthroplasty RIGHT S/P manipulation under anesthesia: 08/19/2022Status post total right knee replacement (05/05/22) Hx of abdominal surgery pt. has seven pounds of stomach removed and penile reconstruction H/O umbilical hernia repair sub umbilical w/mesh History of colonoscopy History of hernia repair History of hydrocelectomy Social History/Home Situation: Lives with in a private home that has 6 steps that lead to a landing, there are another 4 steps to entrance of the house. All steps have rails on B sides. 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 Modified independent with all mobility ADL performance using single-point cane. Equipment Owned/DME: FWW, [place] Subjective: Was only lightheaded for a short time sitting up, resolved a few minutes later. 2/10 pain on the L hip . Complained 6/10 pain in same site after ambulation activity. Objective: General Observation: Supine in stretcher. Mepilex Ag over surgical incision on L hip. Cold pack on side of L hip. present in room throughout session. Mental Status: Alert and oriented x 4 Pain: As above Vital signs: WNL as closely monitored by Nurse Mathew ROM: Right Lower Extremity: Hip flexion WFL. Hip abduction WFL. Knee flexion WFL. Knee extension WFL. Ankle dorsiflexion WFL. Ankle plantarflexion WFL. Left Lower Extremity: Hip flexion WFL. Hip abduction WFL. Knee flexion WFL. Ankle dorsiflexion WFL. Ankle plantarflexion WFL. Strength: Right Lower Extremity: Hip flexors 4/5. Hip abductors 4/5. Knee flexors 4/5. Knee extensors 4/5. Ankle dorsiflexors 5/5. Ankle plantarflexors 5/5. Left Lower Extremity: Hip flexors 4-/5. Hip abductors 4-/5. Knee flexors 4/5. Knee extensors 4-/5. Ankle dorsiflexors 4/5. Ankle plantarflexors 5/5. Sensation: Intact as to pain and light pressure in B LE Bed Mobility/Transfers: Minimal cueing provided for use of B hands as needed for support, movement sequence, AD management, and posture to reduce fall risk and minimize pain report Supine to sit stand by assist Sit to stand contact guard assist Stand to sit stand by assist Gait: Facilitated safe and correct performance of level surface ambulation covering a distance of 150 feet with step through reciprocal heel-toe gait pattern req uiring only standby assist and using front wheeled walker with minimal verbal cueing provided for safe gait pattern, AD management, and posture to reduce fall risk and minimize pain report. Stairs: Guided patient with safe and correct negotiation of 4 x 3 inch steps and 2 x 6 inch steps while holding onto bilateral rails with step to gait pattern requiring minimal verbal cueing to increase flexion on the left hip and knee during each ascent standby assist only. Minimal verbal cueing provided for correct gait pattern and posture. Balance: Static Sitting: Normal Dynamic Sitting: Normal Static Standing: Fair Dynamic Standing: Fair Special Tests: Mobility Limitations Standardized Measure [facility] AM-PAC 6 clicks Basic Mobility Inpatient Short Form: Raw Score: 23 CMS Score: 11% deficit Informed Consent/Education: Patient instructed in purpose of PT consult. Trained patient with correct performance of exercises below to maximize motor control, joint flexibility, soft tissue extensibility of the L hip musculature to facilitate return to independent functional mobility performance. Access Code: [email or web address] URL: [email or web address] Date: 09/28/2023 Prepared by: Linda Crowe Exercises - Gluteal Sets - 1 x daily - 7 x weekly - 1 sets - 10 reps - 5 hold - Supine Heel Slide - 1 x daily - 7 x weekly - 1 sets - 10 reps - 5 hold - Supine Ankle Pumps - 1 x daily - 7 x weekly - 1 sets - 10 reps - 5 hold - Seated March - 1 x daily - 7 x weekly - 1 sets - 10 reps - 5 hold - Seated Long Arc Quad - 1 x daily - 7 x weekly - 1 sets - 10 reps - 5 hold Assessment: Patient requires the use of a FWW for all mobility ADL performance to maximize independence and reduce fall risk. Patient presents with clinical signs and symptoms consistent with current/admitting diagnoses that have resulted to mobility limitations, gait instability, generalized weakness, and impairment of motor control as demonstrated by the following impairment level findings: 1. Decreased strength Primo hip major muscle groups 2. Impaired standing balance 3. Limitation of joint range of motion in R knee Impairments are contributing to the following functional limitations: 1. Inability to safely ambulate without assistive device 2. Increase completion time for mobility ADL performance 3. Increased fall risk Patient is assessed as a 42571 moderate complexity based on the following: History: 63-year-old male with impairment level findings, functional limitations, and past medical history as indicated above Examination: Demonstrable impairment in strength, balance, and mobility level with underlying impairments and functional limitations as documented above Presentation: Evolving Decision Makin moderate complexity Goals: N/A. PT evaluation and 1-2 treatment sessions only for functional mobility training using recommended AD and for HEP instruction. Plan of Care/Treatment Plan: N/A. PT evaluation and 1-2 treatment session only for functional mobility training using recommended AD and for HEP instruction. DISCHARGE RECOMMENDATIONS: Home when medically cleared by orthopedic surgeon. Will benefit from outpatient PT services in order to optimize functional mobility outcomes and facilitate independent community ambulation without an assistive device. TREATMENT CODE/TIME: 90487 x 20 minutes for 1 unit, 10337 x 14 minutes for 1 unit (11:07-11:41). Thank you for the opportunity to participate in the care of this patient. Please sign an return this page within 30 days if you agree with the above POC. Thank you! Physician Signature Date [facility] Lnida Crowe PT, DPT, CLT [facility] [place], [place]
== END 2023-09-28 12:36 | disposition home or self-care (01) ==
PROVIDERS: PCP Family Medicine; Visit Provider Student in an Organized Health Care Education/Training Program
PROC: (CPT 27130; principal; 2023-09-28 07:30)
DX: M16.12 Unilateral primary osteoarthritis, left hip (principal); E11.9 Type 2 diabetes mellitus without complications; G47.33 Obstructive sleep apnea (adult) (pediatric); I10 Essential (primary) hypertension
CPT/HCPCS: 27130; 20985; 97162; 97530; 73501; C1776; J0690; J1100; J1170; J2001; J2371; J2405; J2704; J3010; J3475

== ENCOUNTER 2023-10-10 15:05 | Outpatient (CLI) | payer BC, SELFPAY ==
--- NOTE | 2023-10-10 10:30 | DI.RAD_ITS ---
Exam(s) XR HIP LT COMPLETE AP PELVIS EXAM: XR HIP LT COMPLETE AP PELVIS CLINICAL HISTORY: 1ST POST OP S/P L OCTAVIANO. TECHNIQUE: 2D digital imaging was performed. Two images were obtained. AP pelvis and lateral hip vi ews were obtained. COMPARISON: CR XR PELVIS AP from 09/12/2023 XA XR HIP LT IN OR from 09/28/2023 FINDINGS: BONES: There are stable post operative changes of a left total hip replacement present. No fracture or dislocation. JOINTS: The orthopedic hardware is in good position. No evidence of hardware loosening. SOFT TISSUE: Normal. IMPRESSION: Stable left total hip replacement. DATA REPOSITORY: RADIATION DOSE DELIVERED:
== END 2023-10-10 15:06 | disposition home or self-care (01) ==
LOC: DIORS 15:05
PROVIDERS: PCP Family Medicine; Visit Provider Student in an Organized Health Care Education/Training Program
DX: Z96.642 Presence of left artificial hip joint (principal); Z47.1 Aftercare following joint replacement surgery
CPT/HCPCS: 73502

== ENCOUNTER 2024-10-01 10:27 | Outpatient (CLI) | payer BC, SELFPAY ==
--- NOTE | 2024-10-01 09:45 | DI.RAD_ITS ---
Exam(s) XR HIP LT AP LAT ONLY EXAM: XR HIP LT AP LAT ONLY CLINICAL HISTORY: ANNUAL F/U L OCTAVIANO. TECHNIQUE: 2D digital imaging was performed. COMPARISON: CR XR HIP LT COMPLETE AP PELVIS from 10/10/2023 FINDINGS: Two views There is stable position alignment of the components of the left hip prosthesis. No fracture or loos ening evident. No evidence of osteomyelitis. IMPRESSION: Oval satisfactory appearance of left hip prosthesis. DATA REPOSITORY: RADIATION DOSE DELIVERED:
== END 2024-10-01 10:28 | disposition home or self-care (01) ==
LOC: DIORS 10:27
PROVIDERS: PCP Family Medicine; Referring Provider Family Medicine; Visit Provider Student in an Organized Health Care Education/Training Program
DX: Z96.642 Presence of left artificial hip joint (principal)
CPT/HCPCS: 73502

== ENCOUNTER 2024-11-13 06:57 | Day surgery (SDC) | payer BC, SELFPAY ==
--- NOTE | 2024-11-12 20:50 | W.PM.DSUDISC ---
Date of service: 11/13/24 Discharge Plan Disposition Patient Disposition: Home Condition: Good Discharge Details Reason For Visit: EGD and colonoscopy Attending Provider: Steven Herrera Primary Care Provider: Tien Rock Home Meds and New Rx's Prescriptions: Continued kojxqebwuoy-ppmgkq-Ptyetxl-tur 750 mg-600 mg- 50 mg-125 mg tablets, sequential 1 tab PO BID allopurinol 300 mg tablet 300 mg PO DAILY All Day Allergy (cetirizine) 10 mg capsule 10 mg PO DAILY PRN omega-3 fatty acids 1,000 mg capsule 1,000 mg PO BID fluoxetine 40 mg capsule 40 mg PO QPM fluticasone propionate 50 mcg/actuation spray,suspension 1 spray intranasal DAILY Rx Instructions: administer into each nostril lisinopril 20 mg tablet 20 mg PO DAILY multivitamin Tablet 1 tab PO DAILY pravastatin 40 mg tablet 40 mg PO DAILY albuterol sulfate [Proventil HFA] 90 mcg/actuation HFA aerosol inhaler 2 puff inhalation Q6H PRN metformin 500 mg tablet 500 mg PO BID omeprazole 40 mg capsule,delayed release(DR/EC) 40 mg PO DAILY semaglutide 1 mg/0.2 mL syringe 1 mg subcut .weekly acetaminophen 500 mg tablet 1,000 mg PO Q8H PRN (Reason: pain) Qty: 90 3RF ferrous fumarate 324 mg (106 mg iron) tablet 324 mg PO DAILY Patient Comments: TAKE ONE TABLET BY MOUTH EVERY DAY gabapentin 600 mg tablet 600 mg PO BID Patient Comments: TAKE ONE TABLET BY MOUTH THREE TIMES A DAY tramadol 50 mg tablet 50 mg PO PRN Patient Comments: TAKE ONE TABLET BY MOUTH EVERY 4 HOURS NEEDED FOR PAIN celecoxib 100 mg capsule 100 mg PO BID PRN metaxalone 800 mg tablet 800 mg PO PRN Patient Comments: TAKE 1/2 TO 1 TABLET BY MOUTH THREE TIMES A DAY FOR 10 DAYS NEEDED MUSCLE PAIN Discontinued polyethylene glycol 3350 17 gram/dose powder 238 g PO ONCE Qty: 238 0RF Rx Instructions: take per colonoscopy instructions bisacodyl [Dulcolax (bisacodyl)] 5 mg tablet,delayed release (DR/EC) 5 mg PO ONCE Qty: 4 0RF Rx Instructions: take per colonoscopy instructions Discharge Instructions Instructions: Colon polyps, Diverticulosis Additional Instructions: Kushal, was good seeing you today, and I hope you feel well this afternoon. Your procedures went smoothly from our standpoint. With regards to the upper endoscopy, generally things look very normal. The only exception is that you have a small hiatal hernia. This occurs when the top portion of your stomach slips above your diaphragm or your breathing muscle. These are typically graded 1 through 4, and I would estimate yours to be a grade 2. I do not believe that this accounts for any of your iron deficiency. I did do some biopsies of this area, as well as multiple other spots in your stomach to ensure that I am not missing anything. With regards to your colonoscopy, you do have extensive diverticulosis, which was noted on your previous colonoscopies. There are some segments of inflammation associated with this, known as segmental colitis associated with diverticulosis. This accounts for the colitis seen on your CT scan. This is almost certainly a result of the diverticulosis, as opposed to an infectious colitis, or other forms of inflammatory bowel disease such as Crohn's disease or ulcerative colitis. It is possible that this is contributing to some iron deficiency, but aside from iron supplementation, and healthy living with diet and exercise, I do not think there is much else to do for this. Incidentally, I did find 1 polyp during the colonoscopy as well, which I removed today. The biopsy results, and the report from the polyp will take about a week or 2 to get back, but once my office has had information we will be in touch. In the meantime, I would continue with all of your basic medications, and your ongoing efforts for weight loss and exercise. If you have any questions in the meantime, please do not hesitate to call, otherwise we will be in touch once we have all the results. 1. If tolerated, consume a soft, low fiber diet for 1-2 days. 2[address] Do not drive, drink alcohol, operate machinery, make critical decisions, or do activities that require coordination or balance for 24 hours. 3. Because air was put into your colon during the procedure, expelling air from your rectum (passing gas or farting) is normal. 4. You may not have a bowel movement for 1-3 days because of the colonoscopy prep. This is normal. 5. You may experience a sore throat for 24 to 48 hours. You may use throat lozenges or gargle with warm salt water to relieve the discomfort. 6. Because air was put into your stomach during the procedure, you may experience some belching. 7. Go directly to the emergency room if you notice any of the following: Develop chills (warm to touch), or if you have a thermometer and your temperature is above 101 Difficulty breathing or difficultly swallowing Persistent vomiting Severe abdominal pain, other than gas cramps Severe chest pain Black, tarry stools Any bleeding ? exceeding one tablespoon 8. Call your physician if the site where your intravenous was started becomes red, swollen, painful, and warm to touch. 9. Your physician has reviewed your pre-procedure medications. Please continue to take those medications as previously ordered. You will be given specific information/education regarding any changes to your medications before leaving. Activity:: Activity as Tolerated Diet:: As Tolerated Discharge Orders Discharge Orders: Discharge Order (Routine); Ordered 11/12/24 Ordered By: Steven Herrera DS: Diagnosis Discharge Diagnosis (1) Iron deficiency anemia: Status: Acute Asessment and Plan: Follow-up on biopsy results
--- NOTE | 2024-11-12 20:52 | W.COLOREPORT ---
Date of service: 11/13/24 Time of Service: 09:14 Colonoscopy Report Date of procedure: 11/13/24 Pre-op diagnosis general: Anemia Post-op diagnosis procedure note: other (Grade 2 hiatal hernia; diverticulosis, segmental colitis associated with diverticulosis, 0.25 cm polyp at 40 cm) Procedure: EGD with biopsies and colonoscopy with polypectomy Surgeon: Steven Herrera Anesthesia Type: General:No Airway Estimated blood loss (mL): 10 Pathology: other (Nondirected biopsies of duodenum, gastric antrum and body, and GE junction. 0.25 cm colon polyp at 40 cm) Complications: None Disposition: same day Indications: Kushal is a 64-year-old man with iron deficiency Prep: Miralax/Dulcolax Procedure Start Time: 08:29 Procedure End Time: 08:52 Retraction Time: 9 Findings: Grade 2 hiatal hernia; pandiverticulosis, 0.25 cm colon polyp at 40 cm, segmental colitis associated with diverticulosis Procedure Description: After the initiation of anesthesia, and with the assistance of a bite block, I advanced a standard gastroscope through the mouth past the hypopharynx and into the esophagus.? Under the direct vision of the scope, I advanced down the esophagus towards the stomach.? The upper and midesophagus were normal in course and caliber. Lower esophagus was largely normal, with the exception of some mild irregularity of the Z-line, with the GE junction measuring approximately 38 cm from the incisors. Narrowband imaging was used to assist with the analysis here. This did not appear consistent with Fiore's esophagus. However, given the iron deficiency, and to be safe, I did perform some cold forceps biopsies of the GE junction. I advanced across the GE junction into the stomach with ease. The stomach was insufflated into the rugae were obliterated. Retroflexion was performed. There appeared to be a grade 2 sliding hiatal hernia. There was no evidence of any irritation or inflammation around the edge of this. The remainder of the stomach mucosa was all normal and healthy, with no evidence of inflammation or ulceration. I was able to advance down across the incisure angularis and through the pylorus into the duodenum. The duodenal villi were normal. I advanced down as far as the third portion of the duodenum. I did perform some nondirected biopsies of the duodenum. These were done with cold forceps with no issues. I saw no evidence of any inflammation or bleeding anywhere within the duodenum. The camera was then brought back up into the stomach, and some nondirected biopsies using cold forceps were performed of the gastric antrum and body to rule out Helicobacter pylori. The stomach was then emptied completely before the camera was brought out along the length of the esophagus 1 last time. No other abnormalities were appreciated. Next we rolled Kushal into the left lateral decubitus position. Great care was taken to ensure that he was padded and supported appropriately. I began by performing an external anorectal exam.? Perineum and skin were normal, as was the anal verge.? There was no evidence of external hemorrhoids.? Next, I performed a digital rectal exam.? I did not appreciate any abnormal findings.? Next, I advanced a colonoscope into the rectal vault.? I performed retroflexion.? This appeared normal.? Using irrigation, I then advanced the colonoscope beyond the rectal folds and into the sigmoid colon before advancing towards the cecum.? There is pandiverticulosis.? The scope was noted to be in the cecum by identification of the ileocecal valve and appendiceal orifice.? I then began withdrawing the colonoscope using repeated irrigation as necessary for full evaluation of the colonic mucosa. There was a colonoscopic tattoo around 70 cm from the anal verge. Several passes were taken across this area. I saw no evidence of any recurrent polyposis. I continued withdrawing the colonoscope. Within the sigmoid segment, there is evidence of segmental colitis associated with the diverticulosis. Around 40 cm from the anal verge is a 0.25 cm pedunculated polyp arising from a diverticula. This was removed with cold forceps with minimal bleeding. ?Once the scope was withdrawn to the level of the rectum, great care was taken to examine portions of the rectal folds.? Finally, the scope was withdrawn and the patient was brought to the same-day surgery recovery unit as the anesthetic wore off. ?The findings and instructions were shared with the patient prior to discharge. [place] Bowel Prep [place] Bowel Prep Right Colon: 3 Left Colon: 2 Transverse Colon: 2 Total Score: 7
[2024-11-13 07:05] VITALS: BP 153/83; PULSE 89; RESP 16; TEMP 36.2; O2SAT 94
--- NOTE | 2024-11-13 07:57 | W.ANESPRE ---
General Info Date of Service Date Performed: 11/13/24 Height: 5 ft 6 in Weight: 142.5 kg Body Mass Index (BMI): 50.7 Surgical Procedure: Operation Date: 11/13/24 08:05 Proposed Procedure Side Surgeon p Colonoscopy/Gastroscopy Steven Herrera MD Meds Allergies and Home Medications Allergies Allergy/AdvReac Type Severity Reaction Status Date / Time No Known Allergies Allergy Verified 11/13/24 07:22 Home Medication ?Medication ?Instructions ?Recorded albuterol sulfate 90 mcg/actuation 2 puff inhalation Q6H PRN 01/27/22 aerosol inhaler (Proventil HFA) allopurinol 300 mg tablet 300 mg PO DAILY 01/27/22 cetirizine 10 mg capsule (All Day 10 mg PO DAILY PRN 01/27/22 Allergy (cetirizine)) fluoxetine 40 mg capsule 40 mg PO QPM 01/27/22 fluticasone propionate 50 1 spray intranasal DAILY 01/27/22 mcg/actuation nasal spray,suspension lisinopril 20 mg tablet 20 mg PO DAILY 01/27/22 metformin 500 mg tablet 500 mg PO BID 01/27/22 multivitamin 1 tab PO DAILY 01/27/22 omega-3 fatty acids 1,000 mg 1,000 mg PO BID 01/27/22 capsule pravastatin 40 mg tablet 40 mg PO DAILY 01/27/22 glucosamine 750 mg-chondr 600 1 tab PO BID 04/30/22 mg-Bunny 50 mg-turmeric 125 mg tablets acetaminophen 500 mg tablet 1,000 mg (2 x 500 mg) PO Q8H PRN 09/28/23 pain #90 tabs omeprazole 40 mg capsule,delayed 40 mg PO DAILY 09/25/24 release semaglutide 1 mg/0.2 mL 1 mg subcut .weekly 09/25/24 subcutaneous syringe celecoxib 100 mg capsule 100 mg PO BID PRN 11/13/24 ferrous fumarate 324 mg (106 mg 324 mg PO DAILY 11/13/24 iron) tablet gabapentin 600 mg tablet 600 mg PO BID 11/13/24 metaxalone 800 mg tablet 800 mg PO PRN 11/13/24 tramadol 50 mg tablet 50 mg PO PRN 11/13/24 Current Visit Medications: Current Medications Generic Name Dose Route Start Last Admin Trade Name Freq PRN Reason Stop Dose Admin Ringer's Solution 1,000 mls @ 80 mls/hr 11/13/24 06:00 IV 11/13/24 23:59 [facility] IV Miscellaneous Supplies 1 each 11/13/24 06:00 Iv Access IV 11/13/24 23:59 DIRECTED ARLEEN Ondansetron HCl 4 mg 11/12/24 20:55 Ondansetron 4 Mg/2 Ml Vial IVP 12/12/24 20:54 Q4H PRN PRN Nausea / Vomiting Sodium Chloride 0 ml 11/13/24 06:00 Normal Saline Flush 10 Ml Syr IV 11/13/24 23:59 PRN PRN Sodium Chloride 0 ml 11/13/24 06:00 Normal Saline 10 Ml Vial IJ 11/13/24 23:59 DIRECTED PRN Sterile Water 0 ml 11/13/24 06:00 Water,Injection,Sterile 10 Ml Vial IJ 11/13/24 23:59 DIRECTED PRN PFSH Active Problems Active Problems: Problem Status Onset Code Iron deficiency anemia Acute D50.9 Osteoarthritis of right hip Acute M16.11 Polyp of descending colon Acute K63.5 Colon cancer screening Acute Z12.11 Diabetes mellitus Chronic E11.9 Hyperlipidemia Acute E78.5 Gout Chronic M10.9 ANTHONY (obstructive sleep apnea) Chronic G47.33 Hypertensive disorder Chronic I10 GERD (gastroesophageal reflux disease) Chronic K21.9 Medical History Medical History Family history of colon cancer in father Acquired buried penis Low back pain Depressive disorder Surgical History Surgical History History of total left hip arthroplasty (09/28/23) History of colonoscopy with polypectomy (~07/26/23) [facility] endoscopic mucosal resection Arthrofibrosis of total knee arthroplasty RIGHT S/P manipulation under anesthesia: 08/19/2022 Status post total right knee replacement (05/05/22) Hx of abdominal surgery pt. has seven pounds of stomach removed and penile reconstruction H/O umbilical hernia repair sub umbilical w/mesh History of colonoscopy History of hernia repair History of hydrocelectomy Tobacco Smoking/Tobacco Use Status: Never Passive smoking exposure: No Alcohol Alcohol Intake: current Alcohol intake frequency: a few times a week Alcohol type: beer and hard liquor Substance Use Substance use: Never Substance use type: does not use Vital Signs and Lab Results Vital Signs Most Recent Vital Signs in EMR: Most Recent Vital Signs Temp Pulse Resp BP Pulse Ox 36.2 C L 89 16 153/83 H 94 11/13/24 07:05 11/13/24 07:05 11/13/24 07:05 11/13/24 07:05 11/13/24 07:05 Point of Care Results Point of Care Results: Finger Stick Blood Glucose 169 11/13/24 07:12 Anesthesia Assessment and Plan Anesthesia History Personal History: No History of Anesthesia Complications Family History: No Family History of Anesthesia Complications Exercise Tolerance Exercise Tolerance: Metabolic Equivalents>4 Pertinent Negatives Pertinent Negatives: No Symptoms of GERD Cardiac & Pulmonary Exam Cardiac Exam: Normal S1/S2 Heart Sounds Pulmonary Exam: Clear Bilateral Breath Sounds Implantable Cardiac Device Does patient have a Pacemaker or an ICD?: No Airway Exam Known Difficult Airway: No Mallampati Class: 2 Mouth Opening: Normal (> 3cm) Thyromental Distance: Greater than 3 cm Neck Range of Motion: Full ROM Neck Circumference: Thick Teeth Condition: Normal Dentition ASA Classification ASA Score: ASA 3 Emergency Case?: No NPO Status NPO Status: NPO Clears >2 hours, Solids >8 hours Anesthesia Plan Resuscitation Status: Full Code Anesthesia Technique: General Anesthesia Airway Planned: Natural Airway Monitors Used: Standard Monitors
[2024-11-13 07:59] VITALS: BMI 50.7
[2024-11-13] MEDS: Lactated Ringers 1,000 ML 80 ML IV (08:20)
--- NOTE | 2024-11-13 08:32 | BOWEL_PTH ---
PATIENT: Kushal Keane LOC: [facility] U#:[id number] AGE/SX: 64/M ROOM: RE11/13/[address]: Steven Herrera MD : 1960 BED: DIS: 11/13/2024 SPEC #: [id number] RECD: 11/13/24 12:32 STATUS: CORNEL RE #: [id number] ZACHARY: 11/13/24 08:[address]: Steven Herrera DEPT: Surgical Specimen RECD BY: Dana Gallego Tissues: 1 - BIOPSY BOWEL 2 - STOMACH BIOPSY 3 - STOMACH BIOPSY 4 - ESOPHAGUS BIOPSY 5 - BIOPSY BOWEL Procedures: GROSS AND MICRO LEVEL 4 Comments: [id number]
[2024-11-13 08:55] VITALS: BP 98/43; PULSE 83; RESP 15; TEMP 36.2; O2SAT 94
[2024-11-13 09:25] VITALS: BP 154/77; PULSE 76; RESP 16; TEMP 36.5; O2SAT 96
--- NOTE | 2024-11-13 09:39 | W.ANESPOSTOP ---
Postoperative Evaluation Date, Time and Location Date Performed: 11/13/24 Time Performed: : Patient Location: Day Surgery Unit Vital Signs Most Recent Imported Vital Signs: Most Recent Vital Signs Temp Pulse Resp BP Pulse Ox 36.5 C 76 16 154/77 H 96 11/13/24 09:25 11/13/24 09:25 11/13/24 09:25 11/13/24 09:25 11/13/24 09:25 Pain Score Most Recent Pain Score: Most Recent Pain Score Pain Level 0 11/13/24 09:25 Assessment Mental Status: Awake (Alert & Oriented to Patient Baseline) Airway and Respiratory Function: Patent airway with normal (patient baseline) respiratory exam Cardiovascular Function: Hemodynamically Stable Hydration Status: Adequately Hydrated Nausea & Vomiting: No Nausea or Vomiting Pain: Pt. Denies Any Pain Peripheral Nerve Block: Patient did not receive a nerve block
== END 2024-11-13 09:45 | disposition home or self-care (01) ==
LOC: SUR 06:58
PROVIDERS: PCP Family Medicine; Visit Provider Surgery
PROC: (CPT 45380; principal; 2024-11-13 08:00)
DX: D50.9 Iron deficiency anemia, unspecified (principal); K44.9 Diaphragmatic hernia without obstruction or gangrene; K57.30 Diverticulosis of large intestine without perforation or abscess without bleeding; K50.10 Crohn's disease of large intestine without complications; K63.89 Other specified diseases of intestine; K31.89 Other diseases of stomach and duodenum
CPT/HCPCS: 45380; 43239; 88305; J2003; J2704